=== PATIENT | female | born 1975 | race Caucasian/White ===

== ENCOUNTER → 2023-08-22 | Outpatient (CLI) | payer BC, SELFPAY ==
--- OUTSIDE RECORDS SUMMARY | 2023-08-22 16:01 | XMS RPT_ITS | CCD ---
Author Name Unknown Address [address] [place] [address] Organization [facility] Care Team Providers Care Parachute Taper Name Role Phone MigdaliazacharyEne clarknghia Unavailable Unavailable Gardilcic, Stjepan Unavailable Unavailable Jose Alfredo Dueñas Unavailable Unavailable Jose Alfredo Dueñas Unavailable Unavailable Angel, [place] Marni Unavailable Unavailable Angel, [place] Marni Unavailable Unavailable Gardilcic, Stjepan Unavailable Unavailable Gardilcic, Stjepan Unavailable Unavailable Angel, [place] Marni Unavailable Unavailable Angel, [place] Marni Unavailable Unavailable Cassandra Huerta Unavailable Unavailabl e aCssandra Huerta Unavailable Unavailabl e Margaret Hernandez Unavailable Margaret Hernandez Primary Care Provider No, Physician Primary Care Provider Unavailabl e Margaret Hernandez Primary Care Provider [phone] Margaret Hernandez Primary Care Provider David [employer]-Margaret MARTÍNEZ Primary Care Provider Margaret Hernandez CNP Primary Care Provider David [employer]-Margaret MARTÍNEZ Primary Care Provider Margaret Hernandez CNP Primary Care Provider MARGARET HERNANDEZ Primary Care Unavailable LAWSON VÁZQUEZ JR. Admitting Unavailable LAWSON VÁZQUEZ JR. Attending Unavailable Margaret Tobias Primary Care Provider TERE BELTRE Attending Unavailable TERE BELTRE Admitting Unavailable MARGARET HERNANDEZ Primary Care Unavailable TERE BELTRE Referring Unavailable MARGARET HERNANDEZ Primary Care Unavailable ZAGHLOOL, TERE S Referring Unavailable ZAGHLOOL, TERE S Attending Unavailable Hernandez Margaret MARTÍNEZ Primary Care Provider ATTILA BAILEY Attending Unavailable HERNANDEZ, MARGARET RUSSEL Primary Care Unavailable JANTE GALLAGHER Attending Unavailable KATHIE JR., LAWSON Admitting Unavailable HERNANDEZ, MARGARET RUSSEL Primary Care Unavailable HERNANDEZ, MARGARET RUSSEL Primary Care Unavailable JERI ONTIVEROS Attending Unavailable HERNANDEZ, MARGARET RUSSEL Primary Care Unavailable KATHIE JR., LAWSON Attending Unavailable KATHIE JR., LAWSON Referring Unavailable HERNANDEZ, MARGARET RUSSEL Primary Care Unavailable KATHIE JR., LAWSON Admitting Unavailable HERNANDEZ, MARGARET RUSSEL Primary Care Unavailable KATHIE JR., LAWSON Attending Unavailable HERNANDEZ, MARGARET RUSSEL Primary Care Unavailable KATHIE JR., LAWSON Attending Unavailable HERNANDEZ, MARGARET RUSSEL Primary Care Unavailable KATHIE JR., LAWSON Attending Unavailable HERNANDEZ, MARGARET RUSSEL Primary Care Unavailable DAMIEN ARMENTA Attending Unavailable HERNANDEZ, MARGARET RUSSEL Primary Care Unavailable KATHIE JR., LAWSON Attending Unavailable KATHIE JR., LAWSON Referring Unavailable KATHIE JR., LAWSON Admitting Unavailable HERNANDEZ, MARGARET RUSSEL Primary Care Unavailable HERNANDEZ, MARGARET RUSSEL Primary Care Unavailable KATHIE JR., LAWSON Attending Unavailable HERNANDEZ, MARGARET RUSSEL Primary Care Unavailable KATHIE JR., LAWSON Attending Unavailable KATHIE JR., LAWSON Referring Unavailable KATHIE JR., LAWSON Admitting Unavailable HERNANDEZ, MARGARET RUSSEL Primary Care Unavailable HERNANDEZ, MARGARET Primary Care Unavailable HERNANDEZ, MARGARET Primary Care Unavailable SELF, SELF Referring Unavailable HERNANDEZ, MARGARET Primary Care Unavailable HERNANDEZ, MARGARET Attending Unavailable HERNANDEZ, MARGARET Referring Unavailable HERNANDEZ, MARGARET Primary Care Unavailable HERNANDEZ, MARGARET Attending Unavailable SELF, SELF Referring Unavailable HERNANDEZ, MARGARET Primary Care Unavailable HERNANDEZ, MARGARET Attending Unavailable HERNANDEZ, MARGARET Attending Unavailable SELF, SELF Referring Unavailable HERNANDEZ, MARGARET Primary Care Unavailable HERNANDEZ, MARGARET Attending Unavailable SELF, SELF Referring Unavailable HERNANDEZ, MARGARET Primary Care Unavailable ZAGHLOOL, TERE S Referring Unavailable ZAGHLOOL, TERE S Attending Unavailable ZAGHLOOL, TERE S Referring Unavailable ZAGHLOOL, TERE S Attending Unavailable HERNANDEZ, MARGARET Primary Care Unavailable HERNANDEZ, MARGARET Primary Care Unavailable SELF, SELF Referring Unavailable HERNANDEZ, MARGARET Attending Unavailable HERNANDEZ, MARGARET Primary Care Unavailable HERNANDEZ, MARGARET Attending Unavailable SELF, SELF Referring Unavailable HERNANDEZ, MARGARET Primary Care Unavailable HERNANDEZ, MARGARET Referring Unavailable HERNANDEZ, MARGARET Attending Unavailable HERNANDEZ, MARGARET Primary Care Unavailable SELF, SELF Referring Unavailable HERNANDEZ, MARGARET Attending Unavailable HERNANDEZ, MARGARET Primary Care Unavailable HERNANDEZ, MARGARET Referring Unavailable TERE BELTRE Attending Unavailable HERNANDEZ, MARGARET Referring Unavailable TERE BELTRE Attending Unavailable HERNANDEZ, MARGARET Primary Care Unavailable SELF, SELF Referring Unavailable HERNANDEZ, MARGARET Primary Care Unavailable HERNANDEZ, MARGARET Attending Unavailable HERNANDEZ, MARGARET Primary Care Unavailable DAMIEN WANG Attending Unavailable Medications Current Medications Medication Drug Class(es) Dates Sig (Normalized) Sig (Original) acetaminophen 325 mg / oxyCODONE hydrochloride 5 mg oral tablet (5 sources) [employer]ioid [employer]onist Start: 11-14-2022 End: 11-21-2022 oxyCODONE-acetamin ophen (PERCOCET) 5-325 mg per tablet Indications: Hammer toe of left foot , Foot pain, left Take 1 (one) tablet by mouth every 6 (six) hours as needed for pain (Days supply per fill: 7) . 28 tablet 0 11/14/2022 11/21/2022 Active Completed/Discontinued Medications Medication Drug Class(es) Dates Sig (Normalized) Sig (Original) acetaminophen 325 mg oral tablet (1 source) Start: 06-08-2020 End: 06-08-2020 acetaminophen (TYLENOL) tablet 975 mg acetaminophen 325 mg / HYDROcodone bitartrate 5 mg oral tablet (8 sources) Opioid Agonist Start: 03-01-2023 End: 04-17-2023 take 1 tablet by mouth every four hours as needed hydroCODone-acetami nophen 5-325 MG tablet Indications: Breast pain Take 1 tablet by mouth every 4 hours as needed for up to 4 days. 12 tablet 0 03/01/2023 04/17/2023 Discontinued (Therapy completed) Problems Active Problems Problem Classification Problem Date Documented Da te Episodic/Chronic Abdominal pain (5 sources) Right lower quadrant pain; Translations: [Right lower quadrant pain] Episodic Acquired foot deformities (18 sources) Hammer toe; Translations: [Other hammer toe(s) (acquired), left foot] Onset: 3 Chronic Adjustment disorders (1 source) Brief depressive adjustment reaction; Translations: [Adjustment Reaction with Brief Depressive Reaction] Chronic Administrative/social admission (1 source) Patient encounter status; Translations: [Persons encountering health services in other specified circumstances] 12-19-2023 Episodic Anxiety disorders (20 sources) Anxiety; Translations: [Generalized anxiety disorder] Onset: 1 05-03-2021 Chronic Asthma (8 sources) Asthma; Translations: [Unspecified asthma, uncomplicated] Onset: 3 11-06-2022 Chronic Chronic obstructive pulmonary disease and bronchiectasis (5 sources) Chronic obstructive lung disease; Translations: [Chronic obstructive pulmonary disease, unspecified] Onset: 3 Chronic Diabetes mellitus without complication (1 source) Hyperglycemia; Translations: [Impaired fasting glucose] 07-17-2023 Episodic Disorders of lipid metabolism (20 sources) Mixed hyperlipidemia; Translations: [Mixed hyperlipidemia] Onset: 1 06-01-2021 Chronic Disorders of teeth and jaw (1 source) Tenderness of left temporomandibular joint; Translations: [Arthralgia of left temporomandibular joint] Episodic Disorders of teeth and jaw (1 source) Pain of right temporomandibular joint; Translations: [Arthralgia of right temporomandibular joint] E Codes: Fall (2 sources) Unspecified fall, initial encounter; Translations: [Unspecified fall, initial encounter] Onset: 3 Episodic Esophageal disorders (1 source) Disorder of esophagus; Translations: [Abnormality of esophagus] Episodic Fever of unknown origin (2 sources) Fever; Translations: [Febrile illness, acute] Episodic Headache; including migraine (1 source) Tension-type headache Episodic Hemorrhoids (1 source) External hemorrhoids without complication; Translations: [Residual hemorrhoidal skin tags] 06-15-2023 Episodic Immunizations and screening for infectious disease (1 source) Contact with and (suspected) exposure to other viral communicable diseases; Translations: [Suspected COVID-19 virus infection] Episodic Malaise and fatigue (1 source) Fatigue; Translations: [Other fatigue] 07-31-2023 Episodic Miscellaneous mental health disorders (20 sources) Primary insomnia; Translations: [Primary insomnia] Onset: 1 05-03-2021 Chronic Mood disorders (20 sources) Severe recurrent major depression without psychotic features; Translations: [Recurrent major depressive episodes, moderate ] Onset: 1 05-03-2021 Chronic Other aftercare (2 sources) Follow-up status; Translations: [Encounter for follow-up examination after completed treatment for conditions other than malignant neoplasm] Episodic Other aftercare (2 sources) Surgical follow-up; Translations: [Encounter for follow-up examination after completed treatment for conditions other than malignant neoplasm] 12-07-2022 Episodic Other aftercare (1 source) Postoperative visit; Translations: [Encounter for other specified surgical aftercare] 03-19-2023 Episodic Other gastrointestinal disorders (3 sources) Irritable bowel syndrome with diarrhea; Translations: [Irritable bowel syndrome with diarrhea] Chronic Other gastrointestinal disorders (1 source) Chronic constipation; Translations: [Other constipation] Episodic Other gastrointestinal disorders (1 source) Constipation; Translations: [Constipation, unspecified] Episodic Other gastrointestinal disorders (2 sources) Abdominal bloating; Translations: [Abdominal distension (gaseous)] Episodic Other gastrointestinal disorders (1 source) Diarrhea; Translations: [Diarrhea, unspecified] Episodic Other gastrointestinal disorders (1 source) Functional diarrhea; Translations: [Functional diarrhea] Episodic Other lower respiratory disease (1 source) Lower respiratory tract infection; Translations: [Lower respiratory tract infection] Episodic Other lower respiratory disease (1 source) Dyspnea; Translations: [Dyspnea, unspecified type] Episodic Other lower respiratory disease (1 source) Cough; Translations: [Cough, unspecified type] Episodic Other lower respiratory disease (1 source) Snoring; Translations: [Snoring] 07-17-2023 Episodic Other non-traumatic joint disorders (3 sources) Pain in right knee; Translations: [Pain in joint, lower leg] Onset: 3 07-03-2023 Episodic Other nutritional; endocrine; and metabolic disorders (2 sources) Body mass index 30+ - obesity; Translations: [Obesity (BMI 30-39.9)] Chronic Other nutritional; endocrine; and metabolic disorders (1 source) Hypocalcemia; Translations: [Hypocalcemia] Chronic Other nutritional; endocrine; and metabolic disorders (20 sources) Obese class I; Translations: [Obesity, unspecified] Onset: 1 05-03-2021 Chronic Other nutritional; endocrine; and metabolic disorders (20 sources) Obesity; Translations: [Other obesity due to excess calories] Onset: 1 05-03-2021 Chronic Other nutritional; endocrine; and metabolic disorders (4 sources) Obesity caused by energy imbalance; Translations: [Other obesity due to excess calories] Onset: 1 05-03-2021 Chronic Other nutritional; endocrine; and metabolic disorders (1 source) Overweight in adulthood with body mass index of 25 or more but less than 30; Translations: [Body mass index (BMI) 28.0-28.9, adult] Episodic Other nutritional; endocrine; and metabolic disorders (1 source) Polyphagia; Translations: [Polyphagia] 07-31-2023 Episodic Other screening for suspected conditions (not mental disorders or infectious disease) (2 sources) Mammography abnormal; Translations: [Other abnormal and inconclusive findings on diagnostic imaging of breast] Episodic Other upper respiratory infections (1 source) Viral upper respiratory tract infection; Translations: [Viral URI] Episodic Sprains and strains (1 source) Sprain of unspecified ligament of right ankle, initial encounter; Translations: [Sprain of right ankle, unspecified ligament, initial encounter] Episodic Substance-related disorders (8 sources) Nicotine dependence; Translations: [Nicotine dependence, unspecified, uncomplicated] Onset: 3 11-06-2022 Chronic Unclassified (1 source) Sprain of left ankle; Translations: [Sprain of left ankle, unspecified ligament, initial encounter] Viral infection (2 sources) Disease caused by 2019-nCoV; Translations: [COVID-19] Episodic Past or Other Problems Problem Classification Problem Date Documented Da te Episodic/Chronic Calculus of urinary tract (20 sources) Ureteric stone; Translations: [Calculus of ureter] Onset: 06-28-2021 Episodic Mood disorders (20 sources) Mood disorders; Translations: [Depression, unspecified] Onset: 08-23-2021 Resolved: 04-17-2023 08-23-2021 Nonmalignant breast conditions (20 sources) Lump in lower outer quadrant of left breast; Translations: [Unspecified lump in the left breast, lower outer quadrant] Onset: 01-29-2023 Episodic Other aftercare (4 sources) Encounter for follow-up examination after completed treatment for conditions other than malignant neoplasm; Translations: [Encounter for follow-up examination after completed treatment for conditions other than malignant neoplasm] Onset: 09-19-2022 Episodic Other connective tissue disease (16 sources) Pain in left foot; Translations: [Pain in left foot] Onset: 10-03-2022 Episodic Other nutritional; endocrine; and metabolic disorders (2 sources) Body mass index (BMI) 28.0-28.9, adult; Translations: [Body mass index (BMI) 28.0-28.9, adult] Onset: 11-01-2022 Episodic Skin and subcutaneous tissue infections (2 sources) Local infection of the skin and subcutaneous tissue, unspecified; Translations: [Local infection of the skin and subcutaneous tissue, unspecified] Onset: 01-23-2023 Episodic Unclassified (1 source) Onset: 07-31-2023 07-31-2023 Results Test Name Value Interpretation Reference Range Facil ity Vital Signs Date Time Vital Sign Value Performing Clinician Faci lity 07-31-2023 14:00-0500 Body height 157.5 cm Sheryl Hebert [employer] Work Phone: [facility] 07-31-2023 14:00-0500 Body mass index (BMI) [Ratio] 35.96 kg/m2 Sheryl Anup [facility] Work Phone: [facility] 07-31-2023 14:00-0500 Body temperature 97.7 [degF] Sheryl Hebert [facility] Work Phone: [facility] 07-31-2023 14:00-0500 Body weight 89.18 kg Sheryl Hebert [facility] Work Phone: [facility] 07-31-2023 14:00-0500 Diastolic blood pressure 102 mm[Hg] Sheryl Hebert [employer] Work Phone: [facility] 07-31-2023 14:00-0500 Heart rate 107 /min Sheryl Hebert [facility] Work Phone: [facility] 07-31-2023 14:00-0500 Respiratory rate 20 /min Sherylkayy Hebert [facility] Work Phone: [facility] 07-31-2023 14:00-0500 SaO2% (BldA) [Mass fraction] 98 % Sherylkayy Hebert [facility] Work Phone: [facility] 07-31-2023 14:00-0500 Systolic blood pressure 149 mm[Hg] Sheryl Hebert [employer] Work Phone: [facility] 07-17-2023 07:58-0500 Body height 157.5 cm Margaret Hernandez [employer] Work Phone: [facility] Encounters Encounter Date Encounter Type Care Provider Facility Start: 07-31-2023 End: 07-31-2023 Office outpatient new 45 minutes Sheryl Hebert [employer] Work Phone: [facility] Procedures Date Procedure Procedure Detail Performing Clinician Start: 07-16-2023 Lipid 1996 panel - Serum or Plasma Margaret Hernandez [employer] Work Phone: Start: 07-03-2023 Arthrocentesis aspir&/inj major jt/bursa w/o Damien Armenta MD Work Phone: Start: 03-01-2023 Assay of magnesium Tere Blackmonol DO Work Phone: Start: 03-01-2023 Complete blood count with white cell differential, automated Tere Blackmonol DO Work Phone: Start: 02-28-2023 Electrolyte panel Tere Blackmonol DO Work Phone: Start: 02-28-2023 Cultyp nuc acid amp prb cult/isolate ea orgnism Tere Zaratelool DO Work Phone: Start: 02-28-2023 End: 02-28-2023 Mastectomy simple complete Tere Zaratel ool DO Work Phone: Start: 01-04-2023 Follow-up visit Follow-up LAWSON VÁZQUEZ JR. Start: 12-21-2022 Radex foot complete minimum 3 views Lawson Vázquez DPM Work Phone: Start: 10-31-2022 Lipid 1996 panel - Serum or Plasma Margaret Hernandez [employer] Work Phone: Start: 09-19-2022 End: 09-19-2022 Diagnostic mammography computer-aided detcj bi Tere Blackmonol DO Work Phone: Start: 06-22-2022 Iaadiadoo influenza Fátima Bradley [employer] Work Phone: Start: 06-22-2022 SARS-COV-2 RAPID Fátima Bradley [employer] Work Phone: Start: 03-16-2022 Bx breast w/device 1st lesion ultrasound guid Tere Beltre DO Work Phone: Start: 03-08-2022 Diagnostic mammography computer-aided detcj uni Margaret Hernandez [employer] Work Phone: Start: 02-20-2022 Lipid 1996 panel - Serum or Plasma Margaret Hernandez [employer] Work Phone: Start: 01-02-2022 End: 01-02-2022 Colonoscopy Margaret Hernandez [employer] Work Phone: Start: 11-21-2021 AIRWAY ETT Abelardo SPEARS Work Phone: Start: 06-30-2021 Basic metabolic panel calcium total Gladis Palmer MD Work Phone: Start: 06-30-2021 C-reactive protein Tammie Hastings [facility] Work Phone: Start: 06-29-2021 XR OR FLUOROSCOPY TIME Gladis Palmer MD Work Phone: Start: 06-29-2021 End: 06-29-2021 CYSTOSCOPY WITH RETROGRADE STONE MANIPULATION STENT INSERTION Gladis Palmer MD Work Phone: Start: 06-29-2021 End: 06-29-2021 CYSTOSCOPY WITH URETERAL STENT REMOVAL Gladis Palmer MD Work Phone: Start: 06-29-2021 End: 06-29-2021 CYSTOSCOPY WITH URETEROSCOPY Gladis car MD Work Phone: Start: 06-29-2021 SARS-CoV-2 (COVID-19) RNA [Presence] in Respiratory specimen by DEMOND with probe detection Tere Chavez MD Work Phone: Start: 06-29-2021 Basic metabolic panel calcium total Gladis Palmer MD Work Phone: Start: 06-28-2021 SARS-CoV-2 (COVID-19) RNA [Presence] in Respiratory specimen by DEMOND with probe detection Gladis Palmer MD Work Phone: Start: 05-23-2021 Lipid 1996 panel - Serum or Plasma Margaret Hernandez [employer] Work Phone: Start: 05-23-2021 Mammography Gladis Palmer MD Work Phone: Start: 06-17-2020 Diagnostic radiography of chest, combined PA and lateral Chelle Bridges Work Phone: Start: 06-10-2020 CT angiography of pulmonary artery Amalia Ling Work Phone: Start: 06-10-2020 Complete blood count with white cell differential, automated Amalia Guevara Anuradha Work Phone: Start: 06-10-2020 Complete blood count with white cell differential, manual Amalia Nealmegan Ling Work Phone: Start: 06-10-2020 Comprehensive metabolic 2000 panel - Serum or Plasma Amalia Nealmegan Ling Work Phone: Start: 06-10-2020 INR in Platelet poor plasma by Coagulation assay Amalia Ling Work Phone: Start: 06-10-2020 Magnesium [Mass/volume] in Serum or Plasma Amalia Ling Work Phone: Start: 06-10-2020 Red blood cell morphology Amalia Russel Ling Work Phone: Start: 06-10-2020 COVID-19, MOLECULAR Amalia Nealmegan Ling Work Phone: Start: 06-08-2020 CT angiography of pulmonary artery Amalia Ling Work Phone: Start: 06-08-2020 Basic metabolic 2000 panel - Serum or Plasma Annalisa Ortiz Work Phone: Start: 06-08-2020 Comprehensive metabolic 2000 panel - Serum or Plasma Annalisa Ortiz Work Phone: Start: 06-08-2020 D-dimer assay, quantitative Amalia Ly nn Anuradha Work Phone: Start: 06-08-2020 INR in Platelet poor plasma by Coagulation assay Annalisa Ortiz Work Phone: Start: 06-08-2020 Magnesium [Mass/volume] in Serum or Plasma Annalisa Ortiz Work Phone: Start: 06-08-2020 Troponin measurement Annalisa Ortiz Work Phone: Start: 06-08-2020 Complete blood count with white cell differential, automated Annalisa Ortiz Work Phone: Start: 06-08-2020 Complete blood count with white cell differential, manual Annalisa Ortiz Work Phone: Start: 06-08-2020 Radiologic exam chest single view Annalisa Ortiz Work Phone: Start: 06-08-2020 12 lead ECG Annalisa Ortiz Work Phone: Start: 06-08-2020 COVID-19, MOLECULAR Annalisa Ortiz Work Phone: Start: 07-05-2019 Ethanol [Mass/volume] in Serum or Plasma Polly Funez Work Phone: Start: 07-05-2019 Choriogonadotropin ( test) [Presence] in Urine Polly Funez Work Phone: Start: 07-05-2019 Drugs of abuse urine screening test Polly Funez Work Phone: Start: 02-09-2019 X-ray of left ankle Mirta Reyes Work Phone: Start: 02-09-2019 X-ray of left foot Mirta Reyes Work Phone: Start: 12-19-2018 X-ray of right foot Shan Crowe Work Phone: Start: 12-19-2018 X-ray of right ankle Shan Crowe Work Phone: Start: 12-12-2018 X-ray of left foot Mirta Reyes Work Phone: Start: 12-12-2018 Basic metabolic 1998 panel - Serum or Plasma Mirta Reyes Work Phone: Start: 12-12-2018 Complete blood count with white cell differential, automated Mirta Reyes Work Phone: Start: 12-12-2018 Complete blood count with white cell differential, manual Mirta Reyes Work Phone: Start: 12-12-2018 Manual Differential panel - Blood Mirta Reyes Work Phone: Start: 12-12-2018 Red blood cell morphology Mirta Villagran Work Phone: Start: 02-18-2018 Lipid 1996 panel - Serum or Plasma Margaret Hernandez Plan of Treatment Date Care Activity Detail Author Start: 12-17-2039 PNEUMOCOCCAL VACCINE SERIES (2 of 2 - PPSV23) PNEUMOCOCCAL VACCINE SERIES (2 of 2 - PPSV23) [facility] Start: 12-17-2039 Pneumococcal Vaccine: Ped or At-Risk (2 of 2 - PPSV23) Pneumococcal Vaccine: Ped or At-Risk (2 of 2 - PPSV23) [facility] Start: 01-03-2032 Screening for malignant neoplasm of colon [facility] Start: 07-16-2028 Lipid panel LIPID SCREENING [facility] Start: 11-01-2027 Lipid panel LIPID SCREENING [facility] Start: 02-20-2027 Fasting lipid profile LIPID SCREENING [facility] Start: 02-20-2027 Lipid panel LIPID SCREENING [facility] Start: 05-23-2026 Fasting lipid profile LIPID SCREENING [facility] Start: 10-17-2023 End: 10-17-2023 Patient encounter procedure 10/17/2023 8:15 AM EST Office Visit [facility] [address] [facility] [place] [address] Margaret Hernandez [employer] [address] [place] [phone] [facility] Start: 09-20-2023 End: 09-20-2023 Patient encounter procedure 09/20/2023 1:30 PM EST Office Visit [facility] [address] [place] [address] Lupe Hernandez, [employer] [address] [place] [address] [facility] Start: 09-19-2023 Screening for malignant neoplasm of breast [facility] Start: 09-12-2023 End: 09-12-2023 Patient encounter procedure 09/12/2023 2:30 PM EST Office Visit [address] [phone] Sheryl Hebert, [employer] [address] [place] [id number] [facility] Start: 07-31-2023 End: 07-31-2023 Patient encounter procedure 07/31/2023 2:00 PM EST Office Visit [address] [phone] Sheryl Hebert, [employer] [address] [place] [id number] [facility] Start: 07-17-2023 End: 07-17-2023 Patient encounter procedure [facility] Start: 04-17-2023 End: 04-16-2024 Complete blood count with white cell differential, automated CBC, EDIF, PLATELET Lab Routine Mixed hyperlipidemia Expected: 04/17/2023 (Approximate), Expires: 04/16/2024 [facility] Immunizations Immunization Date Immunization Notes Care Provider Inez funk 03-17-2011 pneumococcal polysaccharide vaccine, 23 valent [facility] Work Phone: Payers Date Payer Category Payer Unknown [id number] 2021 Unknown ANTHEM ANTHEM HM O PPO POS [id number] 2021-Present [address] [place] [address] [id number] [id number]. [id number] 2021 Unknown [id number] 2016 Unknown xxxxxxxxxxxxxxx [id number]. [id number] 2016 Unknown ANTHEM ANTHEM HM O PPO POS [id number] 2016-Present [id number] 1.2.840.645995.1.13.172.2.7.3. [id number] 1974 Unknown [id number] 2.16.840.1.057645.3.579.2.903 1974 Unknown [id number] 2.16.840.1.441372.3.579.2. 1974 Unknown [id number] 2.16.840.1.040590.3.579.2.98 1974 Unknown [id number] 2.16.840.1.511016.3.579.2.90 1974 Unknown [id number] 2.16.840.1.167232.3.579.2. 1974 Unknown [id number] 2.16.840.1.184072.3.579.2.903 1974 Unknown [id number] 2.16.840.1.190767.3.579.2.3 1974 Unknown [id number] 2.16.840.1.186820.3.579.2. 1974 Unknown [id number] 2.16.840.1.886704.3.579.2. 1974 Unknown [id number] 2.16840.1.360050.3.579.2 1974 Unknown [id number] 2.16.840.1.724592.3.579.2. 1974 Unknown [id number] 2.16840.1.450771.3.579.2 1974 Unknown [id number] 2.16840.1.268629.3.579.2 1974 Unknown [id number] 2.840.1.946617.3.579.2. 1974 Unknown [id number] 2.840.1.932982.3.579.2 1974 Unknown [id number] 2.840.1.523915.3.579.2. 1974 Unknown [id number] 2.840.1.601420.3.579.2. 1974 Unknown [id number] 2.840.1.765590.3.579.2. 1974 Unknown [id number] 2.16840.1.356711.3.579.2 1974 Unknown [id number] 2.16840.1.490390.3.579.2. 1974 Unknown [id number] 2.16840.1.086496.3.579.2. 1974 Unknown [id number] 2.16840.1.542875.3.579.2. 1974 Unknown [id number] 2.16.840.1.278410.3.579.2.983 1974 Unknown [id number] 2.16.840.1.106199.3.579.2.983 1974 Unknown [id number] 2.16.840.1.689204.3.579.2.983 1974 Unknown [id number] 2.16.840.1.810446.3.579.2.98 1974 Unknown [id number] 2.16.840.1.368488.3.579.2.983 1974 Unknown [id number] 2.16.840.1.684860.3.579.2.983 1974 Unknown [id number] 2.16.840.1.882570.3.579.2.983 1974 Unknown [id number] 2.16.840.1.211587.3.579.2.983 1974 Unknown [id number] 2.16.840.1.801197.3.579.2.983 1974 Unknown [id number] 2.16.840.1.511669.3.579.2.983 1974 Unknown [id number] 2.16.840.1.235581.3.579.2.983 1974 Unknown [id number] 2.16.840.1.972194.3.579.2.983 [facility] [id number] Social History Date Type Detail Facility Start: 07-23-2018 End: 11-06-2022 Tobacco smoking status NHIS Current every day smoker [facility] End: 04-07-2023 History of tobacco use Cigarette Smoker [facility] Work Phone: Start: 07-23-2018 End: 04-17-2023 Cigarettes smoked current (pack per day) - Reported [facility] Start: 1975 Sex Assigned At Not on file [facility] Work Phone: Start: 08-26-2018 End: 06-22-2022 Tobacco Comment [facility] Start: 12-11-2018 End: 06-10-2020 History SDOH Alcohol Frequency 1 [facility] Start: 07-05-2019 End: 01-16-2023 Alcohol intake Lifetime non-drinker (finding) [facility] Start: 06-08-2020 End: 07-17-2023 Tobacco use and exposure Never used [facility] Exposure to SARS-CoV -2 (event) Yes [facility] Start: 11-11-2021 End: 02-28-2023 Exposure to SARS-CoV-2 (event) Not sure [facility] Start: 06-17-2020 End: 07-31-2023 Alcohol intake Current non-drinker of alcohol (finding) [facility] Start: 09-04-2022 Tobacco Comment Tried to stop no success [facility] Start: 06-10-2020 End: 04-17-2023 Alcohol Use Disorder Identification Test - Consumption [AUDIT-C] [facility] How often to you hav e a drink containing alcohol? Never [facility] Average Number of Drinks [facility] Start: 12-11-2018 Gender identity Identifies as female gender (finding) [facility] Start: 12-11-2018 Sexual orientation Heterosexual (finding) [facility] Start: 02-20-2023 End: 07-03-2023 Alcohol intake Ex-drinker (finding) [facility] Start: 07-17-2023 Tobacco smoking status NHIS Ex-smoker [facility] End: 04-07-2023 History of tobacco use Current smoker [facility] em Medical Equipment Procedure Code Equipment Code Equipment Origin al Text Equipment Identifier Dates Stent 4.6fr X 24 cm Ureteral With Monofilament Tether - Sna [id number]( [id number], [id number] FDA Start: 06-29-2021 Stent 6fr 24cm Ureteral Blue Diamond - Sna [id number]( [id number], [id number], [id number] FDA Start: 06-25-2021 Stent 6fr X 24cm Ureter W/O Wire - [id number] [facility] Start: 07-29-2021 Hattie [id number] X 9i n Smooth Dbl Dmd Pt - Sna [id number] Start: 11-20-2022 Clinical Notes 12-24-2020 to 07-31-2023 Le William - 07/31/2023 2:00 PM Phani Parekh LPN - 07/31/2023 2:00 PM Troy Hebert CNP - 07/31/2023 2:00 PM Juan C López MA - 07/17/2023 8:00 AM ESTDischarge Instructions Note Date & Type Note Facility 07-31-2023 History of Presen t illness Narrative Office Visit Clinical Staff Note: Brief Weight History - Medical Weight Loss Program Starting Weight: Office Visit Clinical Staff Note: Brief Weight History - Always has been heavier patient stated. Family history of obesity Medical Weight Loss Program Starting Weight: 196.6 Patient here for Medical Weight Loss [place]: Heydi Dill is a 47 y.o. y.o. female who presents today with the complaint of obesity. She states that she has had gradual weight gain and would like to have assistance with weight loss. Goal of Medical Weight Loss: She wants to feel healthy Do you ever eat excessive amounts of food in a short period of time?: Yes On average, how often do you do this?: once or twice a day Do you feel remorse or distressed over this eating pattern?: Yes Behavior change/strategies to overcome barriers: Use to smoke and when she would smoke that would help her fight her cravings to eat. Now that she has stopped smoking she doesn't try any Behavior modifications to help with cravings. Lifetime weight/dieting history: Cabbage soup diet and not eating after 6 pm. Current eating pattern: Eats 2 times a day . For breakfast she usually drinks a can of Dr Wright. She will drink 3 cans a day and water in between meals. Lunch is typically sandwich( deli sandwich) and chips small bag of chips. Snacking in between breakfast and lunch and lunch and dinner on chips cookies candy . She is waking up in middle of the night and eating. Dinner is a typically meat 2 starchy veggies and a dessert. Peanut butter pie. Types of overeating (snacking, eating at night, large meals): snacking Exercise habits: walking daily at work. During summer hours she walks to work and back. She has used prescription medication for weight loss in the past. Including: phentermine and Wegovy. On phentermine she had results. She lost 16 pounds and on the last month while on medication she gained 12 pounds. She feels that her last month on medication depression played a role in her eating habits. She was doing a lot of emotional eating. Wegovy - Didn't lose anything. PMH: Denies heart disease, seizure disorder, Has history of hyperlipidemia, BECKY, Depression, COPD. She does have: Patient Active Problem List Diagnosis Date Noted Mass of left breast 02/05/2023 Kidney stones 07/28/2021 Right ureteral stone 06/28/2021 Mixed hyperlipidemia 06/01/2021 Obesity (BMI 30.0-34.9) 05/03/2021 Generalized anxiety disorder 05/03/2021 Moderate episode of recurrent major depressive disorder 05/03/2021 Class 1 obesity due to excess calories with serious comorbidity and body mass index (BMI) of 32.0 to 32.9 in adult 05/03/2021 Primary insomnia 05/03/2021 REVIEW OF SYSTEMS: GENERAL: Negative for malaise, significant weight loss and fever HEAD: Negative for headache, swelling. NECK: Negative for lumps, goiter, pain and significant neck swelling RESPIRATORY: Negative for cough, wheezing or shortness of breath. CARDIOVASCULAR: Negative for chest pain, leg swelling or palpitations. GI: Negative for abdominal discomfort, blood in stools or black stools or change in bowel habits : No history of dysuria, frequency or incontinence MUSCULOSKELETAL: Negative for joint pain or swelling, back pain or muscle pain. SKIN: Negative for lesions, rash, and itching. PSYCH: Negative for sleep disturbance, mood disorder and recent psychosocial stressors. ENDOCRINE: Negative for cold or heat intolerance, polyuria, polydipsia and goiter. PHYSICAL EXAM: Visit Vitals BP (!) 149/102 (BP Location: Right arm, BP Position: Sitting) Pulse 107 Temp 97.7 F (36.5 C) Resp 20 Ht 1.575 m (5' 2 ) Wt 89.2 kg (196 lb 9.6 oz) SpO2 98% BMI 35.96 kg/m General appearance: obese, NAD Neuro: AOx3 Lungs: clear to percussion and auscultation Heart: regular rhythm and S1, S2 normal Abdomen: soft, non-tender, no masses, no organomegaly Extremities: Normal exam of the extremities. No swelling or pain. Psych: no hurried speech, no flight of ideas, normal affect Past Medical History Includes Her Wt Readings from Last 3 Encounters: 07/31/23 89.2 kg (196 lb 9.6 oz) 07/17/23 86.1 kg (189 lb 14.4 oz) 06/15/23 80.6 kg (177 lb 9.6 oz) and current Body mass index is 35.96 kg/m . Waist circumference:> 35 inches BMR= 1900 Assessment/Plan Here today for medically managed weight loss therapy. 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 We have discussed with patient that all health optimization treatment is voluntary. Risks and benefits have been discussed of medically managed weight loss treatments. Patient elects to start managed weight loss therapy and topiramate 25 mg daily. Patient has been on phentermine previously, worked until the last month on it she noticed a gain of 12 pounds. We have discussed dietary changes such as decreasing high sugar calorie drinks. - Referral to nutrition for medical weight loss. Patient should journal foods including calories consumed in liquids. - 0900-3248 calories a day - Protein for each meal - Decrease or eliminate Dr Pepper and other high calorie high sugar drinks - Increase exercise - Increase water intake - topiramate 25 mg sent to pharmacy - Reference sheets provided on AVS - DISPOSITION follow up in 6 weeks At least 40 minutes was spent with patient face to face performing exam, discussing progress, diet, exercise, education and plan of care for the following month. Additional time was spent review of chart and documentation of today's visit. documented in this encounter [facility] 07-17-2023 History of Presen t illness Narrative Obesity: She has not lost weight in the past 3 month(s) . Patient's initial weight upon starting medication was 187lb on 04/17/2023. A 5% loss (9.35lb) of their starting weight is 177.67 lb. Today, patient weighs 189.9 lbs. She is following a recommended dietary plan of better choices and is exercising regularly. She is taking medication to help with weight loss ( Adipex ). She denies having medication side effects. Wt Readings from Last 3 Encounters: 07/17/23 86.1 kg (189 lb 14.4 oz) 06/15/23 80.6 kg (177 lb 9.6 oz) 04/17/23 85.1 kg (187 lb 9.6 oz) Heydi states that she feels as if the adipex was not effective this time. Subjective History of Present Illness Heydi Dill is a 47 y.o. female who comes in for evaluation of the following complaints: had concerns including Weight Loss, Lab Review, and Sleep Problem. Obesity: She has not lost weight in the past 3 month(s) . Patient's initial weight upon starting medication was 187lb on 04/17/2023. A 5% loss (9.35lb) of their starting weight is 177.67 lb. Today, patient weighs 189.9 lbs. She is following a recommended dietary plan of better choices but still struggles with her appetite and is exercising regularly. She is taking medication to help with weight loss ( Adipex ). She denies having medication side effects. Wt Readings from Last 3 Encounters: 07/17/23 86.1 kg (189 lb 14.4 oz) 06/15/23 80.6 kg (177 lb 9.6 oz) 04/17/23 85.1 kg (187 lb 9.6 oz) Heydi states that she feels as if the adipex was not effective this time. She had tried Wegovy in the past which was also not effective. Requesting referral to bariatric clinic. She has always snored at night but her snoring has worsened with the weight gain and she notes more fatigue. 07/16/2023 labs: Fasting glucose 114, TSH 0.398/FT4 1.20, CBC WNL, Chol/HDL ratio 4.20. has a past medical history of Asthma, Bipolar disorder, Depression, Endometriosis, Exposure to hepatitis B, Generalized anxiety disorder, Hearing loss, History of kidney stones, Migraine, and Rheumatic fever. She has no past medical history of Difficult intubation. Outpatient Medications Prior to Visit: Albuterol 108 (90 Base) MCG/ACT Aero Soln inhaler, Inhale 2 puffs every 4 hours as needed for Shortness of Breath or Wheezing. Atorvastatin 20 MG tablet, Take 1 tablet by mouth daily. FLUoxetine 40 MG capsule, Take 1 capsule by mouth daily. hydrOXYzine HCl 25 MG tablet, Take 1 tablet by mouth 3 times daily as needed for Anxiety or Insomnia. phentermine 37.5 MG tablet, Take 1 tablet by mouth every morning before breakfast. Lidocaine 5 % Cream, Apply 1 Application topically 3 times daily as needed (rectal pain). has No Known Allergies. Objective Review of Systems Constitutional: Positive for fatigue. Negative for appetite change, chills, diaphoresis, fever and unexpected weight change. HENT: Negative for congestion, ear pain, hearing loss, rhinorrhea, sore throat and trouble swallowing. Eyes: Negative for pain, discharge, redness and visual disturbance. Respiratory: Negative for apnea, cough, choking, chest tightness, shortness of breath and wheezing. Cardiovascular: Negative for chest pain, palpitations and leg swelling. Gastrointestinal: Negative for abdominal distention, abdominal pain, anal bleeding, blood in stool, constipation, diarrhea and nausea. Endocrine: Negative. Genitourinary: Negative for decreased urine volume, difficulty urinating, dysuria, flank pain, frequency, hematuria and urgency. Musculoskeletal: Negative for arthralgias, back pain, gait problem, joint swelling, myalgias and neck pain. Skin: Negative. Allergic/Immunologic: Negative. Neurological: Negative for dizziness, tremors, syncope, weakness, light-headedness, numbness and headaches. Hematological: Negative. Psychiatric/Behavioral: Negative. Vitals: Blood pressure 132/70, pulse 93, temperature 96.1 F (35.6 C), resp. rate 18, height 1.575 m (5' 2 ), weight 86.1 kg (189 lb 14.4 oz), SpO2 97 %. Physical Exam Vitals and nursing note reviewed. Constitutional: Appearance: Normal appearance. She is obese. Cardiovascular: Rate and Rhythm: Normal rate and regular rhythm. Heart sounds: Normal heart sounds. Pulmonary: Effort: Pulmonary effort is normal. Breath sounds: Normal breath sounds. Skin: General: Skin is warm and dry. Neurological: Mental Status: She is alert and oriented to person, place, and time. Psychiatric: Mood and Affect: Mood normal. Behavior: Behavior normal. Thought Content: Thought content normal. Judgment: Judgment normal. Neurological Exam Mental Status Alert. Oriented to person, place, and time. Assessment and Plan 1. Elevated fasting glucose Will get A1c and follow up on results. - HEMOGLOBIN A1C; Future 2. Class 1 obesity due to excess calories with serious comorbidity and body mass index (BMI) of 34.0 to 34.9 in adult She did not lose at least 5% of her starting weight. I reminded her of the State's rules regarding weight loss. I will not refill the Rx today. Weight loss has been encouraged by following dietary restrictions (a balanced diet of mainly whole food plant-based diet with less animal protein, no refined CHO's (including wheat products), and fat), and aerobic exercise. - AMB REFERRAL TO WEIGHT MANAGEMENT 3. Snores Referral to sleep clinic. - AMB REFERRAL TO SLEEP MEDICINE Return to clinic in 3 months or sooner prn. documented in this encounter [facility] 07-03-2023 History of Presen t illness Narrative Associated Order(s): LG Jt Injection/Arthrocentesis: R knee Post-Procedure Diagnose(s): Acute pain of right knee LG Jt Injection/Arthrocentesis: R knee Performed by: Damien Armenta MD Authorized by: Damien Armenta MD [facility] [id number] - Large Joint Arthrocentesis: Consent given by: Patient Timeout performed at: 07/03/2023 10:00 AM Physician or proceduralist has discussed critical or nonroutine steps, procedure duration and anticipated blood loss: Yes Supporting Documentation: Indications: Pain Procedure Details: Location: Knee Site: R knee Needle size: 22 G Medications: 40 mg methylPREDNISolone acetate 40 mg/mL Anesthetic used: Lidocaine 1% OPG [address] (11) [facility] [address] [facility] [id number] Heydi Dill is a 47 y.o. female being seen today, 07/03/23, Chief Complaint Patient presents with Right Knee - Pain [chief complaint] right knee pain HPI Dictation: This lady fell directly on the anterior aspect of her right knee 2 weeks ago with persistent anterior knee pain with x-rays show no acute findings [hpi] Physical Exam Dictation: [PE] on exam there is no patellofemoral crepitance there is a healing abrasion over the anterior aspect of her knee there is no effusion crepitance she has full range of motion Assessment and Plan Dictation: [AP] fusion possibly some mild DJD on plain film plan intra-articular injection performed we will see her back in 2 weeks if not improved I have reviewed all relevant histories, medications, allergies, and problem list items with Heydi Dill during this visit. Review of Systems Constitutional: Negative for chills and fever. HENT: Negative for congestion. Respiratory: Negative for shortness of breath. Cardiovascular: Negative for chest pain. Gastrointestinal: Negative for diarrhea, nausea and vomiting. Neurological: Negative for headaches. Psychiatric/Behavioral: Negative for behavioral problems. There were no vitals taken for this visit. Imaging: No results found. 1. Acute pain of right knee Return in about 2 weeks (around 07/17/2023), or if symptoms worsen or fail to improve. Damien Armenta MD documented in this encounter [facility] 06-15-2023 History of Presen t illness Narrative Hemorrhoids: Heydi is here to be examined due to painful hemorrhoids. He states this has been going for about 2 weeks. She has used hemorrhoid creams, wipes, suppositories,and tried sids bath. She states they have all been ineffective. She advised that the last time she had a hemorrhoid that she had to have surgery on it. She verified that it has been greater than ten years ago. She has problems with stting, laying and standing. She rates her pain 7/10. Subjective History of Present Illness Heydi Dill is a 47 y.o. female who comes in for evaluation of the following complaints: had concerns including Hemorrhoids. Hemorrhoids: Heydi is here to be examined due to painful hemorrhoids. She states this has been going for about 2 weeks. She has used OTC hemorrhoid creams, wipes, suppositories,and tried sitz bath. She states they have all been ineffective. She advised that the last time she had a hemorrhoid that she had to have surgery on it. She verified that it has been greater than ten years ago. She has problems with stting, laying and standing. She rates her pain 7/10 to the rectal area. She denies abdominal pain. Her BM's have been daily and soft. Denies to blood in the stool. has a past medical history of Asthma, Bipolar disorder, Depression, Endometriosis, Exposure to hepatitis B, Generalized anxiety disorder, Hearing loss, History of kidney stones, Migraine, and Rheumatic fever. She has no past medical history of Difficult intubation. Outpatient Medications Prior to Visit: Albuterol 108 (90 Base) MCG/ACT Aero Soln inhaler, Inhale 2 puffs every 4 hours as needed for Shortness of Breath or Wheezing. Atorvastatin 20 MG tablet, Take 1 tablet by mouth daily. FLUoxetine 40 MG capsule, Take 1 capsule by mouth daily. hydrOXYzine HCl 25 MG tablet, Take 1 tablet by mouth 3 times daily as needed for Anxiety or Insomnia. phentermine 37.5 MG tablet, Take 1 tablet by mouth every morning before breakfast. has No Known Allergies. Objective Review of Systems Constitutional: Negative for appetite change, chills, diaphoresis, fatigue, fever and unexpected weight change. HENT: Negative for congestion, ear pain, hearing loss, rhinorrhea, sore throat and trouble swallowing. Eyes: Negative for pain, discharge, redness and visual disturbance. Respiratory: Negative for apnea, cough, choking, chest tightness, shortness of breath and wheezing. Cardiovascular: Negative for chest pain, palpitations and leg swelling. Gastrointestinal: Positive for rectal pain. Negative for abdominal distention, abdominal pain, anal bleeding, blood in stool, constipation, diarrhea and nausea. Endocrine: Negative. Genitourinary: Negative for decreased urine volume, difficulty urinating, dysuria, flank pain, frequency, hematuria and urgency. Musculoskeletal: Negative for arthralgias, back pain, gait problem, joint swelling, myalgias and neck pain. Skin: Negative. Allergic/Immunologic: Negative. Neurological: Negative for dizziness, tremors, syncope, weakness, light-headedness, numbness and headaches. Hematological: Negative. Psychiatric/Behavioral: Negative. Vitals: Blood pressure (!) 162/92, pulse 113, temperature 96.5 F (35.8 C), resp. rate 18, height 1.6 m (5' 3 ), weight 80.6 kg (177 lb 9.6 oz), SpO2 97 %. Physical Exam Vitals and nursing note reviewed. Exam conducted with a minister of religion present (Julita López MA). Constitutional: Appearance: Normal appearance. She is obese. Genitourinary: Exam position: Knee-chest position. Rectum: Tenderness and external hemorrhoid (1 large non-thrombosed and 1 moderate size non-thrombosed hemorrhoids) present. No anal fissure. Neurological: Mental Status: She is alert and oriented to person, place, and time. Psychiatric: Mood and Affect: Mood normal. Behavior: Behavior normal. Thought Content: Thought content normal. Judgment: Judgment normal. Neurological Exam Mental Status Alert. Oriented to person, place, and time. Assessment and Plan 1. Hemorrhoids, external without complications Discussed conservative treatment measures-continue with sitz baths and use of Tuck's pads. Advised to continue to maintain soft BM's. Advised on s/sx of thrombosed hemorrhoid which would require evaluation. Rx for ProctoCare cream. Discussed risks (side effects) and benefits of medication & encouraged to read about medication and take meds as directed. - hydrocortisone (ProctoCare-HC) 2.5 % Cream; Apply 1 Application topically 2 times daily for 14 days. To the rectal area Dispense: 28 g; Refill: 0 - Lidocaine 0.5 % Gel; Apply 1 Application topically 3 times daily as needed (rectal pain). Dispense: 45 g; Refill: 0 - AMB REFERRAL TO GENERAL SURGERY Call or return to clinic if symptoms worsen or fail to improve. documented in this encounter [facility] 04-17-2023 History of Presen t illness Narrative COPD: She Is taking her maintenance inhaler as ordered. She is needing her rescue inhaler 2 times weekly, She Is exercising regularly. Her last flu shot was does not take. She has dyspnea with none. She denies a change in sputum color, denies chest congestion, denies an increase in dyspnea. Hyperlipidemia: She is taking medications as directed. Lab Results Component Value Date CHOLESTEROL 155 10/31/2022 TRIG 36 10/31/2022 HDL 46 10/31/2022 LDLCALC 102 (H) 10/31/2022 Her last lipid panel was done on 10/31/22, and her ratio of Total Cholesterol/HDL was 3.37. She is not having medication side effects. There is not a FH of IHD or stroke. Anxiety: She Is taking her medication as ordered. She has noticed a decrease in symptoms. Her symptoms include racing thoughts. She is taking Fluoxetine for her anxiety and she denies side effects from medication. BECKY-7 score today is 7. Depression: Her depression is stable. She views the depression as moderate. She is taking her medications as ordered. Symptoms present now include depressed mood. PHQ-9 score today is 10. Insomnia: Her insomnia has gotten worse since mastectomy was completed in February. She is currently taking Hydroxyzine sometimes. She admits to initial insomnia, admits to broken sleep. History of Present Illness Heydi Dill is a 47 y.o. female who comes in for evaluation of the following complaints: had concerns including Chronic Obstructive Pulmonary Disease, Hyperlipidemia, Anxiety, Depression, Insomnia, and Obesity. COPD: She Is taking her maintenance inhaler as ordered. She is needing her rescue inhaler 2 times weekly, She Is exercising regularly. Her last flu shot was does not take. She has dyspnea with none. She denies a change in sputum color, denies chest congestion, denies an increase in dyspnea. Hyperlipidemia: She is taking medications as directed. Lab Results Component Value Date CHOLESTEROL 155 10/31/2022 TRIG 36 10/31/2022 HDL 46 10/31/2022 LDLCALC 102 (H) 10/31/2022 Her last lipid panel was done on 10/31/22, and her ratio of Total Cholesterol/HDL was 3.37. She is not having medication side effects. There is not a FH of IHD or stroke. Anxiety: She Is taking her medication as ordered. She has noticed a decrease in symptoms. Her symptoms include racing thoughts. She is taking Fluoxetine for her anxiety and she denies side effects from medication. BECKY-7 score today is 7. Depression: Her depression is stable. She views the depression as moderate. She is taking her medications as ordered. Symptoms present now include depressed mood. PHQ-9 score today is 10. Insomnia: Her insomnia has gotten worse since mastectomy was completed in February. She is currently taking Hydroxyzine sometimes. She admits to initial insomnia, admits to broken sleep. The hydroxyzine will help her to fall asleep but not stay asleep. Obesity: She is interested in getting help to lose weight. She has not lost weight in past month. She is not following a reduced caloric diet due to her uncontrolled appetite and is not exercising regularly but is getting back into since her mastectomy. She had started Wegovy in December which she did not feel was effective and was not able to increase her dose due to the shortage. has a past medical history of Asthma, Bipolar disorder, Depression, Endometriosis, Exposure to hepatitis B, Generalized anxiety disorder, Hearing loss, History of kidney stones, Migraine, and Rheumatic fever. She has no past medical history of Difficult intubation. Outpatient Medications Prior to Visit: Albuterol 108 (90 Base) MCG/ACT Aero Soln inhaler, Inhale 2 puffs every 4 hours as needed for Shortness of Breath or Wheezing. Atorvastatin 20 MG tablet, Take 1 tablet by mouth daily. (Patient taking differently: Take 1 tablet by mouth daily. PM) FLUoxetine 40 MG capsule, Take 1 capsule by mouth daily. (Patient taking differently: Take 1 capsule by mouth daily. AM) hydrOXYzine HCl 25 MG tablet, Take 1 tablet by mouth 3 times daily as needed for Anxiety or Insomnia. naproxen 500 MG tablet, Take 1 tablet by mouth 2 times daily with meals. Hold meloxicam while taking (Patient not taking: Reported on 02/06/2023) phentermine 37.5 MG tablet, Take 1 tablet by mouth every morning before breakfast. (Patient not taking: Reported on 11/01/2022) hydroCODone-acetaminophen 5-325 MG tablet, Take 1 tablet by mouth every 4 hours as needed for up to 4 days. Semaglutide-Weight Management 1 MG/0.5ML Solution Auto-injector, Inject 1 mg under the skin once a week. has No Known Allergies. Review of Systems Constitutional: Negative for appetite change, chills, diaphoresis, fatigue, fever and unexpected weight change. HENT: Negative for congestion, ear pain, hearing loss, rhinorrhea, sore throat and trouble swallowing. Eyes: Negative for pain, discharge, redness and visual disturbance. Respiratory: Negative for apnea, cough, choking, chest tightness, shortness of breath and wheezing. Cardiovascular: Negative for chest pain, palpitations and leg swelling. Gastrointestinal: Negative for abdominal distention, abdominal pain, anal bleeding, blood in stool, constipation, diarrhea and nausea. Endocrine: Negative. Genitourinary: Negative for decreased urine volume, difficulty urinating, dysuria, flank pain, frequency, hematuria and urgency. Musculoskeletal: Negative for arthralgias, back pain, gait problem, joint swelling, myalgias and neck pain. Skin: Negative. Allergic/Immunologic: Negative. Neurological: Negative for dizziness, tremors, syncope, weakness, light-headedness, numbness and headaches. Hematological: Negative. Psychiatric/Behavioral: Positive for dysphoric mood and sleep disturbance. Negative for agitation, behavioral problems, confusion, decreased concentration, hallucinations, self-injury and suicidal ideas. The patient is nervous/anxious. The patient is not hyperactive. Vitals: Blood pressure 126/88, pulse 95, temperature 97.2 F (36.2 C), temperature source Temporal, resp. rate 18, height 1.6 m (5' 3 ), weight 85.1 kg (187 lb 9.6 oz), SpO2 97 %. Physical Exam Vitals and nursing note reviewed. Constitutional: Appearance: Normal appearance. She is obese. Cardiovascular: Rate and Rhythm: Normal rate and regular rhythm. Heart sounds: Normal heart sounds. Pulmonary: Effort: Pulmonary effort is normal. Breath sounds: Normal breath sounds. Skin: General: Skin is warm and dry. Neurological: Mental Status: She is alert and oriented to person, place, and time. Psychiatric: Mood and Affect: Mood normal. Behavior: Behavior normal. Thought Content: Thought content normal. Judgment: Judgment normal. Neurological Exam Mental Status Alert. Oriented to person, place, and time. Assessment and Plan 1. Chronic obstructive pulmonary disease, unspecified COPD type Stable, will continue current med prn. - Albuterol 108 (90 Base) MCG/ACT Aero Soln inhaler; Inhale 2 puffs every 4 hours as needed for Shortness of Breath or Wheezing. Dispense: 18 g; Refill: 5 2. Mixed hyperlipidemia Stable, will continue current med. - Atorvastatin 20 MG tablet; Take 1 tablet by mouth daily. Dispense: 90 tablet; Refill: 1 - CBC, EDIF, PLATELET; Future - COMPREHENSIVE METABOLIC PANEL; Future - LIPID PANEL W CALCULATED LDL; Future 3. Generalized anxiety disorder Stable, will continue current med. - FLUoxetine 40 MG capsule; Take 1 capsule by mouth daily. Dispense: 90 capsule; Refill: 1 - hydrOXYzine HCl 25 MG tablet; Take 1 tablet by mouth 3 times daily as needed for Anxiety or Insomnia. Dispense: 90 tablet; Refill: 5 4. Recurrent major depressive disorder, in full remission Stable, will continue current med. - FLUoxetine 40 MG capsule; Take 1 capsule by mouth daily. Dispense: 90 capsule; Refill: 1 5. Primary insomnia Not to goal. Will try hydroxyzine 2 tablets at bedtime. If ineffective, will call for rx for trazodone. - hydrOXYzine HCl 25 MG tablet; Take 1 tablet by mouth 3 times daily as needed for Anxiety or Insomnia. Dispense: 90 tablet; Refill: 5 6. Class 1 obesity due to excess calories with serious comorbidity and body mass index (BMI) of 33.0 to 33.9 in adult Weight loss has been encouraged by following dietary restrictions (a balanced diet of mainly whole food plant-based diet with minimal animal protein, refined CHO's, and fat), and aerobic exercise. Discussed low calorie diet around [id number] calories a day making sure to eat 3 meals a day with protein. I will start her on ADIPEX-P. I advised her of the State's rules requiring at least a four pound loss in the next four weeks. We discussed the new state rules regarding continuing the Rx as long as there is a continuing 5% weight loss. I further advised her that she will need to come in for the follow-up visits to get the refills. Discussed risks (side effects) and benefits of medication & encouraged to read about medication and take meds as directed. I have checked an [place] report on this patient today and there is no/low risk with the prescribing of a controlled medication based on my review of the report. She has tolerated Adipex in the past. No hx of HTN. BP and HR are WNL today. She will monitor at home. - TSH W/FT4 REFLEX; Future - phentermine 37.5 MG tablet; Take 1 tablet by mouth every morning before breakfast. Dispense: 30 tablet; Refill: 2 Return to clinic in 3 months or sooner prn. documented in this encounter [facility] 03-19-2023 History of Presen t illness Narrative Subjective @Heydi aMyo Fuentes presents to the clinic post op Eating a regular diet without difficulty. Bowel movements are Normal. The patient is not having any pain.. Objective General: alert, cooperative, no distress, appears stated age Abdomen: soft, bowel sounds active, non-tender Incision: healing well, no drainage, no dehiscence, noerythema, incision well approximated, noswelling Assessment Doing well postoperatively. Drain removed Refer to plastics for breast reconstruction documented in this encounter [facility] 03-01-2023 Nurse Note IV removed, discharge instructions provided to patient. Instructed on drain maintenance, patient taught back and verbalized understanding. Supplies provided to care for drain at home. Patient being taken to personal vehicle via wheelchair at this time. [facility] 03-01-2023 Miscellaneous Notes Formattin g of this note might be different from the original. IV removed, discharge instructions provided to patient. Instructed on drain maintenance, patient taught back and verbalized understanding. Supplies provided to care for drain at home. Patient being taken to personal vehicle via wheelchair at this time. Assessment unchanged On admission to [facility] MED SURG, from [facility] PACU a dual RN initial assessment of skin condition was performed by Meaghan Logan and Karel Friedman RN Skin Assessment: Skin intact, no issues noted. Maxi Score: 20 LDA Added: No Meaghan Logan Heydi Dill ([id number]) PRE OPERATIVE DIAGNOSIS Mass of left breast, unspecified quadrant [N63.20] Breast pain [N64.4] POST OPERATIVE DIAGNOSIS Mass of left breast, unspecified quadrant [N63.20] Breast pain [N64.4] PROCEDURE PERFORMED Procedure(s) (LRB): MASTECTOMY COMPLETE-PATHOLOGY NOT NEEDED. SURGEON Surgeon(s) and Role: * Tere Beltre DO - Primary ANESTHESIOLOGIST MANAGER ENGLISH: Helio Springer APRN-MANAGER ENGLISH Student Nurse Shake Splitter: Jeannette Anna SURGICAL STAFF Micromatic Hone Operator: Helena Shafer RN; Mary Jo Guajardo RN; Padmini Clement RN Scrub Person: Jacquie Black Cup Setter Lockstitch Extension Associate: Ezekiel Lemus DETAILS OF THE PROCEDURE: After informed consent was obtained, procedure and site confirmed and the patient was properly identified, in preoperative holding, She was taken to the Operating Room, placed on the table in supine position, and induced under general anesthesia. The surgical field was prepped and draped in the usual sterile fashion. An elliptical incision was made through skin of the left breast to include the nipple-areolar complex using a sharp blade and dissection was carried down using electrocautery. Dissection continued to create mastectomy flaps superiorly to the clavicle, medially to the sternum, and inferiorly to the inframammary fold and laterally to the latissumus. Dissection continued towards the chest wall and the breast was removed i The breast was marked for orientation (short stitch superior). This was sent to pathology for permanent processing and final pathology is pending. The wound was thoroughly irrigated with warm saline and suctioned dry. Hemostasis was achieved using electrocautery. one #15 F drain were placed in the wound and secured to skin. The wound was closed in 2 layers. The patient tolerated the procedure well without complications, was extubated and transferred to the PACU in stable condition. Sponge, needle and instrument counts were reported as correct at the end of procedure. I was present for the entire procedure. INTRAOPERATIVE FLUIDS: Per Anesthesia record. COMPLICATIONS None ESTIMATED BLOOD LOSS Minimal SPECIMENS ID Type Source Tests Collected by Time Destination 1 : Left breast stitch bloom superior Permanent TISSUE SURGICAL PATHOLOGY REQUEST Tere Beltre DO 02/28/2023 [id number] Tere Beltre DO February 28, 2023 3:10 PM documented in this encounter [facility] 03-01-2023 History of Presen t illness Narrative Chart review. Conference with RN, Meaghan, to identify social worker assistant needs. No needs identified. CM available to assist with post-discharge needs as medically indicated. JEFF Sanchez 03/01/2023 10:04 AM 03/01/23 0955 Time In/Out Time In 0955 Time Out 1009 Total Visit Time 14 minutes Total Treatment Time (skilled, billable minutes) 14 minutes Initial Evaluation/Screen Completed? yes OT Evaluation and Treatment Time OT Evaluation (Low) Time Entry 14 General Information OT Existing Precautions/Restrictions other (see comment) (recent L mastectomy with Dr. Fisher) Home Setting Residence House Lives With spouse Previous Level of Function Prior level ADL Overview Independent with all ADLs IADL History IADLs independent PRIOR LEVEL AM-PAC Activity Inpatient Short Form Putting on/Taking Off Lower Body Clothing 4 - No Assistance Bathing 4 - No Assistance Toileting 4 - No Assistance Putting on/Taking Off Upper Body Clothing 4 - No Assistance Grooming 4 - No Assistance Eating 4 - No Assistance PRIOR LEVEL AM-PAC Activity Raw Score 24 PRIOR LEVEL AM-PAC Activity Functional Limitation/Modifier 0.00% Prior Functional Impairment in Daily Activity General Pain Documentation (Adult, OB, Peds) Presence of Pain non-verbal indicator of pain/discomfort not present Cognition Overall Cognitive Status WFL Vision Screen Visual Impairments Observed? No Speech Speech no gross deficits noted Hearing Hearing no gross deficits noted Sensation Overall Sensation Intact Proprioception Proprioception intact RUE Assessment RUE Assessment WFL LUE Assessment LUE Assessment (grossly WFL - NT due to recent mastectomy, elbow/hand/wrist WNL) Gross Coordination Gross Coordination bilat UE intact Fine Motor Coordination Additional Documentation No ADL Overview ADL Assessment Unable to assess ADLs ADL Comments Pt declined ADL due to pt just came back from the bathroom - pt reports completing toileting including hygiene with no asist, assume some difficulty with some ADLs due to L UE restrictions/limitations Clinical Impression Continue care plan no Co-evaluation/co-treatment performed? No simultaneous skilled care performed Patient Instruction education on OT, lymphedems including sign to watch for, post recovery exercises Therapy Frequency no therapy warranted Evaluation Complexity Occupational Profile and Client History Low - brief history Assessment of Occupational Performance Low (1-3 performance deficits) Clinical Decision/Performance Deficits Low (problem-focused assessments w/limited treatment options) Plan Plan for next session Pt ws seen for OT eval/education only .. Past Medical History: Diagnosis Date Asthma Bipolar disorder Depression Endometriosis Exposure to hepatitis B Generalized anxiety disorder Hearing loss History of kidney stones Migraine Rheumatic fever .. ICD-10-CM 1. Breast pain, left N64.4 2. Mass of left breast, unspecified quadrant N63.20 3. Breast pain N64.4 NARRATIVE: Pt admitted to [facility] status post L mastectomy with Dr. Fisher. Pt reports being I prior. Pt educated on post mastectomy recovery including monitoring for lymphedema, post recovery exercises (handout provided with instruction to get clearance from Dr. Fisher prior to initiating). Pt and daughter demons good understanding and appreciative of education. No further OT indicated at this time in this setting. documented in this encounter [facility] 03-01-2023 Nurse Note Assessment unchanged [facility] 02-28-2023 Nurse Note On admission to [facility] MED SURG, from [facility] PACU a dual RN initial assessment of skin condition was performed by Meaghan Logan and Karel Friedman RN Skin Assessment: Skin intact, no issues noted. Maxi Score: 20 LDA Added: No Meaghan Logan [facility] 02-28-2023 Nurse Note Discharged from PACU in stable condition. Transported via bed to room 208. Bed placed in lowest position. Call light within reach. Report given to Meaghan ALVARENGA. Denies nausea. States is warm enough. Demonstrates ability to deep breathe/cough effectively. OR 2 temp 62.5F, humidity 55%. documented in this encounter [facility] 02-28-2023 Nurse Surgical operation note Discharged from PACU in stable condition. Transported via bed to room 208. Bed placed in lowest position. Call light within reach. Report given to Meaghan ALVARENGA. [facility] 02-28-2023 Hospital Discharg e lexie Beltre DO - 02/28/2023 3:21 PM EDT Home Care After Breast Surgery The following instructions will help you care for yourself, or be cared for upon your return home today. These are guidelines for your care right after surgery only. Diet: Start your regular diet today Activity: No vigorous activity or lifting more than 5 pounds for 2 weeks. No arm swing sports for 6 weeks. Wound Care and Hygiene: Remove dressing/may shower in 2days. If you have steri-strips leave them in place. Replace gauze as needed. Anesthesia Precautions & Expectations: After anesthesia, rest for [address], drink alcoholic beverages or make any important decisions during this time. General anesthesia may cause a sore throat, jaw discomfort or muscle aches. These symptoms can last for one or two days. What to Expect after Surgery: Some drainage, bruising and swelling from the incision. Mild to moderate discomfort and tenderness. Call your Doctor for: Pain not relieved with medicines. Increased amounts of redness, swelling, bleeding or any drainage (pus) from the incision. Temperature above 101 degrees. The following attachments cannot be sent through Care Everywhere.[facility] Control ([facility]) ([place])Breast Reconstruction Drain Care ([facility]) ([place])documented in this encounter [facility] 02-28-2023 Surgery Postoperative evaluation and management note Heydi Dill ([id number]) PRE OPERATIVE DIAGNOSIS Mass of left breast, unspecified quadrant [N63.20] Breast pain [N64.4] POST OPERATIVE DIAGNOSIS Mass of left breast, unspecified quadrant [N63.20] Breast pain [N64.4] PROCEDURE PERFORMED Procedure(s) (LRB): MASTECTOMY COMPLETE-PATHOLOGY NOT NEEDED. SURGEON Surgeon(s) and Role: * Tere Beltre DO - Primary ANESTHESIOLOGIST MANAGER ENGLISH: Helio Springer APRN-MANAGER ENGLISH Student Nurse Shake Splitter: Jeannette Anna SURGICAL STAFF Micromatic Hone Operator: Helena Shafer RN; Mary Jo Guajardo RN; Padmini Clement RN Scrub Person: Jacquie Black Cup Setter Lockstitch Extension Associate: Ezekiel Lemus DETAILS OF THE PROCEDURE: After informed consent was obtained, procedure and site confirmed and the patient was properly identified, in preoperative holding, She was taken to the Operating Room, placed on the table in supine position, and induced under general anesthesia. The surgical field was prepped and draped in the usual sterile fashion. An elliptical incision was made through skin of the left breast to include the nipple-areolar complex using a sharp blade and dissection was carried down using electrocautery. Dissection continued to create mastectomy flaps superiorly to the clavicle, medially to the sternum, and inferiorly to the inframammary fold and laterally to the latissumus. Dissection continued towards the chest wall and the breast was removed i The breast was marked for orientation (short stitch superior). This was sent to pathology for permanent processing and final pathology is pending. The wound was thoroughly irrigated with warm saline and suctioned dry. Hemostasis was achieved using electrocautery. one #15 F drain were placed in the wound and secured to skin. The wound was closed in 2 layers. The patient tolerated the procedure well without complications, was extubated and transferred to the PACU in stable condition. Sponge, needle and instrument counts were reported as correct at the end of procedure. I was present for the entire procedure. INTRAOPERATIVE FLUIDS: Per Anesthesia record. COMPLICATIONS None ESTIMATED BLOOD LOSS Minimal SPECIMENS ID Type Source Tests Collected by Time Destination 1 : Left breast stitch bloom superior Permanent TISSUE SURGICAL PATHOLOGY REQUEST Tere Beltre DO 02/28/2023 [id number] Tere Beltre DO February 28, 2023 3:10 PM [facility] 02-28-2023 Nurse Surgical operation note Denies nausea. States is warm enough. Demonstrates ability to deep breathe/cough effectively. [facility] 02-28-2023 Attending History and physical note I have examined the patient and reviewed the previous H&P completed on date 01/29 and there are no changes. No changes Benign disease Chronic pain and she has discussed performing a mastectomy with me. The alernative would be NSAIDS or even a lumpectomy but she wishes to have the whole breast removed as this has been ongoing and does not wish to repeat any imaging Long disucssion had about risks and benefits Plan for L mastectomy - NO SLNB Tere Beltre DO, 02/28/2023, 1:02 PM. Source Note - Tere Beltre DO - 01/29/2023 9:45 AM EDT Breast Mass Consultation Heydi Dill is a 47 y.o. female who presents to the clinic today for consultation regarding L breast mass. Clinical Care Team: -Referring Provider for today's consult: Margaret Hernandez APRN-C* -Primary Care Provider: Margaret Hernandez History of Present Illness: Chief Complaint Patient presents with Consult Seen me prior for the same mass noted on us. Measured less than a cm. Biopsy came back inflammatory tissue with giant cells. Admits to persistenet pain and blood discharge. On abx She has no weight loss No fevers No bone or chest pain + tobacco use Implementation Services Analyst/Breast History: Breast cancer risk factors include gendfer and age. Patient has to previous breast biopsy(s). Patient denies a personal history of breast cancer. Social History Social History Narrative Not on file I have reviewed Heydi Dill medical, surgical and other pertinent history in detail, and have updated where appropriate in the computerized patient record. Medical/Surgical History: She has a past medical history of Asthma, Bipolar disorder, Depression, Endometriosis, Exposure to hepatitis B, Generalized anxiety disorder, Hearing loss, History of kidney stones, Migraine, and Rheumatic fever. Her has a past surgical history that includes tonsillectomy adenoidectomy (2001); appendectomy (2010); hysterectomy (2004); lithotripsy; colonoscopy diagnostic (N/A, 01/02/2022); and core biopsy of the breast (Left, 03/16/2022). Family/Social History: Her Family History Problem Relation Age of Onset Cancer Mother pancreas Dementia Mother Depression Mother Diabetes Mother Heart Disease - Other Mother Lipid Disorder Mother Hypertension Mother Parkinson Mother Asthma Father Skin Cancer Father Depression Father Diabetes Father Heart Disease - Other Father Lipid Disorder Father Hypertension Father Kidney Disease Father Asthma Sister Ovarian Cancer Sister Depression Sister Diabetes Sister Hypertension Sister Kidney Disease Sister Migraines Sister Liver Disease Sister Diabetes Brother Kidney Disease Brother Breast Cancer Maternal Aunt Breast Cancer Paternal Grandmother She reports that she has been smoking cigarettes. She has a 17.50 pack-year smoking history. She has never used smokeless tobacco. She reports that she does not drink alcohol and does not use drugs. Medications/Allergies/Immunizations : Her current medication(s) include has a current medication list which includes the following prescription(s): Albuterol 108 (90 Base) MCG/ACT Aero Soln inhaler, Atorvastatin 20 MG tablet, FLUoxetine 40 MG capsule, hydrOXYzine HCl 25 MG tablet, Meloxicam 7.5 MG tablet, naproxen 500 MG tablet, hydroCODone-acetaminophen 5-325 MG tablet, phentermine 37.5 MG tablet, and Semaglutide-Weight Management 1 MG/0.5ML Solution Auto-injector. Allergies: Patient has no known allergies., Immunizations: Immunization History Administered Date(s) Administered Pneumococcal Polysac 23-Valent Vaccine 03/17/2011 Review of Systems: A twelve point review of systems was negative. Physical Exam: General/Constitutional: Well developed, well nourished female who looks their stated age of 47 y.o.. No acute distress. Ht 1.6 m (5' 3 ) Wt 77.4 kg (170 lb 9.6 oz) BMI 30.22 kg/m Smoking Status Every Day HEENT: Head: Normocephalic and atraumatic. Eyes: Pupils are equal, round, and reactive to light and accomodation. Extraocular movements are intact. Sclerae are anicteric. Neck: Supple, non-tender. Thyroid normal. Oral opening normal and gag reflex present. Cardiac: Regular rate and rhythm. Normal S1, S2. No murmurs, rubs or gallops. Pulmonary/Chest: Lungs are clear to ascultation bilaterally. No wheezes, rhonchi or rales noted. No kyphosis or scoliosis. No axillary adenopathy. Skin: Skin is warm and dry. Flush, pallor and rash absent. Breast: Breasts appear symmetric. 1 cm nodule right a 9:00 of the nipple There are no other dominant masses present. Lymphatics: There is no cervical, supraclavicular or axillary adenopathy present. Abdominal: Soft, non-tender, non-distended. No organomegaly. Extremities: Normal range of motion in all four extremities, with normal strength equally and symmetrically. No cyanosis or clubbing or peripheral edema. Neurological: Conscious, alert and oriented. No focal neurologic deficit. Psychiatric: Appropriate mood and affect for her clinical situation. Assessment & Plan: Impression: L breast lesion Plan/Recommendations: persistent pain and drainage. Previous biopsyt came back benign Given her current symptoms we agreed on surgical excision Will see if we can coordinate a needle localized lumpectomy. No SLNB will be needed for now. Heydi was seen today for consult. Diagnoses and all orders for this visit: Mass of left breast, unspecified quadrant This patient presented with a condition that required my immediate and ongoing attention. My presence and the care I provided were necessary to optimize the patients care in a situation that required a higher level of complexity. Significant time was spent prior to the consultation reviewing all available pertinent imaging and labs followed by time spent during the patient encounter to come to a complete assessment and plan. This included time at the bedside with the patient, time reviewing the medical record to understand the patients underlying medical history, time ordering tests, reviewing and interpreting test results, and time spent in discussion with the patient, family, nursing, and consultants. The time included here does not include time spent with procedures [facility] 02-28-2023 History and physical note I have examined the patient and reviewed the previous H&P completed on date 01/29 and there are no changes. No changes Benign disease Chronic pain and she has discussed performing a mastectomy with me. The alernative would be NSAIDS or even a lumpectomy but she wishes to have the whole breast removed as this has been ongoing and does not wish to repeat any imaging Long disucssion had about risks and benefits Plan for L mastectomy - NO SLNB Tere Beltre DO, 02/28/2023, 1:02 PM. Source Note - Tere Beltre DO - 01/29/2023 9:45 AM EDT Breast Mass Consultation Heydi Dill is a 47 y.o. female who presents to the clinic today for consultation regarding L breast mass. Clinical Care Team: -Referring Provider for today's consult: Margaret Hernandez, JOSELUIS* -Primary Care Provider: Margaret Hernandez History of Present Illness: Chief Complaint Patient presents with Consult Seen me prior for the same mass noted on us. Measured less than a cm. Biopsy came back inflammatory tissue with giant cells. Admits to persistenet pain and blood discharge. On abx She has no weight loss No fevers No bone or chest pain + tobacco use Implementation Services Analyst/Breast History: Breast cancer risk factors include gendfer and age. Patient has to previous breast biopsy(s). Patient denies a personal history of breast cancer. Social History Social History Narrative Not on file I have reviewed Heydi Huber [place] medical, surgical and other pertinent history in detail, and have updated where appropriate in the computerized patient record. Medical/Surgical History: She has a past medical history of Asthma, Bipolar disorder, Depression, Endometriosis, Exposure to hepatitis B, Generalized anxiety disorder, Hearing loss, History of kidney stones, Migraine, and Rheumatic fever. Her has a past surgical history that includes tonsillectomy adenoidectomy (2001); appendectomy (2010); hysterectomy (2004); lithotripsy; colonoscopy diagnostic (N/A, 01/02/2022); and core biopsy of the breast (Left, 03/16/2022). Family/Social History: Her Family History Problem Relation Age of Onset Cancer Mother pancreas Dementia Mother Depression Mother Diabetes Mother Heart Disease - Other Mother Lipid Disorder Mother Hypertension Mother Parkinson Mother Asthma Father Skin Cancer Father Depression Father Diabetes Father Heart Disease - Other Father Lipid Disorder Father Hypertension Father Kidney Disease Father Asthma Sister Ovarian Cancer Sister Depression Sister Diabetes Sister Hypertension Sister Kidney Disease Sister Migraines Sister Liver Disease Sister Diabetes Brother Kidney Disease Brother Breast Cancer Maternal Aunt Breast Cancer Paternal Grandmother She reports that she has been smoking cigarettes. She has a 17.50 pack-year smoking history. She has never used smokeless tobacco. She reports that she does not drink alcohol and does not use drugs. Medications/Allergies/Immunizations : Her current medication(s) include has a current medication list which includes the following prescription(s): Albuterol 108 (90 Base) MCG/ACT Aero Soln inhaler, Atorvastatin 20 MG tablet, FLUoxetine 40 MG capsule, hydrOXYzine HCl 25 MG tablet, Meloxicam 7.5 MG tablet, naproxen 500 MG tablet, hydroCODone-acetaminophen 5-325 MG tablet, phentermine 37.5 MG tablet, and Semaglutide-Weight Management 1 MG/0.5ML Solution Auto-injector. Allergies: Patient has no known allergies., Immunizations: Immunization History Administered Date(s) Administered Pneumococcal Polysac 23-Valent Vaccine 03/17/2011 Review of Systems: A twelve point review of systems was negative. Physical Exam: General/Constitutional: Well developed, well nourished female who looks their stated age of 47 y.o.. No acute distress. Ht 1.6 m (5' 3 ) Wt 77.4 kg (170 lb 9.6 oz) BMI 30.22 kg/m Smoking Status Every Day HEENT: Head: Normocephalic and atraumatic. Eyes: Pupils are equal, round, and reactive to light and accomodation. Extraocular movements are intact. Sclerae are anicteric. Neck: Supple, non-tender. Thyroid normal. Oral opening normal and gag reflex present. Cardiac: Regular rate and rhythm. Normal S1, S2. No murmurs, rubs or gallops. Pulmonary/Chest: Lungs are clear to ascultation bilaterally. No wheezes, rhonchi or rales noted. No kyphosis or scoliosis. No axillary adenopathy. Skin: Skin is warm and dry. Flush, pallor and rash absent. Breast: Breasts appear symmetric. 1 cm nodule right a 9:00 of the nipple There are no other dominant masses present. Lymphatics: There is no cervical, supraclavicular or axillary adenopathy present. Abdominal: Soft, non-tender, non-distended. No organomegaly. Extremities: Normal range of motion in all four extremities, with normal strength equally and symmetrically. No cyanosis or clubbing or peripheral edema. Neurological: Conscious, alert and oriented. No focal neurologic deficit. Psychiatric: Appropriate mood and affect for her clinical situation. Assessment & Plan: Impression: L breast lesion Plan/Recommendations: persistent pain and drainage. Previous biopsyt came back benign Given her current symptoms we agreed on surgical excision Will see if we can coordinate a needle localized lumpectomy. No SLNB will be needed for now. Heydi was seen today for consult. Diagnoses and all orders for this visit: Mass of left breast, unspecified quadrant This patient presented with a condition that required my immediate and ongoing attention. My presence and the care I provided were necessary to optimize the patients care in a situation that required a higher level of complexity. Significant time was spent prior to the consultation reviewing all available pertinent imaging and labs followed by time spent during the patient encounter to come to a complete assessment and plan. This included time at the bedside with the patient, time reviewing the medical record to understand the patients underlying medical history, time ordering tests, reviewing and interpreting test results, and time spent in discussion with the patient, family, nursing, and consultants. The time included here does not include time spent with procedures documented in this encounter [facility] 02-28-2023 Nurse Surgical operation note OR 2 temp 62.5F, humidity 55%. [facility] 02-20-2023 History of Presen t illness Narrative Status post, left second digit PIPJ fusion Patient is a pleasant 46-year-old female status post left second digit fusion after hammertoe surgery. overall she states that she is doing very well . At this point has approximately 0 pain states that her swelling is better she is back to normal life and doing the things that she wants. Physical Vascular: DP PT pulses are easily palpable 2-4. CFT is normal. Derm: Incisions well coapted without any gapping draining erythema. No trauma to the pin site. Erythema has fully resolved Neuro: Intact. Musculoskeletal: Toe is rectus MPJ is full and pain-free. Assessment and plan: Patient is a pleasant 46-year-old female status post left second digit DIPJ arthrodesis for distal hammertoe. At this point this is fully resolved. Can discontinue the meloxicam no refills required. Okay to proceed with athletics exercise and activities of normal daily living. Follow-up as needed for this or any new issues. documented in this encounter [facility] 01-29-2023 History and physical note Breast Mass Consultation Heydi Dill is a 47 y.o. female who presents to the clinic today for consultation regarding L breast mass. Clinical Care Team: -Referring Provider for today's consult: Margaret Hernandez APRN-C* -Primary Care Provider: Margaret Hernandez History of Present Illness: Chief Complaint Patient presents with Consult Seen me prior for the same mass noted on us. Measured less than a cm. Biopsy came back inflammatory tissue with giant cells. Admits to persistenet pain and blood discharge. On abx She has no weight loss No fevers No bone or chest pain + tobacco use Implementation Services Analyst/Breast History: Breast cancer risk factors include gendfer and age. Patient has to previous breast biopsy(s). Patient denies a personal history of breast cancer. Social History Social History Narrative Not on file I have reviewed Heydi Pedersoney medical, surgical and other pertinent history in detail, and have updated where appropriate in the computerized patient record. Medical/Surgical History: She has a past medical history of Asthma, Bipolar disorder, Depression, Endometriosis, Exposure to hepatitis B, Generalized anxiety disorder, Hearing loss, History of kidney stones, Migraine, and Rheumatic fever. Her has a past surgical history that includes tonsillectomy adenoidectomy (2001); appendectomy (2010); hysterectomy (2004); lithotripsy; colonoscopy diagnostic (N/A, 01/02/2022); and core biopsy of the breast (Left, 03/16/2022). Family/Social History: Her Family History Problem Relation Age of Onset Cancer Mother pancreas Dementia Mother Depression Mother Diabetes Mother Heart Disease - Other Mother Lipid Disorder Mother Hypertension Mother Parkinson Mother Asthma Father Skin Cancer Father Depression Father Diabetes Father Heart Disease - Other Father Lipid Disorder Father Hypertension Father Kidney Disease Father Asthma Sister Ovarian Cancer Sister Depression Sister Diabetes Sister Hypertension Sister Kidney Disease Sister Migraines Sister Liver Disease Sister Diabetes Brother Kidney Disease Brother Breast Cancer Maternal Aunt Breast Cancer Paternal Grandmother She reports that she has been smoking cigarettes. She has a 17.50 pack-year smoking history. She has never used smokeless tobacco. She reports that she does not drink alcohol and does not use drugs. Medications/Allergies/Immunizations : Her current medication(s) include has a current medication list which includes the following prescription(s): Albuterol 108 (90 Base) MCG/ACT Aero Soln inhaler, Atorvastatin 20 MG tablet, FLUoxetine 40 MG capsule, hydrOXYzine HCl 25 MG tablet, Meloxicam 7.5 MG tablet, naproxen 500 MG tablet, hydroCODone-acetaminophen 5-325 MG tablet, phentermine 37.5 MG tablet, and Semaglutide-Weight Management 1 MG/0.5ML Solution Auto-injector. Allergies: Patient has no known allergies., Immunizations: Immunization History Administered Date(s) Administered Pneumococcal Polysac 23-Valent Vaccine 03/17/2011 Review of Systems: A twelve point review of systems was negative. Physical Exam: General/Constitutional: Well developed, well nourished female who looks their stated age of 47 y.o.. No acute distress. Ht 1.6 m (5' 3 ) Wt 77.4 kg (170 lb 9.6 oz) BMI 30.22 kg/m Smoking Status Every Day HEENT: Head: Normocephalic and atraumatic. Eyes: Pupils are equal, round, and reactive to light and accomodation. Extraocular movements are intact. Sclerae are anicteric. Neck: Supple, non-tender. Thyroid normal. Oral opening normal and gag reflex present. Cardiac: Regular rate and rhythm. Normal S1, S2. No murmurs, rubs or gallops. Pulmonary/Chest: Lungs are clear to ascultation bilaterally. No wheezes, rhonchi or rales noted. No kyphosis or scoliosis. No axillary adenopathy. Skin: Skin is warm and dry. Flush, pallor and rash absent. Breast: Breasts appear symmetric. 1 cm nodule right a 9:00 of the nipple There are no other dominant masses present. Lymphatics: There is no cervical, supraclavicular or axillary adenopathy present. Abdominal: Soft, non-tender, non-distended. No organomegaly. Extremities: Normal range of motion in all four extremities, with normal strength equally and symmetrically. No cyanosis or clubbing or peripheral edema. Neurological: Conscious, alert and oriented. No focal neurologic deficit. Psychiatric: Appropriate mood and affect for her clinical situation. Assessment & Plan: Impression: L breast lesion Plan/Recommendations: persistent pain and drainage. Previous biopsyt came back benign Given her current symptoms we agreed on surgical excision Will see if we can coordinate a needle localized lumpectomy. No SLNB will be needed for now. Heydi was seen today for consult. Diagnoses and all orders for this visit: Mass of left breast, unspecified quadrant This patient presented with a condition that required my immediate and ongoing attention. My presence and the care I provided were necessary to optimize the patients care in a situation that required a higher level of complexity. Significant time was spent prior to the consultation reviewing all available pertinent imaging and labs followed by time spent during the patient encounter to come to a complete assessment and plan. This included time at the bedside with the patient, time reviewing the medical record to understand the patients underlying medical history, time ordering tests, reviewing and interpreting test results, and time spent in discussion with the patient, family, nursing, and consultants. The time included here does not include time spent with procedures [facility] 01-29-2023 History and physical note Breast Mass Consultation Heydi Dill is a 47 y.o. female who presents to the clinic today for consultation regarding L breast mass. Clinical Care Team: -Referring Provider for today's consult: Margaret Hernandez APRN-C* -Primary Care Provider: Margaret Hernandez History of Present Illness: Chief Complaint Patient presents with Consult Seen me prior for the same mass noted on us. Measured less than a cm. Biopsy came back inflammatory tissue with giant cells. Admits to persistenet pain and blood discharge. On abx She has no weight loss No fevers No bone or chest pain + tobacco use Implementation Services Analyst/Breast History: Breast cancer risk factors include gendfer and age. Patient has to previous breast biopsy(s). Patient denies a personal history of breast cancer. Social History Social History Narrative Not on file I have reviewed Heydi Dill medical, surgical and other pertinent history in detail, and have updated where appropriate in the computerized patient record. Medical/Surgical History: She has a past medical history of Asthma, Bipolar disorder, Depression, Endometriosis, Exposure to hepatitis B, Generalized anxiety disorder, Hearing loss, History of kidney stones, Migraine, and Rheumatic fever. Her has a past surgical history that includes tonsillectomy adenoidectomy (2001); appendectomy (2010); hysterectomy (2004); lithotripsy; colonoscopy diagnostic (N/A, 01/02/2022); and core biopsy of the breast (Left, 03/16/2022). Family/Social History: Her Family History Problem Relation Age of Onset Cancer Mother pancreas Dementia Mother Depression Mother Diabetes Mother Heart Disease - Other Mother Lipid Disorder Mother Hypertension Mother Parkinson Mother Asthma Father Skin Cancer Father Depression Father Diabetes Father Heart Disease - Other Father Lipid Disorder Father Hypertension Father Kidney Disease Father Asthma Sister Ovarian Cancer Sister Depression Sister Diabetes Sister Hypertension Sister Kidney Disease Sister Migraines Sister Liver Disease Sister Diabetes Brother Kidney Disease Brother Breast Cancer Maternal Aunt Breast Cancer Paternal Grandmother She reports that she has been smoking cigarettes. She has a 17.50 pack-year smoking history. She has never used smokeless tobacco. She reports that she does not drink alcohol and does not use drugs. Medications/Allergies/Immunizations : Her current medication(s) include has a current medication list which includes the following prescription(s): Albuterol 108 (90 Base) MCG/ACT Aero Soln inhaler, Atorvastatin 20 MG tablet, FLUoxetine 40 MG capsule, hydrOXYzine HCl 25 MG tablet, Meloxicam 7.5 MG tablet, naproxen 500 MG tablet, hydroCODone-acetaminophen 5-325 MG tablet, phentermine 37.5 MG tablet, and Semaglutide-Weight Management 1 MG/0.5ML Solution Auto-injector. Allergies: Patient has no known allergies., Immunizations: Immunization History Administered Date(s) Administered Pneumococcal Polysac 23-Valent Vaccine 03/17/2011 Review of Systems: A twelve point review of systems was negative. Physical Exam: General/Constitutional: Well developed, well nourished female who looks their stated age of 47 y.o.. No acute distress. Ht 1.6 m (5' 3 ) Wt 77.4 kg (170 lb 9.6 oz) BMI 30.22 kg/m Smoking Status Every Day HEENT: Head: Normocephalic and atraumatic. Eyes: Pupils are equal, round, and reactive to light and accomodation. Extraocular movements are intact. Sclerae are anicteric. Neck: Supple, non-tender. Thyroid normal. Oral opening normal and gag reflex present. Cardiac: Regular rate and rhythm. Normal S1, S2. No murmurs, rubs or gallops. Pulmonary/Chest: Lungs are clear to ascultation bilaterally. No wheezes, rhonchi or rales noted. No kyphosis or scoliosis. No axillary adenopathy. Skin: Skin is warm and dry. Flush, pallor and rash absent. Breast: Breasts appear symmetric. 1 cm nodule right a 9:00 of the nipple There are no other dominant masses present. Lymphatics: There is no cervical, supraclavicular or axillary adenopathy present. Abdominal: Soft, non-tender, non-distended. No organomegaly. Extremities: Normal range of motion in all four extremities, with normal strength equally and symmetrically. No cyanosis or clubbing or peripheral edema. Neurological: Conscious, alert and oriented. No focal neurologic deficit. Psychiatric: Appropriate mood and affect for her clinical situation. Assessment & Plan: Impression: L breast lesion Plan/Recommendations: persistent pain and drainage. Previous biopsyt came back benign Given her current symptoms we agreed on surgical excision Will see if we can coordinate a needle localized lumpectomy. No SLNB will be needed for now. Heydi was seen today for consult. Diagnoses and all orders for this visit: Mass of left breast, unspecified quadrant This patient presented with a condition that required my immediate and ongoing attention. My presence and the care I provided were necessary to optimize the patients care in a situation that required a higher level of complexity. Significant time was spent prior to the consultation reviewing all available pertinent imaging and labs followed by time spent during the patient encounter to come to a complete assessment and plan. This included time at the bedside with the patient, time reviewing the medical record to understand the patients underlying medical history, time ordering tests, reviewing and interpreting test results, and time spent in discussion with the patient, family, nursing, and consultants. The time included here does not include time spent with procedures documented in this encounter [facility] 01-29-2023 History of Presen t illness Narrative Nurse Note: Review of Systems Nursing Assessment: Physical Exam Pt is here for Left Breast pain x 3 weeks now. Pt went to ED on 01/23 and was diagnosed with mastitis. CT Chest with contrast was performed for review. documented in this encounter [facility] 01-29-2023 Instructions Harriet Cardona LPN - 01/29/2023 9:45 AM EDT PLEASE NOTE: SURGERY WILL BE CANCELLED NO TOBACCO (CIGARETTES, VAPES, CHEWING TOBACCO) PRODUCT AFTER MIDNIGHT. NO DRUGS OF ANY SORT AT ANY TIME PRIOR TO SURGERY. SURGERY INSTRUCTIONS Your surgery is scheduled at [facility] on February 28. Pre-admission testing (PAT) is scheduled on February 06 @ 10:00a. If this does not work, please call Fernanda at [phone] to reschedule. Registration will call the day prior to pre-admission testing to get you pre-registered. Pre-admission testing may include blood work, x-rays, EKG, or other tests. Please call [phone] for your arrival time. For your convenience, please call between 9AM and 2PM. One business day (Sunday through Sunday, excluding holidays) before your surgery to verify your arrival time. BLOOD THINNERS & SUPPLEMENTS: STOP DATE: 02/21/2023 Avoid taking NSAID's (Ibuprofen, Advil, Motrin, Aleve, Naproxen, Celebrex) 7 days prior to procedure. Tylenol and other brands that contain Acetaminophen are safe to use. Stop taking Phentermine (Adipex) and any OTC weight loss supplements 14 days prior to procedure. ON THE DAY PRIOR TO THE PROCEDURE NOTHING TO EAT OR DRINK AFTER MIDNIGHT DO NOT DRINK ALCOHOL THE MORNING OF PROCEDURE DO NOT EAT OR DRINK ANYTHING. Do not wear jewelry, earrings, watches, etc. Wear comfortable clothing and shoes. (No heels) P.A.T will give you instructions regarding your medications other than your blood thinners. Note: YOU MUST HAVE A RESPONSIBLE ADULT DRIVE YOU HOME. IF YOU DO NOT HAVE SOMEONE TO DRIVE YOU, YOUR PROCEDURE WILL BE CANCELLED. PUBLIC TRANSPORT IS NOT PERMITTED, UNLESS YOU HAVE A FAMILY MEMBER OR FRIEND WITH YOU. FAILURE TO APPEAR FOR P.A.T WILL RESULT IN YOUR SURGERY BEING CANCELED If you have any questions, you become ill or have to cancel your surgery, please call the office at [phone] option #3. PLEASE BE SURE TO CHECK WITH YOUR INSURANCE ABOUT BENEFITS AND COVERAGE FOR YOUR SURGERY/PROCEDURE. OUR PRIOR AUTHORIZATION TEAM WILL CHECK WITH YOUR INSURANCE TO BE SURE IT IS AN AUTHORIZED SURGERY/PROCEDURE THANK YOU. The following attachments cannot be sent through Care Everywhere.Mastitis ([place])documented in this encounter [facility] 01-16-2023 History of Presen t illness Narrative Status post, left second digit PIPJ fusion Patient is a pleasant 46-year-old female status post left second digit fusion after hammertoe surgery. overall she states that she is doing very well . States that she did well with both the meloxicam and antibiotics finished them well she states that she feels sore tremendously better she is shocked how much better she feels. 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 Physical Vascular: DP PT pulses are easily palpable 2-4. CFT is normal. Derm: Incisions well coapted without any gapping draining erythema. No trauma to the pin site. Erythema has fully resolved Neuro: Intact. Musculoskeletal: Toe is rectus MPJ is full and pain-free. Pin is intact. Assessment and plan: Patient is a pleasant 46-year-old female status post left second digit DIPJ arthrodesis for distal hammertoe. No antibiotic refilled today required. Instead we will use 30 days of oral meloxicam 7.5 mg daily as needed for pain for the next 30 days to continue healing. Is okay to return to activities of normal daily living with no restrictions. Follow-up in 1 month for long-term check. documented in this encounter [facility] 12-21-2022 History of Presen t illness Narrative Status post, left second digit PIPJ fusion Patient is a pleasant 46-year-old female status post left second digit fusion after hammertoe surgery. States her first month went, no pain. States that she has done well with her CAM boot. Physical Vascular: DP PT pulses are easily palpable 2-4. CFT is normal. Derm: Incisions well coapted without any gapping draining erythema. No trauma to the pin site. Neuro: Intact. Musculoskeletal: Toe is rectus MPJ is full and pain-free. Pin is intact. Assessment and plan: Patient is a pleasant 46-year-old female status post left second digit DIPJ arthrodesis for distal hammertoe. -reviewed xrays. -Fusion site appears well, after an alcohol prep did remove her K wire. Betadine to the distal toe with bandage. Keep this clean dry intact for 1 week. Today can discontinue her cam boot and return to tennis shoes. Follow-up in 1 month for long-term follow-up. documented in this encounter [facility] 12-07-2022 History of Presen t illness Narrative Images from the original note were not included. POST-OP Patient Visit Jeri Ontiveros DPM Patient Name: Heydi Dill. . Date of : 1975, 46 y.o.. Gender: female. Subjective: Patient is a pleasant 46-year-old female who presents to clinic 2.5 weeks status post left second hammertoe repair by my partner Dr. Vázquez (DOS: 11/20/2022).I am seeing Dr. Vázquez's patient on his behalf as he is currently out of town. Patient has been ambulating using the cam boot and denies any pain or discomfort. States that she has kept her dressing clean and dry as instructed. No new pedal complaints. Denies fevers, chills, nausea, vomiting, chest pain, shortness of breath, or any other constitutional symptoms. Physical Examination: BP 112/76 (BP Location: Right arm, Patient Position: Sitting, BP Cuff Size: Adult) Pulse 94 Temp 98.6 F (37 C) (Infrared) General Appearance: Alert, cooperative, no distress, appears stated age. Podiatric Exam Vascular: DP and PT pulses are palpable. Capillary refill time is brisk to distal digits. Skin temperature is warm to warm from proximal tibial tuberosity to distal digit. Neurological: Gross sensation is intact. Protective sensation is intact. Dermatologic: Surgical incision site is well coapted with sutures intact. No cade-incisional erythema, edema, drainage or any acute signs of infection. Interdigital spaces are clean dry and intact. Musculoskeletal: No pain on palpation to the left second toe. Patient is able to wiggle digit compartments soft and compressible. No calf pain Assessment: 1. Hammer toe of left foot 2. Postop check Plan: Patient was seen and evaluated. Discussed all clinical findings Patient is doing well postoperatively. No acute signs of infection. All sutures were removed today without incident. New dressing was applied today to the left foot consisting of Betadine to the incision site, Xeroform strip, 4 x 4, Kerlix and Navin bandage. Patient is to remain in her tall cam boot Patient is to follow-up in [address] Vázquez for pin removal and new x-rays All questions were answered to patient satisfaction. Patient understands to call with any questions or concerns. Jeri Otniveros DPM, MS Podiatric Physician & Surgeon documented in this encounter [facility] 11-14-2022 History and physical note HPI Chief Complaint Patient presents with Pre-op Exam H&p L 2nd hammertoe repair Patient is a pleasant 46-year-old female who comes in today with continued left second digit pain with substantial lateralization. States it still very sore painful and uncomfortable and at this time she is electing undergo surgical intervention despite its substantial and obvious risks. Past Medical History: Diagnosis Date Anxiety Asthma Depression Hyperlipidemia Kidney stones Past Surgical History: Procedure Laterality Date ADENOIDECTOMY APPENDECTOMY BREAST SURGERY Left lump removed - 2021 CYSTO Bilateral 11/21/2021 Procedure: DIAGNOSTIC BILATERAL; Surgeon: Gladis Palmer MD; Location: [facility]; Service: Urology CYSTO RETRO STONE MANIPULATION STENT INSERTION Left 06/29/2021 Procedure: CYSTOSCOPY WITH RETROGRADE STONE MANIPULATION STENT INSERTION; Surgeon: Gladis Palmer MD; Location: [facility]; Service: Urology CYSTO RETROGRADE PYELOGRAM Left 06/25/2021 Procedure: CYSTOSCOPY WITH RETROGRADE PYELOGRAM; Surgeon: Gladis Palmer MD; Location: [facility]; Service: Urology CYSTO RETROGRADE PYELOGRAM Bilateral 07/29/2021 Procedure: CYSTOSCOPY WITH RETROGRADE PYELOGRAM; Surgeon: Gladis Palmer MD; Location: [facility]; Service: Urology CYSTO RETROGRADE PYELOGRAM Bilateral 11/21/2021 Procedure: CYSTOSCOPY WITH RETROGRADE PYELOGRAM; Surgeon: Gladis Palmer MD; Location: [facility]; Service: Urology CYSTO URETERAL STENT PLACEMENT Right 07/29/2021 Procedure: CYSTOSCOPY WITH URETERAL STENT PLACEMENT; Surgeon: Gladis Palmer MD; Location: [facility]; Service: Urology CYSTO URETERAL STENT REMOVAL Left 06/29/2021 Procedure: CYSTOSCOPY WITH URETERAL STENT REMOVAL; Surgeon: Gladis Palmer MD; Location: [facility]; Service: Urology CYSTO URETEROSCOPY Left 06/29/2021 Procedure: CYSTOSCOPY WITH URETEROSCOPY; Surgeon: Gladis Palmer MD; Location: [facility]; Service: Urology HYSTERECTOMY TONSILLECTOMY WISDOM TOOTH EXTRACTION Social History Socioeconomic History Marital status: Tobacco Use Smoking status: Every Day Packs/day: 0.50 Years: 30.00 Pack years: 15.00 Types: Cigarettes Smokeless tobacco: Never Vaping Use Vaping status: Never Used Substance and Sexual Activity Alcohol use: Never Drug use: Never Review of Systems Physical Exam Patient is AOx3. Linear and appropriate humor and thought process. Vascular: DP PT pulses are easily palpable 2 out of 4. CFT is fair minimal edema. Derm: Some hyperkeratosis to the DIPJ medially. No open wounds no ulcers no rashes. Neuro: Intact. Musculoskeletal: Muscle strength is 5 out of 5 with fair tone, can easily wiggle toes Clicking or catching. Ankle subtalar is full and pain-free. Substantial lateralization of the left second digit. MPJ is technically full without any obvious contractures of some mild present which is reducible. The DIPJ and PIPJ are poorly reducible. Labs reviewed, clearance reviewed both acceptable. Impression/Plan Problem List Items Addressed This Visit Musculoskeletal and Integument Hammer toe of left foot - Primary Relevant Medications oxyCODONE-acetaminophen (PERCOCET) 5-325 mg per tablet Other Foot pain, left Relevant Medications oxyCODONE-acetaminophen (PERCOCET) 5-325 mg per tablet Patient is a pleasant 46-year-old female with chronic left foot secondary to hammertoe with pain. -At this time she is failed substantial conservative therapy and elected to undergo surgical intervention. Surgical plan is left second toe hematoma repair. -This to be done at [facility] on Sunday under general anesthesia with likely on a. K wire fixation. Primary risks include DVT gangrene amputation overcorrection under correction malunion nonunion hardware failure pain tingling burning scarring infection. Despite this risk, she does wish to proceed. No guarantees are implied or made. Consent was signed document the EMR. N.p.o. Sunday at midnight. Follow-up postop week 1 with Cam boot fixation. Did let her know that her current tobacco half pack a day does elevate her risk profile especially for gangrenous changes and amputation. She states that she is okay taking this risk and as a compromise follow-up decrease her tobacco to 5 cigarettes daily from 10. This ultimately will be beneficial but 0 is better. Moderate medical complexity decision making. [facility] 11-14-2022 History and physical note HPI Chief Complaint Patient presents with Pre-op Exam H&p L 2nd hammertoe repair Patient is a pleasant 46-year-old female who comes in today with continued left second digit pain with substantial lateralization. States it still very sore painful and uncomfortable and at this time she is electing undergo surgical intervention despite its substantial and obvious risks. Past Medical History: Diagnosis Date Anxiety Asthma Depression Hyperlipidemia Kidney stones Past Surgical History: Procedure Laterality Date ADENOIDECTOMY APPENDECTOMY BREAST SURGERY Left lump removed - 2021 CYSTO Bilateral 11/21/2021 Procedure: DIAGNOSTIC BILATERAL; Surgeon: Gladis Palmer MD; Location: [facility]; Service: Urology CYSTO RETRO STONE MANIPULATION STENT INSERTION Left 06/29/2021 Procedure: CYSTOSCOPY WITH RETROGRADE STONE MANIPULATION STENT INSERTION; Surgeon: Gladis Palmer MD; Location: [facility]; Service: Urology CYSTO RETROGRADE PYELOGRAM Left 06/25/2021 Procedure: CYSTOSCOPY WITH RETROGRADE PYELOGRAM; Surgeon: lGadis Palmer MD; Location: [facility]; Service: Urology CYSTO RETROGRADE PYELOGRAM Bilateral 07/29/2021 Procedure: CYSTOSCOPY WITH RETROGRADE PYELOGRAM; Surgeon: Gladis Palmer MD; Location: [facility]; Service: Urology CYSTO RETROGRADE PYELOGRAM Bilateral 11/21/2021 Procedure: CYSTOSCOPY WITH RETROGRADE PYELOGRAM; Surgeon: Gladis Palmer MD; Location: [facility]; Service: Urology CYSTO URETERAL STENT PLACEMENT Right 07/29/2021 Procedure: CYSTOSCOPY WITH URETERAL STENT PLACEMENT; Surgeon: Gladis Palmer MD; Location: [facility]; Service: Urology CYSTO URETERAL STENT REMOVAL Left 06/29/2021 Procedure: CYSTOSCOPY WITH URETERAL STENT REMOVAL; Surgeon: Gladis Palmer MD; Location: [facility]; Service: Urology CYSTO URETEROSCOPY Left 06/29/2021 Procedure: CYSTOSCOPY WITH URETEROSCOPY; Surgeon: Gladis Palmer MD; Location: [facility]; Service: Urology HYSTERECTOMY TONSILLECTOMY WISDOM TOOTH EXTRACTION Social History Socioeconomic History Marital status: Tobacco Use Smoking status: Every Day Packs/day: 0.50 Years: 30.00 Pack years: 15.00 Types: Cigarettes Smokeless tobacco: Never Vaping Use Vaping status: Never Used Substance and Sexual Activity Alcohol use: Never Drug use: Never Review of Systems Physical Exam Patient is AOx3. Linear and appropriate humor and thought process. Vascular: DP PT pulses are easily palpable 2 out of 4. CFT is fair minimal edema. Derm: Some hyperkeratosis to the DIPJ medially. No open wounds no ulcers no rashes. Neuro: Intact. Musculoskeletal: Muscle strength is 5 out of 5 with fair tone, can easily wiggle toes Clicking or catching. Ankle subtalar is full and pain-free. Substantial lateralization of the left second digit. MPJ is technically full without any obvious contractures of some mild present which is reducible. The DIPJ and PIPJ are poorly reducible. Labs reviewed, clearance reviewed both acceptable. Impression/Plan Problem List Items Addressed This Visit Musculoskeletal and Integument Hammer toe of left foot - Primary Relevant Medications oxyCODONE-acetaminophen (PERCOCET) 5-325 mg per tablet Other Foot pain, left Relevant Medications oxyCODONE-acetaminophen (PERCOCET) 5-325 mg per tablet Patient is a pleasant 46-year-old female with chronic left foot secondary to hammertoe with pain. -At this time she is failed substantial conservative therapy and elected to undergo surgical intervention. Surgical plan is left second toe hematoma repair. -This to be done at [facility] on Sunday under general anesthesia with likely on a. K wire fixation. Primary risks include DVT gangrene amputation overcorrection under correction malunion nonunion hardware failure pain tingling burning scarring infection. Despite this risk, she does wish to proceed. No guarantees are implied or made. Consent was signed document the EMR. N.p.o. Sunday at midnight. Follow-up postop week 1 with Cam boot fixation. Did let her know that her current tobacco half pack a day does elevate her risk profile especially for gangrenous changes and amputation. She states that she is okay taking this risk and as a compromise follow-up decrease her tobacco to 5 cigarettes daily from 10. This ultimately will be beneficial but 0 is better. Moderate medical complexity decision making. documented in this encounter [facility] 11-01-2022 History of Presen t illness Narrative Pt presents for a 1 month follow up re: Obesity: She has lost weight in past month 3 . She is following the recommended dietary plan, and is exercising regularly. Sheis finishing up her last month's supply of Adipex currently.. She denies having medication side effects. She would like to discuss being rx'd Wegovy. History of Present Illness Heydi Dill is a 46 y.o. female who comes in for evaluation of the following complaints: had concerns including Obesity (Adipex 10/13) and Lab Review. Pt presents for a 1 month follow up re: Obesity: She has lost weight in past month 3 lbs. She is following the recommended dietary plan, and is exercising regularly. Sheis finishing up her last month's supply of Adipex currently.. She denies having medication side effects. She would like to discuss being rx'd Wegovy. Hyperlipidemia: She is taking medications as directed. Lab Results Component Value Date CHOLESTEROL 155 10/31/2022 TRIG 36 10/31/2022 HDL 46 10/31/2022 LDLCALC 102 (H) 10/31/2022 Her last lipid panel was done on 10/31/22, and her ratio of Total Cholesterol/HDL was 3.37. She is not having medication side effects. There is not a FH of IHD or stroke. has a past medical history of Asthma, Bipolar disorder, Depression, Endometriosis, Exposure to hepatitis B, Generalized anxiety disorder, Hearing loss, History of kidney stones, Migraine, and Rheumatic fever. Outpatient Medications Prior to Visit: Albuterol 108 (90 Base) MCG/ACT Aero Soln inhaler, Inhale 2 puffs every 4 hours as needed for Shortness of Breath or Wheezing. Atorvastatin 20 MG tablet, Take 1 tablet by mouth daily. FLUoxetine 40 MG capsule, Take 1 capsule by mouth daily. hydrOXYzine HCl 25 MG tablet, Take 1 tablet by mouth 3 times daily as needed for Anxiety or Insomnia. phentermine 37.5 MG tablet, Take 1 tablet by mouth every morning before breakfast. (Patient not taking: Reported on 11/01/2022) has No Known Allergies. Review of Systems Constitutional: Negative for appetite change, chills, diaphoresis, fatigue, fever and unexpected weight change. HENT: Negative for congestion, ear pain, hearing loss, rhinorrhea, sore throat and trouble swallowing. Eyes: Negative for pain, discharge, redness and visual disturbance. Respiratory: Negative for apnea, cough, choking, chest tightness, shortness of breath and wheezing. Cardiovascular: Negative for chest pain, palpitations and leg swelling. Gastrointestinal: Negative for abdominal distention, abdominal pain, anal bleeding, blood in stool, constipation, diarrhea and nausea. Endocrine: Negative. Genitourinary: Negative for decreased urine volume, difficulty urinating, dysuria, flank pain, frequency, hematuria and urgency. Musculoskeletal: Negative for arthralgias, back pain, gait problem, joint swelling, myalgias and neck pain. Skin: Negative. Allergic/Immunologic: Negative. Neurological: Negative for dizziness, tremors, syncope, weakness, light-headedness, numbness and headaches. Hematological: Negative. Psychiatric/Behavioral: Negative. Vitals: Blood pressure 108/68, pulse 90, temperature 96.5 F (35.8 C), temperature source Temporal, resp. rate 18, height 1.6 m (5' 3 ), weight 73.5 kg (162 lb), SpO2 96 %. Physical Exam Vitals and nursing note reviewed. Constitutional: Appearance: Normal appearance. She is overweight. Cardiovascular: Rate and Rhythm: Normal rate and regular rhythm. Heart sounds: Normal heart sounds. Pulmonary: Effort: Pulmonary effort is normal. Breath sounds: Normal breath sounds. Abdominal: General: Bowel sounds are normal. Palpations: Abdomen is soft. Skin: General: Skin is warm and dry. Neurological: Mental Status: She is alert and oriented to person, place, and time. Psychiatric: Mood and Affect: Mood normal. Behavior: Behavior normal. Thought Content: Thought content normal. Judgment: Judgment normal. Neurological Exam Mental Status Alert. Oriented to person, place, and time. Assessment and Plan 1. Mixed hyperlipidemia Improved, will continue current med. - Semaglutide-Weight Management (Wegovy) 0.25 MG/0.5ML Solution Auto-injector; Inject 0.25 mg under the skin once a week. Dispense: 2 mL; Refill: 0 2. BMI 28.0-28.9,adult She has completed 3 months of adipex. Advised to continue with current diet and exercise regimen. I will start her on Wegovy to help with appetite control. Demonstrated pen use. Advised to call each month for increased dose if tolerating. Discussed risks (side effects) and benefits of medication & encouraged to read about medication and take meds as directed. - Semaglutide-Weight Management (Wegovy) 0.25 MG/0.5ML Solution Auto-injector; Inject 0.25 mg under the skin once a week. Dispense: 2 mL; Refill: 0 Return to clinic in 3 months or sooner prn. documented in this encounter [facility] 10-04-2022 History of Presen t illness Narrative Pt presents today for 1 month follow up re: Obesity: She has lost weight in past month -6lbs . She is following the recommended dietary plan, and is exercising regularly. She is taking medication to help with weight loss ( Adipex ). She admits to having medication side effects, dry mouth. History of Present Illness Heydi Dill is a 46 y.o. female who comes in for evaluation of the following complaints: had concerns including Obesity (Adipex 2/3). Pt presents today for 1 month follow up re: Obesity: She has lost weight in past month -6lbs . She is following the recommended dietary plan, and is exercising regularly. She is taking medication to help with weight loss ( Adipex ). She admits to having medication side effects, dry mouth. has a past medical history of Asthma, Bipolar disorder, Depression, Endometriosis, Exposure to hepatitis B, Generalized anxiety disorder, Hearing loss, History of kidney stones, Migraine, and Rheumatic fever. Outpatient Medications Prior to Visit: Albuterol 108 (90 Base) MCG/ACT Aero Soln inhaler, Inhale 2 puffs every 4 hours as needed for Shortness of Breath or Wheezing. Atorvastatin 20 MG tablet, Take 1 tablet by mouth daily. FLUoxetine 40 MG capsule, Take 1 capsule by mouth daily. hydrOXYzine HCl 25 MG tablet, Take 1 tablet by mouth 3 times daily as needed for Anxiety or Insomnia. phentermine 37.5 MG tablet, Take 1 tablet by mouth every morning before breakfast. has No Known Allergies. Review of Systems Constitutional: Negative for appetite change, chills, diaphoresis, fatigue, fever and unexpected weight change. HENT: Negative for congestion, ear pain, hearing loss, rhinorrhea, sore throat and trouble swallowing. Eyes: Negative for pain, discharge, redness and visual disturbance. Respiratory: Negative for apnea, cough, choking, chest tightness, shortness of breath and wheezing. Cardiovascular: Negative for chest pain, palpitations and leg swelling. Gastrointestinal: Negative for abdominal distention, abdominal pain, anal bleeding, blood in stool, constipation, diarrhea and nausea. Endocrine: Negative. Genitourinary: Negative for decreased urine volume, difficulty urinating, dysuria, flank pain, frequency, hematuria and urgency. Musculoskeletal: Negative for arthralgias, back pain, gait problem, joint swelling, myalgias and neck pain. Skin: Negative. Allergic/Immunologic: Negative. Neurological: Negative for dizziness, tremors, syncope, weakness, light-headedness, numbness and headaches. Hematological: Negative. Psychiatric/Behavioral: Negative. Vitals: Blood pressure 120/78, pulse 73, temperature 97.1 F (36.2 C), temperature source Temporal, resp. rate 18, height 1.6 m (5' 3 ), weight 74.8 kg (165 lb), SpO2 98 %. Physical Exam Vitals and nursing note reviewed. Constitutional: Appearance: Normal appearance. She is obese. Cardiovascular: Rate and Rhythm: Normal rate and regular rhythm. Heart sounds: Normal heart sounds. Pulmonary: Effort: Pulmonary effort is normal. Breath sounds: Normal breath sounds. Skin: General: Skin is warm and dry. Neurological: Mental Status: She is alert and oriented to person, place, and time. Psychiatric: Mood and Affect: Mood normal. Behavior: Behavior normal. Thought Content: Thought content normal. Judgment: Judgment normal. Neurological Exam Mental Status Alert. Oriented to person, place, and time. Assessment and Plan 1. Mixed hyperlipidemia She is still taking her atorvastatin. Will get labs prior to next months appt. 2. Class 1 obesity due to excess calories with serious comorbidity and body mass index (BMI) of 32.0 to 32.9 in adult She did lose at least four (4) lbs of weight. I reminded her of the State's rules regarding at least a four pound loss in a month. I will refill the Rx today. Weight loss has been encouraged by following dietary restrictions (a balanced diet of mainly whole food plant-based diet with less animal protein, no refined CHO's (including wheat products), and fat), and aerobic exercise. I have checked an [place] report on this patient today and there is no/low risk with the prescribing of a controlled medication based on my review of the report. - phentermine 37.5 MG tablet; Take 1 tablet by mouth every morning before breakfast. Dispense: 30 tablet; Refill: 0 Return to clinic in 1 month or sooner prn. documented in this encounter [facility] 10-03-2022 History of Presen t illness Narrative HPI Chief Complaint Patient presents with Foot Problem Painful bump left foot Patient is a pleasant 46-year-old female who comes in today for chronic second left toe pain. She states that she is got a weird bump on her toe and her toes been crooked only worsening with time now for more than a few years. She states that she is done everything. Tried padding splinting massaging lotion all to no avail with daily pain. 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 States that all the constant walking [id number] kills her second very painful. She is hoping to undergo surgery if this is an option. Past Medical History: Diagnosis Date Asthma Kidney stones Kidney stones Past Surgical History: Procedure Laterality Date ADENOIDECTOMY APPENDECTOMY CYSTO Bilateral 11/21/2021 Procedure: DIAGNOSTIC BILATERAL; Surgeon: Gladis Palmer MD; Location: [facility]; Service: Urology CYSTO RETRO STONE MANIPULATION STENT INSERTION Left 06/29/2021 Procedure: CYSTOSCOPY WITH RETROGRADE STONE MANIPULATION STENT INSERTION; Surgeon: Gladis Palmer MD; Location: [facility]; Service: Urology CYSTO RETROGRADE PYELOGRAM Left 06/25/2021 Procedure: CYSTOSCOPY WITH RETROGRADE PYELOGRAM; Surgeon: Gladis Palmer MD; Location: [facility]; Service: Urology CYSTO RETROGRADE PYELOGRAM Bilateral 07/29/2021 Procedure: CYSTOSCOPY WITH RETROGRADE PYELOGRAM; Surgeon: Gladis Palmer MD; Location: [facility]; Service: Urology CYSTO RETROGRADE PYELOGRAM Bilateral 11/21/2021 Procedure: CYSTOSCOPY WITH RETROGRADE PYELOGRAM; Surgeon: Gladis Palmer MD; Location: [facility]; Service: Urology CYSTO URETERAL STENT PLACEMENT Right 07/29/2021 Procedure: CYSTOSCOPY WITH URETERAL STENT PLACEMENT; Surgeon: Gladis Palmer MD; Location: Main OR; Service: Urology CYSTO URETERAL STENT REMOVAL Left 06/29/2021 Procedure: CYSTOSCOPY WITH URETERAL STENT REMOVAL; Surgeon: Gladis Palmer MD; Location: Main OR; Service: Urology CYSTO URETEROSCOPY Left 06/29/2021 Procedure: CYSTOSCOPY WITH URETEROSCOPY; Surgeon: Gladis Palmer MD; Location: Main OR; Service: Urology HYSTERECTOMY TONSILLECTOMY Social History Socioeconomic History Marital status: Tobacco Use Smoking status: Every Day Packs/day: 0.50 Years: 30.00 Pack years: 15.00 Types: Cigarettes Smokeless tobacco: Never Vaping Use Vaping Use: Never used Substance and Sexual Activity Alcohol use: Never Drug use: Never Review of Systems Constitutional: Negative for fever. Respiratory: Negative for shortness of breath. Gastrointestinal: Negative for vomiting. Musculoskeletal: Positive for gait problem. Physical Exam Patient is AOx3. Linear and appropriate thought process and humor. Vascular: DP PT pulses are easily palpable CFT is normal no edema. Derm: Skin is without any erythema no open wounds no ulcers. Mild hyperkeratosis to the DIPJ of her medial second toe no undermining no fluctuance or crepitation no signs of infection. Neuro: Intact Babinski's is intact. Musculoskeletal: Substantial DIPJ less so MPJ lateralization of the second digit which is partially reducible. No real metatarsophalangeal joint pain. Otherwise first third fourth and fifth MPJ are full and pain-free, can easily wiggle toes. X-rays reviewed. Impression/Plan Problem List Items Addressed This Visit None Visit Diagnoses Foot pain, left - Primary Relevant Orders XR Foot Left 3+ Views (Standard) CBC and Differential Case Request Operating Room: REPAIR HAMMERTOE Hammer toe of left foot Relevant Orders CBC and Differential Case Request Operating Room: REPAIR HAMMERTOE Patient is a pleasant 46-year-old female with chronic left lateral deformity and hammertoe of her second toe. -At this time, she is tried and failed conservative therapy for years. Did go over options including continuing conservative therapy versus proceeding with surgical intervention. She is desiring to proceed with surgical invention. Surgical plan is a hammertoe repair left second toe at [facility] in the next 1 to 2 months. General anesthesia. Does need preoperatively PAT clearance and a CBC with differential. Primary risks include amputation gangrene pin tract infection continued lateralization pain tingling burning scarring and infection. Follow-up in 1 to 2 months to sign consent and review labs. Low medical complexity decision making based on need for OR. documented in this encounter [facility] documented in this encounter [facility]02-08-2023 Evaluation note* Diagnosis Follow-up exam, 3-6 months since previous exam Unspecified follow-up examination documented in this encounter [facility]01-23-2023 History of Present illness Narrative* Julita López MA - 09/04/2022 8:45 AM EST Adipex: She is completing her 1St month of Adipex. She has lost 11 lbs in the past month and her current There is no height or weight on file to calculate BMI.. She states: yes to exercising regularly, and yes to having any medication side effects, dry mouth. She states it is not bothersome. She started this on 08/02/2023. Wt Readings from Last 3 Encounters: 08/02/22 83 kg (183 lb) 06/22/22 83.1 kg (183 lb 3.2 oz) 05/08/22 80.3 kg (177 lb 0.5 oz) * Margaret Hernandez APRN-MAURICIO - 09/04/2022 8:45 AM EST History of Present Illness Heydi Dill is a 46 y.o. female who comes in for evaluation of the following complaints: had concerns including Weight Loss. Adipex: She is completing her 1St month of Adipex. She has lost 11 lbs in the past month and her current Body mass index is 30.29 kg/m .. She states: yes to exercising regularly, and yes to having any medication side effects, dry mouth. She states it is not bothersome. She started this on 08/02/2023. Wt Readings from Last 3 Encounters: 09/04/22 77.6 kg (171 lb) 08/02/22 83 kg (183 lb) 06/22/22 83.1 kg (183 lb 3.2 oz) has a past medical history of Asthma, Bipolar disorder, Depression, Endometriosis, Exposure to hepatitis B, Generalized anxiety disorder, Hearing loss, History of kidney stones, Migraine, and Rheumatic fever. Outpatient Medications Prior to Visit: Albuterol 108 (90 Base) MCG/ACT Aero Soln inhaler, Inhale 2 puffs every 4 hours as needed for Shortness of Breath or Wheezing. Atorvastatin 20 MG tablet, Take 1 tablet by mouth daily. FLUoxetine 40 MG capsule, Take 1 capsule by mouth daily. hydrOXYzine HCl 25 MG tablet, Take 1 tablet by mouth 3 times daily as needed for Anxiety or Insomnia. phentermine 37.5 MG tablet, Take 1 tablet by mouth every morning before breakfast. chlordiazepoxide-clidinium 5-2.5 MG capsule, Take 1 capsule by mouth 3 times daily for 10 days. dicyclomine 20 MG tablet, Take 1 tablet by mouth every 6 hours. polyethylene glycol 17 GM/SCOOP Powder powder, Take 34 g by mouth 2 times daily. dzldcewygjlhezy-gvpfntarzuxzfcig-iqvnQJHtzcf (Capmist DM) 60-15-400 MG tablet, Take 1 tablet by mouth every 6 hours as needed for Cold Symptoms. (Patient not taking: Reported on 08/02/2022) has No Known Allergies. Review of Systems Constitutional: Negative for appetite change, chills, diaphoresis, fatigue, fever and unexpected weight change. HENT: Negative for congestion, ear pain, hearing loss, rhinorrhea, sore throat and trouble swallowing. Eyes: Negative for pain, discharge, redness and visual disturbance. Respiratory: Negative for apnea, cough, choking, chest tightness, shortness of breath and wheezing. Cardiovascular: Negative for chest pain, palpitations and leg swelling. Gastrointestinal: Negative for abdominal distention, abdominal pain, anal bleeding, blood in stool,constipation, diarrhea and nausea. Endocrine: Negative. Genitourinary: Negative for decreased urine volume, difficulty urinating, dysuria, flank pain, frequency, hematuria and urgency. Musculoskeletal: Negative for arthralgias, back pain, gait problem, joint swelling, myalgias and neck pain. Skin: Negative. Allergic/Immunologic: Negative. Neurological: Negative for dizziness, tremors, syncope, weakness, light- headedness, numbness and headaches. Hematological: Negative. Psychiatric/Behavioral: Negative. Vitals: Blood pressure 122/64, pulse 74, temperature 96.6 F (35.9 C), resp. rate 18, height 1.6 m (5' 3 ), weight 77.6 kg (171 lb), SpO2 99 %. Physical Exam Vitals and nursing note reviewed. Constitutional: Appearance: Normal appearance. She is obese. Cardiovascular: Rate and Rhythm: Normal rate and regular rhythm. Heart sounds: Normal heart sounds. Pulmonary: Effort: Pulmonary effort is normal. Breath sounds: Normal breath sounds. Skin: General: Skin is warm and dry. Neurological: Mental Status: She is alert and oriented to person, place, and time. Psychiatric: Mood and Affect: Mood normal. Behavior: Behavior normal. Thought Content: Thought content normal. Judgment: Judgment normal. Neurological Exam Mental Status Alert. Oriented to person, place, and time. Assessment and Plan ICD-10-CM 1. Mixed hyperlipidemia E78.2 2. Class 1 obesity due to excess calories with serious comorbidity and body mass index (BMI) of 32.0 to 32.9 in adult E66.09 phentermine 37.5 MG tablet Z68.32 Will recheck her cholesterol at completion of tx. She did lose at least four (4) lbs of weight. I reminded her of the State's rules regarding at least a four pound loss in a month. I will refill the Rx today. Weight loss has been encouraged by following dietary restrictions (a balanced diet of mainly whole food plant-based diet with less animal protein, no refined CHO's (including wheat products), and fat), and aerobic exercise. I have checked an [place] report on this patient today and there is no/low risk with the prescribing of a controlled medication based on my review of the report. Return to clinic in 1 month or sooner prn. documented in this [facility]12-21-2022 History of Present illness Narrative* Julita López MA - 08/02/2022 8:30 AM EST COPD: She Is taking her maintenance inhaler as ordered. She is needing her rescue inhaler 2 times daily, She Is exercising regularly. Her last flu shot was does not take. She has dyspnea with none. She denies a change in sputum color, denies chest congestion, denies an increase in dyspnea. Hyperlipidemia: She is taking medications as directed. Lab Results Component Value Date CHOLESTEROL 195 02/20/2022 TRIG 413 (H) 02/20/2022 HDL 34 (L) 02/20/2022 LDLCALC 78 02/20/2022 Her last lipid panel was done on 02/20/2022, and her ratio of Total Cholesterol/HDL was 5.74. She isnot having medication side effects. There is not a FH of IHD or stroke. Anxiety: She Is taking her medication as ordered. She has noticed a decrease in symptoms. Her symptoms include racing thoughts. She is taking Fluoxetine for her anxiety and she denies side effects from medication. BECKY-7 score today is 13. Depression: Her depression is stable. She views the depression as moderate. She is taking her medications as ordered. Symptoms present now include depressed mood. PHQ-9 score today is 14. Insomnia: Her insomnia is improved. She is currently taking Hydroxyzine sometimes. She admits to initial insomnia, admits to broken sleep. * Margaret Hernandez APRN-[employer] - 08/02/2022 8:30 AM EST History of Present Illness Heydi Dill is a 46 y.o. female who comes in for evaluation of the following complaints: had concerns including Chronic Obstructive Pulmonary Disease, Hyperlipidemia, Depression, Insomnia, and Anxiety. COPD: She Is taking her maintenance inhaler as ordered. She is needing her rescue inhaler 2 times daily, She Is exercising regularly. Her last flu shot was does not take. She has dyspnea with none. She denies a change in sputum color, denies chest congestion, denies an increase in dyspnea. Hyperlipidemia: She is taking medications as directed. Lab Results Component Value Date CHOLESTEROL 195 02/20/2022 TRIG 413 (H) 02/20/2022 HDL 34 (L) 02/20/2022 LDLCALC 78 02/20/2022 Her last lipid panel was done on 02/20/2022, and her ratio of Total Cholesterol/HDL was 5.74. She isnot having medication side effects. There is not a FH of IHD or stroke. Anxiety: She Is taking her medication as ordered. She has noticed a decrease in symptoms. Her symptoms include racing thoughts. She is taking Fluoxetine for her anxiety and she denies side effects from medication. BECKY-7 score today is 13. Depression: Her depression is stable. She views the depression as moderate. She is taking her medications as ordered. Symptoms present now include depressed mood. PHQ-9 score today is 14. Insomnia: Her insomnia is improved. She is currently taking Hydroxyzine sometimes. She admits to initial insomnia, admits to broken sleep. Obesity: She is interested in getting help to lose weight. She has not lost weight in past month. She is not following a reduced caloric diet due to an uncontrolled appetite and is exercising regularly. has a past medical history of Bipolar disorder, Depression, Endometriosis, Exposure to hepatitis B,Generalized anxiety disorder, Hearing loss, History of kidney stones, Migraine, and Rheumatic fever. Outpatient Medications Prior to Visit: dicyclomine 20 MG tablet, Take 1 tablet by mouth every 6 hours. albuterol 108 (90 Base) MCG/ACT Aero Soln inhaler, Inhale 2 puffs every 4 hours as needed for Shortness of Breath or Wheezing. atorvastatin 20 MG tablet, Take 1 tablet by mouth daily. FLUoxetine 40 MG capsule, Take 1 capsule by mouth daily. hydrOXYzine HCl 25 MG tablet, Take 1 tablet by mouth 3 times daily as needed for Anxiety or Insomnia. chlordiazepoxide-clidinium 5-2.5 MG capsule, Take 1 capsule by mouth 3 times daily for 10 days. polyethylene glycol 17 GM/SCOOP Powder powder, Take 34 g by mouth 2 times daily. ndfeypxfizfmtsw-pkqohhqsxuxbrflw-kbykLQIlnzn (Capmist DM) 60-15-400 MG tablet, Take 1 tablet by mouth every 6 hours as needed for Cold Symptoms. (Patient not taking: Reported on 08/02/2022) has No Known Allergies. Review of Systems Constitutional: Negative for appetite change, chills, diaphoresis, fatigue, fever and unexpected weight change. HENT: Negative for congestion, ear pain, hearing loss, rhinorrhea, sore throat and trouble swallowing. Eyes: Negative for pain, discharge, redness and visual disturbance. Respiratory: Negative for apnea, cough, choking, chest tightness, shortness of breath and wheezing. Cardiovascular: Negative for chest pain, palpitations and leg swelling. Gastrointestinal: Negative for abdominal distention, abdominal pain, anal bleeding, blood in stool,constipation, diarrhea and nausea. Endocrine: Negative. Genitourinary: Negative for decreased urine volume, difficulty urinating, dysuria, flank pain, frequency, hematuria and urgency. Musculoskeletal: Negative for arthralgias, back pain, gait problem, joint swelling, myalgias and neck pain. Skin: Negative. Allergic/Immunologic: Negative. Neurological: Negative for dizziness, tremors, syncope, weakness, light- headedness, numbness and headaches. Hematological: Negative. Psychiatric/Behavioral: Positive for dysphoric mood. Negative for agitation, behavioral problems, confusion, decreased concentration, hallucinations, self- injury, sleep disturbance and suicidal ideas. The patient is nervous/anxious. The patient is not hyperactive. Vitals: Blood pressure 124/68, pulse 70, temperature 96.7 F (35.9 C), resp. rate 18, height 1.6 m (5' 3 ), weight 83 kg (183 lb), SpO2 98 %. Physical Exam Vitals and nursing note reviewed. Constitutional: Appearance: Normal appearance. She is obese. Cardiovascular: Rate and Rhythm: Normal rate and regular rhythm. Heart sounds: Normal heart sounds. Pulmonary: Effort: Pulmonary effort is normal. Breath sounds: Normal breath sounds. Abdominal: General: Bowel sounds are normal. Palpations: Abdomen is soft. Skin: General: Skin is warm and dry. Neurological: Mental Status: She is alert and oriented to person, place, and time. Psychiatric: Mood and Affect: Mood normal. Behavior: Behavior normal. Thought Content: Thought content normal. Judgment: Judgment normal. Neurological Exam Mental Status Alert. Oriented to person, place, and time. Assessment and Plan 1. Chronic obstructive pulmonary disease, unspecified COPD type Stable, will continue current med prn. - Albuterol 108 (90 Base) MCG/ACT Aero Soln inhaler; Inhale 2 puffs every 4 hours as needed for Shortness of Breath or Wheezing. Dispense: 18 g; Refill: 5 2. Mixed hyperlipidemia Stable, will continue current med. - Atorvastatin 20 MG tablet; Take 1 tablet by mouth daily. Dispense: 90 tablet; Refill: 1 - CBC, EDIF, PLATELET; Future - COMPREHENSIVE METABOLIC PANEL; Future - LIPID PANEL W CALCULATED LDL; Future 3. Generalized anxiety disorder Stable, will continue current med. - FLUoxetine 40 MG capsule; Take 1 capsule by mouth daily. Dispense: 90 capsule; Refill: 1 - hydrOXYzine HCl 25 MG tablet; Take 1 tablet by mouth 3 times daily as needed for Anxiety or Insomnia. Dispense: 60 tablet; Refill: 5 4. Recurrent major depressive disorder, in full remission Stable, will continue current med. - FLUoxetine 40 MG capsule; Take 1 capsule by mouth daily. Dispense: 90 capsule; Refill: 1 5. Primary insomnia Stable, will continue current med. - hydrOXYzine HCl 25 MG tablet; Take 1 tablet by mouth 3 times daily as needed for Anxiety or Insomnia. Dispense: 60 tablet; Refill: 5 6. Class 1 obesity due to excess calories with serious comorbidity and body mass index (BMI) of 32.0 to 32.9 in adult Weight loss has been encouraged by following dietary restrictions (a balanced diet of mainly whole food plant-based diet with minimal animal protein, refined CHO's, and fat), and aerobic exercise. Discussed low calorie diet around 1200- 1400 calories a day making sure to eat 3 meals a day with protein. I will start her on ADIPEX-P. I advised her of the State's rules requiring at least a four pound loss in the next four weeks and that I can only refill the Rx a total of three times in the next nine months. I further advised her that she will need to come in for the two monthly follow-up visits to get the refills. Discussed risks (side effects) and benefits of medication & encouraged to read about medicationand take meds as directed. I have checked an [place]AR[place] report on this patient today and there is no/low risk with the prescribing of a controlled medication based on my review of the report. - phentermine 37.5 MG tablet; Take 1 tablet by mouth every morning before breakfast. Dispense: 30 tablet; Refill: 0 Return to clinic in 1 month or sooner prn. documented in this [facility]11-10-2022 History of Present illness Narrative* LUZ MARIA Gonzales - 06/22/2022 3:45 PM EST HPI Heydi Dill female 1975 presents to the [facility] with Chief Complaint Patient presents with Sore Throat Cough Headache, body hurts, back and neck pain. Patient presents with sinus congestion, dry cough, Sore throat, headache, body aches That started 3-4 days ago. She has taken iutt-pee-zvdulgu medications without improvement. Initially had a fever has now resolved. Unknown exposures. History No Known Allergies Current Outpatient Medications Medication Sig albuterol 108 (90 Base) MCG/ACT Aero Soln inhaler Inhale 2 puffs every 4 hours as needed for Shortness of Breath or Wheezing. atorvastatin 20 MG tablet Take 1 tablet by mouth daily. dicyclomine 20 MG tablet Take 1 tablet by mouth every 6 hours. FLUoxetine 40 MG capsule Take 1 capsule by mouth daily. hydrOXYzine HCl 25 MG tablet Take 1 tablet by mouth 3 times daily as needed for Anxiety or Insomnia. chlordiazepoxide-clidinium 5-2.5 MG capsule Take 1 capsule by mouth 3 times daily for 10 days. polyethylene glycol 17 GM/SCOOP Powder powder Take 34 g by mouth 2 times daily. rulbvihmdmnrbzy-vatgwtepdgnolzac-xjalSCLtgzp (Capmist DM) 60-15-400 MG tablet Take 1 tablet by mouth every 6 hours as needed for Cold Symptoms. Family History Problem Relation Age of Onset Cancer Mother pancreas Dementia Mother Depression Mother Diabetes Mother Heart Disease - Other Mother Lipid Disorder Mother Hypertension Mother Parkinson Mother Asthma Father Skin Cancer Father Depression Father Diabetes Father Heart Disease - Other Father Lipid Disorder Father Hypertension Father Kidney Disease Father Asthma Sister Ovarian Cancer Sister Depression Sister Diabetes Sister Hypertension Sister Kidney Disease Sister Migraines Sister Liver Disease Sister Diabetes Brother Kidney Disease Brother Breast Cancer Maternal Aunt Breast Cancer Paternal Grandmother Past Medical History: Diagnosis Date Bipolar disorder Depression Endometriosis Exposure to hepatitis B Generalized anxiety disorder Hearing loss History of kidney stones Migraine Rheumatic fever Past Surgical History: Procedure Laterality Date CORE BIOPSY OF THE BREAST Left 03/16/2022 COLONOSCOPY DIAGNOSTIC N/A 01/02/2022 Laterality: N/A; Surgeon: Roge Espana Jr., DO; Location: [facility] ENDOSCOPY APPENDECTOMY 2011 HYSTERECTOMY 2005 TONSILLECTOMY ADENOIDECTOMY 2001 LITHOTRIPSY Several kidney stones - chronic kidney stones Social History Socioeconomic History Marital status: Spouse name: Not on file Number of children: Not on file Years of education: Not on file Highest education level: Not on file Occupational History Not on file Tobacco Use Smoking status: Every Day Packs/day: 0.50 Types: Cigarettes Smokeless tobacco: Never Tobacco comments: Vaping Use Vaping Use: Never used Substance and Sexual Activity Alcohol use: No Drug use: No Sexual activity: Yes Partners: Male Other Topics Concern Service Not Asked Blood Transfusions Not Asked Caffeine Concern Not Asked Occupational Exposure Not Asked Hobby Hazards Not Asked Sleep Concern Not Asked Stress Concern Not Asked Weight Concern Not Asked Special Diet Not Asked Back Care Not Asked Exercise Not Asked Bike Helmet Not Asked Seat Belt Not Asked Domestic Violence No Social History Narrative Not on file Social Determinants of Health Financial Resource Strain: Not on file Food Insecurity: Not on file Transportation Needs: Not on file Physical Activity: Not on file Stress: Not on file Social Connections: Not on file Intimate Partner Violence: Not on file Housing Stability: Not on file ROS Review of Systems 8 systems reviewed with patient, negative unless specifically mentioned in history of present illness PHYSICAL EXAM Visit Vitals BP 129/79 (BP Location: Right arm, BP Position: Sitting) Pulse 97 Temp 98.8 F (37.1 C) (Temporal) Resp 16 Ht 1.6 m (5' 3 ) Wt 83.1 kg (183 lb 3.2 oz) SpO2 98% BMI 32.45 kg/m Physical Exam Vitals and nursing note reviewed. Constitutional: General: She is not in acute distress. Appearance: Normal appearance. She is well-developed. She is not diaphoretic. HENT: Head: Normocephalic. Right Ear: Tympanic membrane normal. Left Ear: Tympanic membrane normal. Nose: Congestion present. Mouth/Throat: Mouth: Mucous membranes are moist. Pharynx: Oropharynx is clear. Eyes: Pupils: Pupils are equal, round, and reactive to light. Cardiovascular: Rate and Rhythm: Normal rate and regular rhythm. Heart sounds: Normal heart sounds. Pulmonary: Effort: Pulmonary effort is normal. No respiratory distress. Breath sounds: Normal breath sounds. Musculoskeletal: Cervical back: Neck supple. Lymphadenopathy: Cervical: No cervical adenopathy. Skin: General: Skin is warm and dry. Capillary Refill: Capillary refill takes less than 2 seconds. Neurological: General: No focal deficit present. Mental Status: She is alert and oriented to person, place, and time. Psychiatric: Mood and Affect: Mood normal. Behavior: Behavior normal. RESULTS Recent Results (from the past 1 hour(s)) SARS-COV-2 RAPID Collection Time: 06/22/22 3:57 PM Specimen: Fluid/Swab Result Value Ref Range SARS COV 2 RNA, QL REAL TIME RT PCR NOT DETECTED NOT DETECTED NARRATIVE -1 This test was performed using isothermal DEMOND and has been approved as Emergency Use Authorization (EUA) for the qualitative detection lnAORO-KtH-[id number] nucleic acid. Performed by: [facility] POCT INFLUENZA, A B Collection Time: 06/22/22 4:14 PM Result Value Ref Range POCT Influenza A Negative Negative, Not Tested, Invalid POCT Influenza B Negative Negative, Not Tested, Invalid ASSESSMENT/PLAN 1. Viral illness 2. Cough, unspecified type Orders Placed This Encounter SARS-COV-2 RAPID POCT INFLUENZA, A B yujdoculbvsuavr-zvuehnytamdgwccl-ubthJEIkdup (Capmist DM) 60-15-400 MG tablet Rapid COVID19 test in influenza test negative. Symptoms appear viral. Discussed supportive home care. Prescribed Capmist DM. Work note provided. If symptoms worsen patient was advised to follow up in our office, primary care provider or the Emergency Dept. Benefits, Risks, Contraindications, and Complications of recommended treatments were explained. The patient understands and agrees to proceed with plan. LUZ MARIA Gonzales 06/22/2022 [facility] History of Present illness Narrative* Aspen Rios - 04/25/2022 11:00 AM EDT Patient is here today for there follow up on her scope an to talk about a hida scan to be done. Patient has had pain, vomiting, an diarrhea since the scope was done in December 2021 * Roge Espana Jr., DO - 04/25/2022 11:00 AM EDT Office follow-up Date and Time: May 03, 2022 12:47 PM Patient Demographics: Heydi Dill female 1975 Wt Readings from Last 1 Encounters: 04/25/22 80.3 kg (177 lb) Chief Complaint: 46-year-old lady here regarding previous abdominal distress recent ultrasound the abdomen was unremarkable Patient did have a trial of anti-IBS medications with dicyclomine Most recent colonoscopic evaluation January 01 with polyps found [address] scan of the unrevealing questionable hydroureter on the right Patient continues to complain of intermittent diarrhea with urgency bloating and borborygmi Patient denies fevers chills or night sweats no melena and/or hematochezia We discussed Bhavesh criteria and medications we discussed diagnostic and therapeutic intervention Discussed evaluation of the bile biliary tree to rule out functional bowel disorders and gallbladder HIDA scan with ejection fraction Ht 1.6 m (5' 3 ) Wt 80.3 kg (177 lb) BMI 31.35 kg/m Smoking Status Current Every Day Smoker Past Medical History: Diagnosis Date Bipolar disorder Depression Endometriosis Exposure to hepatitis B Generalized anxiety disorder Hearing loss History of kidney stones Migraine Rheumatic fever Past Surgical History: Procedure Laterality Date CORE BIOPSY OF THE BREAST Left 03/16/2022 COLONOSCOPY DIAGNOSTIC N/A 01/02/2022 Laterality: N/A; Surgeon: Roge Espana Jr., DO; Location: [facility] APPENDECTOMY 2011 HYSTERECTOMY 2005 TONSILLECTOMY ADENOIDECTOMY 2002 LITHOTRIPSY Several kidney stones - chronic kidney stones Social History Socioeconomic History Marital status: Tobacco Use Smoking status: Current Every Day Smoker Packs/day: 0.50 Types: Cigarettes Smokeless tobacco: Never Used Tobacco comment: Vaping Use Vaping Use: Never used Substance and Sexual Activity Alcohol use: No Drug use: No Sexual activity: Yes Partners: Male Other Topics Concern Domestic Violence No Current Outpatient Medications: albuterol 108 (90 Base) MCG/ACT Aero Soln inhaler, Inhale 2 puffs every 4 hours as needed for Shortness of Breath or Wheezing., Disp: 18 g, Rfl: 5 atorvastatin 20 MG tablet, Take 1 tablet by mouth daily., Disp: 90 tablet, Rfl: 1 dicyclomine 20 MG tablet, Take 1 tablet by mouth every 6 hours., Disp: 120 tablet, Rfl: 1 FLUoxetine 40 MG capsule, Take 1 capsule by mouth daily., Disp: 90 capsule, Rfl: 1 hydrOXYzine HCl 25 MG tablet, Take 1 tablet by mouth 3 times daily as needed for Anxiety or Insomnia., Disp: 60 tablet, Rfl: 5 chlordiazepoxide-clidinium 5-2.5 MG capsule, Take 1 capsule by mouth 3 times daily for 10 days., Disp: 30 capsule, Rfl: 1 polyethylene glycol 17 GM/SCOOP Powder powder, Take 34 g by mouth 2 times daily., Disp: 850 g, Rfl:1 Patient has no known allergies. ROS: No new findings and review of general medical status cardiovascular respiratory extremities bowel function and neurologic changes Physical Exam: Alert lady no distress examination no obvious deformities Cardiovascular-no new findings no JVD Respiratory-no coughing or wheezing Abdomen-mildly obese nondistended Extremities-no edema noted no deformities Neurologic-no focal deficits Assessment: Persistent abdominal pain etiology unknown Likely Keystone criteria positive IBS On CT, hydroureter possible obstructive urologic issue Rule out biliary tract spasm Plan: Continue current medications adjust as needed Consider decreasing dicyclomine and adding clindiminium HIDA scan with ejection fraction Further recommendations pending [facility] Miscellaneous Notes* Nursing Notes - Mallory Blanco RN - 03/16/2022 10:30 AM EDT Pt to [facility] interventional radiology for ultrasound guided left breast lesion biopsy by Dr Richards with local anesthetic. Tolerated procedure well. Elastic bandage applied to left breast lateralto nipple. Ice pack provided for comfort. Dr Richards cancelled post procedure mammogram. Discharge instructions reviewed with patient. Questions answered. Expresses understanding. Discharged home. Ambulatory. Stable IMPLANT NOTE HYDROMARK BREAST BIOPSY SITE MARKER T-1 LOT# [id number] EXPIRATION 07/14/2024 [facility] Note* Nursing Notes - Mallory Blanco RN - 03/16/2022 10:30 AM EDT Pt to [facility] interventional radiology for ultrasound guided left breast lesion biopsy by Dr Richards with local anesthetic. Tolerated procedure well. Elastic bandage applied to left breast lateralto nipple. Ice pack provided for comfort. Dr Richards cancelled post procedure mammogram. Discharge instructions reviewed with patient. Questions answered. Expresses understanding. Discharged home. Ambulatory. Stable IMPLANT NOTE HYDROMARK BREAST BIOPSY SITE MARKER T-1 LOT# [id number] EXPIRATION 07/14/2024 [facility] History and physical note* Tere Beltre DO - 03/13/2022 2:15 PM EDT Breast Mass Consultation Heydi Dill is a 46 y.o. female who presents to the clinic today for consultation regarding a L breast lesion. Clinical Care Team: -Referring Provider for today's consult: Self, Self -Primary Care Provider: Margaret Hernandez History of Present Illness: Chief Complaint Patient presents with New Patient Denies any pain No nipple discharge No weight loss chest pain bone pain or abd pain At the 8 o'clock retroareolar region corresponding to the mammographic mass, there is a 0.9 x 0.6 x 0.7 cm hypoechoic mass with angular margins just beneath the skin surface demonstrating no significant posterior acoustic features. No discrete tract to the skin surface. Finding is considered to be indeterminate for malignancy. Implementation Services Analyst/Breast History: Breast cancer risk factors include gender / age . aunt with breast cancer . Patient denies to previous breast biopsy(s). Patient denies a personal history of breast cancer. Social History Social History Narrative Not on file I have reviewed Heydi Huber [place] medical, surgical and other pertinent history in detail, and have updated where appropriate in the computerized patient record. Medical/Surgical History: She has a past medical history of Bipolar disorder, Depression, Endometriosis, Exposure to hepatitis B, Generalized anxiety disorder, Hearing loss, History of kidney stones, Migraine, and Rheumatic fever. Her has a past surgical history that includes tonsillectomy adenoidectomy (2001); appendectomy (2010); hysterectomy (2004); lithotripsy; and colonoscopy diagnostic (N/A, 01/02/2022). Family/Social History: Her Family History Problem Relation Age of Onset Cancer Mother pancreas Dementia Mother Depression Mother Diabetes Mother Heart Disease - Other Mother Lipid Disorder Mother Hypertension Mother Parkinson Mother Asthma Father Skin Cancer Father Depression Father Diabetes Father Heart Disease - Other Father Lipid Disorder Father Hypertension Father Kidney Disease Father Asthma Sister Ovarian Cancer Sister Depression Sister Diabetes Sister Hypertension Sister Kidney Disease Sister Migraines Sister Liver Disease Sister Diabetes Brother Kidney Disease Brother Breast Cancer Maternal Aunt Breast Cancer Paternal Grandmother She reports that she has been smoking cigarettes. She has been smoking about 0.50 packs per day. She has never used smokeless tobacco. She reports that she does not drink alcohol and does not use drugs. Medications/Allergies/Immunizations: Her current medication(s) include has a current medication list which includes the following prescription(s): albuterol 108 (90 Base) MCG/ACT Aero Soln inhaler, atorvastatin 20 MG tablet, [id number] MG tablet, FLUoxetine 40 MG capsule, hydrOXYzine HCl 25 MG tablet, and polyethylene glycol 17 GM/SCOOP Powder powder. Allergies: Patient has no known allergies., Immunizations: Immunization History Administered Date(s) Administered Pneumococcal Polysac 23-Valent Vaccine 03/17/2011 Review of Systems: A twelve point review of systems was negative . Physical Exam: General/Constitutional: Well developed, well nourished female who looks their stated age of 46 y.o.. No acute distress. BP 110/80 Ht 1.575 m (5' 2 ) Wt 78.9 kg (174 lb) BMI 31.83 kg/m SmokingStatus Current Every Day Smoker HEENT: Head: Normocephalic and atraumatic. Eyes: Pupils are equal, round, and reactive to light andaccomodation. Extraocular movements are intact. Sclerae are anicteric. Neck: Supple, non-tender. Thyroid normal. Oral opening normal and gag reflex present. Cardiac: Regular rate and rhythm. Normal S1, S2. No murmurs, rubs or gallops. Pulmonary/Chest: Lungs are clear to ascultation bilaterally. No wheezes, rhonchi or rales noted. Nokyphosis or scoliosis. No axillary adenopathy. Skin: Skin is warm and dry. Flush, pallor and rash absent. Breast: Breasts appear symmetric. There are no other dominant masses present. Lymphatics: There is no cervical, supraclavicular or axillary adenopathy present. Abdominal: Soft, non-tender, non-distended. No organomegaly. Extremities: Normal range of motion in all four extremities, with normal strength equally and symmetrically. No cyanosis or clubbing or peripheral edema. Neurological: Conscious, alert and oriented. No focal neurologic deficit. Psychiatric: Appropriate mood and affect for her clinical situation. Assessment & Plan: Impression: L breast lesion Plan/Recommendations: plan for core needle biopsy to obtain a diagnosis Further recs pending. Heydi was seen today for new patient. Diagnoses and all orders for this visit: Mass of left breast, unspecified quadrant [facility] Work Phone: [phone]) 985-283008-01-2022 History and physical note* Tere Beltre DO - 03/13/2022 2:15 PM EDT Breast Mass Consultation Heydi Dill is a 46 y.o. female who presents to the clinic today for consultation regarding a L breast lesion. Clinical Care Team: -Referring Provider for today's consult: Self, Self -Primary Care Provider: Margaret Hernandez History of Present Illness: Chief Complaint Patient presents with New Patient Denies any pain No nipple discharge No weight loss chest pain bone pain or abd pain At the 8 o'clock retroareolar region corresponding to the mammographic mass, there is a 0.9 x 0.6 x 0.7 cm hypoechoic mass with angular margins just beneath the skin surface demonstrating no significant posterior acoustic features. No discrete tract to the skin surface. Finding is considered to be indeterminate for malignancy. Implementation Services Analyst/Breast History: Breast cancer risk factors include gender / age . aunt with breast cancer . Patient denies to previous breast biopsy(s). Patient denies a personal history of breast cancer. Social History Social History Narrative Not on file I have reviewed Heydi Dill medical, surgical and other pertinent history in detail, and have updated where appropriate in the computerized patient record. Medical/Surgical History: She has a past medical history of Bipolar disorder, Depression, Endometriosis, Exposure to hepatitis B, Generalized anxiety disorder, Hearing loss, History of kidney stones, Migraine, and Rheumatic fever. Her has a past surgical history that includes tonsillectomy adenoidectomy (2001); appendectomy (2010); hysterectomy (2004); lithotripsy; and colonoscopy diagnostic (N/A, 01/02/2022). Family/Social History: Her Family History Problem Relation Age of Onset Cancer Mother pancreas Dementia Mother Depression Mother Diabetes Mother Heart Disease - Other Mother Lipid Disorder Mother Hypertension Mother Parkinson Mother Asthma Father Skin Cancer Father Depression Father Diabetes Father Heart Disease - Other Father Lipid Disorder Father Hypertension Father Kidney Disease Father Asthma Sister Ovarian Cancer Sister Depression Sister Diabetes Sister Hypertension Sister Kidney Disease Sister Migraines Sister Liver Disease Sister Diabetes Brother Kidney Disease Brother Breast Cancer Maternal Aunt Breast Cancer Paternal Grandmother She reports that she has been smoking cigarettes. She has been smoking about 0.50 packs per day. She has never used smokeless tobacco. She reports that she does not drink alcohol and does not use drugs. Medications/Allergies/Immunizations: Her current medication(s) include has a current medication list which includes the following prescription(s): albuterol 108 (90 Base) MCG/ACT Aero Soln inhaler, atorvastatin 20 MG tablet, [id number] MG tablet, FLUoxetine 40 MG capsule, hydrOXYzine HCl 25 MG tablet, and polyethylene glycol 17 GM/SCOOP Powder powder. Allergies: Patient has no known allergies., Immunizations: Immunization History Administered Date(s) Administered Pneumococcal Polysac 23-Valent Vaccine 03/17/2011 Review of Systems: A twelve point review of systems was negative . Physical Exam: General/Constitutional: Well developed, well nourished female who looks their stated age of 46 y.o.. No acute distress. BP 110/80 Ht 1.575 m (5' 2 ) Wt 78.9 kg (174 lb) BMI 31.83 kg/m SmokingStatus Current Every Day Smoker HEENT: Head: Normocephalic and atraumatic. Eyes: Pupils are equal, round, and reactive to light andaccomodation. Extraocular movements are intact. Sclerae are anicteric. Neck: Supple, non-tender. Thyroid normal. Oral opening normal and gag reflex present. Cardiac: Regular rate and rhythm. Normal S1, S2. No murmurs, rubs or gallops. Pulmonary/Chest: Lungs are clear to ascultation bilaterally. No wheezes, rhonchi or rales noted. Nokyphosis or scoliosis. No axillary adenopathy. Skin: Skin is warm and dry. Flush, pallor and rash absent. Breast: Breasts appear symmetric. There are no other dominant masses present. Lymphatics: There is no cervical, supraclavicular or axillary adenopathy present. Abdominal: Soft, non-tender, non-distended. No organomegaly. Extremities: Normal range of motion in all four extremities, with normal strength equally and symmetrically. No cyanosis or clubbing or peripheral edema. Neurological: Conscious, alert and oriented. No focal neurologic deficit. Psychiatric: Appropriate mood and affect for her clinical situation. Assessment & Plan: Impression: L breast lesion Plan/Recommendations: plan for core needle biopsy to obtain a diagnosis Further recs pending. Heydi was seen today for new patient. Diagnoses and all orders for this visit: Mass of left breast, unspecified quadrant [facility] History of Present illness Narrative* Mariela Yanez - 03/13/2022 2:15 PM EDT Nurse Note: Review of Systems Nursing Assessment: Physical Exam Heydi Dill is a 46 y.o. female Pt is here for an US guided bx on left breast mammo and US done on 03/08 Denies pain. Noticeable lump. No drainage. Maternal aunt had breast cancer [facility] History of Present illness Narrative* Yue Ryan LPN - 03/02/2022 11:45 AM EDT Pt presents today with c/o lump in left breast. She noticed it first a couple weeks ago. She does not perform self breast exams. States she notes discomfort when touched. She denies drainage. States the area is warm and red. She has been afebrile. Her last mammogram was done 05/2021. She states she does have a family hx of breast cancer, but no hx of lumps herself. * LUZ MARIA Dugan - 03/02/2022 11:45 AM EDT Images from the original note were not included. History of Present Illness Heydi Dill is a 46 y.o. female who comes in for evaluation of the following complaints: had concerns including Breast Mass. Lump in left breast: She noticed it first a couple weeks ago. She does not perform self breast exams. States she notes discomfort when touched. She denies drainage. States the area is warm and red. She has been afebrile. Her last mammogram was done 05/2021. She states she does have a family hxof breast cancer, but no hx of lumps herself. has a past medical history of Bipolar disorder, Depression, Endometriosis, Exposure to hepatitis B,Generalized anxiety disorder, Hearing loss, History of kidney stones, Migraine, and Rheumatic fever. Outpatient Medications Prior to Visit: albuterol 108 (90 Base) MCG/ACT Aero Soln inhaler, Inhale 2 puffs every 4 hours as needed for Shortness of Breath or Wheezing. atorvastatin 20 MG tablet, Take 1 tablet by mouth daily. dicyclomine 20 MG tablet, Take 1 tablet by mouth every 6 hours. diphenoxylate-atropine 2.5-0.025 MG tablet EC/DR, Take 1 tablet by mouth 4 times daily as needed for Diarrhea. FLUoxetine 40 MG capsule, Take 1 capsule by mouth daily. hydrOXYzine HCl 25 MG tablet, Take 1 tablet by mouth 3 times daily as needed for Anxiety or Insomnia. polyethylene glycol 17 GM/SCOOP Powder powder, Take 34 g by mouth 2 times daily. has No Known Allergies. Review of Systems Constitutional: Negative for appetite change, chills, diaphoresis, fatigue, fever and unexpected weight change. HENT: Negative for congestion, ear pain, hearing loss, rhinorrhea, sore throat and trouble swallowing. Eyes: Negative for pain, discharge, redness and visual disturbance. Respiratory: Negative for apnea, cough, choking, chest tightness, shortness of breath and wheezing. Cardiovascular: Negative for chest pain, palpitations and leg swelling. Gastrointestinal: Negative for abdominal distention, abdominal pain, anal bleeding, blood in stool,constipation, diarrhea and nausea. Endocrine: Negative. Genitourinary: Negative for decreased urine volume, difficulty urinating, dysuria, flank pain, frequency, hematuria and urgency. Positive for left breast lump Musculoskeletal: Negative for arthralgias, back pain, gait problem, joint swelling, myalgias and neck pain. Skin: Negative. Allergic/Immunologic: Negative. Neurological: Negative for dizziness, tremors, syncope, weakness, light- headedness, numbness and headaches. Hematological: Negative. Psychiatric/Behavioral: Negative. Vitals: Blood pressure 128/72, pulse 91, temperature 97.3 F (36.3 C), temperature source Temporal, resp. rate 18, height 1.575 m (5' 2 ), weight 78.8 kg (173 lb 12.8 oz), SpO2 97 %. Physical Exam Vitals and nursing note reviewed. Constitutional: Appearance: Normal appearance. She is obese. Chest: Breasts: Right: No swelling, nipple discharge, skin change, tenderness, axillary adenopathy or supraclavicular adenopathy. Left: No swelling, nipple discharge, skin change, tenderness, axillary adenopathy or supraclavicular adenopathy. Lymphadenopathy: Upper Body: Right upper body: No supraclavicular, axillary or pectoral adenopathy. Left upper body: No supraclavicular, axillary or pectoral adenopathy. Skin: General: Skin is warm and dry. Findings: No erythema. Neurological: Mental Status: She is alert and oriented to person, place, and time. Psychiatric: Mood and Affect: Mood is anxious. Mood is not depressed. Affect is not tearful. Behavior: Behavior normal. Thought Content: Thought content normal. Judgment: Judgment normal. Neurological Exam Mental Status Alert. Oriented to person, place, and time. Assessment and Plan 1. Mass of lower outer quadrant of left breast Differential diagnoses discussed. The area of concern may be normal breast tissue, vs possible cyst, or mass. Will get imaging for further evaluation and follow up on results. - US BREAST COMPLETE UNILATERAL LEFT; Future - MAMMO DIAGNOSTIC LEFT; Future Return to clinic as needed. documented in this [facility]06-28-2022 History of Present illness Narrative* Evette Leavitt LPN - 02/07/2022 8:15 AM EDT Hyperlipidemia: She is taking medications as directed. Lab Results Component Value Date CHOLESTEROL 318 (H) 05/23/2021 TRIG 182 (H) 05/23/2021 HDL 43 05/23/2021 LDLCALC 239 (H) 05/23/2021 Her last lipid panel was done on 05/2021, and her ratio of Total Cholesterol/HDL was 7.40. She is not having medication side effects. There is not a FH of IHD or stroke. Depression: Her depression is stable. She is taking her medications as ordered. Symptoms present now : sadness no, tiredness no, trouble focusing or concentrating no, unhappiness no, anger no, irritability no, frustration no, loss of interests in pleasurable or fun activities no, sleep problems (too little or too much) no, fatigue no, anxiety yes, suicidal ideation no. PHQ-9 score is 0. Anxiety: She Is taking her medication as ordered. She has noticed a decrease in symptoms. she denies insomnia, admits to anxiousness (contributes to abdominal pain flare up) denies mood swings, denies palpitations, denies irritability. She denies side effects from medication. BECKY 7 Heydi Dill is a 46 y.o. female who comes in for follow-up of moderate to severe RLQ abdominal pain. Dr. Espana evaluated and did colonoscopy with no acute concerns - removed 1 polyp. Rx Bentyl, Miralax. Additionally Rx Neomycin for 7 days. Onset of symptoms was several months ago, clinical course waxing and waning, but worse overall since that time. She describes the pain as cramping, pressure-like and sharp and rates it at 5/10 but can increase overall due to certain foods (spicy), immobility. The pain is associated with diet changes, eating, fatty foods and bowel movements. The pain is worsened by: certain positions and eating. It is relieved by: certain positions, movement, antacids a nd water intake - 6 bottles of water per day. Additional associated symptoms include: headaches, belching, flatus, nausea and constipation. She is taking dicyclomine. Evaluation to date: colonoscopy and CT scan. Past medical history is significant for: irritable bowel syndrome and constipation/diarrhea, bloating, kidney stones. HIGH RISK QUESTIONS: Has there been similar problems in the past - Yes: Fever - No Severe belly pain - Yes: Stool black or bloody - No Vomiting blood or coffee grounds - No Persistent nausea, vomiting, or diarrhea - Yes: Nausea Mental status changes - No * Margaret Hernandez APRN-AIRCRAFT STRUCTURAL FITTER - 02/07/2022 8:15 AM EDT History of Present Illness Heydi Dill is a 46 y.o. female who comes in for evaluation of the following complaints: had concerns including Hyperlipidemia, Depression, Anxiety, and Abdominal Pain. Hyperlipidemia: She is taking medications as directed. Lab Results Component Value Date CHOLESTEROL 318 (H) 05/23/2021 TRIG 182 (H) 05/23/2021 HDL 43 05/23/2021 LDLCALC 239 (H) 05/23/2021 Her last lipid panel was done on 05/2021, and her ratio of Total Cholesterol/HDL was 7.40. She is not having medication side effects. There is not a FH of IHD or stroke. Depression: Her depression is stable. She is taking her medications as ordered. Symptoms present now : sadness no, tiredness no, trouble focusing or concentrating no, unhappiness no, anger no, irritability no, frustration no, loss of interests in pleasurable or fun activities no, sleep problems (too little or too much) no, fatigue no, anxiety yes, suicidal ideation no. PHQ-9 score is 0. Anxiety: She Is taking her medication as ordered. She has noticed a decrease in symptoms. she denies insomnia, admits to anxiousness (contributes to abdominal pain flare up) denies mood swings, denies palpitations, denies irritability. She denies side effects from medication. BEKCY 7 Ongoing RLQ/RUQ pain: Dr. Espana evaluated and did colonoscopy with no acute concerns - removed 1 polyp. Rx Bentyl, Miralax. Additionally Rx Neomycin for 7 days. Onset of symptoms was several months ago, clinical course waxing and waning, but worse overall since that time. She describes the pain ascramping, pressure-like and sharp and rates it at 5/10 but can increase overall due to certain foods (spicy), immobility. The pain is associated with diet changes, eating, fatty foods and bowel movements. The pain is worsened by: certain positions and eating. It is relieved by: certain positions, movement, antacids and water intake - 6 bottles of water per day. Additional associated symptoms include: headaches, belching, flatus, nausea and constipation. She is taking dicyclomine. Evaluation to date: colonoscopy and CT scan. Past medical history is significant for: irritable bowel syndrome andconstipation/diarrhea, bloating, kidney stones. HIGH RISK QUESTIONS: Has there been similar problems in the past - Yes: Fever - No Severe belly pain - Yes: Stool black or bloody - No Vomiting blood or coffee grounds - No Persistent nausea, vomiting, or diarrhea - Yes: Nausea Mental status changes - No has a past medical history of Bipolar disorder, Depression, Endometriosis, Exposure to hepatitis B,Generalized anxiety disorder, Hearing loss, History of kidney stones, Migraine, and Rheumatic fever. Outpatient Medications Prior to Visit: dicyclomine 20 MG tablet, Take 1 tablet by mouth every 6 hours. polyethylene glycol 17 GM/SCOOP Powder powder, Take 34 g by mouth 2 times daily. albuterol 108 (90 Base) MCG/ACT Aero Soln inhaler, Inhale 2 puffs every 4 hours as needed for Shortness of Breath or Wheezing. atorvastatin 20 MG tablet, Take 1 tablet by mouth daily. FLUoxetine 40 MG capsule, Take 1 capsule by mouth daily. hydrOXYzine HCl 25 MG tablet, Take 1 tablet by mouth 3 times daily as needed for Anxiety or Insomnia. nicotine 14 MG/24HR Patch 24 HR patch, Place 1 patch on skin every 24 hours. (Patient not taking: No sig reported) has No Known Allergies. Review of Systems Constitutional: Negative for appetite change, chills, diaphoresis, fatigue, fever and unexpected weight change. HENT: Negative for congestion, ear pain, hearing loss, rhinorrhea, sore throat and trouble swallowing. Eyes: Negative for pain, discharge, redness and visual disturbance. Respiratory: Negative for apnea, cough, choking, chest tightness, shortness of breath and wheezing. Cardiovascular: Negative for chest pain, palpitations and leg swelling. Gastrointestinal: Positive for abdominal pain and diarrhea. Negative for abdominal distention, analbleeding, blood in stool, constipation and nausea. Endocrine: Negative. Genitourinary: Negative for decreased urine volume, difficulty urinating, dysuria, flank pain, frequency, hematuria and urgency. Musculoskeletal: Negative for arthralgias, back pain, gait problem, joint swelling, myalgias and neck pain. Skin: Negative. Allergic/Immunologic: Negative. Neurological: Negative for dizziness, tremors, syncope, weakness, light- headedness, numbness and headaches. Hematological: Negative. Psychiatric/Behavioral: Negative. Vitals: Blood pressure 132/72, pulse 85, temperature 97.9 F (36.6 C), temperature source Temporal, resp. rate 16, height 1.575 m (5' 2 ), weight 80.1 kg (176 lb 9.6 oz), SpO2 98 %. Physical Exam Vitals and nursing note reviewed. Constitutional: Appearance: Normal appearance. She is obese. Cardiovascular: Rate and Rhythm: Normal rate and regular rhythm. Heart sounds: Normal heart sounds. Pulmonary: Effort: Pulmonary effort is normal. Breath sounds: Normal breath sounds. Abdominal: General: Bowel sounds are normal. There is no distension. Palpations: Abdomen is soft. There is no mass. Tenderness: There is abdominal tenderness in the right upper quadrant and right lower quadrant. Skin: General: Skin is warm and dry. Neurological: Mental Status: She is alert and oriented to person, place, and time. Psychiatric: Mood and Affect: Mood normal. Behavior: Behavior normal. Thought Content: Thought content normal. Judgment: Judgment normal. Neurological Exam Mental Status Alert. Oriented to person, place, and time. Assessment and Plan 1. Mixed hyperlipidemia Stable, will continue current med. - atorvastatin 20 MG tablet; Take 1 tablet by mouth daily. Dispense: 90 tablet; Refill: 1 - CBC, EDIF, PLATELET; Future - COMPREHENSIVE METABOLIC PANEL; Future - LIPID PANEL W CALCULATED LDL; Future 2. Chronic obstructive pulmonary disease, unspecified COPD type Stable, will continue current med prn. - albuterol 108 (90 Base) MCG/ACT Aero Soln inhaler; Inhale 2 puffs every 4 hours as needed for Shortness of Breath or Wheezing. Dispense: 18 g; Refill: 5 3. Generalized anxiety disorder Stable, will continue current med. - FLUoxetine 40 MG capsule; Take 1 capsule by mouth daily. Dispense: 90 capsule; Refill: 1 - hydrOXYzine HCl 25 MG tablet; Take 1 tablet by mouth 3 times daily as needed for Anxiety or Insomnia. Dispense: 60 tablet; Refill: 5 4. Recurrent major depressive disorder, in full remission Stable, will continue current med. - FLUoxetine 40 MG capsule; Take 1 capsule by mouth daily. Dispense: 90 capsule; Refill: 1 5. Primary insomnia Stable, will continue current med. - hydrOXYzine HCl 25 MG tablet; Take 1 tablet by mouth 3 times daily as needed for Anxiety or Insomnia. Dispense: 60 tablet; Refill: 5 6. Routine lab draw Will check results. - TSH W/FT4 REFLEX; Future 7. Irritable bowel syndrome with diarrhea Continue current measures as advised by gastro. No benefit from dicyclomine. Rx for Lomotil for severe abdominal cramping. - diphenoxylate-atropine 2.5-0.025 MG tablet EC/DR; Take 1 tablet by mouth 4 times daily as needed for Diarrhea. Dispense: 30 tablet; Refill: 0 8. RUQ pain & 9. Continuous RLQ abdominal pain Evaluation to date: colonoscopy and CT scan which did not reveal cause for the pain. Differential diagnoses discussed to include possible adhesions from previous abdominal surgeries or gallbladder issue. Will get US. If normal, will refer to Dr Espana for HIDA scan. - US ABDOMEN RUQ/LIVER/GB; Future Return to clinic in 6 months or sooner prn. documented in this [facility]05-23-2022 Nurse Note* Mary Jo Altamirano RN - 01/02/2022 12:01 PM EDT Pt discharged with all belongings and paperwork * Mary Jo Altamirano RN - 01/02/2022 11:59 AM EDT Pt up to dress, denies dizziness * Mary Jo Altamirano RN - 01/02/2022 11:48 AM EDT Pt has glasses on, pt states that she has passed some gas which relieved her abd cramping, denies needs, Discharge instructions reviewed with pt and family, pt verbalizes understanding, copies of AVSand instructions given to pt to take home * Mary Jo Altamirano RN - 01/02/2022 11:44 AM EDT Pt to edge of cart to dangle legs over side of cart, warm blanket draped over pt shoulders * Mary Jo Altamirano RN - 01/02/2022 11:40 AM EDT Pt having pepsi and tolerating well, denies difficulty swallowing * Mary Jo Altamirano RN - 01/02/2022 11:37 AM EDT HOB 45 degrees, pt rolling side to side to try to pass gas * Mary Jo Altamirano RN - 01/02/2022 11:22 AM EDT Pt to recovery bay 3, pt lying on left side, HOB 30 degrees, pt drowsy, no family present with pt [facility]* Mary Jo Altamirano RN - 01/02/2022 12:01 PM EDT Pt discharged with all belongings and paperwork T [facility] operation note* Mary Jo Altamirano RN - 01/02/2022 11:59 AM EDT Pt up to dress, denies dizziness T [facility] Surgical operation note* Mary Jo Altamirano RN - 01/02/2022 11:48 AM EDT Pt has glasses on, pt states that she has passed some gas which relieved her abd cramping, denies needs, Discharge instructions reviewed with pt and family, pt verbalizes understanding, copies of AVSand instructions given to pt to take home [facility]05-[facility] Surgical operation note* Mary Jo Altamirano RN - 01/02/2022 11:44 AM EDT Pt to edge of cart to dangle legs over side of cart, warm blanket draped over pt shoulders [facility]05-23-[facility] Nurse Surgical operation note* Mary Jo Altamirano RN - 01/02/2022 11:40 AM EDT Pt having pepsi and tolerating well, denies difficulty swallowing [facility]05-23-20[facility] Nurse Surgical operation note* Mary Jo Altamirano RN - 01/02/2022 11:37 AM EDT HOB 45 degrees, pt rolling side to side to try to pass gas [facility]05-23-20[facility] Nurse Surgical operation note* Mary Jo Altamirano RN - 01/02/2022 11:22 AM EDT Pt to recovery bay 3, pt lying on left side, HOB 30 degrees, pt drowsy, no family present with pt [facility]05-23-[facility] History and physical note* Roge Espana Jr., - 01/02/2022 8:52 AM EDT Office consultation Date and Time: November 22, 2021 5:40 PM Patient Demographics: Heydi Dill female 1975 Wt Readings from Last 1 Encounters: 10/13/21 81.4 kg (179 lb 6.4 oz) Chief Complaint: 45-year-old history right lower quadrant abdominal pain chronic constipation, Patient had recent CT scan of the abdomen from August 2021 with no significant findings other thana question we abnormal ureter on the right side, Patient denies previous endoscopic evaluations, She is status post appendectomy and hysterectomy, Patient states she does have frequent nephrolithiasis the pain currently is dissimilar from that previously noted with this disease, She does describe constipation with skyballous stools incomplete evacuation bloating and borborygmi, Patient denies family history of significant GI disease, Patient denies fevers chills or night sweats no melena and/or hematochezia with the exception of when necessary toilet paper blood bright red in nature, Patient is had a 15 pound weight loss recently which she states is somewhat intentional, We discussed diagnostic criteria for IBS including Keystone criteria, We discussed diagnostic and therapeutic intervention with medications, We discussed structural versus functional bowel disorders, We discussed ASGE recommendations for colon cancer screening and surveillance based on age family history personal history and ethnicity, We discussed risk-benefit ratio of endoscopic procedures possible complications and expected outcomes Smoking Status Current Every Day Smoker Past Medical History: Diagnosis Date Bipolar disorder Depression Endometriosis Exposure to hepatitis B Generalized anxiety disorder Hearing loss History of kidney stones Migraine Rheumatic fever Past Surgical History: Procedure Laterality Date APPENDECTOMY 2011 HYSTERECTOMY 2005 TONSILLECTOMY ADENOIDECTOMY 2002 LITHOTRIPSY Several kidney stones - chronic kidney stones Social History Socioeconomic History Marital status: Tobacco Use Smoking status: Current Every Day Smoker Packs/day: 0.50 Types: Cigarettes Smokeless tobacco: Never Used Tobacco comment: Vaping Use Vaping Use: Never used Substance and Sexual Activity Alcohol use: No Drug use: No Sexual activity: Yes Partners: Male Other Topics Concern Domestic Violence No Current Outpatient Medications: albuterol 108 (90 Base) MCG/ACT Aero Soln inhaler, Inhale 2 puffs every 4 hours as needed for Shortness of Breath or Wheezing., Disp: 18 g, Rfl: 5 atorvastatin 20 MG tablet, Take 1 tablet by mouth daily., Disp: 90 tablet, Rfl: 1 FLUoxetine 40 MG capsule, Take 1 capsule by mouth daily., Disp: 90 capsule, Rfl: 1 hydrOXYzine HCl 25 MG tablet, Take 1 tablet by mouth 3 times daily as needed for Anxiety or Insomnia., Disp: 60 tablet, Rfl: 5 dicyclomine 20 MG tablet, Take 1 tablet by mouth every 6 hours., Disp: 120 tablet, Rfl: 1 neomycin 500 MG tablet, Take 1 tablet by mouth 2 times daily for 7 days., Disp: 14 tablet, Rfl: 0 nicotine 14 MG/24HR Patch 24 HR patch, Place 1 patch on skin every 24 hours. (Patient not taking: Reported on 10/13/2021), Disp: 28 patch, Rfl: 0 polyethylene glycol 17 GM/SCOOP Powder powder, Take 34 g by mouth 2 times daily., Disp: 850 g, Rfl:1 Patient has no known allergies. ROS: Cardiovascular-no reported chest discomfort or shortness of breath Respiratory-no coughing or wheezing Gastrointestinal-as per chief complaint Extremities-no gross edema deformity or dysfunction Neurologic-no gross focal deficits reported or seizures Physical Exam: Alert lady no gross apparent distress to evaluation no skin lesions no gross secondary characteristics of liver disease are noted Cardiovascular-no JVD Respiratory-no wheezing or coughing Abdomen-soft nondistended Extremities-no deformities Neurologic-no focal deficits Assessment: Bhavesh criteria positive IBS Intermittent hematochezia No current trial of anti-IBS medications No current GI alarm symptoms No significant family history of GI disease No previous endoscopic evaluation age greater than 45 years Plan: Empiric trial of anti-IBS medications with titration Patient call with resultant medication trial in 1-2 days Further recommendations pending patient's response to medications Empiric trial of anti-biotic nonabsorbable Probable colonoscopy based on ASGE recommendations [facility] and physical note* Roge Espana Jr., DO - 01/02/2022 8:52 AM EDT Office consultation Date and Time: November 22, 2021 5:40 PM Patient Demographics: Heydi Dill female 1975 W[employer] Readings from Last 1 Encounters: 10/13/21 81.4 kg (179 lb 6.4 oz) Chief Complaint: 45-year-old history right lower quadrant abdominal pain chronic constipation, Patient had recent CT scan of the abdomen from August 2021 with no significant findings other thana question we abnormal ureter on the right side, Patient denies previous endoscopic evaluations, She is status post appendectomy and hysterectomy, Patient states she does have frequent nephrolithiasis the pain currently is dissimilar from that previously noted with this disease, She does describe constipation with skyballous stools incomplete evacuation bloating and borborygmi, Patient denies family history of significant GI disease, Patient denies fevers chills or night sweats no melena and/or hematochezia with the exception of when necessary toilet paper blood bright red in nature, Patient is had a 15 pound weight loss recently which she states is somewhat intentional, We discussed diagnostic criteria for IBS including Keystone criteria, We discussed diagnostic and therapeutic intervention with medications, We discussed structural versus functional bowel disorders, We discussed ASGE recommendations for colon cancer screening and surveillance based on age family history personal history and ethnicity, We discussed risk-benefit ratio of endoscopic procedures possible complications and expected outcomes Smoking Status Current Every Day Smoker Past Medical History: Diagnosis Date Bipolar disorder Depression Endometriosis Exposure to hepatitis B Generalized anxiety disorder Hearing loss History of kidney stones Migraine Rheumatic fever Past Surgical History: Procedure Laterality Date APPENDECTOMY 2011 HYSTERECTOMY 2005 TONSILLECTOMY ADENOIDECTOMY 2002 LITHOTRIPSY Several kidney stones - chronic kidney stones Social History Socioeconomic History Marital status: Tobacco Use Smoking status: Current Every Day Smoker Packs/day: 0.50 Types: Cigarettes Smokeless tobacco: Never Used Tobacco comment: Vaping Use Vaping Use: Never used Substance and Sexual Activity Alcohol use: No Drug use: No Sexual activity: Yes Partners: Male Other Topics Concern Domestic Violence No Current Outpatient Medications: albuterol 108 (90 Base) MCG/ACT Aero Soln inhaler, Inhale 2 puffs every 4 hours as needed for Shortness of Breath or Wheezing., Disp: 18 g, Rfl: 5 atorvastatin 20 MG tablet, Take 1 tablet by mouth daily., Disp: 90 tablet, Rfl: 1 FLUoxetine 40 MG capsule, Take 1 capsule by mouth daily., Disp: 90 capsule, Rfl: 1 hydrOXYzine HCl 25 MG tablet, Take 1 tablet by mouth 3 times daily as needed for Anxiety or Insomnia., Disp: 60 tablet, Rfl: 5 dicyclomine 20 MG tablet, Take 1 tablet by mouth every 6 hours., Disp: 120 tablet, Rfl: 1 neomycin 500 MG tablet, Take 1 tablet by mouth 2 times daily for 7 days., Disp: 14 tablet, Rfl: 0 nicotine 14 MG/24HR Patch 24 HR patch, Place 1 patch on skin every 24 hours. (Patient not taking: Reported on 10/13/2021), Disp: 28 patch, Rfl: 0 polyethylene glycol 17 GM/SCOOP Powder powder, Take 34 g by mouth 2 times daily., Disp: 850 g, Rfl:1 Patient has no known allergies. ROS: Cardiovascular-no reported chest discomfort or shortness of breath Respiratory-no coughing or wheezing Gastrointestinal-as per chief complaint Extremities-no gross edema deformity or dysfunction Neurologic-no gross focal deficits reported or seizures Physical Exam: Alert lady no gross apparent distress to evaluation no skin lesions no gross secondary characteristics of liver disease are noted Cardiovascular-no JVD Respiratory-no wheezing or coughing Abdomen-soft nondistended Extremities-no deformities Neurologic-no focal deficits Assessment: Keystone criteria positive IBS Intermittent hematochezia No current trial of anti-IBS medications No current GI alarm symptoms No significant family history of GI disease No previous endoscopic evaluation age greater than 45 years Plan: Empiric trial of anti-IBS medications with titration Patient call with resultant medication trial in 1-2 days Further recommendations pending patient's response to medications Empiric trial of anti-biotic nonabsorbable Probable colonoscopy based on ASGE recommendations [facility]* Nursing Notes - Fernanda Parker RN - 12/30/2021 10:45 AM EDT Reviewed medication list with patient, asked and added any additional medicines, vitamins, supplements and diet supplements or appetite suppressants to the patient Med Review. Also Reconciled Medications from outside sources to Med Review. Patient verified Med Review is accurate. [facility] Miscellaneous Notes* Nursing Notes - Fernanda Parker RN - 12/30/2021 10:45 AM EDT Reviewed medication list with patient, asked and added any additional medicines, vitamins, supplements and diet supplements or appetite suppressants to the patient Med Review. Also Reconciled Medications from outside sources to Med Review. Patient verified Med Review is accurate. [facility] History of Present illness Narrative* Roge Espana Jr., DO - 11/22/2021 10:00 AM EDT Office consultation Date and Time: November 22, 2021 5:40 PM Patient Demographics: Heydi Dill female 1975 W[employer] Readings from Last 1 Encounters: 10/13/21 81.4 kg (179 lb 6.4 oz) Chief Complaint: 45-year-old history right lower quadrant abdominal pain chronic constipation, Patient had recent CT scan of the abdomen from August 2021 with no significant findings other thana question we abnormal ureter on the right side, Patient denies previous endoscopic evaluations, She is status post appendectomy and hysterectomy, Patient states she does have frequent nephrolithiasis the pain currently is dissimilar from that previously noted with this disease, She does describe constipation with skyballous stools incomplete evacuation bloating and borborygmi, Patient denies family history of significant GI disease, Patient denies fevers chills or night sweats no melena and/or hematochezia with the exception of when necessary toilet paper blood bright red in nature, Patient is had a 15 pound weight loss recently which she states is somewhat intentional, We discussed diagnostic criteria for IBS including Bhavesh criteria, We discussed diagnostic and therapeutic intervention with medications, We discussed structural versus functional bowel disorders, We discussed ASGE recommendations for colon cancer screening and surveillance based on age family history personal history and ethnicity, We discussed risk-benefit ratio of endoscopic procedures possible complications and expected outcomes Smoking Status Current Every Day Smoker Past Medical History: Diagnosis Date Bipolar disorder Depression Endometriosis Exposure to hepatitis B Generalized anxiety disorder Hearing loss History of kidney stones Migraine Rheumatic fever Past Surgical History: Procedure Laterality Date APPENDECTOMY 2011 HYSTERECTOMY 2005 TONSILLECTOMY ADENOIDECTOMY 2002 LITHOTRIPSY Several kidney stones - chronic kidney stones Social History Socioeconomic History Marital status: Tobacco Use Smoking status: Current Every Day Smoker Packs/day: 0.50 Types: Cigarettes Smokeless tobacco: Never Used Tobacco comment: Vaping Use Vaping Use: Never used Substance and Sexual Activity Alcohol use: No Drug use: No Sexual activity: Yes Partners: Male Other Topics Concern Domestic Violence No Current Outpatient Medications: albuterol 108 (90 Base) MCG/ACT Aero Soln inhaler, Inhale 2 puffs every 4 hours as needed for Shortness of Breath or Wheezing., Disp: 18 g, Rfl: 5 atorvastatin 20 MG tablet, Take 1 tablet by mouth daily., Disp: 90 tablet, Rfl: 1 FLUoxetine 40 MG capsule, Take 1 capsule by mouth daily., Disp: 90 capsule, Rfl: 1 hydrOXYzine HCl 25 MG tablet, Take 1 tablet by mouth 3 times daily as needed for Anxiety or Insomnia., Disp: 60 tablet, Rfl: 5 dicyclomine 20 MG tablet, Take 1 tablet by mouth every 6 hours., Disp: 120 tablet, Rfl: 1 neomycin 500 MG tablet, Take 1 tablet by mouth 2 times daily for 7 days., Disp: 14 tablet, Rfl: 0 nicotine 14 MG/24HR Patch 24 HR patch, Place 1 patch on skin every 24 hours. (Patient not taking: Reported on 10/13/2021), Disp: 28 patch, Rfl: 0 polyethylene glycol 17 GM/SCOOP Powder powder, Take 34 g by mouth 2 times daily., Disp: 850 g, Rfl:1 Patient has no known allergies. ROS: Cardiovascular-no reported chest discomfort or shortness of breath Respiratory-no coughing or wheezing Gastrointestinal-as per chief complaint Extremities-no gross edema deformity or dysfunction Neurologic-no gross focal deficits reported or seizures Physical Exam: Alert lady no gross apparent distress to evaluation no skin lesions no gross secondary characteristics of liver disease are noted Cardiovascular-no JVD Respiratory-no wheezing or coughing Abdomen-soft nondistended Extremities-no deformities Neurologic-no focal deficits Assessment: Bhavesh criteria positive IBS Intermittent hematochezia No current trial of anti-IBS medications No current GI alarm symptoms No significant family history of GI disease No previous endoscopic evaluation age greater than 45 years Plan: Empiric trial of anti-IBS medications with titration Patient call with resultant medication trial in 1-2 days Further recommendations pending patient's response to medications Empiric trial of anti-biotic nonabsorbable Probable colonoscopy based on ASGE recommendations [facility]* Addendum Note - Reza Wilson MD - 11/21/2021 1:00 PM EDT Addendum created 11/21/21 1300 by Reza Wilson MD Cosign clinical note with attestation [id number] Miscellaneous Notes* Addendum Note - Reza Wilson MD - 11/21/2021 1:00 PM EDT Addendum created 11/21/21 1300 by Reza Wilson MD Cosign clinical note with attestation documented in this [id number] Anesthesiology Postoperative evaluation and management note* Anesthesia Postprocedure Evaluation - Reza Wilson MD - 11/21/2021 12:58 PM EDT Anesthesia Post Evaluation PACU Vitals 11/21/2021 0812 - 11/21/2021 0818 11/21/2021 0815 BP: 120/74 Temp: 36.6 C Pulse: 79 Resp: 16 SpO2: 100 % MAP (mmHg): 92 * * Refer to nursing documentation for PACU vitals * * Patient participation: patient participated Mental status: sleepy but conscious Pain management: adequate Anesthetic complications: no Nausea / vomiting: no Respiratory / airway status: airway patent and nasal cannula Postoperative hydration: acceptable Comment: Patient has satisfactorily recovered from her anesthetic. [facility] Work Phone: [phone]) 639-245304-11-2022 Surgical operation note* Anesthesia Postprocedure Evaluation - Reza Wilson MD - 11/21/2021 12:58 PM EDT Anesthesia Post Evaluation PACU Vitals 11/21/2021 0812 - 11/21/2021 0818 11/21/2021 0815 BP: 120/74 Temp: 36.6 C Pulse: 79 Resp: 16 SpO2: 100 % MAP (mmHg): 92 * * Refer to nursing documentation for PACU vitals * * Patient participation: patient participated Mental status: sleepy but conscious Pain management: adequate Anesthetic complications: no Nausea / vomiting: no Respiratory / airway status: airway patent and nasal cannula Postoperative hydration: acceptable Comment: Patient has satisfactorily recovered from her anesthetic. * Anesthesia Preprocedure Evaluation - Reza Wilson MD - 11/21/2021 8:01 AM EDT ANESTHESIA PREPROCEDURE EVALUATION Anesthesia Plan ASA: 2 Type: general Airway: endotracheal tube Induction: intravenous Anesthetic plan and risks as outlined in the consent discussed with: patient Plan discussed with: CAA Physical Exam Airway Mallampati: II TM Distance: >3 FB Neck ROM: full Mouth opening: >3 FB Cardiovascular - normal Rhythm: regular Pulmonary - normal Breath sounds are clear to auscultation Neurological Mental Status: alert Upper extremities strength is normal and sensation is normal Lower extremities: strength is normal and sensation is normal Dental Dental exam is normal and age appropriate Review of Systems / Medical History - Reviewed: ECG, patient summary, anesthesia history, nursing notes, medical history, H&P and labs / results - No history of anesthetic complications Pulmonary Positive: asthma Gastrointestinal / Hepatic / Renal NPO Status > 8 hours Positive: renal disease and kidney stone Other Positive: a smoker * Anesthesia Procedure Notes - REGAN Draper - 11/21/2021 7:46 AM EDT Associated Order(s): ETT Airway ETT Airway Mask ventilation: ventilated by mask Technique: video laryngoscopy Type: cuffed oral Tube size: 7 mm Final laryngoscope: Mac 3 Salazar Location: oral Final grade: 1 Insertion attempts: 1 Placement verification: auscultation, symmetrical chest wall movement and end tidal CO2 Secured at: 22 cm (measured from the lips) Secured by: tape Bite block: soft Lip/tooth/tongue trauma: no *See MAR for medication administration Associated attestation - Reza Wilson MD - 11/21/2021 1:00 PM EDT I have personally seen and examined the patient. I have reviewed the note and concur with the documentation of Heydi Dill. documented in this [id number] Procedure anesthesia Narrative * Procedure Summary Procedure Name Responsible Anesthesiologist Anesthesia Start Time Anesthesia Stop Time DIAGNOSTIC BILATERAL (Bilateral ) Reza Wilson MD 11/21/21 0731 11/21/21 0818 Events Date Time Event Comment 11/21/2021 0714 AN Equip Check 0731 An Start 0731 Patient Verification 0733 An Start Data 0738 An Induction 0741 An Intubation 0744 Anesthesia Ready 0802 0802 [facility] OR 08 0809 An Extubation 0812 an stop data 0817 Handoff I completed my SBAR handoff to the receiving nurse in the PACU/unit. 0818 An Stop Meds * Agents No agents on file. * Blood No blood administrations on file. Lines, Drains, and Airways Type Details Placement Removal Wound 06/29/21; 1446; Inci turner (no incision made) 06/29/21 1446 by Paula Dickey RN Wound 11/21/21; 0808; 1; Perineum; none 11/21/21 0808 by Gabriela Kohli RN Wound 07/29/21; 1329; 1; V agina; 11/21/21; 0807; none 07/29/21 1329 by Gabriela Kohli RN 11/21/21 0807 by Gabriela Kohli RN Peripheral IV Placement Date: 11/11 09/03; Placement Time: 0652; Orientation: Left, Posterior; Location: Forearm; Site Prep: Chlorhexidine ; Inserted by: Dedra alvarenga; Patient Tolerance: Tolerated well; Removal Date: 11/21/21; Removal Time: 0931; Removal Reason: Per order 11/21/21 0652 by Josseline Colmenares RN 11/21/21 0931 by Jade Rao RN ETT Placement Date: 11/11 09/03; Placement Time: 0746 (created via procedure documentation); Mask Ventilation: Ventilated by mask; Type: Cuffed, Oral; Tube Size: 7 mm; Grade View: 1; Insertion Attempts: 1; Removal Date: 11/21/21; Removal Time: 0809 11/21/21 0746 by REGAN Draper 11/21/21 0809 by REGAN Draper documented in this encounter [id number] Anesthesiology Preoperative evaluation and management note * Anesthesia Preprocedure Evaluation - Reza Wilson MD - 11/21/2021 8:01 AM EDT ANESTHESIA PREPROCEDURE EVALUATION Anesthesia Plan ASA: 2 Type: general Airway: endotracheal tube Induction: intravenous Anesthetic plan and risks as outlined in the consent discussed with: patient Plan discussed with: CAA Physical Exam Airway Mallampati: II TM Distance: >3 FB Neck ROM: full Mouth opening: >3 FB Cardiovascular - normal Rhythm: regular Pulmonary - normal Breath sounds are clear to auscultation Neurological Mental Status: alert Upper extremities strength is normal and sensation is normal Lower extremities: strength is normal and sensation is normal Dental Dental exam is normal and age appropriate Review of Systems / Medical History - Reviewed: ECG, patient summary, anesthesia history, nursing notes, medical history, H&P and labs / results - No history of anesthetic complications Pulmonary Positive: asthma Gastrointestinal / Hepatic / Renal NPO Status > 8 hours Positive: renal disease and kidney stone Other Positive: a smoker [id number] Anesthesiology procedure note* Anesthesia Procedure Notes - REGAN Draper - 11/21/2021 7:46 AM EDTAssociated Order(s): ETT Airway ETT Airway Mask ventilation: ventilated by mask Technique: video laryngoscopy Type: cuffed oral Tube size: 7 mm Final laryngoscope: Mac 3 Salazar Location: oral Final grade: 1 Insertion attempts: 1 Placement verification: auscultation, symmetrical chest wall movement and end tidal CO2 Secured at: 22 cm (measured from the lips) Secured by: tape Bite block: soft Lip/tooth/tongue trauma: no *See MAR for medication administration Associated attestation - Reza Wilson MD - 11/21/2021 1:00 PM EDT I have personally seen and examined the patient. I have reviewed the note and concur with the documentation of Heydi Dill. [facility] Work Phone: [phone]) 960-212503-03-2022 History of Present illness Narrative* Margaret Hernandez APRN-MAURICIO - 10/13/2021 8:45 AM EST History of Present Illness Heydi Dill is a 45 y.o. female who comes in for evaluation of the following complaints: had concerns including Abdominal Pain (RLQ pain). Abdominal Pain: Pain started 2 months ago after she was treated for Kidney stones. Pain is located to RLQ area and pain increases every time she eats. She does have constipation and will have N and Vwhen this gets bad. Pain is at a 4 out of 10 today. Last bowel movement was 2 days ago. She has hadHysterectomy with removal of ovaries 15 years ago. Hx of appendectomy in 2010. CT of Pelvis done inJanuary which shoed right side ureter inflammation but Dr Palmer advised that would not be the cause for her abdominal pain. Hx of chronic constipation. She is doing fleets enemas for her constipation problem when needed. In the past she has increased her fiber, taking daily stool softener, and used laxative without success. has a past medical history of Bipolar disorder, Depression, Endometriosis, Exposure to hepatitis B,Generalized anxiety disorder, Hearing loss, History of kidney stones, Migraine, and Rheumatic fever. Outpatient Medications Prior to Visit: albuterol 108 (90 Base) MCG/ACT Aero Soln inhaler, Inhale 2 puffs every 4 hours as needed for Shortness of Breath or Wheezing. atorvastatin 20 MG tablet, Take 1 tablet by mouth daily. FLUoxetine 40 MG capsule, Take 1 capsule by mouth daily. hydrOXYzine HCl 25 MG tablet, Take 1 tablet by mouth 3 times daily as needed for Anxiety or Insomnia. nicotine 14 MG/24HR Patch 24 HR patch, Place 1 patch on skin every 24 hours. (Patient not taking: Reported on 10/13/2021) has No Known Allergies. Review of Systems Constitutional: Negative for appetite change, chills, diaphoresis, fatigue, fever and unexpected weight change. HENT: Negative for congestion, ear pain, hearing loss, rhinorrhea, sore throat and trouble swallowing. Eyes: Negative for pain, discharge, redness and visual disturbance. Respiratory: Negative for apnea, cough, choking, chest tightness, shortness of breath and wheezing. Cardiovascular: Negative for chest pain, palpitations and leg swelling. Gastrointestinal: Positive for abdominal pain and constipation. Negative for abdominal distention, anal bleeding, blood in stool, diarrhea and nausea. Endocrine: Negative. Genitourinary: Negative for decreased urine volume, difficulty urinating, dysuria, flank pain, frequency, hematuria and urgency. Musculoskeletal: Negative for arthralgias, back pain, gait problem, joint swelling, myalgias and neck pain. Skin: Negative. Allergic/Immunologic: Negative. Neurological: Negative for dizziness, tremors, syncope, weakness, light- headedness, numbness and headaches. Hematological: Negative. Psychiatric/Behavioral: Negative. Vitals: Blood pressure 126/80, pulse 80, temperature 96.3 F (35.7 C), temperature source Temporal, resp. rate 16, height 1.6 m (5' 2.99 ), weight 81.4 kg (179 lb 6.4 oz), SpO2 96 %. Physical Exam Vitals and nursing note reviewed. Constitutional: Appearance: Normal appearance. She is obese. Cardiovascular: Rate and Rhythm: Normal rate and regular rhythm. Heart sounds: Normal heart sounds. Pulmonary: Effort: Pulmonary effort is normal. Breath sounds: Normal breath sounds. Abdominal: General: Bowel sounds are normal. Palpations: Abdomen is soft. Tenderness: There is abdominal tenderness in the right lower quadrant. Skin: General: Skin is warm and dry. Neurological: Mental Status: She is alert and oriented to person, place, and time. Psychiatric: Mood and Affect: Mood normal. Behavior: Behavior normal. Thought Content: Thought content normal. Judgment: Judgment normal. Neurological Exam Mental Status Alert. Assessment and Plan 1. Continuous RLQ abdominal pain & 2. Chronic constipation For the constipation, push fluids, Metamucil every morning, use Miralax until bowel movement occurs, then Colace bid to maintain soft bowel movement until normal pattern ensues. Maintain a high fiberdiet with plenty of roughage, and 6- 8 large glasses of water daily to avoid constipation in the future. Timing elimination to occur after meals, or after a hot drink, can also improve the situation watcher automat long goods. Referral to gastro for further evaluation and tx. - AMB REFERRAL TO GASTROENTEROLOGY Call or return to clinic if symptoms worsen or fail to improve. * Katerine Chiang LPN - 10/13/2021 8:45 AM EST Abdominal Pain: Pain started 2 months ago after she was treated for Kidney stones. Pain is located to RLQ area and pain increases every time she eats. She does have constipation and will have N and Vwhen this gets bad. Pain is at a 4 out of 10 today. Last bowel movement was 2 days ago. She has hadHysterectomy with removal of ovaries [address] of Pelvis done in August. She is doing fleets enemas for her constipation problem. [facility] History of Present illness Narrative* Gladis Palmer MD - 07/08/2021 8:40 AM EST I called the patient regarding her visit to the emergency room yesterday. CT scan shows a tiny stone fragments in the distal right ureter next of the. Patient is scheduled for removal of the double-Jstent on Sunday. I told her to take pain medication given to her from the emergency room yesterday. If she would run out of pain medication before Sunday she can give me a call on my cell phone Roque can send prescription to her pharmacy for additional pain pills if needed. documented in this [id number] Hospital Discharge instructions * Discharge Instr - Other Orders* Pricila Ferreira RN - 06/30/2021 6:35 PM EST Please isolate/quarantine for 10 days from positive covid19 result date. * Additional Instructions* Pricila Ferreira RN - 06/30/2021 Images from the original note were not included. COVID-19: 7 Things You Can Do to Keep Your Distance (02:57) Your health professional recommends that you watch this short online health video. Discover things you can do to while keeping a social distance. Purpose: Teaches things people can do while keeping a social distance. Goal: Viewers will learn things they can do while keeping a social distance. How to watch the video Scan the QR code OR Visit the website [email or web address] Current as of: February 10, 2021 Content Version: 13.0 [employer]. Care instructions adapted under license by your healthcare professional. If you have questions about a medical condition or this instruction, always ask your healthcare professional. [employer] disclaims any warranty or liability for your use of this information. Learning About COVID-19 and Flu Symptoms How can you tell COVID-19 from the flu? COVID-19 and the flu have similar symptoms. The two can be hard to tell apart. The only way to knowfor sure which illness you have is to be tested. Since the symptoms are so alike, it makes sense to act as if you have COVID-19 until your test results come back. This means staying home and limiting contact with people in your home. You'll need towash your hands often and disinfect surfaces that you touch. And be sure to wear a mask when you'rearound other people. This is also good advice if you think you have the flu. COVID-19 and the flu have these symptoms in common: Fever or chills Cough Shortness of breath Fatigue (tiredness) Sore throat Runny or stuffy nose Muscle and body aches Headache Vomiting and diarrhea (more common in children than adults) COVID-19 has another symptom that also may occur: New loss of taste or smell COVID-19 symptoms may appear from 2 to 14 days after infection. Flu symptoms usually appear 1 to 4 days after infection. Why should you get a flu shot during the COVID-19 pandemic? It's important to get your yearly flu vaccine. Both the flu and COVID-19 can be active at the same time. You can get sick with both infections at once. And having both may make you more sick than getting just one. The flu vaccine won't protect you from COVID-19. But it can help prevent the flu or reduce its symptoms. If fewer people get very ill with the flu, this will help free up medical resources that are needed for COVID-19 patients. Where can you learn more? Log into your personal health record on https://invinot.Physiq and enter C123 in the Education box to learn more about Learning About COVID-19 and Flu Symptoms. Current as of: November 05, 2020 Content Version: 13.0 [employer]. Care instructions adapted under license by your healthcare professional. If you have questions about a medical condition or this instruction, always ask your healthcare professional. [employer] disclaims any warranty or liability for your use of this information. 8 Common Questions About the COVID-19 Vaccine Here are the answers to some questions and concerns that many people ask. Why should I get a COVID-19 vaccine? It will help protect you, protect others, and end the pandemic. Getting a vaccine will help you avoid catching COVID-19. (If you do catch it, your symptoms will most likely be less severe than if you hadn't gotten the vaccine.) Getting a vaccine also helps you protect the people around you people who could have serious problems if they catch the virus. Are COVID-19 vaccines safe? COVID-19 vaccines are safe and effective. They have been given to millions of people. The risk of serious problems is very low. Could I get COVID-19 from a vaccine? No, you can't get COVID-19 from a vaccine. The vaccines don't contain the COVID-19 virus, so they can't cause the disease. What are the side effects of COVID-19 vaccines? You might not have any side effects. If you do, they'll probably be a lot like the common side effects of other vaccines a fever, fatigue, and soreness. (These are signs that your immune system is learning how to fight the virus.) The side effects don't last long, and they can be treated if they bother you. How many doses of a vaccine will I need? You may need 1 or 2 doses of a vaccine. And you might need booster doses later to help you stay protected. Do I need a vaccine if I've already had COVID-19? Yes. If you've had COVID-19, you may still be able to catch it again. Getting a vaccine will give you extra protection. Will I still need to wear a mask after I get a vaccine? Maybe. Even if you're fully vaccinated, youmay need to wear a mask in indoor public spaces. Be sure to follow all instructions from your localhealth authorities and the CDC. Why not just get COVID-19 and skip a vaccine? The risk of serious problems from the virus is much higher than the risk of serious problems from a vaccine. COVID-19 is unpredictable. Even if you're young and healthy, you could get very sick, have long-term health problems, or . So it's much saferto get a vaccine than it is to catch COVID-19. The COVID-19 vaccines are one of the best to help stop the pandemic. So get vaccinated. Current as of: November 05, 2020 Content Version: 13.0 [employer]. Care instructions adapted under license by your healthcare professional. If you have questions about a medical condition or this instruction, always ask your healthcare professional. [employer] disclaims any warranty or liability for your use of this information. documented in this [id number] Miscellaneous Notes* Plan of Care - Pricila Ferreira RN - 06/30/2021 6:33 PM EST Problem: Actual or potential alteration in health Goal: Absence of healthcare acquired conditions Outcome: Completed Goal: Knowledge of Interdisciplinary Plan of Care Outcome: Completed Goal: Knowledge of Enviroment Outcome: Completed Problem: Pain Goal: Manage acute pain Outcome: Completed Goal: Manage chronic pain Outcome: Completed Goal: Reduced pain sensation Outcome: Completed Goal: Achievement of comfort function goal Outcome: Completed * Plan of Care - Jenni Thomas RN - 06/30/2021 4:24 AM EST Problem: Actual or potential alteration in health Goal: Absence of healthcare acquired conditions Outcome: Partially Met Goal: Knowledge of Interdisciplinary Plan of Care Outcome: Partially Met Goal: Knowledge of Enviroment Outcome: Partially Met Problem: Pain Goal: Manage acute pain Outcome: Partially Met Goal: Manage chronic pain Outcome: Partially Met Goal: Reduced pain sensation Outcome: Partially Met Goal: Achievement of comfort function goal Outcome: Partially Met * Plan of Care - Sarahi Ferraro RN - 06/29/2021 6:49 PM EST Problem: Actual or potential alteration in health Goal: Absence of healthcare acquired conditions Outcome: Partially Met Goal: Knowledge of Interdisciplinary Plan of Care Outcome: Partially Met Goal: Knowledge of Enviroment Outcome: Partially Met Problem: Pain Goal: Manage acute pain Outcome: Partially Met Goal: Manage chronic pain Outcome: Partially Met Goal: Reduced pain sensation Outcome: Partially Met Goal: Achievement of comfort function goal Outcome: Partially Met * Brief Op Note - Gladis Palmer MD - 06/29/2021 3:04 PM EST PATIENT NAME: Heydi Dill : 1975 ADMITTED: [id number] [facility]: [id number] DATE. June 29, 2021 PRE-OPERATIVE DIAGNOSIS. Ureteral stone left POST-OPERATIVE DIAGNOSIS. Same SURGERY cystoscopy removal of the double-J stent ureteroscopy holmium laser lithotripsy of the stone removal of the fragments placement of double-J stent 26 cm 4.6 [employer] left side COMPLICATIONS None, patient tolerated the procedure well BLOOD LOSS 0 DISPOSITION return to the floor. CONDITION Stable GLADIS PALMER MD documented in this [id number] History of Present illness Narrative* Pricila Ferreira RN - 06/30/2021 5:46 PM EST Pt has been seen by ID and urology * Gladis Palmer MD - 06/30/2021 5:10 PM EST Patient is doing fine. Talk to Dr. Dillard and patient is receiving monoclonal infusion and if she does not have any side effects and she can be discharged. Patient is not complaining about any pain related to procedure yesterday. I explained to her that the stone was completely removed she has a very thin double-J stent in place to prevent any issues with swelling and obstruction for next coupleof days. Double-J stent can be removed in about a week to 10 days from now. Once when her issues with COVID-19 have been resolved she should call the office and get appointment for removal of the double-J stent. documented in this [id number] Hospital course Narrative* Jessa Potter MD - 06/30/2021 2:24 PM EST [facility] [place] Heydi Dill Admitted: 06/28/2021 Discharge Date: 06/30/21 PCP Handoff Recommended Outpatient Testing None Results Pending At Discharge None Clinical Summary Heydi Dill is a 45 y.o. female with left ureteral stone now status post cystoscopy, removal of double-J stent, Ureteroscopy+laser lithotripsy. Urology requested evaluation due to conflicting Covid test. Left ureteral stone Urology consulted Status post cystoscopy, lithotripsy, double-J stent removal 06/29/2021 Pain control with Percocet sliding scale and IV Dilaudid COVID-19 viral infection Upper respiratory tract infection secondary to ID consulted recommended monoclonal antibody We discharge patient home after improvement of her general condition. Patient to follow-up with PCPin 1 week. Follow-up with ID and urology as noted. Discharge Medications Discharge Medications Medications To Continue Details albuterol 90 mcg/actuation inhaler Inhale 2 (two) puffs every 6 (six) hours as needed for wheezing or shortness of breath . Quantity: 1 Inhaler atorvastatin 20 MG tablet Commonly known as: LIPITOR Take 20 mg by mouth daily . FLUoxetine 20 MG tablet Commonly known as: PROZAC Take 40 mg by mouth daily . HYDROcodone-acetaminophen 5-325 mg per tablet Commonly known as: NORCO Take 1 (one) tablet by mouth every 4 (four) hours as needed for pain (Days supply per fill: 7) . Quantity: 18 tablet hydrOXYzine 25 MG tablet Commonly known as: ATARAX Take 25 mg by mouth 3 (three) times a day as needed for itching . ibuprofen 600 MG tablet Commonly known as: ADVIL,MOTRIN Take 1 (one) tablet (600 mg total) by mouth every 6 (six) hours as needed for pain . Quantity: 30 tablet nicotine 14 mg/24 hr Commonly known as: NICODERM CQ Place 1 patch on the skin daily . ondansetron 4 MG tablet Commonly known as: ZOFRAN Take 1 (one) tablet (4 mg total) by mouth every 8 (eight) hours as needed for nausea . Quantity: 20 tablet Physician(s) Follow Up: Margaret Hernandez CNP [address] [facility] [place] [address] Follow up in 1 week(s) Gladis Palmer MD [address] [facility] [address] Follow up in 1 week(s) Abram Moreno MD [address] [facility] [id number] Follow up in 2 week(s) Condition at Discharge: Stable Disposition: Home On day of discharge, I performed a final bedside evaluation including a physical exam. I reviewed discharge recommendations with the patient in person. Patient instructions, including activity, were given to the patient/family at discharge. Time spent on discharge: > 30 minutes Completed by: Jessa Potter on 06/30/21, 2:28 PM documented in this [id number] Consult note* Abram Moreno MD - 06/30/2021 1:23 PM EST Patient Name: Heydi Dill MR #: [id number] : 1975 Physicians: Margaret Hernandez CNP (Family); No ref. provider found (Referring) Chief complaint: Heydi Dill is a 45 y.o. female presented with worsening history of flank pain History: I have reviewed the patient's past medical history, past surgical history, family history, social history. Patient is seen today, known with history of kidney stones, status post cystoscopy ureteral stent and removal in the past, had also hysterectomy and appendectomy. She was admitted on June 24, 2021 with worsening history of left flank pain, and was found with kidney stones. She was then evaluated by the Urologist who had done cystoscopy with retrograde pyelogram 9 June 25, 2021, andabout 1 day ago patient had cystoscopy with retrograde stone manipulation and stent insertion.Patient routinely was screened for COVID-19 on admission, and was detected with SARS-CoV-2. Although a repeat one was negative. Patient however states that she has been having nasal drainage, and also someloss of sense of taste, and had some diarrhea. She however had not received COVID-19 immunization. 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 She denied any fever or chills at this time,Her T-max since on admission had been 98.2. She is been evaluated currently for COVID-19, with mild symptoms, and also for antibiotics management. Past Medical History: Diagnosis Date Asthma Kidney stones Past Surgical History: Procedure Laterality Date ADENOIDECTOMY APPENDECTOMY CYSTO RETRO STONE MANIPULATION STENT INSERTION Left 06/29/2021 Procedure: CYSTOSCOPY WITH RETROGRADE STONE MANIPULATION STENT INSERTION; Surgeon: Gladis Palmer MD; Location: Main OR; Service: Urology CYSTO RETROGRADE PYELOGRAM Left 06/25/2021 Procedure: CYSTOSCOPY WITH RETROGRADE PYELOGRAM; Surgeon: Gladis Palmer MD; Location: Main OR; Service: Urology CYSTO URETERAL STENT REMOVAL Left 06/29/2021 Procedure: CYSTOSCOPY WITH URETERAL STENT REMOVAL; Surgeon: Gladis Palmer MD; Location: Main OR; Service: Urology CYSTO URETEROSCOPY Left 06/29/2021 Procedure: CYSTOSCOPY WITH URETEROSCOPY; Surgeon: Gladis Palmer MD; Location: Main OR; Service: Urology HYSTERECTOMY TONSILLECTOMY No family history on file. Social History Socioeconomic History Marital status: Tobacco Use Smoking status: Current Every Day Smoker Packs/day: 0.50 Types: Cigarettes Smokeless tobacco: Never Used Vaping Use Vaping Use: Never used Substance and Sexual Activity Alcohol use: Never Drug use: Never Travel History: None Animal Contact: None Medications: I have reviewed the patient's medications. Scheduled Meds: atorvastatin 20 mg Oral Daily bisacodyL 10 mg Rectal Daily FLUoxetine 20 mg Oral Daily nicotine 1 patch Transdermal Q24H Allergy Information: I have reviewed the patient's allergies. Patient has no known allergies. Review of Systems: Review of Systems Constitutional: Negative for chills, fatigue and fever. HENT: Positive for rhinorrhea. Respiratory: Negative for cough, shortness of breath and wheezing. Cardiovascular: Negative for chest pain, palpitations and leg swelling. Gastrointestinal: Negative for abdominal distention, abdominal pain, constipation, diarrhea, nauseaand vomiting. Endocrine: Negative for polydipsia, polyphagia and polyuria. Genitourinary: Positive for flank pain. Negative for dysuria, frequency and hematuria. Musculoskeletal: Negative for joint swelling, neck pain and neck stiffness. Skin: Negative for color change, pallor and rash. Neurological: Negative for dizziness, weakness, numbness and headaches. Psychiatric/Behavioral: Negative for confusion. Labs: Lab Results Component Value Date WBC 9.07 06/30/2021 HGB 13.5 06/30/2021 HCT 39.8 06/30/2021 MCV 87.5 06/30/2021 PLT 251 06/30/2021 No results found for: HGBA1C No results found for: SEDRATE No results found for: CRP Radiology: XR OR Fluoroscopy Time Final Result Physical Examination: Vital Signs: BP 116/75 Pulse 78 Temp 98.2 F (36.8 C) (Oral) Resp 16 Ht 5' 3 Wt 81.8 kg (180 lb 5.4 oz) SpO2 95% BMI 31.95 kg/m Physical Exam Constitutional: Appearance: She is well-developed and well-nourished. HENT: Head: Normocephalic. Eyes: General: Right eye: No discharge. Left eye: No discharge. Cardiovascular: Rate and Rhythm: Normal rate and regular rhythm. Heart sounds: Normal heart sounds. Pulmonary: Effort: No respiratory distress. Breath sounds: No wheezing or rales. Chest: Chest wall: No tenderness. Abdominal: General: There is no distension. Tenderness: There is no abdominal tenderness. There is no rebound. Musculoskeletal: General: No tenderness or edema. Cervical back: Normal range of motion and neck supple. Skin: General: Skin is warm. Coloration: Skin is not pale. Findings: No rash. Neurological: Mental Status: She is alert and oriented to person, place, and time. Psychiatric: Mood and Affect: Mood and affect normal. Behavior: Behavior normal. Thought Content: Thought content normal. Assessment and Plan: Patient with 1. Left kidney stone, status post cystoscopy and retrograde stone manipulation and stent insertion. 2. COVID-19, with mild symptom Plan. Continue patient on current therapy Get chest x-ray Start patient on monoclonal antibody Follow-up labs Follow-up LDH, ESR, C-reactive protein, D-dimer level, ferritin level, I have discussed with patient to get COVID-19 immunization, 90 days after monoclonal antibody. We will continue to follow with you. Problem List Items Addressed This Visit None I have taken time to review patient's information and having discussions, I appreciate seeing your patient, will continue to follow with you, and adjust with more information. Medical decision making. Moderate This note is created with the assistance of a speech-recognition program. While intending to generate a document that actually reflects the content of the visit, the document can still have some errors including those of syntax and sound a- like substitutions which may escape proofreading. In such instances, actual meaning can be extrapolated by contextual derivation. * Ravinder Patterson MD - 06/29/2021 6:06 PM EST [facility] [place] Patient Name: Heydi Dill : 1975 MR #: [id number] Admit Date: 06/28/2021 Physicians: Margaret Hernandez CNP (Family); No ref. provider found (Referring) Heydi Dill is a 45 y.o. female with left ureteral stone now status post cystoscopy, removal of double-J stent, Ureteroscopy+laser lithotripsy. Urology requested evaluation due to conflicting Covid test. Left ureteral stone status post cystoscopy, lithotripsy, double-J stent removal POD 0 Followed by urology COVID-19 positive 3x test ( 2 -ve , 1 +ve) Patient with sensation of distorted taste and smell Standard precautions to be in place Patient on room air, hemodynamically stable. Request placed to ID for assistance with disposition given inconsistent Covid results. Code Status: Full Code Chief Complaint Urology requested patient's evaluation for inconsistent Covid results. History of Present Illness 45-year-old female with left ureteral stone now status post cystoscopy with removal of double-J stent ureteroscopy/laser lithotripsy. Urology consulted hospital medicine service due to inconsistent Covid results. Patient has had 3 tests per Urology ( 2 in our system) positive on June 28, negative on June 29. Patient having problem with taste and smell today, otherwise she is on room air and in no obvious distress. Past Medical History Past Medical History: Diagnosis Date Asthma Kidney stones Past Surgical History Past Surgical History: Procedure Laterality Date ADENOIDECTOMY APPENDECTOMY CYSTO RETROGRADE PYELOGRAM Left 06/25/2021 Procedure: CYSTOSCOPY WITH RETROGRADE PYELOGRAM; Surgeon: Gladis Palmer MD; Location: Main OR; Service: Urology HYSTERECTOMY TONSILLECTOMY Family History No family history on file. Social History Social History Tobacco Use Smoking Status Current Every Day Smoker Packs/day: 0.50 Types: Cigarettes Smokeless Tobacco Never Used Social History Substance and Sexual Activity Alcohol Use Never Social History Substance and Sexual Activity Drug Use Never Allergy Information I have reviewed the patient's allergies. Patient has no known allergies. Home Medications Home medications were reviewed. Review Of Systems All systems have been reviewed and are negative except as noted in HPI or below Physical Examination BP 122/79 Pulse 83 Temp 98 F (36.7 C) (Oral) Resp 14 Ht 5' 3 Wt 81.8 kg (180 lb 5.4 oz) SpO2 95% BMI 31.95 kg/m General Appearance: alert; well appearing; in no acute distress HEENT: Head- normocephalic; Eyes- EOMI, sclera anicteric; Ears- hearing intact; Nose- no nasal discharge; Throat- mucous membranes moist Cardiovascular: regular rate and rhythm; normal S1, S2; no murmurs, rubs, clicks or gallops; no peripheral edema Respiratory: lungs clear to auscultation; without wheezes, rales or rhonchi; on room air Abdomen: soft, non-tender, non-distended; positive bowel sounds Neurological: oriented x 3; normal speech; no focal findings or movement disorder noted Musculoskeletal: no significant deformity or tenderness to palpation Skin: normal coloration; no obvious rashes, lesions or skin breakdown Psych: normal mood and affect Laboratory and Additional Data Reviewed Laboratory 06/29/21 6:06 PM documented in this [id number] History and physical note* Gladis Palmer MD - 06/28/2021 5:40 PM EST PATIENT NAME: Heydi Dill : 1975 ADMITTED: [id number] CSN: [id number] REASON FOR ADMISSION : Left flank pain secondary to ureteral stone status post placement of a double-J stent this weekend CURENT UROLOGIC HISTORY: Left ureteral stone PAST UROLOGIC HISTORY: History of urinary calculi in the past. Past Medical History: Diagnosis Date Asthma Kidney stones Past Surgical History: Procedure Laterality Date ADENOIDECTOMY APPENDECTOMY CYSTO RETROGRADE PYELOGRAM Left 06/25/2021 Procedure: CYSTOSCOPY WITH RETROGRADE PYELOGRAM; Surgeon: Gladis Palmer MD; Location: Main OR; Service: Urology HYSTERECTOMY TONSILLECTOMY No family history on file. Social History Socioeconomic History Marital status: Tobacco Use Smoking status: Current Every Day Smoker Packs/day: 0.50 Types: Cigarettes Smokeless tobacco: Never Used Vaping Use Vaping Use: Never used Substance and Sexual Activity Alcohol use: Never Drug use: Never SOCIAL HISTORY: Reviewed. Nothing relevant to the current urologic problem ALLERGIES: Allergies reviewed Patient has no known allergies. HOME MEDICATIONS: Outpatient Medications as of 06/28/2021 Medication Sig albuterol 90 mcg/actuation inhaler Inhale 2 (two) puffs every 6 (six) hours as needed for wheezing or shortness of breath . FLUoxetine (PROZAC) 20 MG tablet Take 40 mg by mouth daily . HYDROcodone-acetaminophen (NORCO) 5-325 mg per tablet Take 1 (one) tablet by mouth every 4 (four) hours as needed for pain (Days supply per fill: 7) . hydrOXYzine (ATARAX) 25 MG tablet Take 25 mg by mouth 3 (three) times a day as needed for itching . ibuprofen (ADVIL,MOTRIN) 600 MG tablet Take 1 (one) tablet (600 mg total) by mouth every 6 (six) hours as needed for pain . nicotine (NICODERM CQ) 14 mg/[address] 1 patch on the skin daily . ondansetron (ZOFRAN) 4 MG tablet Take 1 (one) tablet (4 mg total) by mouth every 8 (eight) hours asneeded for nausea . atorvastatin (LIPITOR) 20 MG tablet Take 20 mg by mouth daily . azithromycin (Z-RYLEE) 5 day dose pack Take per package instructions . REVIEW OF SYSTEMS: Reviewed. Nothing relevant to the current urologic problem All other systems reviewed and negative other than noted above. VITAL SIGNS: BP 107/74 (BP Location: Left arm, Patient Position: Sitting) Pulse 95 Temp 98.3 F (36.8 C) (Oral) Resp 16 Ht 5' 3 Wt 81.8 kg (180 lb 5.4 oz) SpO2 97% BMI 31.95 kg/m PHYSICAL EXAMINATION: No interval change in comparison with the exam 3 days ago Gu: Urologic exam is within normal limits, right flank is tender. REVIEW OF IMAGING STUDIES / LABORATORY DATA: No additional imaging studies since her discharge from the hospital. ASSESSMENT Heydi Dill is a 45 y.o. y/o female presenting with left flank pain. Patient was seen this week and was admitted to the hospital and double-J stent have been placed on the left side because of smallstone in the ureter. This gave her complete relief the patient was discharged home to follow-up in our office. Today she called us and told us that she is developing excruciating pain corresponding to the left flank. The patient was admitted to the hospital for pain control. We will add her for tomorrow to the operative room schedule for removal of the double-J stent ureteroscopy holmium laser lithotripsy. Procedure associated risks and complications have been explained to the patient. Consent t o be signed prior to the surgery. I was informed that the patient is positive for COVID-19. On Sunday prior to the previous admission she was COVID-19 negative. Anesthesia is have ordered repeat test to verify that the first test was accurate. GLADIS PALMER MD PCP Margaret Hernandez, MAURICIO documented in this [id number] Emergency department Note* Alona Bond RN - 12/24/2020 7:10 PM EDT Discharge instructions reviewed with patient. No questions or concerns voiced at this time. [facility] Diagnosis TMJ tenderness, left- Primary [facility] Diagnosis Right ureteral stone- Primary COVID-19 [facility] Diagnosis Continuous RLQ abdominal pain- Primary Abdominal pain, right lower quadrant Chronic constipation Unspecified constipation [facility]* Diagnosis Irritable bowel syndrome with diarrhea- Primary Irritable bowel syndrome Constipation, unspecified constipation type Bloating Flatulence, eructation, and gas pain [facility]* Diagnosis Diarrhea, unspecified type [facility]* Diagnosis Mixed hyperlipidemia- Primary Chronic obstructive pulmonary disease, unspecified COPD type Generalized anxiety disorder Recurrent major depressive disorder, in full remission Primary insomnia Persistent disorder of initiating or maintaining sleep Routine lab draw Laboratory examination ordered as part of a routine general medical examination Irritable bowel syndrome with diarrhea Irritable bowel syndrome RUQ pain Abdominal pain, right upper quadrant Continuous RLQ abdominal pain Abdominal pain, right lower quadrant [facility]* Diagnosis RUQ pain Abdominal pain, right upper quadrant [facility]* Diagnosis Mass of lower outer quadrant of left breast- Primary [facility]* Diagnosis Mass of lower outer quadrant of left breast [facility]* Diagnosis Mass of left breast, unspecified quadrant- Primary [facility]* Diagnosis Abnormal mammogram Abnormal mammogram, unspecified [facility]* Diagnosis Abnormal mammogram Abnormal mammogram, unspecified [facility]* Diagnosis Irritable bowel syndrome with diarrhea- Primary Irritable bowel syndrome Bloating Flatulence, eructation, and gas pain Functional diarrhea Abdominal pain, epigastric [facility]* Diagnosis Viral illness- Primary Unspecified viral infection, in conditions classified elsewhere and of unspecified site Cough, unspecified type [facility]* Diagnosis Chronic obstructive pulmonary disease, unspecified COPD type- Primary Mixed hyperlipidemia Generalized anxiety disorder Recurrent major depressive disorder, in full remission Primary insomnia Persistent disorder of initiating or maintaining sleep Class 1 obesity due to excess calories with serious comorbidity and body mass index (BMI) of 32.0 to 32.9 in adult [facility]* Diagnosis Mixed hyperlipidemia- Primary Class 1 obesity due to excess calories with serious comorbidity and body mass index (BMI) of 32.0 to 32.9 in adult [facility] Diagnosis Foot pain, left- Primary Pain in soft tissues of limb Hammer toe of left foot Foot pain, left Pain in soft tissues of limb Foot pain, left Pain in soft tissues of limb Hammer toe of left foot [facility]* Diagnosis Mixed hyperlipidemia- Primary Class 1 obesity due to excess calories with serious comorbidity and body mass index (BMI) of 32.0 to 32.9 in adult [facility]* Diagnosis Mixed hyperlipidemia- Primary BMI 28.0-28.9,adult Body Mass Index 28.0-28.9, adult documented [facility]* Diagnosis Foot pain, left Pain in soft tissues of limb Hammer toe of left foot Hammer toe of left foot- Primary Foot pain, left Pain in soft tissues of limb Foot pain, left Pain in soft tissues of limb Hammer toe of left foot [facility]* Diagnosis Hammer toe of left foot- Primary Postop check Follow-up examination, following unspecified surgery [facility]* Diagnosis Postop check- Primary Follow-up examination, following unspecified surgery [facility]* Diagnosis Hammer toe of left foot- Primary [facility]* Diagnosis Mass of left breast, unspecified quadrant- Primary [facility]* Diagnosis Hammer toe of left foot- Primary [facility]* Diagnosis Breast pain, left Mastodynia Mass of left breast, unspecified quadrant Breast pain Mastodynia Mass of left breast Lump or mass in breast documented [facility]* Diagnosis Encounter for postoperative care- Primary documented in this encounter [facility]* Diagnosis Chronic obstructive pulmonary disease, unspecified COPD type- Primary Mixed hyperlipidemia Generalized anxiety disorder Recurrent major depressive disorder, in full remission Primary insomnia Persistent disorder of initiating or maintaining sleep Class 1 obesity due to excess calories with serious comorbidity and body mass index (BMI) of 33.0 to 33.9 in adult documented [facility]* Diagnosis Hemorrhoids, external without complications- Primary External hemorrhoids without mention of complication [facility]* Diagnosis Acute pain of right [facility]- [facility] Diagnosis Elevated fasting glucose- Primary Impaired fasting glucose Class 1 obesity due to excess calories with serious comorbidity and body mass index (BMI) of 34.0 to 34.9 in adult Snores Other dyspnea and respiratory abnormality [facility]* Diagnosis Binge eating- Primary Anorexia nervosa Encounter for weight management Obesity (BMI 30.0-34.9) Obesity, unspecified Fatigue, unspecified type [facility]* Attachments The following attachments cannot be sent through Care Everywhere. * TMD (Temporomandibular Disorder) ([place]) [facility]* Attachments The following attachments cannot be sent through Care Everywhere. * Breast Biopsy: Core Needle ([place]) * Breast Marker Clips (Yanni Falcon) ([place]) [facility] Attachments The following attachments cannot be sent through Care Everywhere. * Fine Needle Biopsy - Breast ([place]) [facility]* Attachments The following attachments cannot be sent through Care Everywhere. * Viral Infections ([place]) [facility]* Attachments The following attachments cannot be sent through Care Everywhere. * Hemorrhoids ([place]) [facility]* Attachments The following attachments cannot be sent through Care Everywhere. * 100 Snacks with 100 Calories or Less ([facility]) ([place]) * Eat Right - Your Way - Every Day ([facility]) ([place]) * Fiber Foods: General Info ([place]) * Glycemic Index: General Info ([place]) * Healthy Diet ([place]) * Healthy Weight - Healthy Living ([facility]) ([place]) * High Fiber Diet ([facility]) ([place]) * High Protein Foods: General Info ([place]) * Ketogenic Diet ([facility]) ([place]) * Mediterranean Diet: General Info ([place]) * Mediterranean Diet ([facility]) ([place]) * Protein Increase: General Info ([place]) documented [facility])* Consultation (Routine) - New Request Specialty Diagnoses / Procedures Referred By Sherlyn silverio Referred To Contact Gastroenterology Diagnoses Continuous RLQ abdominal pain Chronic constipation Margaret Hernandez, [employer] [address] [place] [address] Roge Espana Jr., DO [address] [place] [address] Referral ID Status Reason Start Date Expiration Date V isits Requested Visits Authorized [id number] New Request 10/13/2021 11/07/2022 1 1 [facility] for referral (narrative)* Consultation (Routine) - New Request Specialty Diagnoses / Procedures Referred By Contac t Referred To Contact General Surgery Diagnoses Hemorrhoids, external without complications Margaret Hernandez, [employer] [address] [place] [address] Delroy Almaraz MD [address] [place] [address] Referral ID Status Reason Start Date Expiration Date V isits Requested Visits Authorized [id number] New Request 06/15/2023 07/09/2024 1 1 [facility] for referral (narrative)* Consultation (Routine) - New Request Specialty Diagnoses / Procedures Referred By Contac t Referred To Contact Sleep Medicine Diagnoses Opal Margaret Hernandez [employer] [address] [place] [address] Lupe Hernandez, [employer] [address] [place] [address] Referral ID Status Reason Start Date Expiration Date V isits Requested Visits Authorized [id number] New Request 07/17/2023 08/10/2024 1 1 * Adjunctive Therapy (Routine) - New Request Specialty Diagnoses / Procedures Referred By Contac t Referred To Contact Diagnoses Class 1 obesity due to excess calories with serious comorbidity and body mass index (BMI) of 34.0 to 34.9 in adult Margaret Hernandez APRN-CNP [address] [place] [address] Sheryl Hebert CNP [address] [place] [address] Referral ID Status Reason Start Date Expiration Date V isits Requested Visits Authorized [id number] New Request 07/17/2023 08/10/2024 1 1 [facility] for visit Narrative* Auth/Cert Specialty Diagnoses / Procedures Referred By Contac t Referred To Contact Diagnoses Right ureteral stone Kidney Stone Referral ID Status Reason Start Date Expiration Date Visits Re quested Visits Authorized [id number] [facility] N[facility]* Auth/Cert Specialty Diagnoses / Procedures Referred By Contac t Referred To Contact Diagnoses FLANK PAIN, RIGHT URINARY TRACT INFECTION CALCULUS OF URETER Procedures DIGITAL DIAGNOSTIC URETEROSCOPY BILATERAL Referral ID Status Reason Start Date Expiration Date Visits Re quested Visits Authorized [id number] 1 1 [facility] for visit Narrative* Auth/Cert Specialty Diagnoses / Procedures Referred By Contac t Referred To Contact Diagnoses Diarrhea, unspecified type Diarrhea, unspecified type [R19.7] Procedures PA COLONOSCOPY FLX DX W/COLLJ SPEC WHEN PFRMD COLONOSCOPY DIAGNOSTIC Referral ID Status Reason Start Date Expiration Date Visits Re quested Visits Authorized [id number] 1 1 [facility] Summary Purpose Family History No Family History Records FoundNo Family History Records FoundNo Family History Records FoundNo Family History Records FoundNo Family History Records FoundNo Family History Records FoundNo Family History Records Found Advance Directives Documents on File Type Date Recorded Patient Pulper Tender Expl anation Advance Directives and Livin g Will 07/05/2019 10:13 AM Documents on File Type Date Recorded Patient Pulper Tender Expl anation Advance Directives and Livin g Will 06/08/2020 3:05 PM Documents on File Type Date Recorded Patient Pulper Tender Expl anation Advance Directives and Livin g Will 06/10/2020 11:59 AM Documents on File Type Date Recorded Patient Pulper Tender Expl anation Advance Directives and Livin g Will 02/08/2019 7:43 PM Documents on File Type Date Recorded Patient Pulper Tender Expl anation Advance Directives and Livin g Will 06/28/2021 7:32 PM Latest Code Status on File Code Status Date Activated Date Inactivated Comments Full Code 06/29/2021 3:09 PM 06/30/2021 9:48 PM Full Code 06/28/2021 5:37 PM 06/29/2021 3:09 PM Full Code 06/25/2021 2:02 PM 06/26/2021 12:33 PM Documents on File Type Date Recorded Patient Pulper Tender Expl anation Advance Directives and Livin g Will 07/07/2021 8:11 PM Latest Code Status on File Code Status Date Activated Date Inactivated Comments Full Code 06/29/2021 3:09 PM 06/30/2021 9:48 PM Full Code 06/28/2021 5:37 PM 06/29/2021 3:09 PM Full Code 06/25/2021 2:02 PM 06/26/2021 12:33 PM Documents on File Type Date Recorded Patient Pulper Tender Expl anation Advance Directives and Livin g Will 11/21/2021 5:47 AM Latest Code Status on File Code Status Date Activated Date Inactivated Comments Full Code 07/29/2021 1:32 PM 07/30/2021 11:37 PM Full Code 06/29/2021 3:09 PM 06/30/2021 9:48 PM Latest Code Status on File Code Status Date Activated Date Inactivated Comments Full Code 07/29/2021 1:32 PM 07/30/2021 11:37 PM Code Status History Code Status Date Activated Date Inactivated Comments Full Code 06/29/2021 3:09 PM 06/30/2021 9:48 PM Full Code 06/28/2021 5:37 PM 06/29/2021 3:09 PM Full Code 06/25/2021 2:02 PM 06/26/2021 12:33 PM Latest Code Status on File Code Status Date Activated Date Inactivated Comments Full Code 02/28/2023 4:01 PM Latest Code Status on File Code Status Date Activated Date Inactivated Comments Full Code 02/28/2023 4:01 PM History of Present Illness * Margaret Hernandez, [employer] - 07/23/2018 2:10 PM EST Formatting of this note may be different from the original. History of Present Illness Heydi Dill is a 42 y.o. female who comes in for follow-up for generalized depression disorder. Heydi was previously on bupropion 300 mg, fluoxetine 40 mg and trazodone 50 mg. March timeframe - increased bupropion 150 mg to 300 mg and fluoxetine 20 mg to 40 mg - on 04-08-18 episode as follows: Heydi became symptomatic 04-08-18 at work ([employer]) with slurred speech, nausea, cold/clammy, lightheadedness, unsteady, seeing double, shakiness. Squad was called - she refused treatment due to cost - no IV at squad - BP check. - ongoing symptoms worsening Heydi states we bumped down the fluoxetine 40 mg to 20 mg - shortly after, she discontinued all medications due to fear side effects would occur. Heydi states her depression has increased and became uncontrolled at this time, as well having some anxiety. She denies any issues/concerns with insomnia at this time. Heydi states her normal sleeping pattern is 4 hours - she has to force herself to get up out of bed - lack of energy- very fatigued. Heydi Dill 's depression screening is 22. She Is not taking her medications as ordered. She Is not having insomnia. She admits to having changes in interest, Is having depressed mood, admits to crying spells, Is having fatigue, Is having problems concentrating, admits to changes in appetite - can not eat throughout the day and binge eat consistently,admits to a visible slowing of physical and emotional reactions, admits to emotional distress and restlessness, denies suicidal ideation. Heydi Dill is a 42 y.o. year-old female is following up on generalized anxiety disorder. Serafin Dill 's anxiety screening is 21. She Is not taking her medication as ordered. She has not noticed a decrease in symptoms. She denies insomnia, admits to anxiety/anxious, admits to SOB/chest tightness, denies to palpitations, admits to to mood swings,admits to irritability. She denies side effects from medication if warranted. Requesting to discuss appetite suppressants for weight loss. Body mass index is 31.42 kg/m . She has previously taken phentermine 37.5 mg and feels the medication provided weight loss. She lost approx 30 pounds previously on medication. She has been following a low carb diet - decreased starches/pop intake. Heydi Dill reports insomnia, tachycardia, irritability or significant emotional lability. Heydi Dill is a 42 y.o. female who is present today for evaluation of headaches for 2-3 week(s). She states: no to any warning signs prior to her headache/migraine coming on. Headaches are described as a bilateral in the occipital area, pressure sensation. Duration of individual headaches: daily-persistent for hours, Associated symptoms: stiff neck. Painrelief: ibuprofen - several ibuprofen for relief. Precipitating factors: stress. She denies a history of recent head injury. Prior neurological history: negative for brain neoplasms, seizure disorders, multiple sclerosis, meningitis, major head injuries. Neurologic Review of Systems - no TIA or stroke-like symptoms. Past Medical History: Diagnosis Date Bipolar disorder Depression Endometriosis Exposure to hepatitis B Generalized anxiety disorder Hearing loss History of kidney stones Migraine Rheumatic fever Outpatient Medications Prior to Visit Medication Sig Dispense Refill buPROPion 300 MG tablet XL Take 1 tablet by mouth daily every morning. (Patient not taking: Reported on 07/23/2018 ) 30 tablet 5 fluoxetine 40 MG Cap Take 1 capsule by mouth daily. (Patient not taking: Reported on 07/23/2018 ) 30 capsule 6 traZODone 50 MG Tab Take 1 tablet by mouth at bedtime. (Patient not taking: Reported on 04/12/2018 )30 tablet 5 No facility-administered medications prior to visit. No Known Allergies Social History Social History Marital status: Spouse name: N/A Number of children: N/A Years of education: N/A Occupational History Not on file. Social History Main Topics Smoking status: Current Every Day Smoker Packs/day: 1.00 Types: Cigarettes Smokeless tobacco: Never Used Comment: 10 cigs/ day Alcohol use No Drug use: No Sexual activity: Yes Partners: Male Other Topics Concern Not on file Social History Narrative No narrative on file Review of Systems Constitutional: Negative for appetite change, chills, diaphoresis, fatigue, fever and unexpected weight change. HENT: Negative for congestion, ear pain, hearing loss, rhinorrhea, sore throat and trouble swallowing. Eyes: Negative for pain, discharge, redness and visual disturbance. Respiratory: Negative for apnea, cough, choking, chest tightness, shortness of breath and wheezing. Cardiovascular: Negative for chest pain, palpitations and leg swelling. Gastrointestinal: Negative for abdominal distention, abdominal pain, anal bleeding, blood in stool,constipation, diarrhea and nausea. Endocrine: Negative. Genitourinary: Negative for decreased urine volume, difficulty urinating, dysuria, flank pain, frequency, hematuria and urgency. Musculoskeletal: Negative for arthralgias, back pain, gait problem, joint swelling, myalgias and neck pain. Skin: Negative. Allergic/Immunologic: Negative. Neurological: Negative for dizziness, tremors, syncope, weakness, light- headedness, numbness and headaches. Hematological: Negative. Psychiatric/Behavioral: Positive for dysphoric mood and sleep disturbance. Negative for agitation, behavioral problems, confusion, decreased concentration, hallucinations, self-injury and suicidal ideas. The patient is nervous/anxious. The patient is not hyperactive. Vitals: Blood pressure 124/86, pulse 86, temperature 98 F (36.7 C), temperature source Temporal, resp. rate 16, height 1.6 m (5' 3 ), weight 80.5 kg (177 lb 6.4 oz), SpO2 98 %. Physical Exam Constitutional: She is oriented to person, place, and time. She appears well- developed and well-nourished. Cardiovascular: Normal rate, regular rhythm and normal heart sounds. Pulmonary/Chest: Effort normal and breath sounds normal. Neurological: She is alert and oriented to person, place, and time. Skin: Skin is warm and dry. Psychiatric: Her speech is normal and behavior is normal. Judgment and thought content normal. Her mood appears anxious. Her affect is not angry. Cognition and memory are normal. She exhibits a depressed mood. She is attentive. Nursing note and vitals reviewed. Neurologic Exam Mental Status Oriented to person, place, and time. Speech: speech is normal Assessment and Plan 1. Anxiety & 2. Severe episode of recurrent major depressive disorder, without psychotic features I discussed the pathophysiology of anxiety and depression including the neurotransmitters how the different medications work on different synapses. Possible side effects of the medications were also discussed. - fluoxetine 20 MG Cap capsule; Take 1 capsule by mouth daily. Dispense: 30 capsule; Refill: 1 3. Tension headache Advised on use of nsaid and muscle relaxant at onset of headache. Discussed risks (side effects) and benefits of medication & encouraged to read about medication and take meds as directed. - naproxen 500 MG Tab tablet; Take 1 tablet by mouth every 12 hours as needed for Severe Pain. Dispense: 60 tablet; Refill: 2 - tiZANidine 4 MG Tab tablet; Take 1 tablet by mouth 3 times daily as needed for Headaches. Dispense: 60 tablet; Refill: 2 4. Obesity (BMI 30-39.9) Weight loss has been encouraged by following dietary restrictions (a balanced diet of mainly whole food plant-based diet with minimal animal protein, refined CHO's, and fat), and aerobic exercise. Wediscussed glycemic index of foods and I printed off list of low and high GI foods. I explained how foods with high GI cause a raise in insulin which promotes abdominal fat. By eating a diet with onlylow GI foods, weight loss will occur. I will start her on ADIPEX-P. I advised her of the State's rules requiring at least a four pound loss in the next four weeks and that I can only refill the Rx a total of three times in the next nine months. I further advised her that she will need to come in for the two monthly follow-up visits to get the refills. Discussed risks (side effects) and benefits of medication & encouraged to read about medicationand take meds as directed. - phentermine 37.5 MG Tab; Take 1 tablet by mouth every morning before breakfast. Dispense: 30 tablet; Refill: 0 Return to clinic in 1 month or sooner prn. * Evette Leavitt, DANIELLE - 07/23/2018 2:10 PM EST Formatting of this note may be different from the original. Heydi Dill is a 42 y.o. female who comes in for follow-up for generalized depression disorder. Heydi was previously on bupropion 300 mg, fluoxetine 40 mg and trazodone 50 mg. March timeframe - increased bupropion 150 mg to 300 mg and fluoxetine 20 mg to 40 mg - on 04-08-18 episode as follows: Heydi became symptomatic 04-08-18 at work ([employer]) with slurred speech, nausea, cold/clammy, lightheadedness, unsteady, seeing double, shakiness. Squad was called - she refused treatment due to cost - no IV at squad - BP check. - ongoing symptoms worsening Heydi states we bumped down the fluoxetine 40 mg to 20 mg - shortly after, she discontinued all medications due to fear side effects would occur. Heydi states her depression has increased and became uncontrolled at this time, as well having some anxiety. She denies any issues/concerns with insomnia at this time. Heydi states her normal sleeping pattern is 4 hours - she has to force herself to get up out of bed - lack of energy- very fatigued. Heydi Dill 's depression screening is 22. She Is not taking her medications as ordered. She Is not having insomnia. She admits to having changes in interest, Is having depressed mood, admits to crying spells, Is having fatigue, Is having problems concentrating, admits to changes in appetite - can not eat throughout the day and binge eat consistently,admits to a visible slowing of physical and emotional reactions, admits to emotional distress and restlessness, denies suicidal ideation. Heydi Dill is a 42 y.o. year-old female is following up on generalized anxiety disorder. Serafin Dill 's anxiety screening is 21. She Is not taking her medication as ordered. She has not noticed a decrease in symptoms. She denies insomnia, admits to anxiety/anxious, admits to SOB/chest tightness, denies to palpitations, admits to to mood swings,admits to irritability. She denies side effects from medication if warranted. Heydi Dill is a 42 y.o. y.o. female who presents today for evaluation for weight loss. Wt Readings from Last 3 Encounters: 07/23/18 80.5 kg (177 lb 6.4 oz) 04/12/18 74.8 kg (165 lb) 03/26/18 75 kg (165 lb 6.4 oz) Body mass index is 31.42 kg/m . She has previously taken phentermine 37.5 mg and feels the medication provided weight loss. She lost approx 30 pounds previously on medication. She has been following a low carb diet - decreased starches/pop intake. Heydi Dill reports insomnia, tachycardia, irritability or significant emotional lability. Heydi Dill is a 42 y.o. female who is present today for evaluation of headaches for 2-3 week(s). She states: no to any warning signs prior to her headache/migraine coming on. Headaches are described as a bilateral in the occipital area, pressure sensation. Duration of individual headaches: daily-persistent for hours, Associated symptoms: stiff neck. Painrelief: ibuprofen - several ibuprofen for relief. Precipitating factors: stress. She denies a history of recent head injury. Prior neurological history: negative for brain neoplasms, seizure disorders, multiple sclerosis, meningitis, major head injuries. Neurologic Review of Systems - no TIA or stroke-like symptoms. in this encounter* Margaret HernandezDONTAE-MAURICIO - 08/19/2018 11:10 AM EST Formatting of this note may be different from the original. History of Present Illness Chief Complaint Patient presents with Anxiety Follow up on starting back on Prozac 20 mg 1 month ago. Feels med has helped but anxiety has been uncontrolled for past week after losing her father. Obesity Completed 1 month on adipex, denies any side effects. History of Present Illness Heydi Dill is a 42 y.o. y.o. female who presents today for follow up for obesity. Lost 8 pounds in 1 month. She has been compliant with his medications. She reports perceived efficacy of treatment as good She would like to continue current dose of medications. She denies any significant side effects such as abdominal pain, nausea, insomnia, tachycardia, irritability, or significant emotional lability, unusual movements/tics. Anxiety Has Currently increased anxiety and tearful with todays visit. States father New Years Day. Aggravating factors: being around people and has noticed her isolating herself from others. Continues Prozac as prescribed. Past Medical History: Diagnosis Date Bipolar disorder Depression Endometriosis Exposure to hepatitis B Generalized anxiety disorder Hearing loss History of kidney stones Migraine Rheumatic fever Outpatient Medications Prior to Visit Medication Sig Dispense Refill naproxen 500 MG Tab tablet Take 1 tablet by mouth every 12 hours as needed for Severe Pain. 60 tablet 2 tiZANidine 4 MG Tab tablet Take 1 tablet by mouth 3 times daily as needed for Headaches. 60 tablet 2 fluoxetine 20 MG Cap capsule Take 1 capsule by mouth daily. 30 capsule 1 phentermine 37.5 MG Tab Take 1 tablet by mouth every morning before breakfast. 30 tablet 0 No facility-administered medications prior to visit. No Known Allergies Social History Social History Marital status: Spouse name: N/A Number of children: N/A Years of education: N/A Occupational History Not on file. Social History Main Topics Smoking status: Current Every Day Smoker Packs/day: 1.00 Types: Cigarettes Smokeless tobacco: Never Used Comment: 10 cigs/ day Alcohol use No Drug use: No Sexual activity: Yes Partners: Male Other Topics Concern Not on file Social History Narrative No narrative on file Review of Systems Constitutional: Negative for appetite change, chills, diaphoresis, fatigue, fever and unexpected weight change. HENT: Negative for congestion, ear pain, hearing loss, rhinorrhea, sore throat and trouble swallowing. Eyes: Negative for pain, discharge, redness and visual disturbance. Respiratory: Negative for apnea, cough, choking, chest tightness, shortness of breath and wheezing. Cardiovascular: Negative for chest pain, palpitations and leg swelling. Gastrointestinal: Negative for abdominal distention, abdominal pain, anal bleeding, blood in stool,constipation, diarrhea and nausea. Endocrine: Negative. Genitourinary: Negative for decreased urine volume, difficulty urinating, dysuria, flank pain, frequency, hematuria and urgency. Musculoskeletal: Negative for arthralgias, back pain, gait problem, joint swelling, myalgias and neck pain. Skin: Negative. Allergic/Immunologic: Negative. Neurological: Negative for dizziness, tremors, syncope, weakness, light- headedness, numbness and headaches. Hematological: Negative. Psychiatric/Behavioral: Positive for dysphoric mood. Negative for agitation, behavioral problems, confusion, decreased concentration, hallucinations, self- injury, sleep disturbance and suicidal ideas. The patient is nervous/anxious. The patient is not hyperactive. Vitals: Blood pressure (!) 122/92, pulse 98, temperature 98.5 F (36.9 C), temperature source Temporal, resp. rate 16, height 1.6 m (5' 3 ), weight 76.9 kg (169 lb 9.6 oz), SpO2 98 %. Physical Exam Constitutional: She is oriented to person, place, and time. She appears well- developed and well-nourished. Cardiovascular: Normal rate, regular rhythm and normal heart sounds. Pulmonary/Chest: Effort normal and breath sounds normal. Neurological: She is alert and oriented to person, place, and time. Skin: Skin is dry. Psychiatric: Her speech is normal and behavior is normal. Judgment and thought content normal. Her mood appears anxious. Cognition and memory are normal. She exhibits a depressed mood (tearful when talking about her father). Nursing note and vitals reviewed. Neurologic Exam Mental Status Oriented to person, place, and time. Speech: speech is normal Assessment and Plan 1. Obesity (BMI 30-39.9) She did lose at least four (4) lbs of weight. I reminded her of the State's rules regarding at least a four pound loss in a month. I will refill the Rx today. Weight loss has been encouraged by following dietary restrictions (a balanced diet of mainly whole food plant-based diet with less animal protein, no refined CHO's (including wheat products), and fat), and aerobic exercise. - phentermine 37.5 MG Tab; Take 1 tablet by mouth every morning before breakfast. Dispense: 30 tablet; Refill: 0 2. Severe episode of recurrent major depressive disorder, without psychotic features & 3. Anxiety Improved but still not controlled, will increase dose to 40 mg daily. - fluoxetine 40 MG Cap; Take 1 capsule by mouth daily. Dispense: 30 capsule; Refill: 5 Return to clinic in 1 month or sooner prn. * Jayna Oakley LPN - 08/19/2018 11:10 AM EST Formatting of this note may be different from the original. Chief Complaint Patient presents with Anxiety Obesity History of Present Illness Heydi Dill is a 42 y.o. y.o. female who presents today for follow up for obesity. Lost 8 pounds in 1 month. She has been compliant with his medications. She reports perceived efficacy of treatment as good She would like to continue current dose of medications. She denies any significant side effects such as abdominal pain, nausea, insomnia, tachycardia, irritability, or significant emotional lability, unusual movements/tics. Anxiety Has Currently increased anxiety and tearful with todays visit. States father New Years Day. Aggravating factors: being around people and has noticed her isolating herself from others. Continues Prozac as prescribed. in this encounter* Margaret Hernandez APRN-MAURICIO - 08/26/2018 1:30 PM EST Formatting of this note may be different from the original. SUBJECTIVE: Heydi Dill is a 42 y.o. year old female who is present today for a possible upper respiratory infection/bronchitis. She states she feels body shutting down. When asked to elaborate- I just feelran down and throat hurts, and my head is pounding. Onset of symptoms was 5 days ago. Clinical course - worsening since that time. Current symptoms include chest pain, chills, congestion, fever to 100.6 degrees, headache, myalgias, nausea, neck pain, plugged ear sensation, rhinorrhea, rigors, sinus pain and sore throat , which are of severe severity. She has tried the following treatments: Fluids(6 bottles of water daily) Tylenol prn, rest and sleep. They have been ineffective in relieving symptoms. PAST MEDICAL HISTORY, SURGICAL HISTORY, FAMILY HISTORY, SOCIAL HISTORY, MEDICATIONS, AND ALLERGIES WERE REVIEWED: yes No Known Allergies Tobacco use or second hand smoke exposure - Yes: 0.50 pack a day. minimal smoking since onset of symptoms Sputum production - No Heydi states non productive coughing - wet harsh coughing - no sputum present to expectorate Fevers over 100.5 Yes: 100.6 currently Shortness of breath Yes: Chest pain Yes: Immune problems Yes: History of Exposure to Hep B (ex. - Cancer, HIV, medications that suppress immune system, lung disease) Blood pressure 118/70, pulse 113, temperature 100.6 F (38.1 C), temperature source Temporal, resp. rate 18, height 1.6 m (5' 3 ), weight 77.4 kg (170 lb 9.6 oz), SpO2 98 %. Outpatient Encounter Prescriptions as of 08/26/2018 Medication Sig Dispense Refill fluoxetine 40 MG Cap Take 1 capsule by mouth daily. 30 capsule 5 naproxen 500 MG Tab tablet Take 1 tablet by mouth every 12 hours as needed for Severe Pain. 60 tablet 2 phentermine 37.5 MG Tab Take 1 tablet by mouth every morning before breakfast. 30 tablet 0 tiZANidine 4 MG Tab tablet Take 1 tablet by mouth 3 times daily as needed for Headaches. 60 tablet 2 Pseudoephedrine-Guaifenesin (MUCINEX D MAX STRENGTH) 120-1200 MG Tab SR 12 HR Take 1 tablet by mouth 2 times daily as needed. 30 tablet 0 No facility-administered encounter medications on file as of 08/26/2018. OBJECTIVE: She appears well, vital signs are as noted. Ears normal. Throat and pharynx normal. Neck supple. Noadenopathy in the neck. Nose is congested. Sinuses non tender. The chest is clear, without wheezes or rales. ASSESSMENT: ICD-10-CM 1. Viral URI J06.9 Pseudoephedrine-Guaifenesin (MUCINEX D MAX STRENGTH) 120-1200 MG Tab SR 12 HR PLAN: Symptomatic therapy suggested: push fluids, rest and return office visit prn if symptoms persist orworsen.Discussed risks (side effects) and benefits of medication & encouraged to read about medication and take meds as directed. Lack of antibiotic effectiveness discussed with her. Call or return to clinic prn if these symptomsworsen or fail to improve as anticipated. * Leaivtt, Evette, SERVER MANAGER - 08/26/2018 1:30 PM EST Formatting of this note may be different from the original. Heydi Dill is a 42 y.o. year old female who is present today for a possible upper respiratory infection/bronchitis. She states she feels body shutting down. She drove herself to appt - she states no one else was available to drive her - she states it took her almost an hour to drive to office- unstable when walking from waiting room to triage area - hand on wall to guide her - lethargic inroom- eyes closed. Denies any falls. Onset of symptoms was 5 days ago. Clinical course - worsening since that time. Current symptoms include chest pain, chills, congestion, fever to 100.6 degrees, headache, myalgias, nausea, neck pain, plugged ear sensation, rhinorrhea, rigors, sinus pain and sore throat , which are of severe severity. She has tried the following treatments: fluids, rest and sleep. They have been ineffective in relieving symptoms. PAST MEDICAL HISTORY, SURGICAL HISTORY, FAMILY HISTORY, SOCIAL HISTORY, MEDICATIONS, AND ALLERGIES WERE REVIEWED: yes No Known Allergies Tobacco use or second hand smoke exposure - Yes: 0.50 pack a day. minimal smoking since onset of symptoms Sputum production - No Heydi states non productive coughing - wet harsh coughing - no sputum present to expectorate Fevers over 100.5 Yes: 100.6 currently Shortness of breath Yes: Chest pain Yes: Immune problems Yes: History of Exposure to Hep B (ex. - Cancer, HIV, medications that suppress immune system, lung disease) Blood pressure 118/70, pulse 113, temperature 100.6 F (38.1 C), temperature source Temporal, resp. rate 18, height 1.6 m (5' 3 ), weight 77.4 kg (170 lb 9.6 oz), SpO2 98 %. Outpatient Encounter Prescriptions as of 08/26/2018 Medication Sig Dispense Refill fluoxetine 40 MG Cap Take 1 capsule by mouth daily. 30 capsule 5 naproxen 500 MG Tab tablet Take 1 tablet by mouth every 12 hours as needed for Severe Pain. 60 tablet 2 phentermine 37.5 MG Tab Take 1 tablet by mouth every morning before breakfast. 30 tablet 0 tiZANidine 4 MG Tab tablet Take 1 tablet by mouth 3 times daily as needed for Headaches. 60 tablet 2 No facility-administered encounter medications on file as of 08/26/2018. in this encounter* Chelle Bridges PA-C - 06/17/2020 3:30 PM EST HPI Heydi Dill is a 44 y.o. female who presents today for complaint of shortness of breath since 06/05/2020. Associated symptoms include cough, fatigue, body aches, headache. Denies nasal congestion,runny nose, sore throat, ear pain, nausea/vomiting. Patient was seen twice last week at [facility] emergency department. Patient reports that she was told there that she had a false positive Covid test. During her second visit she was placed on Zithromax, amoxicillin prednisone and albuterol inhaler. She has seen no improvement in symptoms. A review of records shows 2 emergency department visits on June 08 and June 10. Workup shows a negative Covid test, negative CT scan for pulmonary embolism, negative chest x-ray. The ED provider did recommend patient quarantine for 14 days despite the negative Covid test due to the patient's symptoms. ROS Constitutional: Denies Fever, chills Eyes: Denies visual change or eye discharge Head/Ear/Nose/Throat: Denies earache,sinus congestion, runny nose or sore throat Respiratory: Denies wheezing Cardiovascular: Denies chest pain Gastrointestinal: Denies abdominal pain, Denies nausea, Denies vomiting, Denies diarrhea Musculoskeletal: Denies Joint pain Lymphatic: Denies enlarged lymph nodes Skin: Denies Rash Neurological: Denies focal neuro symptoms Social History Tobacco Use Smoking status: Current Every Day Smoker Packs/day: 0.50 Types: Cigarettes Smokeless tobacco: Never Used Tobacco comment: Substance Use Topics Alcohol use: No Drug use: No Family History Problem Relation Age of Onset Cancer Mother pancreas Dementia Mother Depression Mother Diabetes Mother Heart Disease - Other Mother Lipid Disorder Mother Hypertension Mother Parkinson Mother Asthma Father Skin Cancer Father Depression Father Diabetes Father Heart Disease - Other Father Lipid Disorder Father Hypertension Father Kidney Disease Father Asthma Sister Ovarian Cancer Sister Depression Sister Diabetes Sister Hypertension Sister Kidney Disease Sister Migraines Sister Liver Disease Sister Diabetes Brother Kidney Disease Brother Breast Cancer Paternal Grandmother Past Medical History: Diagnosis Date Bipolar disorder Depression Endometriosis Exposure to hepatitis B Generalized anxiety disorder Hearing loss History of kidney stones Migraine Rheumatic fever Past Surgical History: Procedure Laterality Date APPENDECTOMY 2011 HYSTERECTOMY 2005 TONSILLECTOMY ADENOIDECTOMY 2002 LITHOTRIPSY Several kidney stones - chronic kidney stones EXAM BP 136/89 (BP Location: Right arm, BP Position: Sitting) Pulse 130 Temp 98.6 F (37 C) (Temporal) Resp 16 Ht 1.6 m (5' 3 ) Wt 87.6 kg (193 lb 3.2 oz) BMI 34.22 kg/m Smoking Status Current Every Day Smoker Primary Assessment: Airway patent. Respirations unlabored, Normal respiratory effort Constitutional: Vital signs reviewed. Well appearing. No distress Psychiatric: Mental status appropriate. Normal affect Skin: Warm and dry. No rashes noted Eyes: Conjunctiva clear. No photophobia HENT: Normocephalic. Ears - Left tympanic membrane and canal clear, Right tympanic membrane and canal clear. Posterior pharynx clear. Lymphatics: no anterior cervical lymphadenopathy, no posterior cervical lymphadenopathy Cardio: regular rate and rhythm. No murmurs, rubs, or gallop Thorax/ Respiratory: Respiratory effort non-labored, lungs clear to ascultation Musculoskeletal: Neck supple Neurologic: Alert and Oriented Xray and radiologist's report reviewed. No acute abnormalities. Patient informed of results. Diagnosis/ Plan: Heydi was seen today for other. Diagnoses and all orders for this visit: Dyspnea, unspecified type - XR CHEST PA AND LATERAL Suspected COVID-19 virus infection - NOVEL CORONAVIRUS- NASOPHARYNGEAL; Future Patient to self isolate at home until results of testing return negative. If positive he/she will receive further instructions from the health department. Patient provided handout on home care while awaiting test results. If symptoms worsen patient was advised to follow up in the nearest ED, call first. Benefits, Risks, Contraindications, and Complications of recommended treatments were explained. Thepatient understands and agrees to proceed with plan. Chelle Bridges PA-C 06/17/2020 documented in this encounter* Margaret Hernandez, [employer] - 10/22/2018 2:30 PM EDT History of Present Illness Heydi Dill is a 42 y.o. year old female who is present today for a possible upper respiratory symptoms. Onset of symptoms was 13 days ago. Clinical course - augmentin and predisone since that time. Current symptoms include chills, congestion, ear pain, headache, nausea, plugged ear sensation, sinus pain and jaw and facial pain with swelling , which are of severe severity. She has tried the following t reatments: other meds: augmentin and predisone. They have been ineffective in relieving his symptoms. PAST MEDICAL HISTORY, SURGICAL HISTORY, FAMILY HISTORY, SOCIAL HISTORY, MEDICATIONS, AND ALLERGIES WERE REVIEWED: yes No Known Allergies Tobacco use or second hand smoke exposure - Yes: current smoker Sputum production (ex: brown or bloody) - No Fevers over 100.5 Yes: slight Shortness of breath No Chest pain No Immune problems No (ex. - Cancer, HIV, medications that suppress immune system, lung disease) Blood pressure 142/88, pulse 89, temperature 97.7 F (36.5 C), temperature source Temporal, resp. rate 18, height 1.6 m (5' 3 ), weight 79.2 kg (174 lb 9.6 oz), SpO2 99 %. Condition better, worsening, or stable - worsening Hx of recurrent viral uri or allergic rhinitis symptoms preceding 2 months - Yes: she was sick in August 2018 Hx of viral uri symptoms worsening after 5 days - Yes: with additional symtoms Outpatient Encounter Medications as of 10/22/2018 Medication Sig Dispense Refill fluoxetine 40 MG Cap Take 1 capsule by mouth daily. 30 capsule 5 tiZANidine 4 MG Tab tablet Take 1 tablet by mouth 3 times daily as needed for Headaches. 60 tablet 2 diclofenac EC [address] tablet Take 1 tablet by mouth 2 times daily. With food 60 tablet 0 naproxen 500 MG Tab tablet Take 1 tablet by mouth every 12 hours as needed for Severe Pain. 60 tablet 2 phentermine 37.5 MG Tab Take 1 tablet by mouth every morning before breakfast. 30 tablet 0 Pseudoephedrine-Guaifenesin (MUCINEX D MAX STRENGTH) 120-1200 MG Tab SR 12 HR Take 1 tablet by mouth 2 times daily as needed. (Patient not taking: Reported on 10/22/2018) 30 tablet 0 No facility-administered encounter medications on file as of 10/22/2018. She was seen at the Urgent Care on 10/13/18 for a sinus infection and was prescribed prednisone and Augmentin and she states she did finish the current treatment given to her. She said yesterday the jaw pain and facial swelling started and is not improving. She is taking ibuprofen for the pain. Past Medical History: Diagnosis Date Bipolar disorder Depression Endometriosis Exposure to hepatitis B Generalized anxiety disorder Hearing loss History of kidney stones Migraine Rheumatic fever Outpatient Medications Prior to Visit Medication Sig Dispense Refill fluoxetine 40 MG Cap Take 1 capsule by mouth daily. 30 capsule 5 tiZANidine 4 MG Tab tablet Take 1 tablet by mouth 3 times daily as needed for Headaches. 60 tablet 2 naproxen 500 MG Tab tablet Take 1 tablet by mouth every 12 hours as needed for Severe Pain. 60 tablet 2 phentermine 37.5 MG Tab Take 1 tablet by mouth every morning before breakfast. 30 tablet 0 Pseudoephedrine-Guaifenesin (MUCINEX D MAX STRENGTH) 120-1200 MG Tab SR 12 HR Take 1 tablet by mouth 2 times daily as needed. (Patient not taking: Reported on 10/22/2018) 30 tablet 0 No facility-administered medications prior to visit. No Known Allergies Social History Socioeconomic History Marital status: Spouse name: Not on file Number of children: Not on file Years of education: Not on file Highest education level: Not on file Occupational History Not on file Social Needs Financial resource strain: Not on file Food insecurity: Worry: Not on file Inability: Not on file Transportation needs: Medical: Not on file Non-medical: Not on file Tobacco Use Smoking status: Current Every Day Smoker Packs/day: 0.50 Types: Cigarettes Smokeless tobacco: Never Used Tobacco comment: Substance and Sexual Activity Alcohol use: No Drug use: No Sexual activity: Yes Partners: Male Lifestyle Physical activity: Days per week: Not on file Minutes per session: Not on file Stress: Not on file Relationships Social connections: Talks on phone: Not on file Gets together: Not on file Attends taoist service: Not on file Active member of club or organization: Not on file Attends meetings of clubs or organizations: Not on file Relationship status: Not on file Intimate partner violence: Fear of current or ex partner: Not on file Emotionally abused: Not on file Physically abused: Not on file Forced sexual activity: Not on file Other Topics Concern Not on file Social History Narrative Not on file Review of Systems See above HPI Vitals: Blood pressure 142/88, pulse 89, temperature 97.7 F (36.5 C), temperature source Temporal, resp. rate 18, height 1.6 m (5' 3 ), weight 79.2 kg (174 lb 9.6 oz), SpO2 99 %. Physical Exam Constitutional: She is oriented to person, place, and time. She appears well- developed and well-nourished. HENT: Head: Normocephalic. Right Ear: External ear normal. Left Ear: External ear normal. Nose: Nose normal. Mouth/Throat: Oropharynx is clear and moist. Tenderness palpated over right side temporal mandibular joint. Cardiovascular: Normal rate, regular rhythm and normal heart sounds. Pulmonary/Chest: Effort normal and breath sounds normal. Neurological: She is alert and oriented to person, place, and time. Skin: Skin is warm and dry. Nursing note and vitals reviewed. Neurologic Exam Mental Status Oriented to person, place, and time. Assessment and Plan 1. Arthralgia of right temporomandibular joint Will tx with Nsaid. Discussed conservative tx measures as well. Discussed risks (side effects) and benefits of medication & encouraged to read about medication and take meds as directed. - diclofenac EC [address] tablet; Take 1 tablet by mouth 2 times daily. With food Dispense: 60 tablet; Refill: 0 2. Anxiety 3. Severe episode of recurrent major depressive disorder, without psychotic features Stress has been higher d/t working longer hours at work. Will continue on current dose of medication and not add at this time d/t reactions to medication in the past. Return to clinic if symptoms worsen or fail to improve. * Alona Maza MA - 10/22/2018 2:30 PM EDT Heydi Dill is a 42 y.o. year old female who is present today for a possible upper respiratory symptoms. Onset of symptoms was 13 days ago. Clinical course - augmentin and predisone since that time. Current symptoms include chills, congestion, ear pain, headache, nausea, plugged ear sensation, sinus pain and jaw and facial pain with swelling , which are of severe severity. She has tried the following t reatments: other meds: augmentin and predisone. They have been ineffective in relieving his symptoms. PAST MEDICAL HISTORY, SURGICAL HISTORY, FAMILY HISTORY, SOCIAL HISTORY, MEDICATIONS, AND ALLERGIES WERE REVIEWED: yes No Known Allergies Tobacco use or second hand smoke exposure - Yes: current smoker Sputum production (ex: brown or bloody) - No Fevers over 100.5 Yes: slight Shortness of breath No Chest pain No Immune problems No (ex. - Cancer, HIV, medications that suppress immune system, lung disease) Blood pressure 142/88, pulse 89, temperature 97.7 F (36.5 C), temperature source Temporal, resp. rate 18, height 1.6 m (5' 3 ), weight 79.2 kg (174 lb 9.6 oz), SpO2 99 %. Condition better, worsening, or stable - worsening Hx of recurrent viral uri or allergic rhinitis symptoms preceding 2 months - Yes: she was sick in August 2018 Hx of viral uri symptoms worsening after 5 days - Yes: with additional symtoms Outpatient Encounter Medications as of 10/22/2018 Medication Sig Dispense Refill fluoxetine 40 MG Cap Take 1 capsule by mouth daily. 30 capsule 5 tiZANidine 4 MG Tab tablet Take 1 tablet by mouth 3 times daily as needed for Headaches. 60 tablet 2 naproxen 500 MG Tab tablet Take 1 tablet by mouth every 12 hours as needed for Severe Pain. 60 tablet 2 phentermine 37.5 MG Tab Take 1 tablet by mouth every morning before breakfast. 30 tablet 0 Pseudoephedrine-Guaifenesin (MUCINEX D MAX STRENGTH) 120-1200 MG Tab SR 12 HR Take 1 tablet by mouth 2 times daily as needed. (Patient not taking: Reported on 10/22/2018) 30 tablet 0 No facility-administered encounter medications on file as of 10/22/2018. She was seen at the Urgent Care on 10/13/18 for a sinus infection and was prescribed prednisone and Augmentin and she states she did finish the current treatment given to her. She said yesterday the jaw pain and facial swelling started and is not improving. She is taking ibuprofen for the pain. documented in this encounter Assessments Diagnosis Anxiety - Primary Anxiety state, unspecified Severe episode of recurrent major depressive disorder, without psychotic features Tension headache Obesity (BMI 30-39.9) Obesity, unspecified Diagnosis Obesity (BMI 30-39.9)- Primary Obesity, unspecified Severe episode of recurrent major depressive disorder, without psychotic features Anxiety Anxiety state, unspecified Diagnosis Viral URI- Primary Acute upper respiratory infections of unspecified site Diagnosis Left foot pain- Primary Pain in soft tissues of limb Diagnosis Sprain of right ankle, unspecified ligament, initial encounter- Primary Diagnosis Adjustment Reaction with Brief Depressive Reaction Adjustment disorder with depressed mood Diagnosis Febrile illness, acute- Primary Abnormality of esophagus Diagnosis Febrile illness, acute- Primary Lower respiratory tract infection Other diseases of respiratory system, not elsewhere classified Hypocalcemia Diagnosis Dyspnea, unspecified type- Primary Suspected COVID-19 virus infection Diagnosis Sprain of left ankle, unspecified ligament, initial encounter- Primary Diagnosis Severe episode of recurrent major depressive disorder, without psychotic features Anxiety Anxiety state, unspecified Diagnosis Arthralgia of right temporomandibular joint- Primary Arthralgia of temporomandibular joint Anxiety Anxiety state, unspecified Severe episode of recurrent major depressive disorder, without psychotic features Discharge Instructions * Attachments The following attachments cannot be sent through Care Everywhere. * Foot Pain ([place]) documented in this encounter* Attachments The following attachments cannot be sent through Care Everywhere. * Ankle Sprains, Treating ([place]) documented in this encounter* Attachments The following attachments cannot be sent through Care Everywhere. * Depression: Balancing Brain Chemicals: Video ([place]) documented in this encounter* Instructions* Amalia Ling CNP - 06/08/2020 If any new or worsening symptoms contact your PCP or return to the emergency department. As discussed self-isolation for 14 days from the start of your symptoms is recommended. Contact your PCP for any further guidance. Distal esophagus is somewhat thickened which may be due to gastritis however when she was feeling well this should be reevaluated as recommended by your PCP. * Attachments The following attachments cannot be sent through Care Everywhere. * Fever: General Info ([place]) * COVID-19 SELF ISOLATION DISCHARGE INSTRUCTIONS * Coronavirus Disease (COVID-19): General Info ([place]) * Coronavirus Disease (COVID-19): Social Distancing: General Info ([place]) documented in this encounter* Discharge Instr - Care Coordination* Catina Fall RN - 06/10/2020 11:39 AM EDT Where do I go for Care? When you need medical attention, knowing where to go can be confusing. Follow these tips to help you understand the differences between these three care options. When do I go to primary care? Preventive, wellness and illness care Management of chronic diseases and conditions Annual health screening examinations Care for newborns, infants and adolescents Male and Female exams Anxiety, depression and mood disorders Sick visits and immunizations When do I go to urgent care? Urgent care focuses on diagnosing and treating conditions that are not life-threatening, Yet need to be addressed promptly. These can include: Cold or Flu-like symptoms Rash Minor Breaks, Sprains and Strains Animal or Insect Bites Minor [place]arton Allergic Reactions [facility] 7 days a week 9a.m.-7p.m. [address], [place] [address] When do I go to the Emergency Department? The emergency department treats severe and life-threatening conditions. These can include: Severe Head Injury Stroke Shortness of Breath or Wheezing Chest Pain Severe Bleeding Major Wharton Major Breaks, Sprains and Strains Emergency Care offered in three locations: [place]: [address] [facility]: [address] [facility]: [address] [facility] * Additional Instructions* Amalia Ling CNP - 06/10/2020 Continue to self isolate. Your physical exam revealed rhonchi over the lower lobes of your lungs and you have a mildly elevated white count today. There is concern for developing pneumonia. Take medications as directed. Follow-up with your PCP as directed. If any new or worsening symptomsyou may return to the emergency department anytime. Your calcium was mildly low today and it was replaced in the emergency department. * Attachments The following attachments cannot be sent through Care Everywhere. * Coronavirus Disease (COVID-19): Isolation ([place]) * Fever: General Info ([place]) * Hypocalcemia ([place]) documented in this encounter* Attachments The following attachments cannot be sent through Care Everywhere. * Ankle Sprain ([place]) documented in this encounter Instructions * Patient Instructions* Chelle Bridges PA-C - 06/17/2020 3:30 PM EST Coronavirus (COVID-19) Care Instructions After Testing You were tested for COVID-19 today. The results will take 1 to 2 days to come back. The fastest wayto get your test results is to have a [employer] Account. Sign up at [email or web address] or download the [facility] Always Prepped germania. Negative test results will be released into [employer]. If you do test positive for COVID-19, you will be contacted with your results and given more direction at that time. Most people have mild illness are able to recover at home. Follow these instructions to know how to keep yourself and others safe as you recover. Your care at home Stay home except to get medical care. Get plenty of rest and sleep. Drink plenty of fluids. Choose water and other caffeine-free clear liquids until you feel better. If you have kidney, heart or liver disease and have to limit fluids, talk with your doctor before youincrease the amount of fluids you drink. Do not smoke, vape or allow others to smoke or vape around you. If you need help quitting, talk to your doctor about programs and medicines to help you quit. These can increase your chances of quitting for good. Have a 2 week supply of prescription and over the counter medicines, food and other essentials. Reach out to family, friends and neighbors to stay in touch and to get any help you may need. Watch your signs and contact your provider if you have problems or questions. Protect your loved ones Stay away from others in your home as much as possible. Limit visitors. Wash your hands often with soap and water for at least 20 seconds, or use an alcohol-based hand manager oracle that contains at least 60% alcohol. Be sure to wash your hands : ? After blowing your nose, sneezing or coughing. ? After using the bathroom. ? Before eating or preparing food. ? Before touching anyone else in the house. Anyone helping with your care should also be washing their hands well. Be sure to wash before and after providing any care or having any contact with trash, laundry or utensils used by the ill person. Cover your mouth and nose with a tissue or the inside of your elbow when you cough or sneeze. Clean and disinfect high touch surfaces in your household every day if possible. These may include door knobs, tables, countertops, light switches, handles, keyboards, phones, remotes, touch screens,toilets, faucets and sinks. ? Most household disinfectants should be effective, such as Lysol, Clorox or similar store brand products. Follow the instructions on the container. ? You can also use a diluted bleach solution to disinfect surfaces. Be sure to leave it on for at least 1 minute and allow for good ventilation in the area during and after use. Check that the bleachis not . Mix 5 tablespoons or 1/3 cup of bleach in a gallon of water, or 4 teaspoons of bleach in 1 quart of water. Wash laundry with the warmest temperatures recommended on the label. Use gloves if handling laundryfor an ill person if available. It is okay to wash laundry from the ill person with other laundry. If gloves are not available, be sure to wash hands well after handling laundry. Keep at least 6 to 10 feet away from others in your home. Do not sleep or spend time in the same room with others. Use a different bathroom, if possible. Do not share bedding, towels, dishes, utensils, or drinking containers. Wash dishes in hot water oruse a watchstander. Use a separate, trash bag lined trash can for any tissues, gloves, and masks that have been used bythe ill person or items used to care for them. Tie the trash bag shut, remove it from the trash canand thrown it away with other household trash. Wear a face mask when others are around, if available. If that is not possible and the person requires close contact for help, the caregiver should wear a face mask and gloves whenever handling any bodily fluids. Avoid reusing gloves and masks. If masks are not available, use a homemade face mask, scarf or bandana to cover your nose and mouth. For more information on disinfecting your home, visit https://www.cdc.gov/coronavirus/2019-ncov/prepare/okyaooiatkws-lwlc-gvyc.html. Keep your community safe Stay home. Do not leave, except to get medical care and needed items. Stay in touch with your doctor. Be sure to get care if you feel worse or you think it is an emergency. Avoid public transportation: Avoid using public transportation, ride-sharing or taxis. Keep a safe 6 to 10 foot distance from others to prevent disease spread. Limit contact with pets and other animals Limit contact with pets and animals, just like you would around people. There have been some reports of pets becoming sick COVID-19. It is recommended that people with thevirus limit contact with animals until more information is known. When possible, have another member of your household care for your animals while you are sick. If you must care for your pet or be around animals while you are sick, wash your hands before and after you touch the animal or any of the animal s items. These may include feeding bowls, bedding, crates, leashes or toys. When should I call for help? Call 911 if you have any emergency warning signs for COVID-19 and get medical attention right away.Emergency warning signs include: Severe problems breathing or shortness of breath Persistent pain or pressure in the chest New confusion or unable to wake up Bluish lips or face Facial drooping, weakness of one arm or leg, or difficulty speaking Call your doctor now or seek medical care if: You have new or worse trouble breathing. You develop new swelling, tenderness, pain or discoloration in your leg(s), arm(s). Your coughing gets worse. You have a new or higher fever. You are dizzy, lightheaded, or feel like you may faint. Watch closely for any changes in your health, and be sure to contact your doctor if: You do not get better as expected. You have any problems with your medicine or other treatment. When you call 911 or your doctor, make sure you tell them that you may have COVID-19. To learn more For reliable and up to date information on COVID-19, try these sites: go.[employer].edu/coronavirus cdc.gov/coronavirus coronavirus.[place].gov You can also call the [facility] of [facility] Hotline with questions at 0-830-8-ASK-ODH ( ). 2019November 19, 2019. [facility]. This handout is for informational purposes only. Talk with your doctor or healthcare team if you have any questions about your care. For more health information call the Library for Health Information at 987-827-6671 or email: [email or web address] [place] documented in this encounter Reason for Referral Specialty Diagnoses / Procedures Referred By Contac t Referred To Contact Diagnoses RUQ pain Procedures US ABDOMEN RUQ/LIVER/GB Margaret Hernandez, [employer]IR[employer]FT STRUCTURAL FITTER [address] [place] [address] Referral ID Status Reason Start Date Expiration Date V isits Requested Visits Authorized [id number] Auth Not Needed 02/07/2022 03/04/2023 1 1 Referral ID Status Reason Start Date Expiration Date Visits Re quested Visits Authorized [id number] Closed 02/07/2022 03/04/2023 1 1 Specialty Diagnoses / Procedures Referred By Contac t Referred To Contact Diagnoses Mass of lower outer quadrant of left breast Procedures MAMMO DIAGNOSTIC LEFT Margaret Hernandez, [employer] STRUCTURAL FITTER [address] [place] [address] Referral ID Status Reason Start Date Expiration Date V isits Requested Visits Authorized [id number] Auth Not Needed 03/02/2022 03/27/2023 1 1 Specialty Diagnoses / Procedures Referred By Contac t Referred To Contact Diagnoses Mass of lower outer quadrant of left breast Procedures US BREAST COMPLETE UNILATERAL LEFT Margaret Hernandez, [employer]UCTURAL FITTER [address] [place] [address] Referral ID Status Reason Start Date Expiration Date V isits Requested Visits Authorized [id number] Auth Not Needed 03/02/2022 03/27/2023 1 1 Specialty Diagnoses / Procedures Referred By Contac t Referred To Contact Diagnoses Abnormal mammogram Procedures MAMMO DIAGNOSTIC WITH LUCIA LEFT Tere Beltre DO [address] [place] [address] Referral ID Status Reason Start Date Expiration Date V isits Requested Visits Authorized [id number] Auth Not Needed 03/08/2022 04/02/2023 1 1 Specialty Diagnoses / Procedures Referred By Contac t Referred To Contact Nuclear Medicine Diagnoses Irritable bowel syndrome with diarrhea Bloating Functional diarrhea Abdominal pain, epigastric Procedures NUC HEPATOBILIARY WITH EJECTION FRACTION PA HEPATOBIL SYST IMAG INC GB W/PHARMA INTERVLUIS ALBERTOJ Jovi Sepulveda, Roge Guerrero, DO [address] [place] [phone] [facility] Nuclear Medicine [address] [place] [phone] Referral ID Status Reason Start Date Expiration Date V isits Requested Visits Authorized [id number] Auth Not Needed 04/25/2022 05/20/2023 1 1 Specialty Diagnoses / Procedures Referred By Contac t Referred To Contact Diagnoses Class 1 obesity due to excess calories with serious comorbidity and body mass index (BMI) of 32.0 to 32.9 in adult Margaret Hernandez [employer]UCTURAL FITTER [address] [place], [place] [address] Referral ID Status Reason Start Date Expiration Date Visits Re quested Visits Authorized [id number] Closed 1 1 Referral ID Status Reason Start Date Expiration Date Visits Re quested Visits Authorized [id number] Closed 1 1 Specialty Diagnoses / Procedures Referred By Contac t Referred To Contact Ultrasound Diagnoses Follow-up exam, 3-6 months since previous exam Procedures US BREAST LIMITED UNILATERAL LEFT Tere Beltre, DO [address] [place] [id number] [facility] Ultrasound [address] [place] [phone] Referral ID Status Reason Start Date Expiration Date V isits Requested Visits Authorized [id number] Auth Not Needed 04/19/2022 05/14/2023 1 1 Referral ID Status Reason Start Date Expiration Date Visits Re quested Visits Authorized [id number] Closed 1 1 Specialty Diagnoses / Procedures Referred By Contac t Referred To Contact Diagnoses Mixed hyperlipidemia BMI 28.0-28.9,adult Margaret Hernandez [employer]UCTURAL FITTER [address] [place] [phone] Referral ID Status Reason Start Date Expiration Date Visits Re quested Visits Authorized [id number] Closed 1 1 Specialty Diagnoses / Procedures Referred By Contac t Referred To Contact Diagnoses Class 1 obesity due to excess calories with serious comorbidity and body mass index (BMI) of 33.0 to 33.9 in adult Margaret Hernandez, [employer]IR[employer] STRUCTURAL FITTER [address] [place] [address] Referral ID Status Reason Start Date Expiration Date Visits Re quested Visits Authorized [id number] Closed 1 1 Specialty Diagnoses / Procedures Referred By Contac t Referred To Contact Nutrition and Dietetics Diagnoses Encounter for weight management Obesity (BMI 30.0-34.9) Binge eating Sheryl Hebert, AIRCRAFT STRUCTURAL FITTER [address] [place] [address] Jarrett Campos, RD [address] [place] [address] Referral ID Status Reason Start Date Expiration Date V isits Requested Visits Authorized [id number] New Request 07/31/2023 08/24/2024 1 1 Additional Source Comments INFORMATION SOURCE (unrecogn ized section and content) DATE CREATED AUTHOR AUTHOR'S ORGANIZ ATION 06/19/[facility] DATE CREATED AUTHOR AUTHOR'S ORGANIZ ATION 11/23/2022 [facility] DATE CREATED AUTHOR AUTHOR'S ORGANIZ ATION 03/23/2023 [facility] DATE CREATED AUTHOR AUTHOR'S ORGANIZ ATION 07/05/2023 [facility] DATE CREATED AUTHOR AUTHOR'S ORGANIZ ATION 07/05/2023 [facility] DATE CREATED AUTHOR AUTHOR'S ORGANIZ ATION 07/31/2023 [facility] Reason for Visit (unrecogniz ed section and content) Reason Comments Anxiety Follow up on startin g back on Prozac 20 mg 1 month ago. Feels med has helped but anxiety has been uncontrolled for past week after losing her father. Obesity Completed 1 month on adipex, denies any side effects. Reason Comments Flu s/sx of flu like sym ptoms for approx 5 days - worsening progression Reason Comments Toe Pain L BIG TOE Reason Comments Ankle Pain stepped in a hole ar ound 9pm and rolled her ankle. Took ibuprophen and put ice on it. States it will not stop throbbing so she came to the ed Reason Comments Suicidal Reason Comments Chest Pain Fatigue Headache Shortness of Breath Reason Comments Shortness of Breath Reason Comments Other wants retested for c ovid, breathing issue Reason Comments Foot Injury Ankle Pain Reason Comments Medication Refill Reason Comments Sinus Infection Jaw Pain Ear Pain Reason Comments Mouth Pain Pt arrives with c/o mouth pain and swelling for past 3 days. Pt states she saw her dentist today who prescribed Augmentin Reason Comments Abdominal Pain RLQ pain Reason Comments Abdominal Pain Constipation Specialty Diagnoses / Procedures Referred By Contac t Referred To Contact Gastroenterology Diagnoses Continuous RLQ abdominal pain Chronic constipation Margaret Hernandez [employer]UCTURAL FITTER [address] [place] [address] Roge Espana Jr., DO [address] [place] [address] Referral ID Status Reason Start Date Expiration Date V isits Requested Visits Authorized [id number] New Request 10/13/2021 11/07/2022 1 1 Reason Comments Hyperlipidemia Depression Anxiety Abdominal Pain Specialty Diagnoses / Procedures Referred By Contac t Referred To Contact Diagnoses RUQ pain Procedures US ABDOMEN RUQ/LIVER/GB Margaret Hernandez [employer]UCTURAL FITTER [address] [place] [address] Referral ID Status Reason Start Date Expiration Date Visits Re quested Visits Authorized [id number] Closed 02/07/2022 03/04/2023 1 1 Reason Comments Breast Mass Specialty Diagnoses / Procedures Referred By Contac t Referred To Contact Diagnoses Mass of lower outer quadrant of left breast Procedures MAMMO DIAGNOSTIC WITH LUCIA LEFT MAMMO DIAGNOSTIC LEFT Margaret Hernandez [employer]UCTURAL FITTER [address] [place] [address] Referral ID Status Reason Start Date Expiration Date Visits Re quested Visits Authorized [id number] Closed 03/02/2022 03/27/2023 1 1 Reason Comments New Patient Specialty Diagnoses / Procedures Referred By Contac t Referred To Contact Diagnoses Abnormal mammogram Procedures US GUIDED BIOPSY BREAST LEFT Tere Beltre, DO [address] [place] [address] Referral ID Status Reason Start Date Expiration Date Visits Re quested Visits Authorized [id number] Closed 03/08/2022 04/02/2023 1 1 Specialty Diagnoses / Procedures Referred By Contac t Referred To Contact Diagnoses Abnormal mammogram Procedures MAMMO DIAGNOSTIC WITH LUCIA LEFT Elliotrk Tere Vraner, DO [address] [place] [address] Referral ID Status Reason Start Date Expiration Date V isits Requested Visits Authorized [id number] Auth Not Needed 03/08/2022 04/02/2023 1 1 Reason Comments Follow-up Reason Comments Sore Throat Cough Headache, body hurts , back and neck pain. Reason Comments Chronic Obstructive Pulmonary Disease Hyperlipidemia Depression Insomnia Anxiety Reason Comments Weight Loss Specialty Diagnoses / Procedures Referred By Contac t Referred To Contact Mammography Diagnoses Follow-up exam, 3-6 months since previous exam Procedures MAMMO DIAGNOSTIC WITH LUCIA BILATERAL MAMMO DIAGNOSTIC WITH LUCIA LEFT Tere Beltre, DO [address] [place] [address] [facility] [address] [place] [phone] Referral ID Status Reason Start Date Expiration Date Visits Re quested Visits Authorized [id number] Closed 04/19/2022 05/14/2023 1 1 Specialty Diagnoses / Procedures Referred By Contac t Referred To Contact Ultrasound Diagnoses Follow-up exam, 3-6 months since previous exam Procedures US BREAST LIMITED UNILATERAL LEFT Tere Beltre, DO [address] [place] [address] [facility] [address] [place] [phone] Referral ID Status Reason Start Date Expiration Date V isits Requested Visits Authorized [id number] Auth Not Needed 04/19/2022 05/14/2023 1 1 Reason Comments Foot Problem Painful bump left fo ot Reason Comments Obesity Adipex 2/3 Reason Comments Obesity Adipex 3/3 Lab Review Reason Comments Pre-op Exam H&p L 2nd hammertoe repair Reason Comments Follow-up Return in about 1 we ek pin removal Post-op S/p L hammertoe repa ir Reason Comments Follow-up 3 wk po left foot villagran mmertoe repair Reason Comments Post-op PO hammertoe repair left foot Reason Comments Consult Reason Comments Follow-up 1 month follow up Specialty Diagnoses / Procedures Referred By Contac t Referred To Contact Diagnoses Mass of left breast, unspecified quadrant Breast pain Mass of left breast, unspecified quadrant [N63.20] Breast pain [N64.4] Procedures PA MASTECTOMY, SIMPLE, COMPLETE MASTECTOMY COMPLETE Tere Beltre S, DO [address] [place] [address] [facility] Referral ID Status Reason Start Date Expiration Date Visits Re quested Visits Authorized [id number] 1 1 Reason Comments Post Op Visit Reason Comments Chronic Obstructive Pulmonary Disease Hyperlipidemia Anxiety Depression Insomnia Obesity Reason Comments Hemorrhoids Reason Comments Pain Reason Comments Weight Loss Lab Review Sleep Problem Reason Comments Obesity Specialty Diagnoses / Procedures Referred By Contac t Referred To Contact Diagnoses Class 1 obesity due to excess calories with serious comorbidity and body mass index (BMI) of 34.0 to 34.9 in adult Margaret Hernandez APRN-[address] [address] Sheryl Hebert S, [place] [phone] Referral ID Status Reason Start Date Expiration Date V isits Requested Visits Authorized [id number] New Request 07/17/2023 08/10/2024 1 1 Mary Jo Elizabeth RN - 12/12/2018 2:38 AM Mary Jo Jim RN - 12/12/2018 2:15 AM Mary Jo Jim RN - 12/12/2018 1:38 AM Mirta Salcido PA- C - 12/12/2018 1:16 AM EDT ED Notes (unrecognized secti on and content) Chelsea CANTRELL. GARRICK CANTRELL. ANSWERED CALL LIGHT. PT. C/O EXTREME PAIN TO BOTTOM OF L GREAT TOE WHERE LIDODERM PATCH IS PLACED. MOVED PATCH OFF OF THE BIG TOE AREA PER PT. REQUEST; PT. SCREAMED WHEN PATCH WAS LIFTED FROM BOTTOM OF L GREAT TOE AREA. PT. REQUESTING SOMETHING ELSE FOR PAIN. Chelsea MARR AND DR. RIVERA MADE AWARE. [facility] ED Provider Note: NAME: Heydi DILL 42 y.o. CSN: [id number] PCP: Physician No History: Chief Complaint: Toe Pain (L BIG TOE) HPI: The history was obtained from the patient. She is a 42 y.o. female who presents with a chief complaint of Toe Pain (L BIG TOE). Patient states she is having pain all over the sole of the left foot. She states that she had a podiatry procedure today where they scraped a corn on the medial aspect of the left great toe wound and applied some acid to it to try to relieve the corn. States she had the same thing done 2 weeks ago with no difficulties in the same thing done to the right foot today again with no difficulties except they did not use the acid on the right foot. She states that this happened about 7:00 this morning and then since then it has becoming increasingly red painful and swollen and now she is having a great deal of pain when she tries to walk. She has not had anything like this in the past. PMHx: Past Medical History: Diagnosis Date Asthma Kidney stones PMSx: Past Surgical History: Procedure Laterality Date ADENOIDECTOMY APPENDECTOMY HYSTERECTOMY TONSILLECTOMY FAM. Hx: No family history on file. SOC. Hx: Social History Socioeconomic History Marital status: Spouse name: Not on file Number of children: Not on file Years of education: Not on file Highest education level: Not on file Social Needs Financial resource strain: Not on file Food insecurity - worry: Not on file Food insecurity - inability: Not on file Transportation needs - medical: Not on file Transportation needs - non-medical: Not on file Occupational History Not on file Tobacco Use Smoking status: Current Every Day Smoker Packs/day: 0.50 Types: Cigarettes Smokeless tobacco: Never Used Substance and Sexual Activity Alcohol use: Never Frequency: Never Drug use: Never Sexual activity: Not on file Other Topics Concern Not on file Social History Narrative Not on file MEDs: Previous Medications Medication Sig FLUoxetine (PROZAC) 40 MG capsule Take 40 mg by mouth once daily . ALL: Allergies not on file ROS: Positives and pertinent negatives as per HPI. All other systems were reviewed and are negative. Physical Exam: Patient Vitals for the past 24 hrs: BP Temp Temp src SpO2 Height Weight 12/11/18 2354 5' 3 74.8 kg (165 lb) 12/11/18 2316 98.3 F (36.8 C) Oral 12/11/18 2315 138/86 98 % Physical Exam Constitutional: She is oriented to person, place, and time. She appears well-developed and well-nourished. No distress. HENT: Head: Normocephalic and atraumatic. Eyes: Conjunctivae and EOM are normal. Neck: Normal range of motion. Neck supple. Cardiovascular: Normal rate and regular rhythm. Pulmonary/Chest: Effort normal and breath sounds normal. No respiratory distress. Musculoskeletal: Normal range of motion. She exhibits no tenderness or deformity. Sole of the left foot does appear slightly erythematous and slightly swollen it is exquisitely tender to palpation even light touch. the corn on the medial aspect of the left great toe does not appear to be infected and has no particular swelling or drainage from it. There is no swelling or redness extending on the dorsal aspect of the foot nor into the ankle. She has good ankle motion Neurological: She is alert and oriented to person, place, and time. No cranial nerve deficit. She exhibits normal muscle tone. Coordination normal. Skin: Skin is warm. No rash noted. Psychiatric: She has a normal mood and affect. Her behavior is normal. Judgment and thought content normal. Nursing note and vitals reviewed. Laboratory & Radiological Imaging (if done): Labs Reviewed CHEM 7 - Abnormal; Notable for the following components: Result Value Potassium 3.4 (*) BUN/Creatinine Ratio 20.9 (*) All other components within normal limits Narrative: The eGFR should be used for monitoring renal function only and not for medication dosing. CBC AND DIFFERENTIAL Narrative: The following orders were created for panel order CBC w/ Diff. Procedure Abnormality Status --------- ------ CBC Auto Differential[[id number]] Final result Manual Differential[[id number]] Final result CBC and Diff Morphology[[id number]] Final result Please view results for these tests on the individual orders. CBC WITH AUTO DIFFERENTIAL MORPHOLOGY MANUAL DIFFERENTIAL XR Foot Left 3+ Views (Standard) Final Result No acute bony abnormality. Workstation ID: [id number] Procedures: Procedures ED Course / Medical Decision Making: Patient's pain was somewhat improved here in the emergency room she was instructed on following up with her electrical power engineer tomorrow for reevaluation and another evaluation. She was discharged in stable condition Clinical Impression: SNOMED CT(R) 1. Left foot pain PAIN IN LEFT FOOT Disposition: Patient is being discharged to home Mirta Reyes PA-C [employer] Inspector [facility] Emergency Department Mirta Reyes PA-C 12/12/18 0239 PT. HAD A CALLOUS REMOVED 2 WEEKS AGO. STATES, THE SCRAPED IT AND PUT ACID ON IT, AND I DID PERFECTLY FINE. I WENT IN TODAY AND HAD THE SAME THING DONE, AND HERE I AM NOW (IN LOTS OF PAIN). PT. IS RATING PAIN 8/10 ON PAIN SCALE. Chelsea MARR AND DR. MEG CANTRELL. documented in this encounter Report received from Navjot ALVARENGA at this time. Embroidery Designer Amber in to see pt. Pts in to see pt. PT IS TEARFUL BUT LAYING IN BED AND COMPLIANT. [facility] ED Attending Note: NAME: Heydi DILL 43 y.o. CSN: [id number] PCP: Margaret Hernandez CNP History: Chief Complaint: Suicidal HPI: The history was obtained from the patient. Heydi is a 43 y.o. female who presents with a chief complaint of Suicidal. Patient is a pleasant 43-year-old female with a history of depression who presents from home with complaints of worsening depression. She admits to suicidal thoughts with a plan to overdose on her pills at home. She denies any homicidal ideation. She has had increasing difficulty with eating and sleeping. She denies any specific triggers today, but states that the symptoms of been worsening for some time. She is very tearful with this examiner, with poor eye contact, and appears very depressed. PMHx: Past Medical History: Diagnosis Date Asthma Kidney stones PMSx: Past Surgical History: Procedure Laterality Date ADENOIDECTOMY APPENDECTOMY HYSTERECTOMY TONSILLECTOMY FAM. Hx: History reviewed. No pertinent family history. SOC. Hx: Social History Socioeconomic History Marital status: Spouse name: Not on file Number of children: Not on file Years of education: Not on file Highest education level: Not on file Occupational History Not on file Social Needs Financial resource strain: Not on file Food insecurity Worry: Not on file Inability: Not on file Transportation needs Medical: Not on file Non-medical: Not on file Tobacco Use Smoking status: Current Every Day Smoker Packs/day: 0.50 Types: Cigarettes Smokeless tobacco: Never Used Substance and Sexual Activity Alcohol use: Never Frequency: Never Drug use: Never Sexual activity: Not on file Lifestyle Physical activity Days per week: Not on file Minutes per session: Not on file Stress: Not on file Relationships Social connections Talks on phone: Not on file Gets together: Not on file Attends taoist service: Not on file Active member of club or organization: Not on file Attends meetings of clubs or organizations: Not on file Relationship status: Not on file Other Topics Concern Not on file Social History Narrative Not on file MEDs: Previous Medications Medication Sig [DISCONTINUED] FLUoxetine (PROZAC) 40 MG capsule Take 40 mg by mouth once daily . ALL: No Known Allergies ROS: Positives and pertinent negatives as per HPI. All other systems were reviewed and are negative. Physical Exam: Patient Vitals for the past 24 hrs: BP Temp Temp src Pulse Resp SpO2 Height Weight 07/05/19 0950 (!) 164/99 98.2 F (36.8 C) Oral (!) 111 18 96 % 5' 3 81.6 kg (180 lb) Physical Exam Constitutional: Appearance: Normal appearance. HENT: Head: Normocephalic and atraumatic. Nose: Nose normal. Mouth/Throat: Mouth: Mucous membranes are moist. Pharynx: Oropharynx is clear. Eyes: Extraocular Movements: Extraocular movements intact. Pupils: Pupils are equal, round, and reactive to light. Neck: Musculoskeletal: Normal range of motion and neck supple. Cardiovascular: Rate and Rhythm: Normal rate and regular rhythm. Heart sounds: Normal heart sounds. Pulmonary: Effort: Pulmonary effort is normal. Breath sounds: Normal breath sounds. Abdominal: General: Abdomen is flat. Bowel sounds are normal. Palpations: Abdomen is soft. Musculoskeletal: Normal range of motion. Skin: General: Skin is warm and dry. Neurological: General: No focal deficit present. Mental Status: She is alert and oriented to person, place, and time. Mental status is at baseline. Psychiatric: Behavior: Behavior normal. Thought Content: Thought content normal. Judgment: Judgment normal. Comments: Appears very sad, poor eye contact, withdrawn and tearful Laboratory & Radiological Imaging (if done): Labs Reviewed HCG URINE, QUALITATIVE - Normal DRUGS OF ABUSE SCREEN, URINE - Normal Narrative: Screen results should be used for treatment purposes only. ALCOHOL, MEDICAL - Normal No orders to display Procedures: Procedures ED Course / Medical Decision Making: She is medically cleared for further evaluation at 10:55 AM. The patient is feeling much better. She had an extensive interview with the production worker was able to vent her concerns, which relate to issues with her daughter who is recently had her on baby. Patient at this time denies any suicidal thoughts. 's sister present it also confirmed that they are not concerned about suicidal intent at the patient. She has never had a suicide attempt is never been hospitalized for depression. She admits not taking her bipolar medications, and agrees to see her provider this week to arrange for this medications. She will be discharged from home and agrees to return if she worsens. The patient has been informed that they may have pre-hypertension or hypertension based on a blood pressure reading in the Emergency Department. I recommend that the patient call the primary care provider listed on their discharge instructions or a physician of their choice as soon as possible to arrange follow-up in the next 4 weeks for further evaluation of possible pre-hypertension or hypertension. . Clinical Impression: 1. Adjustment Reaction with Brief Depressive Reaction Disposition: Patient is being discharged to home Discontinued Medications Disp Refills Start End FLUoxetine (PROZAC) 40 MG capsule 08/19/2018 07/05/2019 Class: Historical Med Reason for Discontinue: Error Polly Funez MD [facility] Emergency Department (Please note that portions of this note have been completed with a voice recognition software. Efforts were made to correct any errors, but occasionally words are mis-transcribed.) Polly Funez MD 07/05/19 1253 Pt waived down a [employer] Officer stating was suicidal. [facility] has plan of taking pills . [facility] has access to pills. Pt crying. When asked is there was a reason for suicidal thoughts pt states just life . documented in this encounter [facility] ED [place] Note: NAME: Heydi DILL 44 y.o. CSN: [id number] PCP: Margaret Hernandez CNP History: Chief Complaint: Chest Pain, Fatigue, Headache, and Shortness of Breath HPI: The history was obtained from the patient. Heydi is a 44 y.o. female who presents with a chief complaint of Chest Pain, Fatigue, Headache, and Shortness of Breath. Patient arrives to the emergency department with myalgias, chest heaviness, fatigue, shortness of breath, fever for 3 days. Patient reports fever was 100.2 at home. She took Tylenol at noon. Patient denies urinary or bowel symptoms, abdominal pain, nausea or vomiting, paresthesias, diaphoresis, congestion, loss of taste or smell, cough or any other complaints or concerns. 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 PMHx: Past Medical History: Diagnosis Date Asthma Kidney stones PMSx: Past Surgical History: Procedure Laterality Date ADENOIDECTOMY APPENDECTOMY HYSTERECTOMY TONSILLECTOMY FAM. Hx: History reviewed. No pertinent family history. SOC. Hx: Social History Socioeconomic History Marital status: Spouse name: Not on file Number of children: Not on file Years of education: Not on file Highest education level: Not on file Occupational History Not on file Social Needs Financial resource strain: Not on file Food insecurity Worry: Not on file Inability: Not on file Transportation needs Medical: Not on file Non-medical: Not on file Tobacco Use Smoking status: Current Every Day Smoker Packs/day: 0.50 Types: Cigarettes Smokeless tobacco: Never Used Substance and Sexual Activity Alcohol use: Never Frequency: Never Drug use: Never Sexual activity: Not on file Lifestyle Physical activity Days per week: Not on file Minutes per session: Not on file Stress: Not on file Relationships Social connections Talks on phone: Not on file Gets together: Not on file Attends taoist service: Not on file Active member of club or organization: Not on file Attends meetings of clubs or organizations: Not on file Relationship status: Not on file Other Topics Concern Not on file Social History Narrative Not on file MEDs: No current outpatient medications on file prior to encounter. ALL: No Known Allergies ROS: Review of Systems Positives and pertinent negatives as per HPI. All other systems were reviewed and are negative. Physical Exam: Patient Vitals for the past 24 hrs: BP Temp Temp src Pulse Resp SpO2 Height Weight 06/08/20 1600 135/89 82 98 % 06/08/20 1545 132/85 86 99 % 06/08/20 1432 (!) 155/82 98.3 F (36.8 C) Oral 89 18 98 % 5' 3 86.2 kg (190 lb) Physical Exam Vitals signs and nursing note reviewed. Constitutional: Appearance: She is well-developed. She is ill-appearing. She is not toxic- appearing. HENT: Head: Normocephalic and atraumatic. Nose: Nose normal. Eyes: General: No scleral icterus. Conjunctiva/sclera: Conjunctivae normal. Neck: Musculoskeletal: Normal range of motion and neck supple. Cardiovascular: Rate and Rhythm: Normal rate and regular rhythm. Heart sounds: Normal heart sounds. No murmur. Comments: Reproducible chest tenderness noted Pulmonary: Effort: Pulmonary effort is normal. No tachypnea or respiratory distress. Breath sounds: Normal breath sounds. No decreased breath sounds, wheezing, rhonchi or rales. Comments: No cough Abdominal: Palpations: Abdomen is soft. Tenderness: There is no abdominal tenderness. Musculoskeletal: Right lower leg: She exhibits no swelling. No edema. Left lower leg: She exhibits no swelling. No edema. Skin: General: Skin is warm and dry. Findings: No rash. Neurological: Mental Status: She is alert and oriented to person, place, and time. Psychiatric: Behavior: Behavior normal. Laboratory & Radiological Imaging (if done): Labs Reviewed BASIC METABOLIC PANEL - Abnormal; Notable for the following components: Result Value Chloride 109 (*) All other components within normal limits Narrative: The eGFR should be used for monitoring renal function only and not for medication dosing. COMPREHENSIVE METABOLIC PANEL - Abnormal; Notable for the following components: Chloride 109 (*) All other components within normal limits Narrative: The eGFR should be used for monitoring renal function only and not for medication dosing. D-DIMER, QUANTITATIVE - Abnormal; Notable for the following components: D-Dimer 0.60 (*) All other components within normal limits Narrative: A D-dimer concentration of <0.5 micrograms per milliliter FEU is considered a low probability for pulmonary embolus (PE) and deep venous thrombosis (DVT). Results of this test should always be interpreted in conjunction with the patient's medical history,clinical presentation, and other findings. Clinical diagnosis should not be based on the results of the D-dimer alone. COVID-19, MOLECULAR - Normal PT/INR - Normal Narrative: During the induction phase of oral anticoagulation, the INR may not reflect the anticoagulation status of the patient. Therapeutic ranges for INR's are: Most clinical situations: INR 2.0-3.0 Mechanical Prosthetic Valve: INR 2.5-3.5 Critical: INR >5.0 MAGNESIUM LEVEL - Normal URINE AEROBIC CULTURE CBC AND DIFFERENTIAL Narrative: The following orders were created for panel order CBC and Differential. Procedure Abnormality Status --------- ------ CBC Auto Differential[[id number]] Final result Please view results for these tests on the individual orders. TROPONIN TROPONIN URINALYSIS CBC WITH AUTO DIFFERENTIAL CT Pulmonary Arteries Non-public Result 1. No acute PE is identified. Main pulmonary artery and thoracic aorta normal caliber size. 2. Circumferential thickening of distal esophagus with largest transverse diameter approaching 7.5 mm. While this may correspond to some esophagitis, the possibility of a mass would be difficult to exclude and precautionary correlation with upper endoscopy recommended. Workstation ID: [id number] XR Chest 1 View Final Result 1. No acute abnormality. GJT/ads Workstation ID: [id number] MDM: Special isolation precautions are in place with signage outside this patient's room. This DELI WORKER performs hand hygiene and enters the patient room wearing: ? gloves ? an appropriately fitting (N-95, PAPR, Aura) mask ? face shield ? protective gown to obtain HPI and perform bedside physical exam and re- evaluation(s)/interventions as necessary. See provider documentation. ED Course as of Jun 08 1658 Tue Jun 08, 2020 1541 Troponin I: <15 [SS] 1541 Troponin I Interpretation: Normal [SS] 1541 MAGNESIUM: 1.9 [SS] 1541 SODIUM: 141 [SS] 1541 POTASSIUM: 3.7 [SS] 1541 CHLORIDE(!): 109 [SS] 1541 Bicarbonate: 24 [SS] 1541 Anion Gap: 12 [SS] 1541 GLUCOSE: 91 [SS] 1542 CREATININE: 0.74 [SS] 1542 eGFR: 98 [SS] 1542 CHLORIDE(!): 109 [SS] 1542 POTASSIUM: 3.7 [SS] 1542 SODIUM: 141 [SS] 1542 WBC: 10.08 [SS] 1542 SARS-CoV-2: Not Detected [SS] 1542 Injury/Trauma or Illness?:Illness/Other How long have you had these symptoms (acute/chronic)?:Acute CHEST PAIN FINDINGS: The lungs are clear, with no acute cardiopulmonary disease. No pulmonary edema, pneumothorax, or pleural effusion. The heart, mediastinal structures and visualized bony structures are unremarkable. IMPRESSION: 1. No acute abnormality. [SS] 1608 Discussed the findings with patient and plan to DC home pending results of CT PE for mildly elevated D-dimer. COVID-19 was not detected on today's test however patient presents with symptoms consistent with a virus. Recommend that she self quarantine for 14 days from the start of her symptoms. She is aware if any new or worsening symptoms she is to return to the emergency department. Patient verbalizes understanding and is in agreement with this plan. [SS] ED Course User Index [SS] Amalia Ling CNP Clinical Impression: 1. Febrile illness, acute 2. Abnormality of esophagus Disposition: Patient is being discharge home. RUTH Karimi ED Advanced Practice Provider [facility] (Please note that portions of this note have been completed with a voice recognition software. Efforts were made to correct any errors, but occasionally words are mis-transcribed.) Amalia Ling CNP 06/08/20 165 Amalia Ling CNP 06/08/20 1658 Special isolation precautions are in place with signage outside this patient's room. This career resource specialist performs hand hygiene and enters the patient room wearing: ? gloves ? an appropriately fitting (N-95, PAPR, Aura) mask ? face shield ? protective gown to provide care. See documentation for the care provided. documented in this encounter Discharge instructions provided to pt, pt verbalizes understanding and denies questions. Pt A&Ox3, resp =/unlabored, no s/s of distress noted. Pt ambulatory at discharge. Pt aware of electronic prescriptions Pt resting in bed, NAD noted, resp =/unlabored, SR on monitor. Medication explained to pt prior to administration, pt voices understanding and agrees to med. Pt aware awaiting breathing tx, pt updated on POC and voices understanding. Side rails up x2,call light within reach, pt denies further needs. [facility] ED [place] Note: NAME: Heydi DILL 44 y.o. CSN: [id number] PCP: Margaret Hernandez CNP History: Chief Complaint: Shortness of Breath HPI: The history was obtained from the patient. Heydi is a 44 y.o. female who presents with a chief complaint of Shortness of Breath. Patient was seen 2 days ago in this ED with complaints of fever, generalized myalgias, chills and shortness of breath. 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 receive from it, she declined stating that she would prefer to follow up with her PCP in regards to getting back on her medications. Heydi states she plans on doing me for a while, it is her intent to lean on the support of her and her sister, she plans on blocking her daughter for a while so that she can heal from the hurt she has experienced from her daughter over the last few days. Cory shares he will be with his , Laura is on vacation for the next week they plan on having a lot of sister time. Heydi states she and her may take the day and put the Jake tree up together today. Heydi plans on following up with her PCP in regards to her medications on Sunday, she is receptive to counseling and took the resources provided to her. Heydi denies suicidal homicidal plan or intent at this time and verbally contracted for safety. Risk factors include but are not limited to, had a plan to OD on pills today, stressful relationship with her daughter and her boyfriend, her job is stressful, she has not taken any MH medications in four months. Protective factors include but are not limited to, she contracted for safety verbally, she denies she will do anything to harm herself stating she has much to live for, she has strong spiritual beliefs, and sister are very supportive, she is future and goal oriented, feels hopeful about doing me for a while , Cory states she does not have access to weapons, he will be with her today and with her sister tomorrow, he will put up medications, mood is stable, she is receptive to treatment, no history of attempts Or self harm, she reports adequate housing and financially stability, adequate insurance, she knew she was struggling this morning and she reached out for help, she states she may start attending buddhism more regularly to put positives back into her life. SW informed Heydi and her sister to return to ER if symptoms changed both reported verbal understanding. documented in this encounter Scheduled Active and Recently Administ ered Medications (unrecognized section and content) Continuous Medication Order 06/28/2021 06/29/2021 06/30/2021 sodium chloride 0.45% (HALF SALINE) infusion (CANCELED) 100 mL/hr, Intravenous, Continuous, Starting on Sun06/28/21 at 1830 1750 (New Bag - Provider: Gilmer Khanna RN) 0330 (New Bag - Provider: Radha Alexander RN)1337 (OCT Hold - Provider: Transfer Provider, Automatic - Reason: Patient not available)1555 (OCT Unhold - Provider: Transfer Provider, Automatic)1850 (Stopped - Provider: Sarahi Ferraro RN) sodium chloride 0.9% (NS) 125 mL/hr, Intravenous, Continuous, Starting on Sun06/29/21 at 1645 1630 (New Bag - Provider: Sarahi Ferraro RN)1642 (Paused - Provider: Jenni Thomas RN)1642 (Restarted - Provider: Jenni Thomas RN)1701 (Paused - Provider: Jenni Thomas RN)1701 (Restarted - Provider: Jenni Thomas RN)1713 (Paused - Provider: Jenni Thomas RN)1713 (Restarted - Provider: Jenni Thomas RN)1731 (Paused - Provider: Jenni Thomas RN)1732 (Restarted - Provider: Jenni Thomas RN)1734 (Paused - Provider: Jenni Thomas RN)1734 (Restarted - Provider: Jenni Thomas RN)1758 (Paused - Provider: Jenni Thomas RN)1758 (Restarted - Provider: Jenni Thomas RN)1806 (Paused - Provider: Jenni Thomas RN)1806 (Restarted - Provider: Jenni Thomas RN)1835 (Paused - Provider: Jenni Thomas RN)1835 (Restarted - Provider: Jenni Thmoas RN)1850 (Associate Pump - Provider: Sarahi Ferraro RN)1853 (Paused - Provider: Jenni Thomas RN)1853 (Restarted - Provider: Jenni Thomas RN)1858 (Paused - Provider: Jenni Thomas RN)1858 (Restarted - Provider: Jenni Thomas RN)1903 (Paused - Provider: Jenni Thomas RN)190 (Restarted - Provider: Jenni Thomas RN)191 (Paused - Provider: Jenni Thomas RN)191 (Restarted - Provider: Jenni Thomas RN)1951 (Paused - Provider: Jenni Thomas RN)1951 (Restarted - Provider: Jenni Thomas RN)2024 (Paused - Provider: Jenni Thomas RN)2024 (Restarted - Provider: Jenni Thomas RN)2031 (Paused - Provider: Jenni Thomas RN)2031 (Restarted - Provider: Jenni Thomas RN)2133 (Stopped - Provider: Jenni Thomas RN)2139 (Restarted - Provider: Jenni Thomas RN) 0031 (Rate/Dose Verify - Provider: Jenni Thomas RN)0151 (New Bag - Provider: Jenni Thomas RN)1829 (Stopped - Provider: Pricila Ferreira RN) PRN Medication Order 06/28/2021 06/29/2021 06/30/2021 albuterol inhaler 2 puff 2 puff, Inhalation, Every 6 hours PRN (RT), wheezing, shortness of breath, Starting on Sun06/28/21 at 1742, SPACER REQUIRED FOR ADMINISTRATION 1337 (OCT Hold - Provider: Transfer Provider, Automatic - Reason: Patient not available)1555 (OCT Unhold - Provider: Transfer Provider, Automatic) EPINEPHrine (ADRENALIN) injection 0.3 mg 0.3 mg, Intramuscular, As needed, anaphylaxis, related to Casirivimab-Imdevimab monoclonal antibody infusion., Starting on Peg 06/30/21 at 1455, For 4 hours, May repeat every 3 minutes x 2 doses for a total of 1 mg, DO NOT EXCEED 3 doses. Administer in the anterolateral aspect of the middle third of the thigh (Avoid administration into the buttock) Notify attending or covering provider of anaphylaxis. HYDROcodone-acetaminophen (NORCO) 5-325 mg per tablet 1 tablet 1 tablet, Oral, Every 4 hours PRN, moderate to severe pain, Starting on Sun06/28/21 at 1734 1337 (OCT Hold - Provider: Transfer Provider, Automatic - Reason: Patient not available)1555 (OCT Unhold - Provider: Transfer Provider, Automatic) HYDROmorphone (DILAUDID) injection 2 mg (CANCELED) 2 mg, Intravenous, Every 3 hours PRN, moderate to severe pain, For pain if Dilaudid doesn't, Starting on Sun06/28/21 at 1734 1801 (Given - Provider: Gilmer Khanna RN)2314 (Given - Provider: Nathalie Ayala RN) 0324 (Given - Provider: Radha Alexander RN)0650 (Given - Provider: Nathalie Ayala, COLETTE)1136 (Given - Provider: Sarahi Ferraro RN)1337 (OCT Hold - Provider: Transfer Provider, Automatic - Reason: Patient not available)1555 ([facility] Unhold - Provider: Transfer Provider, Automatic)1613 (Given - Provider: Sarahi Ferraro, RN)1822 (Not Given - Provider: Jenni Thomas, COLETTE - Reason: Other - Comment: Medication discontinued.) HYDROmorphone (DILAUDID) injection 2 mg 2 mg, Intravenous, Every 2 hour PRN, moderate to severe pain, For pain if Dilaudid doesn't, Starting on Sun06/29/21 at 1830 1829 (Given - Provider: Sarahi Ferraro, COLETTE)2137 (Given - Provider: Jenni Thomas, COLETTE) 0038 (Given - Provider: Amalia Zavala, COLETTE)0916 (Not Given - Provider: Pricila Ferreira RN - Reason: Patient/family refused) hydrOXYzine (ATARAX) tablet 25 mg 25 mg, Oral, 3 times daily PRN, itching, Starting on Sun06/28/21 at 1729 1337 ([facility] Hold - Provider: Transfer Provider, Automatic - Reason: Patient not available)1555 ([facility] Unhold - Provider: Transfer Provider, Automatic) ibuprofen (ADVIL,MOTRIN) tablet 600 mg 600 mg, Oral, Every 6 hours PRN, fever 100.4 F or greater, Starting on Sun06/28/21 at 1731, Give with Food Do Not Crush or Chew if administering orally due to bitter taste. May be crushed if given via tube. 1337 ([facility] Hold - Provider: Transfer Provider, Automatic - Reason: Patient not available)1555 ([facility] Unhold - Provider: Transfer Provider, Automatic) metoclopramide (REGLAN) tablet 10 mg 10 mg, Oral, Before meals and at bedtime as needed, nausea, vomiting, Starting on Sun06/28/21 at 1734 1337 ([facility] Hold - Provider: Transfer Provider, Automatic - Reason: Patient not available)1555 ([facility] Unhold - Provider: Transfer Provider, Automatic) metoclopramide (REGLAN) tablet 10 mg 10 mg, Oral, Before meals and at bedtime as needed, nausea, vomiting, Starting on Sun06/29/21 at 1557 naloxone (NARCAN) injection 0.1 mg(Linked Group 1) 0.1 mg, Intravenous, As needed, opioid reversal, For respiratory rate less than or equal to 8 per minute., Starting on Sun06/28/21 at 1730, Mix nalOXone (NARCAN) 0.4 mg (1ml) with 9 mL of Normal Saline to total 10 mL. Administer 0.1 mg (2.5ml) IV Push every 2 minutes until respiratory rate is 10 or greater. 1337 ([facility] Hold - Provider: Transfer Provider, Automatic - Reason: Patient not available)1555 ([facility] Unhold - Provider: Transfer Provider, Automatic) naloxone (NARCAN) injection 0.1 mg(Linked Group 2) 0.1 mg, Intravenous, As needed, opioid reversal, For respiratory rate less than or equal to 8 per minute., Starting on Sun06/29/21 at 1557, Mix nalOXone (NARCAN) 0.4 mg (1ml) with 9 mL of Normal Saline to total 10 mL. Administer 0.1 mg (2.5ml) IV Push every 2 minutes until respiratory rate is 10 or greater. naloxone (NARCAN) injection 0.4 mg(Linked Group 1) 0.4 mg, Intravenous, As needed, opioid reversal, patient is pulseless, breathless, and unresponsive, Starting on Sun06/28/21 at 1730, Call a code first, then administer naloxone dose undiluted IV Push over 30 seconds. 1337 ([facility] Hold - Provider: Transfer Provider, Automatic - Reason: Patient not available)1555 ([facility] Unhold - Provider: Transfer Provider, Automatic) naloxone (NARCAN) injection 0.4 mg(Linked Group 2) 0.4 mg, Intravenous, As needed, opioid reversal, patient is pulseless, breathless, and unresponsive, Starting on Sun06/29/21 at 1557, Call a code first, then administer naloxone dose undiluted IV Push over 30 seconds. ondansetron (ZOFRAN) injection 4 mg 4 mg, Intravenous, Every 6 hours PRN, nausea, vomiting, Starting on Sun06/29/21 at 0902 0923 (Given - Provider: Sarahi Ferraro RN)1337 ([facility] Hold - Provider: Transfer Provider, Automatic - Reason: Patient not available)1555 ([facility] Unhold - Provider: Transfer Provider, Automatic) ondansetron (ZOFRAN-ODT) disintegrating tablet 4 mg 4 mg, Oral, Every 8 hours PRN, nausea, Starting on Sun06/28/21 at 1732, Formulation requires tablet remain in sealed package until immediately prior to dose being administered. 1337 (OCT Hold - Provider: Transfer Provider, Automatic - Reason: Patient not available)1555 ([facility] Unhold - Provider: Transfer Provider, Automatic) oxyCODONE-acetaminophen (PERCOCET) 5-325 mg per tablet 1 tablet 1 tablet, Oral, Every 4 hours PRN, Moderate Pain, Starting on Sun06/28/21 at 1731 2034 (Given - Provider: Nathalie Ayala RN) 0924 (Given - Provider: Sarahi Ferraro RN)1337 (OCT Hold - Provider: Transfer Provider, Automatic - Reason: Patient not available)1555 ([facility] Unhold - Provider: Transfer Provider, Automatic) phenazopyridine (PYRIDIUM) tablet 200 mg 200 mg, Oral, After meals as needed, bladder spasms, Starting on Sun06/29/21 at 1557, For 48 hours sodium chloride (NS) 0.9 % irrigation solution (CANCELED) As needed, Starting on Sun06/29/21 at 1457, Intra-Procedure 1457 (Given - Provider: Gladis Palmer MD) sodium chloride 0.9% (NS) bolus 20-30 mL 20-30 mL, Intravenous, at 120-180 mL/hr, As needed, Prior to and following Casirivimab-Imdevimab monoclonal antibody infusion., Starting on Sun06/30/21 at 1800, For 4 hours, Prime IV line with 20 mL 0.9% NaCl prior to initiation of Casirivimab-Imdevimab monoclonal antibody infusion. Flush IV line with 30 mL 0.9% NaCl following to Casirivimab-Imdevimab monoclonal antibody infusion. Compatibility with solutions other than 0.9% NaCl is unknown. Linked Groups Order Group 1: naloxone (NARCAN) injection 0.1 mgJump to med 0.1 mg, Intravenous, As needed, opioid reversal, For respiratory rate less than or equal to 8 per minute., Starting on Sun06/28/21 at 1730
Mix nalOXone (NARCAN) 0.4 mg (1ml) with 9 mL of Normal Saline to total 10 mL. Administer 0.1 mg (2.5ml) IV Push every 2 minutes until respiratory rate is 10 or greater.
And Notify physician (CANCELED) STAT, Until discontinued, Starting on Sun06/28/21 at 1731, Until Specified
Respiratory rate less than: 8
For respiratory rate less than or equal to 8, notify physician and/or appropriate staff for additional orders. And naloxone (NARCAN) injection 0.4 mgJump to med 0.4 mg, Intravenous, As needed, opioid reversal, patient is pulseless, breathless, and unresponsive, Starting on Sun06/28/21 at 1730
Call a code first, then administer naloxone dose undiluted IV Push over 30 seconds.
Group 2: naloxone (NARCAN) injection 0.1 mgJump to med 0.1 mg, Intravenous, As needed, opioid reversal, For respiratory rate less than or equal to 8 per minute., Starting on Sun06/29/21 at 1557
Mix nalOXone (NARCAN) 0.4 mg (1ml) with 9 mL of Normal Saline to total 10 mL. Administer 0.1 mg (2.5ml) IV Push every 2 minutes until respiratory rate is 10 or greater.
And Notify physician (CANCELED) STAT, Until discontinued, Starting on Sun06/29/21 at 1558, Until Specified
Respiratory rate less than: 8
For respiratory rate less than or equal to 8, notify physician and/or appropriate staff for additional orders. And naloxone (NARCAN) injection 0.4 mgJump to med 0.4 mg, Intravenous, As needed, opioid reversal, patient is pulseless, breathless, and unresponsive, Starting on Sun06/29/21 at 1557
Call a code first, then administer naloxone dose undiluted IV Push over 30 seconds.
Continuous Medication Order 12/31/2021 01/01/2022 01/02/2022 lactated ringers IV solution Intravenous, at 100 mL/hr, CONTINUOUS, Starting on Sun01/02/22 at 1030, Until Sun01/02/22 at 1411 1036 ($$New Bag$$ - Provider: Carlyn Bridges RN)1155 (Stopped - Provider: Mary Jo Altamirano RN) Scheduled Medication Order 02/27/2023 02/28/2023 03/01/2023 ceFAZolin (ANCEF) 2 g in dextrose 100 mL premix IVPB (COMPLETED) 2 g, Intravenous, Administer over 30 Minutes, ONCE, 1 dose, On Sun02/28/23 at 1200, Pharmacist may increase dose to 3g if patient weight greater than 120kg., Pre-op/Pre-Proc 1321 (Given - Provider: MAYRA Sabillon) Docusate (COLACE) capsule 100 mg 100 mg, Oral, 2 TIMES DAILY, First dose on Sun03/01/23 at 0900, Until Discontinued, Post-op/Post-Proc 09 (Given - Provid er: Meaghan Logan) Enoxaparin Sodium (LOVENOX) injection 40 mg 40 mg, Subcutaneous, DAILY AT BEDTIME, First dose on Sun02/28/23 at 2100, Until Discontinued, Indications: DVT/PE prophylaxis, Post-op/Post-Proc 2043 (Given - Provider: Jocelyn Ulrich, COLETTE) Continuous Medication Order 02/27/2023 02/28/2023 03/01/2023 Lactated ringers IV solution (CANCELED) Intravenous, at 100 mL/hr, CONTINUOUS, Starting on Sun02/28/23 at 1200, Until Sun02/28/23 at 1552, Pre-op/Pre-Proc 1200 ($$New Bag$$ - Provider: Carmen Sanches LPN)1314 (Rate/Dose Change - Provider: MAYRA Sabillon)1444 ($$New Bag$$ - Provider: MAYRA Sabillon) Lactated ringers IV solution Intravenous, at 125 mL/hr, CONTINUOUS, Starting on Sun02/28/23 at 1615, Until Peg 03/01/23 at 1438, Post-op/Post-Proc 1601 ($$New Bag$$ - Provider: Meaghan Logan) 0003 ($$New Bag$$ - Provider: Ana Syed, COLETTE) PRN Medication Order 02/27/2023 02/28/2023 03/01/2023 bisacodyl (DULCOLAX) suppository 10 mg 10 mg, Rectal, DAILY NEEDED, Starting on Sun02/28/23 at 1601, Until Peg 03/01/23 at 1438, Constipation 1st Line, Post-op/Post-Proc bupivacaine-epinephrine (MARCAINE;SENSORCAINE W/EPI) 0.25% -[id number] injection (CANCELED) NEEDED, Starting on Sun02/28/23 at 1438, Until Sun02/28/23 at 1447, Intra-op/Intra-Proc 1438 (Given - Provider: Tere Beltre DO) ceFAZolin (ANCEF) injection (CANCELED) Administer over 3 Minutes, NEEDED, Starting on Sun02/28/23 at 1409, Until Sun02/28/23 at 1447, Intra-op/Intra-Proc 1409 (Given - Provider: Tere Beltre DO - Comment: mixed with sterile water) diphenhydrAMINE (BENADRYL) injection 12.5 mg(Linked Group 1) 12.5 mg, Intravenous, EVERY 6 HOURS NEEDED, Starting on Sun02/28/23 at 1601, Until Peg 03/01/23 at 1438, Itching, If patient unable to tolerate PO., Post-op/Post-Proc 204 (See Alternative - Provider: Jocelyn Ulrich RN) diphenhydrAMINE (BENADRYL) tablet 12.5 mg(Linked Group 1) 12.5 mg, Oral, EVERY 6 HOURS NEEDED, Starting on Sun02/28/23 at 1601, Until Peg 03/01/23 at 1438, Itching, Post-op/Post-Proc 204 (Given - Provider: Jocelyn Ulrich RN) Ondansetron (ZOFRAN) tablet 4 mg(Linked Group 2) 4 mg, Oral, EVERY 4 HOURS NEEDED, Starting on Sun02/28/23 at 1601, Until Peg 03/01/23 at 1438, Nausea / Vomiting, Post-op/Post-Proc Ondansetron 4mg/2ml (ZOFRAN) injection 4 mg(Linked Group 2) 4 mg, Intravenous, EVERY 4 HOURS NEEDED, Starting on Sun02/28/23 at 1601, Until Peg 03/01/23 at 1438, Nausea / Vomiting, Post-op/Post-Proc oxyCODONE (ROXICODONE) tablet 10 mg(Linked Group 3) 10 mg, Oral, EVERY 4 HOURS NEEDED, Starting on Sun02/28/23 at 1601, Until Peg 03/01/23 at 1438, Moderate Pain, Higher dose may be administered if lower dose was previously documented as ineffective and did not result in adverse effects (RR<10, decrease in level of consciousness). Decrease back to lower dose if patient has adverse effects, or no PRN used in previous 12 hours., Post-op/Post-Proc 162 (Given - Provider: Meaghan Logan)2042 (Given - Provider: Jocelyn Ulrich RN) 003 (Given - Provider: Ana Syed RN)0500 (Given - Provider: Jocelyn Ulrich RN)0936 (Given - Provider: Meaghan Logan) oxyCODONE (ROXICODONE) tablet 10 mg(Linked Group 3) 10 mg, Per NG tube, EVERY 4 HOURS NEEDED, Starting on Sun02/28/23 at 1601, Until Peg 03/01/23 at 1438, Moderate Pain, Higher dose may be administered if lower dose was previously documented as ineffective and did not result in adverse effects (RR<10, decrease in level of consciousness). Decrease back to lower dose if patient has adverse effects, or no PRN used in previous 12 hours., Post-op/Post-Proc 1622 (See Alternative - Provider: Meaghan Logan)2042 (See Alternative - Provider: Jocelyn Ulrich RN) 003 (See Alternative - Provider: Ana Syed, COLETTE)0500 (See Alternative - Provider: Jocelyn Ulrich RN)0936 (See Alternative - Provider: Meaghan Logan) oxyCODONE (ROXICODONE) tablet 5 mg(Linked Group 3) 5 mg, Oral, EVERY 4 HOURS NEEDED, Starting on Sun02/28/23 at 1601, Until Peg 03/01/23 at 1438, Moderate Pain, Use as initial dose. Higher dose may be administered if lower dose was previously documented as ineffective and did not result in adverse effects (RR<10, decrease in level of consciousness)., Post-op/Post-Proc 162 (See Alternative - Provider: Meaghan Logan)2042 (See Alternative - Provider: Jocelyn Ulrich RN) 0033 (See Alternative - Provider: Ana Syed RN)0500 (See Alternative - Provider: Jocelyn Ulrich RN)0936 (See Alternative - Provider: Meaghan Logan) oxyCODONE (ROXICODONE) tablet 5 mg(Linked Group 3) 5 mg, Per NG tube, EVERY 4 HOURS NEEDED, Starting on Sun02/28/23 at 1601, Until Peg 03/01/23 at 1438, Moderate Pain, Use as initial dose. Higher dose may be administered if lower dose was previously documented as ineffective and did not result in adverse effects (RR<10, decrease in level of consciousness)., Post-op/Post-Proc 1623 (See Alternative - Provider: Meaghan Logan)2043 (See Alternative - Provider: Jocelyn Ulrich, RN) 0033 (See Alternative - Provider: Ana Syed, COLETTE)0500 (See Alternative - Provider: Jocelyn Ulrich, COLETTE)0936 (See Alternative - Provider: Meaghan Logan) Phenol (CHLORASEPTIC) 1.4 % oral spray 1 spray 1 spray, Mouth/Throat, NEEDED, Starting on Sun02/28/23 at 1601, Until Peg 03/01/23 at 1438, Sore Throat, Post-op/Post-Proc Promethazine (PHENERGAN) 12.5 mg in Sodium chloride 0.9%, with overfill 60.5 mL (total volume) IVPB(Linked Group 4) 12.5 mg, Intravenous, at 121-242 mL/hr, Administer over 15-30 Minutes, EVERY 6 HOURS NEEDED, Starting on Sun02/28/23 at 1601, Until Peg 03/01/23 at 1438, Other, Refractory Nausea / Vomiting, Extravasation Risk, Post-op/Post-Proc Promethazine (PHENERGAN) tablet 25 mg(Linked Group 4) 25 mg, Oral, EVERY 6 HOURS NEEDED, Starting on Sun02/28/23 at 1601, Until Peg 03/01/23 at 1438, Refractory Nausea Vomiting, Post-op/Post-Proc Sodium chloride (PF) 0.9 % injection 5 mL 5 mL, Intravenous, ADMINISTER DIRECTED, Starting on Sun02/28/23 at 1601, Until Peg 03/01/23 at 1438, Flush, Per IV Care Guidelines, Post-op/Post-Proc Linked Groups Order Group 1: diphenhydrAMINE (BENADRYL) tablet 12.5 mgJump to med 12.5 mg, Oral, EVERY 6 HOURS NEEDED, Starting on Sun02/28/23 at 1601, Until Peg 03/01/23 at 1438, Itching, Post-op/Post-Proc Or diphenhydrAMINE (BENADRYL) injection 12.5 mgJump to med 12.5 mg, Intravenous, EVERY 6 HOURS NEEDED, Starting on Sun02/28/23 at 1601, Until Peg 03/01/23 at 1438, Itching
If patient unable to tolerate PO.
Post-op/Post-Proc Group 2: Ondansetron (ZOFRAN) tablet 4 mgJump to med 4 mg, Oral, EVERY 4 HOURS NEEDED, Starting on Sun02/28/23 at 1601, Until Peg 03/01/23 at 1438, Nausea / Vomiting, Post-op/Post-Proc Or Ondansetron 4mg/2ml (ZOFRAN) injection 4 mgJump to med 4 mg, Intravenous, EVERY 4 HOURS NEEDED, Starting on Sun02/28/23 at 1601, Until Peg 03/01/23 at 1438, Nausea / Vomiting, Post-op/Post-Proc Group 3: oxyCODONE (ROXICODONE) tablet 5 mgJump to med 5 mg, Oral, EVERY 4 HOURS NEEDED, Starting on Sun02/28/23 at 1601, Until Peg 03/01/23 at 1438, Moderate Pain
Use as initial dose. Higher dose may be administered if lower dose was previously documented as ineffective and did not result in adverse effects (RR<10, decrease in level of consciousness).
Post-op/Post-Proc Or oxyCODONE (ROXICODONE) tablet 10 mgJump to med 10 mg, Oral, EVERY 4 HOURS NEEDED, Starting on Sun02/28/23 at 1601, Until Peg 03/01/23 at 1438, Moderate Pain
Higher dose may be administered if lower dose was previously documented as ineffective and did not result in adverse effects (RR<10, decrease in level of consciousness). Decrease back to lower dose if patient has adverse effects, or no PRN used in previous 12 hours.
Post-op/Post-Proc Or oxyCODONE (ROXICODONE) tablet 5 mgJump to med 5 mg, Per NG tube, EVERY 4 HOURS NEEDED, Starting on Sun02/28/23 at 1601, Until Peg 03/01/23 at 1438, Moderate Pain
Use as initial dose. Higher dose may be administered if lower dose was previously documented as ineffective and did not result in adverse effects (RR<10, decrease in level of consciousness).
Post-op/Post-Proc Or oxyCODONE (ROXICODONE) tablet 10 mgJump to med 10 mg, Per NG tube, EVERY 4 HOURS NEEDED, Starting on Sun02/28/23 at 1601, Until Peg 03/01/23 at 1438, Moderate Pain
Higher dose may be administered if lower dose was previously documented as ineffective and did not result in adverse effects (RR<10, decrease in level of consciousness). Decrease back to lower dose if patient has adverse effects, or no PRN used in previous 12 hours.
Post-op/Post-Proc Group 4: Promethazine (PHENERGAN) tablet 25 mgJump to med 25 mg, Oral, EVERY 6 HOURS NEEDED, Starting on Sun02/28/23 at 1601, Until Peg 03/01/23 at 1438, Refractory Nausea Vomiting, Post-op/Post-Proc Or Promethazine (PHENERGAN) 12.5 mg in Sodium chloride 0.9%, with overfill 60.5 mL (total volume) IVPBJump to med 12.5 mg, Intravenous, at 121-242 mL/hr, Administer over 15-30 Minutes, EVERY 6 HOURS NEEDED, Starting on Sun02/28/23 at 1601, Until Peg 03/01/23 at 1438, Other, Refractory Nausea / Vomiting
Extravasation Risk
Post-op/Post-Proc Care Teams (unrecognized sec tion and content) Parachute Taper Relationship Specialty Start Date End Date Margaret Hernandez CNP [address] [place] [address] PCP - General Nurse Practitioner 02/08/19 Parachute Taper Relationship Specialty Start Date End Date Margaret Hernandez APRN-CNP PCP - General Certified Nurse Practitioner 01/16/18 Parachute Taper Relationship Specialty Start Date End Date Margaret Hernandez CNP [address] [place] [address] PCP - General Nurse Practitioner 02/08/19 Parachute Taper Relationship Specialty Start Date End Date Margaret Hernandez APRN-CNP PCP - General Certified Nurse Practitioner 01/16/18 Parachute Taper Relationship Specialty Start Date End Date Margaret Hernandez APRN-CNP PCP - General Certified Nurse Practitioner 01/16/18 Parachute Taper Relationship Specialty Start Date End Date Margaret Hernandez APRN-CNP PCP - General Certified Nurse Practitioner 01/16/18 Parachute Taper Relationship Specialty Start Date End Date Margaret Hernandez APRN-CNP PCP - General Certified Nurse Practitioner 01/16/18 Parachute Taper Relationship Specialty Start Date End Date Margaret Hernandez APRN-AIRCRAFT STRUCTURAL FITTER PCP - General Certified Nurse Practitioner 01/16/18 Parachute Taper Relationship Specialty Start Date End Date Margaret Hernandez APRN-CNP PCP - General Certified Nurse Practitioner 01/16/18 Parachute Taper Relationship Specialty Start Date End Date Margaret Hernandez APRN-CNP PCP - General Certified Nurse Practitioner 01/16/18 Parachute Taper Relationship Specialty Start Date End Date Margaret Hernandez APRN-AIRCRAFT [employer]UCTURAL FITTER PCP - General Certified Nurse Practitioner 01/16/18 Parachute Taper Relationship Specialty Start Date End Date Margaret Hernandez APRN-AIRCRAFT [employer]UCTURAL FITTER PCP - General Certified Nurse Practitioner 01/16/18 Parachute Taper Relationship Specialty Start Date End Date Margaret Hernandez APRN-AIRCRAFT [employer]URAL FITTER PCP - General Certified Nurse Practitioner 01/16/18 Parachute Taper Relationship Specialty Start Date End Date Margaret Hernandez APRN-CNP PCP - General Certified Nurse Practitioner 01/16/18 Parachute Taper Relationship Specialty Start Date End Date Margaret Hernandez APRN-CNP PCP - General Certified Nurse Practitioner 01/16/18 Parachute Taper Relationship Specialty Start Date End Date Margaret Hernandez CNP [address] [facility] [place] [address] PCP - General Nurse Practitioner 02/08/19 Parachute Taper Relationship Specialty Start Date End Date Margaret Hernandez APRN-CNP PCP - General Certified Nurse Practitioner 01/16/18 Parachute Taper Relationship Specialty Start Date End Date Margaret Hernandez APRN-CNP PCP - General Certified Nurse Practitioner 01/16/18 Parachute Taper Relationship Specialty Start Date End Date Margaret Hernandez CNP [address] [place] [id number] PCP - General Nurse Practitioner 02/08/19 Parachute Taper Relationship Specialty Start Date End Date Margaret Hernandez CNP [address] [place] [address], [place] [address] PCP - General Nurse Practitioner 02/08/19 Parachute Taper Relationship Specialty Start Date End Date Margaret Hernandez CNP [address] [place] [address], [place] [address] PCP - General Nurse Practitioner 02/08/19 Parachute Taper Relationship Specialty Start Date End Date Margaret Hernandez APRN-CNP PCP - General Certified Nurse Practitioner 01/16/18 Parachute Taper Relationship Specialty Start Date End Date Margaret Hernandez CNP [address] [place] [address], [place] [address] PCP - General Nurse Practitioner 02/08/19 Parachute Taper Relationship Specialty Start Date End Date Margaret Hernandez APRN-MAURICIO PCP - General Certified Nurse Practitioner 01/16/18 Parachute Taper Relationship Specialty Start Date End Date Margaret Hernandez APRN-MAURICIO PCP - General Certified Nurse Practitioner 01/16/18 Parachute Taper Relationship Specialty Start Date End Date Margaret Hernandez APRN-MAURICIO PCP - General Certified Nurse Practitioner 01/16/18 Parachute Taper Relationship Specialty Start Date End Date Margaret Hernandez APRN-CNP PCP - General Certified Nurse Practitioner 01/16/18 Parachute Taper Relationship Specialty Start Date End Date Margaret Hernandez CNP [address] [place] [id number] PCP - General Nurse Practitioner 02/08/19 Parachute Taper Relationship Specialty Start Date End Date Margaret Hernandez APRN-MAURICIO PCP - General Certified Nurse Practitioner 01/16/18 FOR RECORDS PERTAINING TO PATIENTS WHO ARE OR HAVE BEEN ENROLLED IN A CHEMICAL DEPENDENCY/SUBSTANCEABUSE PROGRAM, SOME INFORMATION MAY BE OMITTED. This clinical summary was aggregated from multiple sources. Caution should be exercised in using it in the provision of clinical care. This summary normalizes information from multiple sources, and as a consequence, information in this document may materially change the coding, format and clinical context of patient data. In addition, data may be omitted in some cases. CLINICAL DECISIONS SHOULD BE BASED ON THE PRIMARY CLINICAL RECORDS. [facility] [employer] [facility]. provides no warranty or guarantee of the accuracy or completeness of information in this document.
[2023-08-22 16:32] LABS: Mean Corp Hgb Conc 33.3 g/dL (32-36); Mean Corpuscular Hgb 29.2 pg (27.0-32.0); Mean Corpuscular Volume 87.6 fL (81-99); Mean Platelet Vol. 8.9 fl (6.2-12.0); Platelet Count 295 K/mm3 (150-450); RBC Distribution Width CV 13.2 % (11.6-14.6); RBC Distribution Width SD 41.7 fl (35.1-43.9); Red Blood Count 4.45 M/mm3 (4.2-5.4); White Blood Count 10.2 K/mm3 (4.4-11.0)
[2023-08-22 16:53] LABS: Anion Gap 6 (5-15); BUN 14 mg/dL (7-18); BUN/Creat Ratio 21.7 RATIO (10-20); Calcium,Total 8.7 mg/dL (8.5-10.1); Chloride 110 mmol/L (98-107); Creatinine, Serum 0.64 mg/dL (0.55-1.02); EST Glomerular Filtration Rate 104 mL/min (>60); Est Glom Filt Rate - Afr Amer 126 mL/min (>60); Glucose 102 mg/dL (74-106); Sodium Level 140 mmol/L (136-145)
[2023-08-23 13:09] LABS: COTININE Drug Screen Negative (<200 ng/mL)
== END | disposition home or self-care (01) ==
PROVIDERS: PCP Nurse Practitioner Family; Referring Provider Plastic Surgery; Visit Provider Plastic Surgery
DX: N65.1 Disproportion of reconstructed breast (principal); Z90.12 Acquired absence of left breast and nipple
CPT/HCPCS: 36415; 80048; 80307; 85027

== ENCOUNTER 2023-09-14 05:42 | Day surgery (SDC) | payer BC, SELFPAY ==
[2023-09-14] VITALS (12 sets, daily range): BP systolic 125–148; BP diastolic 69–100; PULSE 82–108; RESP 16–20; TEMP 36.3–37.2; O2SAT 92–100; BMI 35.4
--- OUTSIDE RECORDS SUMMARY | 2023-09-14 05:50 | XMS RPT_ITS | CCD ---
Author Name Unknown Address [address] [place] [address] Organization [facility] Care Team Providers Care Fisher Dip Net Name Role Phone Jem Dickerson Unavailable Unavailable Gardilcic, Stjepan Unavailable Unavailable Jose Alfredo Dueñas Unavailable Unavailable Jose Alfredo Dueñas Unavailable Unavailable Angel, Poyen Marni Unavailable Unavailable Angel, Poyen Marni Unavailable Unavailable Gardilcic, Stjepan Unavailable Unavailable Gardilcic, Stjepan Unavailable Unavailable Angel, Poyen Marni Unavailable Unavailable Angel, Poyen Marni Unavailable Unavailable Cassandra Huerta Unavailable Unavailabl e Cassandra Huerta Unavailable Unavailabl e Margaret Hernandez Unavailable Margaret Hernandez Primary Care Provider No, Physician Primary Care Provider Unavailabl e Margaret Hernandez Primary Care Provider Margaret Hernandez Primary Care Provider [phone] David ADVERTISING SALES EXECUTIVE-Margaret MARTÍNEZ Primary Care Provider Margaret Hernandez CNP Primary Care Provider David DIGGS-Margaret MARTÍNEZ Primary Care Provider Margaret Hernandez CNP Primary Care Provider MARGARET HERNANDEZ Primary Care Unavailable LAWSON VÁZQUEZ JR. Admitting Unavailable LAWSON VÁZQUEZ JR. Attending Unavailable David DIGGS-Margaret MARTÍNEZ Primary Care Provider TERE BELTRE Attending Unavailable TERE BELTRE Admitting Unavailable MARGARET HERNANDEZ Primary Care Unavailable ZAGHLOOL, TERE S Referring Unavailable HERNANDEZ, MARGARET Primary Care Unavailable ZAGHLOOL, TERE S Referring Unavailable ZAGHLOOL, TERE S Attending Unavailable Margaret Hernandez CNP Primary Care Provider ATTILA BAILEY Attending Unavailable DAVID, MARGARET RUSSEL Primary Care Unavailable JANET GALLAGHER Attending Unavailable KATHIE JR., LAWSON Admitting [...] Care Unavailable KATHIE JR., LAWSON Attending Unavailable DAVID, MARGARET RUSSEL Primary Care Unavailable KATHIE JR., LAWSON Attending Unavailable DAVID, MARGARET RUSSEL Primary Care Unavailable DAMIEN ARMENTA Attending Unavailable HERNANDEZ, MARGARET RUSSEL Primary Care Unavailable KATHIE JR., LAWSON Attending Unavailable KATHIE JR., LAWSON Referring Unavailable KATHIE JR., LAWSON Admitting Unavailable DAVID, MARGARET RUSSEL Primary Care Unavailable DAVID, MARGARET RUSSEL Primary Care Unavailable KATHIE JR., LAWSON Attending Unavailable DAVID, MARGARET RUSSEL Primary Care Unavailable KATHIE JR., LAWSON Attending Unavailable KATHIE JR., LAWSON Referring Unavailable KATHIE JR., LAWSON Admitting Unavailable DAVID, MARGARET RUSSEL Primary Care Unavailable HERNANDEZ, MARGARET Primary Care Unavailable HERNANDEZ, MARGARET Primary Care Unavailable SELF, SELF Referring Unavailable HERNANDEZ, MARGARET Primary Care Unavailable HERNANDEZ, MARGARET Attending Unavailable HERNANDEZ, MARGARET Referring Unavailable HERNANDEZ, MARGARET Primary Care Unavailable PAYAM HEBERT Attending Unavailable SELF, SELF Referring Unavailable HERNANDEZ, MARGARET Primary Care Unavailable HERNANDEZ, MARGARET Attending Unavailable ZAGHLOOL, TERE S Referring Unavailable ZAGHLOOL, TERE S Attending Unavailable HERNANDEZ, MARGARET Primary Care Unavailable ZAGHLOOL, TERE S Attending Unavailable ZAGHLOOL, TERE S Referring Unavailable HERNANDEZ, MARGARET Primary Care Unavailable HERNANDEZ, MARGARET Attending Unavailable SELF, SELF Referring Unavailable HERNANDEZ, MARGARET Primary Care Unavailable HERNANDEZ, MARGARET Referring Unavailable HERNANDEZ, MARGARET Attending Unavailable HERNANDEZ, MARGARET Attending Unavailable HERNANDEZ, MARGARET Referring Unavailable HERNANDEZ, MARGARET Primary Care Unavailable HERNANDEZ, MARGARET Primary Care Unavailable SELF, SELF Referring Unavailable HERNANDEZ, MARGARET Attending Unavailable HERNANDEZ, MARGARET Primary Care Unavailable SELF, SELF Referring Unavailable HERNANDEZ, MARGARET Attending Unavailable HERNANDEZ, MARGARET Primary Care Unavailable HERNANDEZ, MARGARET Referring Unavailable TERE BELTRE Attending Unavailable HERNANDEZ, MARGARET Referring Unavailable LISTERE CARRILLO Attending Unavailable HERNANDEZ, MARGARET Primary Care Unavailable [...] with Brief Depressive Reaction] Chronic Administrative/social admission (3 sources) Patient encounter status; Translations: [Persons encountering health services in other specified circumstances] Onset: 3 07-31-2023 Episodic Anxiety disorders (20 sources) Anxiety; Translations: [...] COVID-19 virus infection] Episodic Malaise and fatigue (3 sources) Fatigue; Translations: [Other fatigue] Onset: 3 07-31-2023 Episodic Miscellaneous mental health disorders (20 [...] Chronic Other nutritional; endocrine; and metabolic disorders (5 sources) Obesity caused by energy imbalance; Translations: [Other obesity due to excess calories] Onset: 1 05-03-2021 Chronic Other nutritional; endocrine; and metabolic disorders (2 sources) Obesity, unspecified; Translations: [Obesity, unspecified] Onset: 1 Chronic Other nutritional; endocrine; and metabolic disorders (1 source) Overweight in adulthood with body mass index of 25 or more but less than 30; Translations: [Body mass index (BMI) 28.0-28.9, adult] Episodic Other nutritional; endocrine; and metabolic disorders (3 sources) Polyphagia; Translations: [Polyphagia] Onset: 3 07-31-2023 Episodic Other screening for suspected conditions (not mental disorders or infectious disease) (4 sources) Mammography abnormal; Translations: [Other abnormal and inconclusive findings on diagnostic imaging of breast] Onset: 4 Episodic Other upper respiratory infections (1 source) [...] Vital Sign Value Performing Clinician Faci lity 09-03-2023 15:00-0500 Diastolic blood pressure 88 mm[Hg] Margaret Hernandez APRN-MAURICIO Work Phone: [facility] 09-03-2023 15:00-0500 Systolic blood pressure 138 mm[Hg] Margaret LOERA Work Phone: [facility] 09-03-2023 14:30-0500 Body height 157.5 cm Margaret LOERA Work Phone: [facility] 09-03-2023 14:30-0500 Body mass index (BMI) [Ratio] 35.3 kg/m2 Margaret Hernadnez APRN-MAURICIO [facility] 09-03-2023 14:30-0500 Body temperature 96.3 [degF] Margaret LOERA [facility] 09-03-2023 14:30-0500 Body weight 87.54 kg Margaret LOERA Work Phone: [facility] 09-03-2023 14:30-0500 Heart rate 80 /min Margaret Hernandez ADVERTISING SALES EXECUTIVE-SENIOR ECOLOGIST Work Phone: [facility] 09-03-2023 14:30-0500 Respiratory rate 18 /min Margaret Hernandez ADVERTISING SALES EXECUTIVE-SENIOR ECOLOGIST Work Phone: [facility] 09-03-2023 14:30-0500 SaO2% (BldA) [Mass fraction] 99 % Margaret Hernandez ADVERTISING SALES EXECUTIVE-SENIOR ECOLOGIST Work Phone: [facility] 07-31-2023 14:00-0500 Body height 157.5 cm Payam Hebert SENIOR ECOLOGIST Work Phone: [facility] 07-31-2023 14:00-0500 Body mass index (BMI) [Ratio] 35.96 kg/m2 Payam Hebert SENIOR ECOLOGIST Work Phone: [facility] 07-31-2023 14:00-0500 Body temperature 97.7 [degF] Payam Hebert SENIOR ECOLOGIST Work Phone: [facility] 07-31-2023 14:00-0500 Body weight 89.18 kg Payam Hebert SENIOR ECOLOGIST Work Phone: [facility] 07-31-2023 14:00-0500 Diastolic blood pressure 102 mm[Hg] Payam Hebert SENIOR ECOLOGIST Work Phone: [facility] 07-31-2023 14:00-0500 Heart rate 107 /min Payam Hebert SENIOR ECOLOGIST Work Phone: [facility] 07-31-2023 14:00-0500 Respiratory rate 20 /min Payam Hebert SENIOR ECOLOGIST Work Phone: [facility] 07-31-2023 14:00-0500 SaO2% (BldA) [Mass fraction] 98 % Payam Hebert SENIOR ECOLOGIST Work Phone: [facility] 07-31-2023 14:00-0500 Systolic blood pressure 149 mm[Hg] Payam Hebert SENIOR ECOLOGIST Work Phone: [facility] 07-17-2023 07:58-0500 Body height 157.5 cm Margaret Hernandez ADVERTISING SALES EXECUTIVE-SENIOR ECOLOGIST Work Phone: [facility] Encounters Encounter Date Encounter Type Care Provider Facility Start: 09-03-2023 ambulatory MARGARET HERNANDEZ [facility] Start: 09-03-2023 End: 09-03-2023 Patient encounter status Margaret Hernandez ADVERTISING SALES EXECUTIVE-SENIOR ECOLOGIST Work Phone: [facility] Work Phone: Start: 09-03-2023 End: 09-03-2023 Periodic preventive med est patient 40-64yrs Margaret Hernandez ADVERTISING SALES EXECUTIVE-SENIOR ECOLOGIST Work Phone: [facility] Procedures Date Procedure Procedure Detail Performing Clinician Start: 07-16-2023 Lipid 1996 panel - Serum or Plasma Margaret Hernandez ADVERTISING SALES EXECUTIVE-SENIOR ECOLOGIST Work Phone: Start: 07-03-2023 Arthrocentesis aspir&/inj major jt/bursa w/o us Damien Armenta MD Work Phone: Start: 03-01-2023 Assay of magnesium Tere Varner Lisdewaynerk DO Work Phone: Start: 03-01-2023 Complete blood count with white cell differential, automated Tere Zaratecelinaol DO Work Phone: Start: 02-28-2023 Electrolyte panel Tere Varner Lisdewaynelool DO Work Phone: Start: 02-28-2023 Cultyp nuc acid amp prb cult/isolate ea orgnism Tere Varner Lisdewaynelool DO Work Phone: Start: 02-28-2023 End: 02-28-2023 Mastectomy simple complete Tere Mckeondewaynel ool DO Work Phone: Start: 01-04-2023 Follow-up visit Follow-up LAWSON VÁZQUEZ JR. Start: 12-21-2022 Radex foot complete minimum 3 views Lawson Vázquez DPM Work Phone: Start: 10-31-2022 Lipid 1996 panel - Serum or Plasma Margaret Hernandez ADVERTISING SALES EXECUTIVE-SENIOR ECOLOGIST Work Phone: Start: 09-19-2022 End: 09-19-2022 Diagnostic mammography computer-aided detcj bi Tere Beltre DO Work Phone: Start: 06-22-2022 Iaadiadoo influenza Fátima Bradley ADVERTISING SALES EXECUTIVE-SENIOR ECOLOGIST Work Phone: Start: 06-22-2022 SARS-COV-2 RAPID Fátima Bradley ADVERTISING SALES EXECUTIVE-SENIOR ECOLOGIST Work Phone: Start: 03-16-2022 Bx breast w/device 1st lesion ultrasound guid Tere Beltre DO Work Phone: Start: 03-08-2022 Diagnostic mammography computer-aided detcj uni Margaret Hernandez ADVERTISING SALES EXECUTIVE-SENIOR ECOLOGIST Work Phone: Start: 02-20-2022 Lipid 1996 panel - Serum or Plasma Margaret Hernandez ADVERTISING SALES EXECUTIVE-SENIOR ECOLOGIST Work Phone: Start: 01-02-2022 End: 01-02-2022 Colonoscopy Margaret Hernandez ADVERTISING SALES EXECUTIVE-SENIOR ECOLOGIST Work Phone: Start: 11-21-2021 AIRWAY ETT Abelardo SPEARS Work Phone: Start: 06-30-2021 Basic metabolic panel calcium total Gladis Palmer MD Work Phone: Start: 06-30-2021 C-reactive protein Tammie Hastings [facility] Work Phone: Start: 06-29-2021 XR [...] 1996 panel - Serum or Plasma Margaret LOERA Work Phone: Start: 05-23-2021 Mammography Gladis Palmer MD Work Phone: Start: 06-17-2020 Diagnostic radiography of chest, combined PA and lateral Chelle Bridges Work Phone: Start: 06-10-2020 CT angiography of pulmonary artery Amalia Ling Work Phone: Start: 06-10-2020 Complete blood count with white cell differential, automated Amalia Ling Work Phone: Start: 06-10-2020 Complete blood count with white cell differential, manual Amalia Ling Work Phone: Start: 06-10-2020 Comprehensive metabolic 2000 panel - Serum or Plasma Amalia Ling Work Phone: Start: 06-10-2020 INR in Platelet poor plasma by Coagulation assay Amalia Ling Work Phone: Start: 06-10-2020 Magnesium [Mass/volume] in Serum or Plasma Amalia Ling Work Phone: Start: 06-10-2020 Red blood cell morphology Amalia Ling Work Phone: Start: 06-10-2020 COVID-19, MOLECULAR Amalia Ling Work Phone: Start: 06-08-2020 CT angiography of pulmonary artery Amalia Ling Work Phone: Start: 06-08-2020 Basic metabolic 2000 panel - Serum or Plasma Annalisa Ortiz Work Phone: Start: 06-08-2020 Comprehensive metabolic 2000 panel - Serum or Plasma Annalisa Ortiz Work Phone: Start: 06-08-2020 D-dimer assay, quantitative Amalia Ling Work Phone: Start: 06-08-2020 INR in Platelet [...] Start: 12-12-2018 Red blood cell morphology Mirta millan Work Phone: Start: 02-18-2018 Lipid 1996 panel - Serum or Plasma Margaret Hernandez Plan of Treatment Date Care Activity Detail Author Start: 12-17-2039 PNEUMOCOCCAL VACCINE SERIES (2 of 2 - PPSV23) PNEUMOCOCCAL VACCINE SERIES (2 of 2 - PPSV23) [facility] Start: 12-17-2039 Pneumococcal Vaccine: Ped or At-Risk (2 of 2 - PPSV23) Pneumococcal Vaccine: Ped or At-Risk (2 of 2 - PPSV23) [facility] Start: 01-03-2032 Screening for malignant neoplasm of colon [facility] Start: 07-16-2028 Lipid panel LIPID SCREENING [facility] Start: 11-01-2027 Lipid panel LIPID SCREENING [facility] Start: 02-20-2027 Fasting lipid profile LIPID SCREENING [facility] Start: 02-20-2027 Lipid panel LIPID SCREENING [facility] Start: 05-23-2026 Fasting [facility] Start: 10-17-2023 End: 10-17-2023 Patient encounter procedure 10/17/2023 8:15 AM EST Office Visit [address] [phone] Margaret Hernandez ADVERTISING SALES EXECUTIVE-SENIOR ECOLOGIST [address] [place] [phone] [facility] Start: 09-20-2023 End: 09-20-2023 Patient encounter procedure 09/20/2023 1:30 PM EST Office Visit [facility] Pulmonary Disease [address] [place] [address] Lupe Hernandez, ADVERTISING SALES EXECUTIVE-SENIOR ECOLOGIST [address] [place] [address] [facility] Pulmonary Disease [facility] Start: 09-19-2023 Screening for malignant neoplasm of breast [facility] Start: 09-12-2023 End: 09-12-2023 Patient encounter procedure 09/12/2023 2:30 PM EST Office Visit [address] [phone] Payam Hebert, SENIOR ECOLOGIST [address] [place] [id number] [address] Start: 07-31-2023 End: 07-31-2023 Patient encounter procedure 07/31/2023 2:00 PM EST Office Visit [facility] Bariatric [address] [phone] Payam Hebert, SENIOR ECOLOGIST [address] [place] [id number] [address] Start: 07-17-2023 End: 07-17-2023 Patient encounter procedure [facility] Start: 04-17-2023 End: 04-16-2024 Complete blood count with white cell differential, automated CBC, EDIF, PLATELET Lab Routine Mixed hyperlipidemia Expected: 04/17/2023 (Approximate), Expires: 04/16/2024 [facility] Immunizations Immunization Date Immunization Notes Care Provider Inez funk 03-17-2011 pneumococcal polysaccharide vaccine, 23 valent Margaret Hernandez [facility] Work Phone: Payers Date Payer Category Payer Unknown [id number] 2021 Unknown ANTHEM ANTHEM HM O PPO POS [id number] 2021-Present [address] [place] [address] [id number]. [id number] 2021 Unknown [id number] 2016 Unknown xxxxxxxxxxxxxxx [id number]. [id number] 2016 Unknown ANTHEM ANTHEM HM O PPO POS [id number] 2016-Present [id number] 1.2.840.117532.1.13.172.2.7.3. [id number] 1974 Unknown [id number] 2.16.840.1.694144.3.579.2.90 1974 Unknown [id number] 2.16.840.1.314816.3.579.2.98 1974 Unknown [id number] 2.16.840.1.358912.3.579.2.98 1974 Unknown [id number] 2.16.840.1.836471.3.579.2.903 1974 Unknown [id number] 2.16.840.1.937709.3.579.2. 1974 Unknown [id number] 2.16.840.1.884360.3.579.2. 1974 Unknown [id number] 2.16.840.1.988334.3.579.2 1974 Unknown [id number] 2.16.840.1.320380.3.579.2. 1974 Unknown [id number] 2.16.840.1.498255.3.579.2 1974 Unknown [id number] 2.16.840.1.721627.3.579.2 1974 Unknown [id number] 2.16.840.1.911774.3.579.2 1974 Unknown [id number] 2.16840.1.460749.3.579.2 1974 Unknown [id number] 2.16840.1.050696.3.579.2 1974 Unknown [id number] 2.16840.1.727719.3.579.2 1974 Unknown [id number] 2.16840.1.696788.3.579.2. 1974 Unknown [id number] 2.16840.1.223231.3.579.2 1974 Unknown [id number] 2.16840.1.840756.3.579.2 1974 Unknown [id number] 2.16.840.1.977516.3.579.2 1974 Unknown [id number] 2.16.840.1.349438.3.579.2 1974 Unknown [id number] 2.16840.1.876371.3.579.2. 1974 Unknown [id number] 2.16.840.1.571531.3.579.2.983 1974 Unknown [id number] 2.16.840.1.049872.3.579.2.983 1974 Unknown [id number] 2.16.840.1.066636.3.579.2.983 1974 Unknown [id number] 2.16.840.1.125046.3.579.2.983 1974 Unknown [id number] 2.16.840.1.519894.3.579.2.983 1974 Unknown [id number] 2.16.840.1.846475.3.579.2.983 1974 Unknown [id number] 2.16.840.1.017509.3.579.2.983 1974 Unknown [id number] 2.16.840.1.158817.3.579.2.983 1974 Unknown [id number] 2.16.840.1.931566.3.579.2.983 1974 Unknown [id number] 2.16.840.1.049214.3.579.2.983 1974 Unknown [id number] 2.16.840.1.197046.3.579.2.983 1974 Unknown [id number] 2.16.840.1.537955.3.579.2.983 1974 Unknown [id number] 2.16.840.1.001755.3.579.2.983 1974 Unknown [id number] 2.16.840.1.350350.3.579.2.983 1974 Unknown [id number] 2.16.840.1.592362.3.579.2.983 [facility] [id number] Social History Date Type Detail Facility Start: 07-23-2018 End: 11-06-2022 Tobacco smoking status NMIS Current every day smoker [facility] End: 04-07-2023 History of tobacco use Cigarette Smoker [facility] Work Phone: Start: 07-23-2018 End: 04-17-2023 Cigarettes smoked current (pack per day) - Reported [facility] Start: 1975 Sex Assigned At Not on file [facility] Work Phone: Start: 08-26-2018 End: 06-22-[address] [facility] Start: 12-11-2018 End: 06-10-2020 History SDOH Alcohol Frequency 1 [facility] Start: 07-05-2019 End: 01-16-2023 Alcohol intake Lifetime non-drinker (finding) [facility] Start: 06-08-2020 End: 07-17-2023 Tobacco use and exposure Never used [facility] Exposure to SARS-CoV -2 (event) Yes [facility] Start: 11-11-2021 End: 02-28-2023 Exposure to SARS-CoV-2 (event) Not sure [facility] Start: 06-17-2020 End: 09-03-2023 Alcohol intake Current non-drinker of alcohol (finding) [facility] Start: 09-04-2022 Tobacco Comment Tried to stop no success [facility] Start: 06-10-2020 End: 04-17-2023 Alcohol Use Disorder Identification Test - Consumption [AUDIT-C] [facility] How often to you hav e a drink containing alcohol? Never [facility] Average Number of Drinks Not on file [facility] Start: 12-11-2018 Gender identity Identifies as female gender (finding) [facility] Start: 12-11-2018 Sexual orientation Heterosexual (finding) [facility] Start: 02-20-2023 End: 07-03-2023 Alcohol intake Ex-drinker (finding) [facility] Start: 07-17-2023 Tobacco smoking status NHIS Ex-smoker [facility] End: 04-07-2023 History of tobacco use Current smoker [facility] em Medical Equipment Procedure Code Equipment Code Equipment Origin al Text Equipment Identifier Dates Stent 4.6fr X 24 cm Ureteral With Monofilament Tether - Sna [id number], [id number] FDA Start: 06-29-2021 Stent 6fr 24cm Ureteral [place] - Sna [id number], [id number] FDA Start: 06-25-2021 Stent 6fr X 24cm Ureter W/O Wire - [id number] FDA Start: 07-29-2021 Wire K .062 X 9i n Smooth Dbl Dmd Pt - Sna [id number] Start: 11-20-2022 Clinical Notes 12-24-2020 to 09-03-2023 Julita López MA - 09/03/2023 2:30 PM LUZ MARIA Michelle - 09/03/2023 2:30 PM Erika William - 07/31/2023 2:00 PM Phani Parekh LPN - 07/31/2023 2:00 PM ESTDischarge Instructions Note Date & Type Note Facility 09-03-2023 History of Presen t illness Narrative PRE OP EXAM: Surgery is scheduled on (date) 09/14/23. Procedure is: Left breast reconstruction Surgeon is: Dr. [facility] Type of Anesthesia: (generalized, twilight, local) Gen She states: no to any anesthesia reactions in the past. She specifically denies chest pain, denies palpitations, and she denies shortness of breath. Past Surgical History She denies a personal history with bleeding/clotting. Allergies She denies an allergy to latex. *If on ASA, she should not take it for 10-14 days prior to procedure. There were no vitals taken for this visit., There is no height or weight on file to calculate BMI. Labs and EKG completed PAT 08/22/2023 Subjective History of Present Illness Silverio Dill is a 47 y.o. female who comes in for evaluation of the following complaints: had concerns including Pre-op Exam and Physical. Here for a physical and pre op exam. Surgery scheduled on 09/14/2023. Procedure: Left breast reconstruction with tissue retort cooler Surgeon: Dr Patience Elam Type of Anesthesia: generalized Any anesthesia reactions in the past? no denies chest pain, denies palpitations, denies shortness of breath. Activity tolerance >4mets denies issues with bleeding/clotting. denies a family/personal history of bleeding/clotting disorders. denies a latex allergy. Health Maintenance See Assessment/Plan summary below Active Problem List Shehas Obesity (BMI 30.0-34.9); Generalized anxiety disorder; Moderate episode of recurrent major depressive disorder; Class 1 obesity due to excess calories with serious comorbidity and body mass index (BMI) of 32.0 to 32.9 in adult; Primary insomnia; Mixed hyperlipidemia; Kidney stones; Right ureteral stone; and Mass of left breast on their problem list. Past Surgical History She has a past surgical history that includes tonsillectomy adenoidectomy (2001); appendectomy (2010); hysterectomy (2004); lithotripsy; colonoscopy diagnostic (N/A, 01/02/2022); core biopsy of the breast (Left, 03/16/2022); hammer toe repair (Left); and mastectomy complete (Left, 02/28/2023). Current Medications Current Outpatient Medications Medication Sig Dispense Refill Albuterol 108 (90 Base) MCG/ACT Aero Soln inhaler Inhale 2 puffs every 4 hours as needed for Shortness of Breath or Wheezing. 18 g 5 Atorvastatin 20 MG tablet Take 1 tablet by mouth daily. 90 tablet 1 FLUoxetine 40 MG capsule Take 1 capsule by mouth daily. 90 capsule 1 hydrOXYzine HCl 25 MG tablet Take 1 tablet by mouth 3 times daily as needed for Anxiety or Insomnia. 90 tablet 5 No current facility-administered medications for this visit. Allergies She has No Known Allergies. Family History family history includes Asthma in her father and sister; Breast Cancer in her maternal aunt and paternal grandmother; Cancer in her mother; Dementia in her mother; Depression in her father, mother, and sister; Diabetes in her brother, father, mother, and sister; Heart Disease - Other in her father and mother; Hypertension in her father, mother, and sister; Kidney Disease in her brother, father, and sister; Lipid Disorder in her father and mother; Liver Disease in her sister; Migraines in her sister; Ovarian Cancer in her sister; Parkinson in her mother; Skin Cancer in her father. Social History reports that she quit smoking about 4 months ago. Her smoking use included cigarettes. She has a 17.50 pack-year smoking history. She has never used smokeless tobacco. She reports that she does not drink alcohol and does not use drugs. Immunizations Immunization History Administered Date(s) Administered Pneumococcal Polysac 23-Valent Vaccine 03/17/2011 She denies any other acute concerns. 1) Health Maintenance Current BMI: Body mass index is 35.3 kg/m . Last Cholesterol: 07/16/2023 4.20 Last Pap Smear: Hx of hysterectomy Self Breast Exam: yes. Last Mammogram: 09/19/2022 normal, underwent left breast mastectomy on 02/28/2023 for a breast mass that was benign. Last Bone Density: n/a Calcium and vitamin D Intake yes Last Colonoscopy: 12/13/2021, polyp removal, repeat in 5 years. Immunizations: in Epic Objective Review of Systems Constitutional: Negative for [...] Hematological: Negative. Psychiatric/Behavioral: Negative. Vitals: Blood pressure 138/88, pulse 80, temperature 96.3 F (35.7 C), resp. rate 18, height 1.575 m (5' 2 ), weight 87.5 kg (193 lb), SpO2 99 %. Physical Exam Vitals and nursing note reviewed. Constitutional: Appearance: Normal appearance. She is well-developed. She is obese. HENT: Head: Normocephalic. Right Ear: Tympanic membrane, ear canal and external ear normal. Left Ear: Tympanic membrane, ear canal and external ear normal. Nose: Nose normal. Mouth/Throat: Mouth: Mucous membranes are moist. Eyes: Conjunctiva/sclera: Conjunctivae normal. Pupils: Pupils are equal, round, and reactive to light. Neck: Thyroid: No thyromegaly. Vascular: No carotid bruit. Cardiovascular: Rate and Rhythm: Normal rate and regular rhythm. Pulses: Normal pulses. Heart sounds: Normal heart sounds. Pulmonary: Effort: Pulmonary effort is normal. Breath sounds: Normal breath sounds. Abdominal: General: Bowel sounds are normal. There is no distension. Palpations: Abdomen is soft. Tenderness: There is no abdominal tenderness. Musculoskeletal: General: No swelling or tenderness. Normal range of motion. Cervical back: Normal range of motion and neck supple. Right lower leg: No edema. Left lower leg: No edema. Lymphadenopathy: Cervical: No cervical adenopathy. Upper Body: Right upper body: No supraclavicular adenopathy. Left upper body: No supraclavicular adenopathy. Skin: General: Skin is warm and dry. Neurological: Mental Status: She is alert and oriented to person, place, and time. Cranial Nerves: No cranial nerve deficit. Sensory: No sensory deficit. Motor: No weakness. Coordination: Coordination normal. Gait: Gait normal. Psychiatric: Mood and Affect: Mood normal. Behavior: Behavior normal. Thought Content: Thought content normal. Judgment: Judgment normal. Neurological Exam Mental Status Alert. Oriented to person, place, and time. Cranial Nerves CN III, IV, : Pupils equal round and reactive to light bilaterally. Gait Normal gait. Assessment and Plan 1. Wellness examination The patient is advised to continue current healthy lifestyle patterns. 2. Preop examination Silverio has been medically optimized and is considered low risk for upcoming procedure with Dr Elam. Return to clinic as needed. documented in this [facility] 07-31-2023 History of Presen t illness Narrative Office Visit Clinical Staff Note: Brief Weight History - Medical Weight Loss Program Starting Weight: Office Visit Clinical Staff Note: Brief Weight History - Always has been heavier patient stated. Family history of obesity Medical Weight Loss Program Starting Weight: 196.6 Patient here for Medical Weight Loss NIKOLSKI: Silverio Dill is a 47 y.o. y.o. 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 We have discussed [...] foods including calories consumed in liquids. - 8060-6096 calories a day - Protein for each [...] of today's visit. documented in this encounter [facility] 07-17-2023 History of Presen t illness [...] 04/17/23 85.1 kg (187 lb 9.6 oz) Silverio states that she feels as if the adipex was not effective this time. Subjective History of Present Illness Silverio Dill is a 47 y.o. female who [...] 04/17/23 85.1 kg (187 lb 9.6 oz) Silverio states that she feels as if the [...] or sooner prn. documented in this encounter [facility] 07-03-2023 History of Presen t illness Narrative Associated Order(s): LG Jt Injection/Arthrocentesis: R knee Post-Procedure Diagnose(s): Acute pain of right knee LG Jt Injection/Arthrocentesis: R knee Performed by: Damien Armenta MD Authorized by: Damien Armenta MD CPT 26739 - Large Joint Arthrocentesis: Consent given by: Patient Timeout performed at: 07/03/2023 10:00 AM Physician or proceduralist has discussed critical or nonroutine steps, procedure duration and anticipated blood loss: Yes Supporting Documentation: Indications: Pain Procedure Details: Location: Knee Site: R knee Needle size: 22 G Medications: 40 mg methylPREDNISolone acetate 40 mg/mL Anesthetic used: Lidocaine 1% OPG [address] (11) [facility] [address] [facility] [id number] Silverio Dill is a 47 y.o. female being [...] medications, allergies, and problem list items with Silverio Dill during this visit. Review of Systems [...] Damien Armenta MD documented in this encounter [facility] 06-15-2023 History of Presen t illness Narrative Hemorrhoids: Silverio is here to be examined due to [...] pain 7/10. Subjective History of Present Illness Silverio Dill is a 47 y.o. female who comes in for evaluation of the following complaints: had concerns including Hemorrhoids. Hemorrhoids: Silverio is here to be examined due to [...] nursing note reviewed. Exam conducted with a assembler final present (Julita López MA). Constitutional: Appearance: Normal [...] fail to improve. documented in this encounter [facility] 04-17-2023 History of Presen t illness [...] to broken sleep. History of Present Illness Silverio Dill is a 47 y.o. female who [...] aerobic exercise. Discussed low calorie diet around 1233-6768 calories a day making sure to eat [...] or sooner prn. documented in this encounter [facility] 03-19-2023 History of Presen t illness Narrative Subjective @Silverio Dill presents to the clinic post op Eating [...] for breast reconstruction documented in this encounter [facility] 03-01-2023 Nurse Note IV removed, discharge instructions provided to patient. Instructed on drain maintenance, patient taught back and verbalized understanding. Supplies provided to care for drain at home. Patient being taken to personal vehicle via wheelchair at this time. [facility] 03-01-2023 Miscellaneous Notes Formattin g of this note might be different from the original. IV removed, discharge instructions provided to patient. Instructed on drain maintenance, patient taught back and verbalized understanding. Supplies provided to care for drain at home. Patient being taken to personal vehicle via wheelchair at this time. Assessment unchanged On admission to [facility], from [facility] PACU a dual RN initial assessment of skin condition was performed by Meaghan Logan and Karel Friedman RN Skin Assessment: Skin intact, no issues noted. Maxi Score: 20 LDA Added: No Meaghan Logan Silverio Dill ([id number]) PRE OPERATIVE DIAGNOSIS Mass of left breast, unspecified quadrant [N63.20] Breast pain [N64.4] POST OPERATIVE DIAGNOSIS Mass of left breast, unspecified quadrant [N63.20] Breast pain [N64.4] PROCEDURE PERFORMED Procedure(s) (LRB): MASTECTOMY COMPLETE-PATHOLOGY NOT NEEDED. SURGEON Surgeon(s) and Role: * Tere Beltre DO - Primary ANESTHESIOLOGIST BUSINESS ANALYTICS INTERN: Helio Springer APRN-BUSINESS ANALYTICS INTERN Student Nurse Dental Ceramist Assistant: Jeannette Anna SURGICAL STAFF Box Tender: Helena Shafer RN; Mary Jo Guajardo RN; Padmini Clement RN Scrub Person: Jacquie Black Marker Delivery Pattern Setter: Ezekiel Lemus DETAILS OF THE PROCEDURE: After [...] 2023 3:10 PM documented in this encounter [facility] 03-01-2023 History of Presen t illness Narrative Chart review. Conference with RN, Meaghan, to identify social media marketer needs. No needs identified. CM available to [...] Breast pain N64.4 NARRATIVE: Pt admitted to [facility] status post L mastectomy with Dr. Fisher. Pt reports being I prior. Pt educated on post mastectomy recovery including monitoring for lymphedema, post recovery exercises (handout provided with instruction to get clearance from Dr. Fisher prior to initiating). Pt and daughter demons good understanding and appreciative of education. No further OT indicated at this time in this setting. documented in this encounter [facility] 03-01-2023 Nurse Note Assessment unchanged [facility] 02-28-2023 Nurse Note On admission to [facility], from [facility] PACU a dual RN initial assessment of skin condition was performed by Meaghan Logan and Karel Friedman RN Skin Assessment: Skin intact, no issues noted. Maxi Score: 20 LDA Added: No Meaghan Logan [facility] 02-28-2023 Nurse Note Discharged from PACU in stable condition. Transported via bed to room 208. Bed placed in lowest position. Call light within reach. Report given to Meaghan ALVARENGA. Denies nausea. States is warm enough. Demonstrates ability to deep breathe/cough effectively. OR 2 temp 62.5F, humidity 55%. documented in this encounter [facility] 02-28-2023 Nurse Surgical operation note Discharged from PACU in stable condition. Transported via bed to room 208. Bed placed in lowest position. Call light within reach. Report given to Meaghan ALVARENGA. [facility] 02-28-2023 Hospital Discharg e instructions Tere Beltre DO - 02/28/2023 3:21 PM EDT [...] through Care Everywhere.Pain and Pain Control ([facility]) ([place]ian)Breast Reconstruction Drain Care ([facility]) ([place]udian)documented in this [facility] 02-28-2023 Surgery Postoperative evaluation and management note Silverio Dill ([id number]) PRE OPERATIVE DIAGNOSIS Mass of left breast, unspecified quadrant [N63.20] Breast pain [N64.4] POST OPERATIVE DIAGNOSIS Mass of left breast, unspecified quadrant [N63.20] Breast pain [N64.4] PROCEDURE PERFORMED Procedure(s) (LRB): MASTECTOMY COMPLETE-PATHOLOGY NOT NEEDED. SURGEON Surgeon(s) and Role: * Tere Beltre DO - Primary ANESTHESIOLOGIST BUSINESS ANALYTICS INTERN: Helio Springer APRN-BUSINESS ANALYTICS INTERN Student Nurse Dental Ceramist Assistant: Jeannette Anna SURGICAL STAFF Box Tender: Helena Shafer RN; Mary Jo Guajardo RN; Padmini Clement RN Scrub Person: Jacquie Black Marker Delivery Pattern Setter: Ezekiel Lemus DETAILS OF THE PROCEDURE: After [...] Beltre DO February 28, 2023 3:10 PM [facility] 02-28-2023 Nurse Surgical operation note Denies nausea. States is warm enough. Demonstrates ability to deep breathe/cough effectively. [facility] 02-28-2023 Attending History and physical note [...] 01/29/2023 9:45 AM EDT Breast Mass Consultation Silverio Dill is a 47 y.o. 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 Patient has to previous breast biopsy(s). Patient denies a personal history of breast cancer. Social History Social History Narrative Not on file I have reviewed Silverio Dill medical, surgical and other pertinent history [...] No SLNB will be needed for now. Silverio was seen today for consult. Diagnoses and [...] does not include time spent with procedures [facility] 02-28-2023 History and physical note I [...] 01/29/2023 9:45 AM EDT Breast Mass Consultation Silverio Dill is a 47 y.o. 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 Patient has to previous breast biopsy(s). Patient denies a personal history of breast cancer. Social History Social History Narrative Not on file I have reviewed Silverio Dill medical, surgical and other pertinent history [...] No SLNB will be needed for now. Silverio was seen today for consult. Diagnoses and [...] spent with procedures documented in this encounter [facility] 02-28-2023 Nurse Surgical operation note OR 2 temp 62.5F, humidity 55%. [facility] 02-20-2023 History of Presen t illness [...] any new issues. documented in this encounter [facility] 01-29-2023 History and physical note Breast Mass Consultation Silverio Dill is a 47 y.o. 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 Patient has to previous breast biopsy(s). Patient denies a personal history of breast cancer. Social History Social History Narrative Not on file I have reviewed Silverio Dill medical, surgical and other pertinent history [...] No SLNB will be needed for now. Silverio was seen today for consult. Diagnoses and [...] does not include time spent with procedures [facility] 01-29-2023 History and physical note Breast Mass Consultation Silverio Dill is a 47 y.o. 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 Patient has to previous breast biopsy(s). Patient denies a personal history of breast cancer. Social History Social History Narrative Not on file I have reviewed Silverio Dill medical, surgical and other pertinent history [...] No SLNB will be needed for now. Silverio was seen today for consult. Diagnoses and [...] spent with procedures documented in this encounter [facility] 01-29-2023 History of Presen t illness Narrative Nurse Note: Review of Systems Nursing Assessment: Physical Exam Pt is here for Left Breast pain x 3 weeks now. Pt went to ED on 01/23 and was diagnosed with mastitis. CT Chest with contrast was performed for review. documented in this encounter [facility] 01-29-2023 Instructions Harriet Cardona LPN - 01/29/2023 9:45 AM EDT PLEASE NOTE: SURGERY WILL BE CANCELLED NO TOBACCO (CIGARETTES, VAPES, CHEWING TOBACCO) PRODUCT AFTER MIDNIGHT. NO DRUGS OF ANY SORT AT ANY TIME PRIOR TO SURGERY. SURGERY INSTRUCTIONS Your surgery is scheduled at [facility] on February 28. Pre-admission testing (PAT) is scheduled on February 06 @ 10:00a. If this does not work, please call Fernanda at [phone] to reschedule. Registration will call the day prior to pre-admission testing to get you pre-registered. Pre-admission testing may include blood work, x-rays, EKG, or other tests. Please call [phone] for your arrival time. For your convenience, [...] your surgery, please call the office at [phone] option #3. PLEASE BE SURE TO CHECK WITH YOUR INSURANCE ABOUT BENEFITS AND COVERAGE FOR YOUR SURGERY/PROCEDURE. OUR PRIOR AUTHORIZATION TEAM WILL CHECK WITH YOUR INSURANCE TO BE SURE IT IS AN AUTHORIZED SURGERY/PROCEDURE THANK YOU. The following attachments cannot be sent through Care Everywhere.Mastitis (Bermudian)documented in this encounter [facility] 01-16-2023 History of Presen t illness [...] for long-term check. documented in this encounter [facility] 12-21-2022 History of Presen t illness [...] for long-term follow-up. documented in this encounter [facility] 12-07-2022 History of Presen t illness Narrative Images from the original note were not included. POST-OP Patient Visit Jeri Ontiveros DPM Patient Name: Silverio Dill. . Date of : 1975, 46 [...] call with any questions or concerns. Jeri Ontiveros DPM, MS Podiatric Physician & Surgeon documented in this encounter [facility] 11-14-2022 History and physical note HPI [...] hematoma repair. -This to be done at [facility] on Sunday under general anesthesia with likely [...] is better. Moderate medical complexity decision making. [facility] 11-14-2022 History and physical note HPI [...] hematoma repair. -This to be done at [facility] on Sunday under general anesthesia with likely [...] complexity decision making. documented in this encounter [facility] 11-01-2022 History of Presen t illness [...] being rx'd Wegovy. History of Present Illness Silverio Dill is a 46 y.o. female who [...] or sooner prn. documented in this encounter [facility] 10-04-2022 History of Presen t illness Narrative Pt presents today for 1 month follow up re: Obesity: She has lost weight in past month -6lbs . She is following the recommended dietary plan, and is exercising regularly. She is taking medication to help with weight loss ( Adipex ). She admits to having medication side effects, dry mouth. History of Present Illness Silverio Dill is a 46 y.o. female who [...] or sooner prn. 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 States that all the constant walking ubby-nsn-pdbwi kills her second very painful. She is hoping to undergo surgery if this is an option. Past Medical History: Diagnosis Date Asthma Kidney stones Kidney stones Past Surgical History: Procedure Laterality Date ADENOIDECTOMY APPENDECTOMY CYSTO Bilateral 11/21/2021 Procedure: DIAGNOSTIC BILATERAL; Surgeon: Gladis Palmer MD; Location: [facility]; Service: Urology CYSTO RETRO STONE MANIPULATION STENT [...] a hammertoe repair left second toe at [facility] in the next 1 to 2 months. General anesthesia. Does need preoperatively PAT clearance and a CBC with differential. Primary risks include amputation gangrene pin tract infection continued lateralization pain tingling burning scarring and infection. Follow-up in 1 to 2 months to sign consent and review labs. Low medical complexity decision making based on need for OR. documented in this encounter [facility] documented in this encounter [facility]02-08-2023 Evaluation note* Diagnosis Follow-up exam, 3-6 months since previous exam Unspecified follow-up examination documented in this encounter [facility]01-23-2023 History of Present illness Narrative* Julita [...] (177 lb 0.5 oz) * Margaret Hernandez APRN-SENIOR ECOLOGIST - 09/04/2022 8:45 AM EST History of Present Illness Silverio Dill is a 46 y.o. female who [...] 34 g by mouth 2 times daily. jogdorzrvpkcpnn-eatvrzsutdabdfvu-nvhqRBUaovu (Capmist DM) 60-15-400 MG tablet, Take 1 [...] month or sooner prn. [facility] History of Present illness Narrative* Julita López [...] initial insomnia, admits to broken sleep. * LUZ MARIA Dugan - 08/02/2022 8:30 AM EST History of Present Illness Silverio Dill is a 46 y.o. female who [...] 34 g by mouth 2 times daily. zaymbjvmrzucyus-rcerqykolmpdeurd-cdxsNXPhzos (Capmist DM) 60-15-400 MG tablet, Take 1 [...] month or sooner prn. [facility] History of Present illness Narrative* LUZ MARIA Gonzales - 06/22/2022 3:45 PM EST HPI Silverio Dill female 1975 presents to the [facility] with Chief Complaint Patient presents with Sore Throat Cough Headache, body hurts, back and neck pain. Patient presents with sinus congestion, dry cough, Sore throat, headache, body aches That started 3-4 days ago. She has taken fktx-soc-cgaatdn medications without improvement. Initially had a fever [...] 34 g by mouth 2 times daily. lvgmdkgptfhficq-phdllqinshyknxgf-nnlySMIlnwr (Capmist DM) 60-15-400 MG tablet Take 1 [...] N/A; Surgeon: Roge Espana Jr., DO; Location: [facility] APPENDECTOMY 2011 HYSTERECTOMY 2005 TONSILLECTOMY ADENOIDECTOMY [...] Use Authorization (EUA) for the qualitative detection lvKCKS-XgJ-5 nucleic acid. Performed by: [facility] POCT INFLUENZA, A B Collection Time: 06/22/22 4:14 PM Result Value Ref Range POCT Influenza A Negative Negative, Not Tested, Invalid POCT Influenza B Negative Negative, Not Tested, Invalid ASSESSMENT/PLAN 1. Viral illness 2. Cough, unspecified type Orders Placed This Encounter SARS-COV-2 RAPID POCT INFLUENZA, A B zqalzmtwstpdpun-tgpzpccaglkernsx-olugDZAcoxp (Capmist DM) 60-15-400 MG tablet Rapid COVID19 [...] LUZ MARIA Gonzales 06/22/2022 [facility] History of Present illness Narrative* Aspen [...] May 03, 2022 12:47 PM Patient Demographics: Silverio Dill female 1975 Wt Readings from Last [...] sweats no melena and/or hematochezia We discussed [place] criteria and medications we discussed diagnostic and [...] N/A; Surgeon: Roge Espana Jr., DO; Location: [facility] APPENDECTOMY 2011 HYSTERECTOMY 2005 TONSILLECTOMY ADENOIDECTOMY [...] Assessment: Persistent abdominal pain etiology unknown Likely [place] criteria positive IBS On CT, hydroureter possible obstructive urologic issue Rule out biliary tract spasm Plan: Continue current medications adjust as needed Consider decreasing dicyclomine and adding clindiminium HIDA scan with ejection fraction Further recommendations pending results [facility] Miscellaneous Notes* Nursing Notes - Mallory Blanco RN - 03/16/2022 10:30 AM EDT Pt to [facility] interventional radiology for ultrasound guided left breast lesion biopsy by Dr Richards with local anesthetic. Tolerated procedure well. Elastic bandage applied to left breast lateralto nipple. Ice pack provided for comfort. Dr Richards cancelled post procedure mammogram. Discharge instructions reviewed with patient. Questions answered. Expresses understanding. Discharged home. Ambulatory. Stable IMPLANT NOTE HYDROMARK BREAST BIOPSY SITE MARKER T-1 LOT# [id number] EXPIRATION 07/14/2024 [facility] Note* Nursing Notes - Mallory Blanco RN - 03/16/2022 10:30 AM EDT Pt to [facility] interventional radiology for ultrasound guided left breast lesion biopsy by Dr Richards with local anesthetic. Tolerated procedure well. Elastic bandage applied to left breast lateralto nipple. Ice pack provided for comfort. Dr Richards cancelled post procedure mammogram. Discharge instructions reviewed with patient. Questions answered. Expresses understanding. Discharged home. Ambulatory. Stable IMPLANT NOTE HYDROMARK BREAST BIOPSY SITE MARKER T-1 LOT# [id number] EXPIRATION 07/14/2024 [facility]08-01-2022 History and physical note* Tere Beltre DO - 03/13/2022 2:15 PM EDT Breast Mass Consultation Silverio Dill is a 46 y.o. female who [...] is considered to be indeterminate for malignancy. 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 aunt with breast cancer . Patient denies to previous breast biopsy(s). Patient denies a personal history of breast cancer. Social History Social History Narrative Not on file I have reviewed Silverio Dill medical, surgical and other pertinent history [...] Aero Soln inhaler, atorvastatin 20 MG tablet, slnghrsofnd27 MG tablet, FLUoxetine 40 MG capsule, hydrOXYzine [...] to obtain a diagnosis Further recs pending. Silverio was seen today for new patient. Diagnoses and all orders for this visit: Mass of left breast, unspecified quadrant [employer] Work Phone: [phone] 261-267808-01-2022 History and physical note* Tere Beltre DO - 03/13/2022 2:15 PM EDT Breast Mass Consultation Silverio Dill is a 46 y.o. female who [...] is considered to be indeterminate for malignancy. 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 aunt with breast cancer . Patient denies to previous breast biopsy(s). Patient denies a personal history of breast cancer. Social History Social History Narrative Not on file I have reviewed Silverio Dill medical, surgical and other pertinent history [...] Aero Soln inhaler, atorvastatin 20 MG tablet, zuqjwitpuqv10 MG tablet, FLUoxetine 40 MG capsule, hydrOXYzine [...] to obtain a diagnosis Further recs pending. Silverio was seen today for new patient. Diagnoses and all orders for this visit: Mass of left breast, unspecified quadrant [facility] History of Present illness Narrative* Mariela Yanez - 03/13/2022 2:15 PM EDT Nurse Note: Review of Systems Nursing Assessment: Physical Exam Silverio Dill is a 46 y.o. female Pt is here for an US guided bx on left breast mammo and US done on 03/08 Denies pain. Noticeable lump. No drainage. Maternal aunt had breast cancer [facility] History of Present illness Narrative* Yue [...] but no hx of lumps herself. * Margaret Hernandez, DONTAE-SENIOR ECOLOGIST - 03/02/2022 11:45 AM EDT Images from the original note were not included. History of Present Illness Silverio Dill is a 46 y.o. female who [...] to clinic as needed. [facility] History of Present illness Narrative* Evette Leavitt [...] denies side effects from medication. BECKY 7 Silverio Dill is a 46 y.o. female who [...] status changes - No * Margaret Hernandez APRN-SENIOR ECOLOGIST - 02/07/2022 8:15 AM EDT History of Present Illness Silverio Dill is a 46 y.o. female who [...] denies side effects from medication. BECKY 7 Ongoing RLQ/RUQ pain: Dr. Espana evaluated [...] months or sooner prn. documented in this [facility]05-23-2022 Nurse Note* Mary Jo Altamirano RN - [...] family present with pt documented in this [facility]05-23-2022 Nurse Surgical operation note* Mary Jo Altamirano RN - 01/02/2022 12:01 PM EDT Pt discharged with all belongings and paperwork [facility]05-23-20[facility] Nurse Surgical operation note* Mary Jo Altamirano RN - 01/02/2022 11:59 AM EDT Pt up to dress, denies dizziness [facility]05-23-[facility] Nurse Surgical operation note* Mary Jo Altamirano RN - 01/02/2022 11:48 AM EDT Pt has glasses on, pt states that she has passed some gas which relieved her abd cramping, denies needs, Discharge instructions reviewed with pt and family, pt verbalizes understanding, copies of AVSand instructions given to pt to take home [facility]05-23-20[facility] Nurse Surgical operation note* Mary Jo Altamirano RN - 01/02/2022 11:44 AM EDT Pt to edge of cart to dangle legs over side of cart, warm blanket draped over pt shoulders [facility]05-23-20[facility] Nurse Surgical operation note* Mary Jo Altamirano RN - 01/02/2022 11:40 AM EDT Pt having pepsi and tolerating well, denies difficulty swallowing [facility]05-23-20[facility] Nurse Surgical operation note* Mary Jo Altamirano RN - 01/02/2022 11:37 AM EDT HOB 45 degrees, pt rolling side to side to try to pass gas [facility]05-23-20[facility] Nurse Surgical operation note* Mary Jo Altamirano RN - 01/02/2022 11:22 AM EDT Pt to recovery bay 3, pt lying on left side, HOB 30 degrees, pt drowsy, no family present with pt [facility] History and physical note* Roge Espana Jr., DO - 01/02/2022 8:52 AM EDT Office consultation Date and Time: November 22, 2021 5:40 PM Patient Demographics: Silverio Dill female 1975 W[employer] Readings from Last [...] nondistended Extremities-no deformities Neurologic-no focal deficits Assessment: [place] criteria positive IBS Intermittent hematochezia No current [...] nonabsorbable Probable colonoscopy based on ASGE recommendations [facility] History and physical note* Roge Cesar Espana Jr., DO - 01/02/2022 8:52 AM EDT Office consultation Date and Time: November 22, 2021 5:40 PM Patient Demographics: Silverio Dill female 1975 W[employer] from Last [...] nondistended Extremities-no deformities Neurologic-no focal deficits Assessment: [place] criteria positive IBS Intermittent hematochezia No current [...] based on ASGE recommendations [facility]* Nursing Notes - Fernanda Parker RN - 12/30/2021 10:45 AM EDT Reviewed medication list with patient, asked and added any additional medicines, vitamins, supplements and diet supplements or appetite suppressants to the patient Med Review. Also Reconciled Medications from outside sources to Med Review. Patient verified Med Review is accurate. [facility] Miscellaneous Notes* Nursing Notes - Fernanda Parker RN - 12/30/2021 10:45 AM EDT Reviewed medication list with patient, asked and added any additional medicines, vitamins, supplements and diet supplements or appetite suppressants to the patient Med Review. Also Reconciled Medications from outside sources to Med Review. Patient verified Med Review is accurate. [facility] History of Present illness Narrative* Roge Espana Jr., DO - 11/22/2021 10:00 AM EDT Office consultation Date and Time: November 22, 2021 5:40 PM Patient Demographics: Silverio Dill female 1975 W[employer] from Last [...] based on ASGE recommendations [facility] Note* Addendum Note - Reza Wilson MD - 11/21/2021 1:00 PM EDT Addendum created 11/21/21 1300 by Reza Wilson MD Cosign clinical note with attestation [id number] Miscellaneous Notes* Addendum Note - Reza Wilson MD - 11/21/2021 1:00 PM EDT Addendum created 11/21/21 1300 by Reza Wilson MD Cosign clinical note with attestation documented in this [id number] Anesthesiology Postoperative evaluation and management note* Anesthesia [...] Patient has satisfactorily recovered from her anesthetic. [employer] Work Phone: 1(669) 671-282104-11-2022 Surgical operation note* Anesthesia Postprocedure Evaluation - [...] note and concur with the documentation of Silverio Dill. documented in this [id number] Procedure anesthesia Narrative * Procedure Summary Procedure [...] IV Placement Date: 11/11 09/03; Placement Time: 651; Orientation: Left, Posterior; Location: Forearm; Site Prep: Chlorhexidine ; Inserted by: Dedra alvarenga; Patient Tolerance: Tolerated well; Removal Date: 11/21/21; Removal Time: 930; Removal Reason: Per order 11/21/21 06 by Josseline Colmenares RN 11/21/21930 by Jade Rao RN ETT Placement Date: 11/11 09/03; Placement Time: 745 (created via procedure documentation); Mask Ventilation: Ventilated by mask; Type: Cuffed, Oral; Tube Size: 7 mm; Grade View: 1; Insertion Attempts: 1; Removal Date: 11/21/21; Removal Time: 80811/21/21 07 by REGAN Draper 11/21/21 08 by REGAN Draper documented in this encounter [id number] Anesthesiology Preoperative evaluation and management note * [...] and kidney stone Other Positive: a smoker [id number] Anesthesiology procedure note* Anesthesia Procedure Notes - [...] note and concur with the documentation of Silverio Dill. [employer] Work Phone: 1(655) 679-644503-03-2022 History of Present illness Narrative* Margaret Hernandez APRN-MAURICIO - 10/13/2021 8:45 AM EST History of Present Illness Silverio Dill is a 45 y.o. 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 Referral to gastro for further evaluation and [...] for her constipation problem. [facility] History of Present illness Narrative* Gladis [...] pain pills if needed. documented in this [id number] Hospital Discharge instructions * Discharge Instr - [...] the QR code OR Visit the website [email or web address] Current as of: February 10, 2021 Content Version: 13.0 Your Image by [employer]. Care instructions adapted under license by your healthcare professional. If you have questions about a medical condition or this instruction, always ask your healthcare professional. [employer] Image [employer] disclaims any warranty or liability for your [...] Log into your personal health record on [email or web address] and enter C123 in the Education box to learn more about Learning About COVID-19 and Flu Symptoms. Current as of: November 05, 2020 Content Version: 13.0 Your Image by [employer]. Care instructions adapted under license by your healthcare professional. If you have questions about a medical condition or this instruction, always ask your healthcare professional. Your Image [employer] disclaims any warranty or liability for your [...] of: November 05, 2020 Content Version: 13.0 Your Image by [employer]. Care instructions adapted under license by your healthcare professional. If you have questions about a medical condition or this instruction, always ask your healthcare professional. [employer] disclaims any warranty or liability for your use of this information. documented in this [id number] Miscellaneous Notes* Plan of Care - Pricila [...] - 06/29/2021 3:04 PM EST PATIENT NAME: Silverio Dill : 1975 ADMITTED: [id number] [facility]: [id number] DATE. June 29, 2021 PRE-OPERATIVE DIAGNOSIS. Ureteral [...] Stable GLADIS PALMER MD documented in this [id number] History of Present illness Narrative* Pricila Ferreira [...] of the double-J stent. documented in this [id number] Hospital course Narrative* Jessa Potter MD - 06/30/2021 2:24 PM EST [facility] DISCHARGE SUMMARY Silverio Dill Admitted: 06/28/2021 Discharge Date: 06/30/21 PCP Handoff Recommended Outpatient Testing None Results Pending At Discharge None Clinical Summary Silverio Dill is a 45 y.o. female with [...] Physician(s) Follow Up: Margaret Hernandez CNP [address] [phone] Follow up in 1 week(s) Gladis Palmer MD [address] [place] [phone] Follow up in 1 week(s) Abram Moreno MD [address] [place] [phone] Follow up in 2 week(s) Condition at Discharge: Stable Disposition: Home On day of discharge, I performed a final bedside evaluation including a physical exam. I reviewed discharge recommendations with the patient in person. Patient instructions, including activity, were given to the patient/family at discharge. Time spent on discharge: > 30 minutes Completed by: Jessa Potter on 06/30/21, 2:28 PM documented in this [id number] Consult note* Abram Moreno MD - 06/30/2021 1:23 PM EST Patient Name: Silverio Dill MR #: [id number] : 1975 Physicians: Margaret Hernandez CNP (Family); No ref. provider found (Referring) Chief complaint: Silverio Dill is a 45 y.o. female presented [...] not received COVID-19 immunization. 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 provider found (Referring) Silverio Dill is a 45 y.o. female with [...] Laboratory 06/29/21 6:06 PM documented in this [id number] History and physical note* Gladis Palmer MD - 06/28/2021 5:40 PM EST PATIENT NAME: Silverio Dill : 1975 ADMITTED: [id number] CSN: [id number] REASON FOR ADMISSION : Left flank pain [...] PYELOGRAM; Surgeon: Gladis Palmer MD; Location: [facility] [place]; Service: Urology HYSTERECTOMY TONSILLECTOMY No family history [...] since her discharge from the hospital. ASSESSMENT Silverio Dill is a 45 y.o. y/o female [...] accurate. GLADIS PALMER MD PCP Margaret Hernandez, SENIOR ECOLOGIST documented in this [id number] Emergency department Note* lAona Bond RN - 12/24/2020 7:10 PM EDT Discharge instructions reviewed with patient. No questions or concerns voiced at this time. [facility]* Diagnosis TMJ tenderness, left- Primary [facility] Diagnosis Right ureteral stone- Primary COVID-19 documented in this encounter [facility] note* Diagnosis Continuous RLQ abdominal pain- Primary Abdominal pain, right lower quadrant Chronic constipation Unspecified constipation [facility]* Diagnosis Irritable bowel syndrome with diarrhea- Primary Irritable bowel syndrome Constipation, unspecified constipation type Bloating Flatulence, eructation, and gas pain documented [facility]* Diagnosis Diarrhea, unspecified type documented [facility]* Diagnosis Mixed hyperlipidemia- Primary Chronic obstructive [...] right lower quadrant documented in [facility]* Diagnosis RUQ pain Abdominal pain, right upper quadrant documented [facility]* Diagnosis Mass of lower outer quadrant of left breast- Primary [facility] Diagnosis Mass of lower outer quadrant of left breast [facility]* Diagnosis Mass of left breast, unspecified quadrant- Primary documented in this encounter [facility] [place] [facility] note* Diagnosis Abnormal mammogram Abnormal mammogram, unspecified documented in this encounter [facility] [place] [facility] note* Diagnosis Abnormal mammogram Abnormal mammogram, unspecified documented in this encounter [facility] [place] [facility] note* Diagnosis Irritable bowel syndrome with diarrhea- Primary Irritable bowel syndrome Bloating Flatulence, eructation, and gas pain Functional diarrhea Abdominal pain, epigastric [facility]* Diagnosis Viral illness- Primary Unspecified viral infection, in conditions classified elsewhere and of unspecified site Cough, unspecified type documented in this encounter [facility] [place] [facility] note* Diagnosis Chronic obstructive pulmonary disease, unspecified COPD type- Primary Mixed hyperlipidemia Generalized anxiety disorder Recurrent major depressive disorder, in full remission Primary insomnia Persistent disorder of initiating or maintaining sleep Class 1 obesity due to excess calories with serious comorbidity and body mass index (BMI) of 32.0 to 32.9 in adult [facility]* Diagnosis Mixed hyperlipidemia- Primary Class 1 obesity due to excess calories with serious comorbidity and body mass index (BMI) of 32.0 to 32.9 in adult documented in this encounter [facility] [place] [facility] note* Diagnosis Foot pain, left- Primary Pain in soft tissues of limb Hammer toe of left foot Foot pain, left Pain in soft tissues of limb Foot pain, left Pain in soft tissues of limb Hammer toe of left foot documented in this encounter [facility] note* Diagnosis Mixed hyperlipidemia- Primary Class 1 obesity due to excess calories with serious comorbidity and body mass index (BMI) of 32.0 to 32.9 in adult [facility]* Diagnosis Mixed hyperlipidemia- Primary BMI 28.0-28.9,adult Body Mass Index 28.0-28.9, adult [facility]* Diagnosis Foot pain, left Pain in soft tissues of limb Hammer toe of left foot Hammer toe of left foot- Primary Foot pain, left Pain in soft tissues of limb Foot pain, left Pain in soft tissues of limb Hammer toe of left foot [facility] Diagnosis Hammer toe of left foot- Primary Postop check Follow-up examination, following unspecified surgery [facility]* Diagnosis Postop check- Primary Follow-up examination, following unspecified surgery [facility]* Diagnosis Hammer toe of left foot- Primary [facility]* Diagnosis Mass of left breast, unspecified quadrant- Primary [facility]* Diagnosis Hammer toe of left foot- Primary [facility]* Diagnosis Breast pain, left Mastodynia Mass of left breast, unspecified quadrant Breast pain Mastodynia Mass of left breast Lump or mass in breast [facility]* Diagnosis Encounter for postoperative care- Primary [facility]* Diagnosis Chronic obstructive pulmonary disease, unspecified COPD type- Primary Mixed hyperlipidemia Generalized anxiety disorder Recurrent major depressive disorder, in full remission Primary insomnia Persistent disorder of initiating or maintaining sleep Class 1 obesity due to excess calories with serious comorbidity and body mass index (BMI) of 33.0 to 33.9 in adult [facility]* Diagnosis Hemorrhoids, external without complications- Primary External hemorrhoids without mention of complication documented in this encounter [facility] [place] [facility] note* Diagnosis Acute pain of right knee- Primary [facility]* Diagnosis Elevated fasting glucose- Primary Impaired fasting glucose Class 1 obesity due to excess calories with serious comorbidity and body mass index (BMI) of 34.0 to 34.9 in adult Snores Other dyspnea and respiratory abnormality [facility]* Diagnosis Binge eating- Primary Anorexia nervosa Encounter for weight management Obesity (BMI 30.0-34.9) Obesity, unspecified Fatigue, unspecified type [facility]* Diagnosis Wellness examination- Primary Preop examination Preoperative examination, unspecified documented in this encounter [facility] Discharge instructions* Attachments The following attachments cannot be sent through Care Everywhere. * TMD (Temporomandibular Disorder) (Bermudian) [facility]* Attachments The following attachments cannot be sent through Care Everywhere. * Breast Biopsy: Core Needle (Bermudian) * Breast Marker Clips (Yanni Falcon) (Bermudian) [facility] Attachments The following attachments cannot be sent through Care Everywhere. * Fine Needle Biopsy - Breast (Bermudian) [facility]* Attachments The following attachments cannot be sent through Care Everywhere. * Viral Infections (Bermudian) [facility]* Attachments The following attachments cannot be sent through Care Everywhere. * Hemorrhoids (Bermudian) [facility]* Attachments The following attachments cannot be sent through Care Everywhere. * 100 Snacks with 100 Calories or Less ([facility]) (Bermudian) * Eat Right - Your Way - Every Day ([facility]) (Bermudian) * Fiber Foods: General Info (Bermudian) * Glycemic Index: General Info (Bermudian) * Healthy Diet (Bermudian) * Healthy Weight - Healthy Living ([facility]) ([place]ermudian) * High Fiber Diet ([facility]) ([place]ermudian) * High Protein Foods: General Info (Bermudian) * Ketogenic Diet ([facility]) ([place]erm[place]ian) * Mediterranean Diet: General Info (Bermudian) * Mediterranean Diet ([facility]) (Bermudian) * Protein Increase: General Info (Bermudian) [facility])* Consultation (Routine) - New Request Specialty Diagnoses / Procedures Referred By Sherlyn silverio Referred To Contact Gastroenterology Diagnoses Continuous RLQ abdominal pain Chronic constipation Margaret Hernandez APRN-CNP [address] [place] [phone] Roge Espana Jr., DO [address] [place] [address] Referral ID Status Reason Start Date Expiration Date V isits Requested Visits Authorized [id number] New Request 10/13/2021 11/07/[address] [facility] Consultation (Routine) - New Request Specialty Diagnoses / Procedures Referred By Sherlyn silverio Referred To Contact General Surgery Diagnoses Hemorrhoids, external without complications Margaret Hernandez APRN-CNP [address] [place] [phone] Delroy Almaraz MD [address] [place] [address] Referral ID Status Reason Start Date Expiration Date V isits Requested Visits Authorized [id number] New Request 06/15/2023 07/09/2024 1 1 [facility] for referral (narrative)* Consultation (Routine) - New Request Specialty Diagnoses / Procedures Referred By Conttiffany t Referred To Contact Sleep Medicine Diagnoses Margaret Penaloza APRN-CNP [address] [place] [phone] Lupe Hernandez APRN-CNP [address] [place] [id number] Referral ID Status Reason Start Date Expiration Date V isits Requested Visits Authorized [id number] New Request 07/17/2023 08/10/2024 1 1 * Adjunctive Therapy (Routine) - New Request Specialty Diagnoses / Procedures Referred By Sherlyn silverio Referred To Contact Diagnoses Class 1 obesity due to excess calories with serious comorbidity and body mass index (BMI) of 34.0 to 34.9 in adult Margaret Hernandez APRN-CNP [address] [place] [phone] Payam Hebert CNP [address] [place] [id number] Referral ID Status Reason Start Date Expiration Date V isits Requested Visits Authorized [id number] New Request 07/17/2023 08/10/2024 1 1 [facility] for visit Narrative* Auth/Cert Specialty Diagnoses / Procedures Referred By Sherlyn silverio Referred To Contact Diagnoses Right ureteral stone Kidney Stone Referral ID Status Reason Start Date Expiration Date Visits Re quested Visits Authorized [id number] 1 1 [facility] for visit Narrative* Auth/Cert Specialty Diagnoses / Procedures Referred By Sherlyn silverio Referred To Contact Diagnoses FLANK PAIN, RIGHT URINARY TRACT INFECTION CALCULUS OF URETER Procedures DIGITAL DIAGNOSTIC URETEROSCOPY BILATERAL Referral ID Status Reason Start Date Expiration Date Visits Re quested Visits Authorized [id number] 1 1 [facility] for visit Narrative* Auth/Cert Specialty Diagnoses / Procedures Referred By Sherlyn silverio Referred To Contact Diagnoses Diarrhea, unspecified type Diarrhea, unspecified type [R19.7] Procedures VA COLONOSCOPY FLX DX W/COLLJ SPEC WHEN PFRMD COLONOSCOPY DIAGNOSTIC Referral ID Status Reason Start Date Expiration Date Visits Re quested Visits Authorized [id number] 1 1 [facility] Summary Purpose Family History No Family History Records FoundNo Family History Records FoundNo Family History Records FoundNo Family History Records FoundNo Family History Records FoundNo Family History Records FoundNo Family History Records Found Advance Directives No Advanced Directives Records FoundDocuments on File Type Date Recorded 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 Advance Directives and Livin g Will 07/05/2019 10:13 AM Documents on File Type Date Recorded 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 Advance Directives and Livin g Will 06/08/2020 3:05 PM Documents on File Type Date Recorded 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 Advance Directives and Livin g Will 06/10/2020 11:59 AM Documents on File Type Date Recorded 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 Advance Directives and Livin g Will 02/08/2019 7:43 PM Documents on File Type Date Recorded 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 Advance Directives and Livin g Will 06/28/2021 7:32 PM Latest Code Status on File Code Status Date Activated Date Inactivated Comments Full Code 06/29/2021 3:09 PM 06/30/2021 9:48 PM Full Code 06/28/2021 5:37 PM 06/29/2021 3:09 PM Full Code 06/25/2021 2:02 PM 06/26/2021 12:33 PM Documents on File Type Date Recorded 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 Advance Directives and Livin g Will 07/07/2021 8:11 PM Latest Code Status on File Code Status Date Activated Date Inactivated Comments Full Code 06/29/2021 3:09 PM 06/30/2021 9:48 PM Full Code 06/28/2021 5:37 PM 06/29/2021 3:09 PM Full Code 06/25/2021 2:02 PM 06/26/2021 12:33 PM Documents on File Type Date Recorded 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 History of Present Illness Silverio Dill is a 42 y.o. female who comes in for follow-up for generalized depression disorder. Silverio was previously on bupropion 300 mg, fluoxetine 40 mg and trazodone 50 mg. March timeframe - increased bupropion 150 mg to 300 mg and fluoxetine 20 mg to 40 mg - on 04-08-18 episode as follows: Silverio became symptomatic 04-08-18 at work ([employer]) with slurred speech, nausea, cold/clammy, lightheadedness, unsteady, seeing double, shakiness. Squad was called - she refused treatment due to cost - no IV at squad - BP check. - ongoing symptoms worsening Silverio states we bumped down the fluoxetine 40 mg to 20 mg - shortly after, she discontinued all medications due to fear side effects would occur. Silverio states her depression has increased and became uncontrolled at this time, as well having some anxiety. She denies any issues/concerns with insomnia at this time. Silverio states her normal sleeping pattern is 4 hours - she has to force herself to get up out of bed - lack of energy- very fatigued. Silverio Dill 's depression screening is 22. She [...] emotional distress and restlessness, denies suicidal ideation. Silverio Dill is a 42 y.o. year-old female [...] low carb diet - decreased starches/pop intake. Silverio Dill reports insomnia, tachycardia, irritability or significant emotional lability. Silverio Dill is a 42 y.o. female who [...] note may be different from the original. Silverio Dill is a 42 y.o. female who comes in for follow-up for generalized depression disorder. Silverio was previously on bupropion 300 mg, fluoxetine 40 mg and trazodone 50 mg. March timeframe - increased bupropion 150 mg to 300 mg and fluoxetine 20 mg to 40 mg - on 04-08-18 episode as follows: Silverio became symptomatic 04-08-18 at work ([employer]) with slurred speech, nausea, cold/clammy, lightheadedness, unsteady, seeing double, shakiness. Squad was called - she refused treatment due to cost - no IV at squad - BP check. - ongoing symptoms worsening Silverio states we bumped down the fluoxetine 40 mg to 20 mg - shortly after, she discontinued all medications due to fear side effects would occur. Silverio states her depression has increased and became uncontrolled at this time, as well having some anxiety. She denies any issues/concerns with insomnia at this time. Silverio states her normal sleeping pattern is 4 hours - she has to force herself to get up out of bed - lack of energy- very fatigued. Silverio Dill 's depression screening is 22. She [...] emotional distress and restlessness, denies suicidal ideation. Silverio Dill is a 42 y.o. year-old female [...] denies side effects from medication if warranted. Silverio Dill is a 42 y.o. y.o. female [...] low carb diet - decreased starches/pop intake. Silverio Dill reports insomnia, tachycardia, irritability or significant emotional lability. Silverio Dill is a 42 y.o. female who [...] or stroke-like symptoms. in this encounter* Margaret Hernandez APRN-MAURICIO - 08/19/2018 11:10 AM EST Formatting of [...] any side effects. History of Present Illness Silverio Dill is a 42 y.o. y.o. female [...] with Anxiety Obesity History of Present Illness Silverio Dill is a 42 y.o. y.o. female [...] may be different from the original. SUBJECTIVE: Silverio Dill is a 42 y.o. year old [...] onset of symptoms Sputum production - No Silverio states non productive coughing - wet harsh [...] or fail to improve as anticipated. * Evette Leavitt, DANIELLE - 08/26/2018 1:30 PM EST Formatting of this note may be different from the original. Silverio Dill is a 42 y.o. year old [...] onset of symptoms Sputum production - No Silverio states non productive coughing - wet harsh [...] PA-C - 06/17/2020 3:30 PM EST HPI Silverio Dill is a 44 y.o. female who presents today for complaint of shortness of breath since 06/05/2020. Associated symptoms include cough, fatigue, body aches, headache. Denies nasal congestion,runny nose, sore throat, ear pain, nausea/vomiting. Patient was seen twice last week at [facility] emergency department. Patient reports that she was [...] abnormalities. Patient informed of results. Diagnosis/ Plan: Silverio was seen today for other. Diagnoses and [...] 06/17/2020 documented in this encounter* Margaret Hernandez, DONTAE-SENIOR ECOLOGIST - 10/22/2018 2:30 PM EDT History of Present Illness Silverio Dill is a 42 y.o. year old [...] file Gets together: Not on file Attends orthodox service: Not on file Active member of [...] Maza MA - 10/22/2018 2:30 PM EDT Silverio Dill is a 42 y.o. year old [...] sent through Care Everywhere. * Foot Pain (Bermudian) documented in this encounter* Attachments The following attachments cannot be sent through Care Everywhere. * Ankle Sprains, Treating (Bermudian) documented in this encounter* Attachments The following attachments cannot be sent through Care Everywhere. * Depression: Balancing Brain Chemicals: Video (Bermudian) documented in this encounter* Instructions* Amalia Ling [...] through Care Everywhere. * Fever: General Info (Bermudian) * COVID-19 SELF ISOLATION DISCHARGE INSTRUCTIONS * Coronavirus Disease (COVID-19): General Info (Bermudian) * Coronavirus Disease (COVID-19): Social Distancing: General Info (Bermudian) documented in this encounter* Discharge Instr - [...] or Insect Bites Minor Wharton Allergic Reactions [facility] Care - [place] open 7 days a week 9a.m.-7p.m. [address] [place], [place] [address] When do I go to the Emergency Department? The emergency department treats severe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 SW discussed inpt hospitalization with Silverio and the benefits that she could receive from it, she declined stating that she would prefer to follow up with her PCP in regards to getting back on her medications. Silverio states she plans on doing me for [...] on having a lot of sister time. Silverio states she and her may take the day and put the [employer] tree up together today. Silverio plans on following up with her PCP in regards to her medications on Sunday, she is receptive to counseling and took the resources provided to her. Silverio denies suicidal homicidal plan or intent at [...] help, she states she may start attending muslim more regularly to put positives back into her life. SW informed Silverio and her sister to return to ER [...] 1645 1630 (New Bag - Provider: Sarahi Ferraro, RN)1642 (Paused - Provider: Jenni Thomas RN)1642 (Restarted - Provider: Jenni Thomas RN)1701 (Paused - Provider: Jenni Thomas RN)1701 (Restarted - Provider: Jenni Thomas, RN)1713 (Paused - Provider: Jenni Thomas, RN)1713 (Restarted - Provider: Jenni Thomas, RN)1731 (Paused - Provider: Jenni Thomas, RN)1732 (Restarted - Provider: Jenni Thomas, RN)1734 (Paused - Provider: Jenni Thomas, RN)1734 (Restarted - Provider: Jenni Thomas RN)1758 (Paused - Provider: Jenni Thomas RN)1758 (Restarted - Provider: Jenni Thomas RN)1806 (Paused - Provider: Jenni Thomas RN)1806 (Restarted - Provider: Jenni Thomas RN)1835 (Paused - Provider: Jenni Thomas RN)1835 (Restarted - Provider: Jenni Thomas RN)1850 (Associate Pump - Provider: Sarahi Ferraro RN)185 (Paused - Provider: Jenni Thomas RN)185 (Restarted - Provider: Jenni Thomas RN)185 (Paused - Provider: Jenni Thomas RN)185 (Restarted - Provider: Jenni Thomas RN)190 (Paused - Provider: Jenni Thomas RN)190 (Restarted - Provider: Jenni Thomas RN)1912 (Paused - Provider: Jenni Thomas RN)1912 (Restarted - Provider: Jenni Thomas RN)1951 (Paused - Provider: Jenni Thomas RN)1951 (Restarted - Provider: Jenni Thomas RN)2024 (Paused - Provider: Jenni Thomas RN)2024 (Restarted - Provider: Jenni Thomas RN)2031 (Paused - Provider: Jenni Thomas RN)2031 (Restarted - Provider: Jenni Thomas RN)2133 (Stopped - Provider: Jenni Thomas RN)2138 (Restarted - Provider: Jenni Thomas RN) 0031 (Rate/Dose Verify - Provider: Jenni Thomas RN)0151 (New Bag - Provider: Jenni Thomas RN)1829 (Stopped - Provider: Pricila Ferreira RN) PRN Medication Order 06/28/2021 06/29/2021 06/30/2021 albuterol inhaler 2 puff 2 puff, Inhalation, Every 6 hours PRN (RT), wheezing, shortness of breath, Starting on Sun06/28/21 at 1742, SPACER REQUIRED FOR ADMINISTRATION 1337 (MAR Hold - Provider: Transfer Provider, Automatic - Reason: Patient not available)1555 ([facility] Unhold - Provider: Transfer Provider, Automatic) EPINEPHrine [...] pain, Starting on Sun06/28/21 at 1734 1337 ([facility] Hold - Provider: Transfer Provider, Automatic - Reason: Patient not available)1555 ([facility] Unhold - Provider: Transfer Provider, Automatic) HYDROmorphone (DILAUDID) injection 2 mg (CANCELED) 2 mg, Intravenous, Every 3 hours PRN, moderate to severe pain, For pain if Dilaudid doesn't, Starting on Sun06/28/21 at 1734 1801 (Given - Provider: Gilmer Khanna RN)2314 (Given - Provider: Nathalie Ayala RN) 0324 (Given - Provider: Radha Alexander RN)0650 (Given - Provider: Nathalie Ayala RN)1136 (Given - Provider: Sarahi Ferraro RN)1337 ([facility] Hold - Provider: Transfer Provider, Automatic - Reason: Patient not available)1555 ([facility] Unhold - Provider: Transfer Provider, Automatic)1613 (Given - Provider: Sarahi Ferraro RN)1822 (Not Given - Provider: Jenni Thomas RN - Reason: Other - Comment: Medication discontinued.) HYDROmorphone (DILAUDID) injection 2 mg 2 mg, Intravenous, Every 2 hour PRN, moderate to severe pain, For pain if Dilaudid doesn't, Starting on Sun06/29/21 at 1830 1829 (Given - Provider: Sarahi Ferraro RN)2137 (Given - Provider: Jenni Dudte, RN) 0038 (Given - Provider: Amalia Zavala RN)0916 (Not Given - Provider: Pricila Ferreira RN - Reason: Patient/family refused) hydrOXYzine (ATARAX) tablet 25 mg 25 mg, Oral, 3 times daily PRN, itching, Starting on Sun06/28/21 at 1729 1337 ([facility] Hold - Provider: Transfer Provider, Automatic - Reason: Patient not available)1555 ([facility] Unhold - Provider: Transfer Provider, Automatic) ibuprofen (ADVIL,MOTRIN) tablet 600 mg 600 mg, Oral, Every 6 hours PRN, fever 100.4 F or greater, Starting on Sun06/28/21 at 1731, Give with Food Do Not Crush or Chew if administering orally due to bitter taste. May be crushed if given via tube. 1337 ([facility] Hold - Provider: Transfer Provider, Automatic - Reason: Patient not available)1555 ([facility] Unhold - Provider: Transfer Provider, Automatic) metoclopramide (REGLAN) tablet 10 mg 10 mg, Oral, Before meals and at bedtime as needed, nausea, vomiting, Starting on Sun06/28/21 at 1734 1337 ([facility] Hold - Provider: Transfer Provider, Automatic - Reason: Patient not available)1555 ([facility] Unhold - Provider: Transfer Provider, Automatic) metoclopramide [...] respiratory rate is 10 or greater. 1337 ([facility] Hold - Provider: Transfer Provider, Automatic - Reason: Patient not available)1555 ([facility] Unhold - Provider: Transfer Provider, Automatic) naloxone [...] undiluted IV Push over 30 seconds. 1337 ([facility] Hold - Provider: Transfer Provider, Automatic - Reason: Patient not available)1555 ([facility] Unhold - Provider: Transfer Provider, Automatic) naloxone [...] 0923 (Given - Provider: Sarahi Ferraro RN)1337 ([facility] Hold - Provider: Transfer Provider, Automatic - Reason: Patient not available)1555 ([facility] Unhold - Provider: Transfer Provider, Automatic) ondansetron (ZOFRAN-ODT) disintegrating tablet 4 mg 4 mg, Oral, Every 8 hours PRN, nausea, Starting on Sun06/28/21 at 1732, Formulation requires tablet remain in sealed package until immediately prior to dose being administered. 1337 ([facility] Hold - Provider: Transfer Provider, Automatic - Reason: Patient not available)1555 ([facility] Unhold - Provider: Transfer Provider, Automatic) oxyCODONE-acetaminophen (PERCOCET) 5-325 mg per tablet 1 tablet 1 tablet, Oral, Every 4 hours PRN, Moderate Pain, Starting on Sun06/28/21 at 1731 2034 (Given - Provider: Nathalie Ayala RN) 0924 (Given - Provider: Sarahi Ferraro RN)1337 ([facility] Hold - Provider: Transfer Provider, Automatic - Reason: Patient not available)1555 (MAR Unhold - Provider: Transfer Provider, Automatic) phenazopyridine [...] following Casirivimab-Imdevimab monoclonal antibody infusion., Starting on Peg 06/30/21 at 1800, For 4 hours, Prime IV [...] 1411 1036 ($$New Bag$$ - Provider: Carlyn Bridges, RN)1155 (Stopped - Provider: Mary Jo Altamirano, RN) Scheduled Medication Order 02/27/2023 02/28/2023 03/01/2023 ceFAZolin (ANCEF) 2 g in dextrose 100 mL premix IVPB (COMPLETED) 2 g, Intravenous, Administer over 30 Minutes, ONCE, 1 dose, On Sun02/28/23 at 1200, Pharmacist may increase dose to 3g if patient weight greater than 120kg., Pre-op/Pre-Proc 1321 (Given - Provider: Helio Springer APRN-BUSINESS ANALYTICS INTERN) Docusate (COLACE) capsule 100 mg 100 mg, Oral, 2 TIMES DAILY, First dose on Peg 03/01/23 at 0900, Until Discontinued, Post-op/Post-Proc 0936 (Given - Provid er: Meaghan Logan) Enoxaparin Sodium (LOVENOX) injection 40 mg 40 mg, Subcutaneous, DAILY AT BEDTIME, First dose on Sun02/28/23 at 2100, Until Discontinued, Indications: DVT/PE prophylaxis, Post-op/Post-Proc 2043 (Given - Provider: Jocelyn Ulrich, RN) Continuous Medication Order 02/27/2023 02/28/2023 03/01/2023 Lactated ringers IV solution (CANCELED) Intravenous, at 100 mL/hr, CONTINUOUS, Starting on Sun02/28/23 at 1200, Until Sun02/28/23 at 1552, Pre-op/Pre-Proc 1200 ($$New Bag$$ - Provider: Carmen Sanches LPN)1314 (Rate/Dose Change - Provider: Helio Springer APRN-BUSINESS ANALYTICS INTERN)1444 ($$New Bag$$ - Provider: MAYRA Sabillon) Lactated [...] 1st Line, Post-op/Post-Proc bupivacaine-epinephrine (MARCAINE;SENSORCAINE W/EPI) 0.25% -[id number] injection (CANCELED) NEEDED, Starting on Sun02/28/23 at [...] If patient unable to tolerate PO., Post-op/Post-Proc 2042 (See Alternative - Provider: Jocelyn Ulrich RN) diphenhydrAMINE (BENADRYL) tablet 12.5 mg(Linked Group 1) 12.5 mg, Oral, EVERY 6 HOURS NEEDED, Starting on Sun02/28/23 at 1601, Until Peg 03/01/23 at 1438, Itching, Post-op/Post-Proc 2042 (Given - Provider: Jocelyn Ulrich RN) Ondansetron [...] PRN used in previous 12 hours., Post-op/Post-Proc 1623 (Given - Provider: Meaghan Logan)2043 (Given - Provider: Jocelyn Ulrich RN) 0033 (Given - Provider: Ana Syed RN)0500 (Given [...] used in previous 12 hours., Post-op/Post-Proc 162 (See Alternative - Provider: Meaghan Logan)2042 (See Alternative - Provider: Jocelyn Ulrich RN) 0033 (See Alternative - Provider: Ana Syed, RN)0500 (See Alternative - Provider: Jocelyn Ulrich [...] (RR<10, decrease in level of consciousness)., Post-op/Post-Proc 1622 (See Alternative - Provider: Meaghan Logan)2042 (See Alternative - Provider: Jocelyn Ulrich RN) 003 (See Alternative - Provider: Ana Syed, COLETTE)0500 (See Alternative - Provider: Jocelyn Ulrich RN)0936 (See Alternative - Provider: Meaghan Logan) oxyCODONE (ROXICODONE) tablet 5 mg(Linked Group 3) 5 mg, Per NG tube, EVERY 4 HOURS NEEDED, Starting on Sun02/28/23 at 1601, Until Peg 7 at 1438, Moderate Pain, Use as initial dose. Higher dose may be administered if lower dose was previously documented as ineffective and did not result in adverse effects (RR<10, decrease in level of consciousness)., Post-op/Post-Proc 162 (See Alternative - Provider: Meaghan Logan)2042 (See Alternative - Provider: Jocelyn Ulrich RN) 0033 (See Alternative - Provider: Ana Heydinger, RN)0500 (See Alternative - Provider: Jocelyn Ulrich RN)0936 (See Alternative - Provider: Meaghan Logan) Phenol (CHLORASEPTIC) 1.4 % oral spray 1 spray 1 spray, Mouth/Throat, NEEDED, Starting on Sun02/28/23 at 1601, Until Sun03/01/23 at 1438, Sore Throat, Post-op/Post-Proc Promethazine (PHENERGAN) 12.5 mg in Sodium chloride 0.9%, with overfill 60.5 mL (total volume) IVPB(Linked Group 4) 12.5 mg, Intravenous, at 121-242 mL/hr, Administer over 15-30 Minutes, EVERY 6 HOURS NEEDED, Starting on Sun02/28/23 at 1601, Until Sun03/01/23 at 1438, Other, Refractory Nausea / Vomiting, Extravasation Risk, Post-op/Post-Proc Promethazine (PHENERGAN) tablet 25 mg(Linked Group 4) 25 mg, Oral, EVERY 6 HOURS NEEDED, Starting on Sun02/28/23 at 1601, Until Peg 03/01/23 at 1438, Refractory Nausea Vomiting, Post-op/Post-Proc Sodium chloride (PF) 0.9 % injection 5 mL 5 mL, Intravenous, ADMINISTER DIRECTED, Starting on Sun02/28/23 at 1601, Until Sun03/01/23 at 1438, Flush, Per IV Care Guidelines, Post-op/Post-Proc Linked Groups Order Group 1: diphenhydrAMINE (BENADRYL) tablet 12.5 mgJump to med 12.5 mg, Oral, EVERY 6 HOURS NEEDED, Starting on Sun02/28/23 at 1601, Until Peg 03/01/23 at 1438, Itching, Post-op/Post-Proc Or diphenhydrAMINE (BENADRYL) injection 12.5 mgJump to med 12.5 mg, Intravenous, EVERY 6 HOURS NEEDED, Starting on Sun02/28/23 at 1601, Until Sun03/01/23 at 1438, Itching
If patient unable to [...] Care Teams (unrecognized sec tion and content) [employer] Relationship Specialty Start Date End Date Margaret Hernandez CNP [address] [place] [address] PCP - General Nurse Practitioner 02/08/19 [employer] Relationship Specialty Start Date End Date Margaret Hernandez APRN-CNP PCP - General Certified Nurse Practitioner 01/16/18 [employer] Relationship Specialty Start Date End Date Margaret Hernandez CNP [address] [place] [address] PCP - General Nurse Practitioner 02/08/19 [employer] Relationship Specialty Start Date End Date Margaret Hernandez APRN-CNP PCP - General Certified Nurse Practitioner 01/16/18 [employer] Relationship Specialty Start Date End Date Margaret Hernandez APRN-CNP PCP - General Certified Nurse Practitioner 01/16/18 [employer] Relationship Specialty Start Date End Date Hernandez DONTAE Robles-SENIOR ECOLOGIST PCP - General Certified Nurse Practitioner 01/16/18 [employer] Relationship Specialty Start Date End Date Margaret Hernandez APRN-SENIOR ECOLOGIST PCP - General Certified Nurse Practitioner 01/16/18 [employer] Relationship Specialty Start Date End Date Margaret Hernandez APRN-SENIOR ECOLOGIST PCP - General Certified Nurse Practitioner 01/16/18 [employer] Relationship Specialty Start Date End Date Margaret Hernandez APRN-SENIOR ECOLOGIST PCP - General Certified Nurse Practitioner 01/16/18 [employer] Relationship Specialty Start Date End Date Margaret Hernandez APRN-SENIOR ECOLOGIST PCP - General Certified Nurse Practitioner 01/16/18 [employer] Relationship Specialty Start Date End Date Margaret Hernandez APRN-SENIOR ECOLOGIST PCP - General Certified Nurse Practitioner 01/16/18 [employer] Relationship Specialty Start Date End Date Margaret Hernandez APRN-SENIOR ECOLOGIST PCP - General Certified Nurse Practitioner 01/16/18 [employer] Relationship Specialty Start Date End Date Margaret Hernandez ADVERTISING SALES EXECUTIVE-SENIOR ECOLOGIST PCP - General Certified Nurse Practitioner 01/16/18 [employer] Relationship Specialty Start Date End Date Margaret Hernandez ADVERTISING SALES EXECUTIVE-SENIOR ECOLOGIST PCP - General Certified Nurse Practitioner 01/16/18 [employer] Relationship Specialty Start Date End Date Margaret Hernandez ADVERTISING SALES EXECUTIVE-SENIOR ECOLOGIST PCP - General Certified Nurse Practitioner 01/16/18 [employer] Relationship Specialty Start Date End Date Margaret Hernandez CNP [address] [place] [address] PCP - General Nurse Practitioner 02/08/19 [employer] Relationship Specialty Start Date End Date Margaret Hernandez APRN-CNP PCP - General Certified Nurse Practitioner 01/16/18 [employer] Relationship Specialty Start Date End Date Margaret Hernandez APRN-CNP PCP - General Certified Nurse Practitioner 01/16/18 [employer] Relationship Specialty Start Date End Date Margaret Hernandez CNP [address] [place] [id number] PCP - General Nurse Practitioner 02/08/19 [employer] Relationship Specialty Start Date End Date Margaret Hernandez CNP [address] [place] [id number] PCP - General Nurse Practitioner 02/08/19 [employer] Relationship Specialty Start Date End Date Margaret Hernandez CNP [address] [place] [id number] PCP - General Nurse Practitioner 02/08/19 [employer] Relationship Specialty Start Date End Date Margaret Hernandez APRN-CNP PCP - General Certified Nurse Practitioner 01/16/18 [employer] Relationship Specialty Start Date End Date Margaret Hernandez CNP [address] [place] [id number] PCP - General Nurse Practitioner 02/08/19 [employer] Relationship Specialty Start Date End Date Margaret Hernandez APRN-CNP PCP - General Certified Nurse Practitioner 01/16/18 [employer] Relationship Specialty Start Date End Date Margaret Hernandez APRN-CNP PCP - General Certified Nurse Practitioner 01/16/18 [employer] Relationship Specialty Start Date End Date Margaret Hernandez APRN-CNP PCP - General Certified Nurse Practitioner 01/16/18 [employer] Relationship Specialty Start Date End Date Margaret Hernandez APRNGurjitSENIOR ECOLOGIST PCP - General Certified Nurse Practitioner 01/16/18 [employer] Relationship Specialty Start Date End Date Margaret HernandezMAURICIO [address] [place] [address] PCP - General Nurse Practitioner 02/08/19 [employer] Relationship Specialty Start Date End Date Margaret Hernandez APRN-SENIOR ECOLOGIST PCP - General Certified Nurse Practitioner 01/16/18 [employer] Relationship Specialty Start Date End Date Margaret [...] BE BASED ON THE PRIMARY CLINICAL RECORDS. [facility] [employer] provides no warranty or guarantee of the accuracy or completeness of information in this document.
[2023-09-14] MEDS: Lactated Ringers 1,000 ML 15 ML IV (06:24)
--- NOTE | 2023-09-14 07:16 | PCM.HP.BLA ---
History and Physical Date of Admission: 09/14/23 The patient presents for left breast reconstruction following mastectomy previously performed. Assessment & Plan Assessment/Plan (1) Acquired absence of left breast: (2) History of breast cancer in female: PLAN: Plan There are no changes to the H&P dated 09/03/23. She presents with absence left breast and here for left breast reconstruction with placement of a tissue pharmaceutical specialty representative.
[2023-09-14] MEDS: Cefazolin 2 GM in 0.9% Normal Saline (100mL Bag) 100 ML IV (07:25)
[2023-09-14] MEDS: Gentamicin 80 MG/2 ML Vial ×2 (07:58→09:56)
[2023-09-14] MEDS: Methylene Blue 1% 100 MG/10 ML VIAL (08:50)
[2023-09-14] MEDS: Bupivacaine 0.25% 30 ML Vial (11:08)
--- NOTE | 2023-09-14 11:19 | EX.PCM.DISCH ---
Discharge Instructions Dressing / Incision Additional Dressing/Incision Instructions:: Keep your back elevated. Follow the instructions given in the office. Follow Up Care Please Follow Up With: Patience Elam MD When: In 1 week Test Results: Test results from this visit will be discussed in further detail at your follow-up appointment, if applicable. Discharge Plan Admission Attending Provider: Patience Elam Primary Care Provider: Margaret Hernandez Discharge Orders/Prescriptions Prescriptions: No Action albuterol sulfate 90 mcg/actuation HFA aerosol inhaler 2 puff inhalation Q6H PRN (Reason: shortness of breath or wheezing) Patient Comments: INHALE 2 PUFFS BY MOUTH EVERY 4 HOURS NEEDED FOR SHORTNESS OF BREATH FOR WHEEZING atorvastatin 20 mg tablet 20 mg PO DAILY Patient Comments: TAKE 1 TABLET BY MOUTH ONCE DAILY fluoxetine 40 mg capsule 40 mg PO DAILY Patient Comments: TAKE 1 CAPSULE BY MOUTH ONCE DAILY hydroxyzine HCl 25 mg tablet 25 mg PO TID PRN (Reason: anxiety) cephalexin 500 mg capsule 500 mg PO BID Qty: 14 0RF Referrals / Follow Up: Margaret Hernandez, WEB DEVELOPMENT MANAGER-C [Primary Care Provider] - Disposition Disposition (needs filled in before D/C Order can be placed): Home, Self Care
--- NOTE | 2023-09-14 11:20 | OP.PCM_ITS ---
Problems Associated Problem List Diagnoses (1) History of breast cancer in female: (2) Acquired absence of left breast: (3) History of nicotine use: Report of Operation Date of Procedure: 09/14/23 Pre-Operative Diagnosis: Acquired absence left breast status post mastectomy for cancer Post-Operative Diagnosis: Same Surgery/Procedure Performed:: Left breast reconstruction with placement of tissue insurance sales producer (100 cc initial fill); placement of acellular dermal matrix Surgeon: Patience Elam ceramic chemist: COLETTE GOMEZict business development manager Type of Anesthesia: General Estimated Blood Loss (mL): 50 cc Description of Procedure: The patient presents for reconstruction of the left breast using a tissue expand er. Her mastectomy was done in February last year, but because of the patient's ongoing nicotine use, immediate reconstruction was declined. The patient now presents having stop nicotine use for minimum of 3 months. She presents for reconstruction with a tissue insurance sales producer. Options regarding breast reconstruction been thoroughly reviewed with the patient including the advantages and disadvantages of each. The patient elects to have reconstruction using a tissue insurance sales producer. She is aware that further surgery may be needed to achieve an approximation in the appearance of the opposite side. She is marked in the preop holding area prior to surgery. She had been preoperatively assessed for the size and style of the insurance sales producer. The insurance sales producer is a [place] remote port spectrum postoperative adjustable implant. The patient was brought to the operating room and placed under general anesthesia in the supine position. Care was taken to pad all pressure points, apply a warming blanket, sequential compression stockings and a [place] catheter. The breast and chest are prepped and draped in the usual sterile fashion. We initially began with making an incision through the previous mastectomy site. This is carried down through the subcutaneous tissue until the muscular fascia is identified. The inferior flap of the pectoralis major is identified and blunt dissection creates the submuscular pocket for the coverage of the medial and superior aspect of the implant. Inferiorly and laterally, we create the pocket for the implant and ADM. After assuring hemostasis, the inframammary crease is marked along the fascia. A template is made from this and the ADM which is the Flex HD, is cut according to the template. It had been thoroughly rinsed before hand. Orientation is maintained and the epidermal aspect is oriented away from contact with the implant. Vicryl sutures were used to initially anchor the ADM in position. Following this, PDS suture is used to approximate the inframammary crease of the ADM to the fascia in a running fashion. A subcutaneous pocket is also made for the port of the insurance sales producer. The implant is opened and tested for leaks. It is then placed in a dilute anti biotic solution. The port is also prepared with a metal connector and silk sutures. Prior to insertion of the insurance sales producer, small amount of Fern is injected in the pocket. The implant is inserted and oriented. The connecting tubing is brought from the submuscular/sub-ADM pocket to the subcutaneous pocket in order to connect with the port. The port is connected to the tubing. 2 anchoring sutures of Vicryl were then used to anchor the port in the correct orientation and the previously made subcutaneous tunnel. This lies inferior to the breast on top of the inferior rib cage area. The ADM and pectoralis major are then closed with a running PDS suture. A small amount of Fern is placed in the subcutaneous pocket. A few small holes were made in the inferior aspect of the flex HD. Approximately 100 cc of methylene blue tinted injectable saline are then injected by accessing the port with a butterfly needle provided with the insurance sales producer. Appropriate filling of the tubing and implant is noted. The incision is then closed using a few Vicryl sutures in the deep subcutaneous fat. The incision was then closed in 3 layers using a 3 oh STRATAFIX suture. Skin edges are approximated in a subcuticular fashion. Further reinforcement the closure is done with interrupted Prolene suture. Xeroform is placed on the incision along with fluff gauze and she is placed in a surgery bra. She tolerated the procedure well was taken to the recovery area in an awake and stable condition. Needle and sponge counts are correct. Complications None Admit VTE Documentation VTE Mechan Device Prophylaxis: SCD's
--- NOTE | 2023-09-14 13:26 | SUR.PHASEI ---
pt complains of right lip numbness, pt right lip swollen. anesthesia aware, possibly from intubation. pt doesn't feel painful. ice chips and moisturizer given.
[2023-09-14] MEDS: Oxycodone/Apap 5/325 Tablet PO (14:00)
== END 2023-09-14 15:02 | disposition home or self-care (01) ==
LOC: SDC 05:45 → AC 05:45
PROVIDERS: PCP Nurse Practitioner Family; Referring Provider Plastic Surgery; Visit Provider Plastic Surgery
PROC: (CPT 19357; principal; 2023-09-14 07:10)
DX: N65.1 Disproportion of reconstructed breast (principal); Z90.12 Acquired absence of left breast and nipple; Z87.891 Personal history of nicotine dependence; Z85.3 Personal history of malignant neoplasm of breast; E66.9 Obesity, unspecified; Z68.32 Body mass index [BMI] 32.0-32.9, adult; E78.2 Mixed hyperlipidemia; Z80.3 Family history of malignant neoplasm of breast; Z79.899 Other long term (current) drug therapy
CPT/HCPCS: 19357; 15777; 00402; J7120; J2405; J3475

== ENCOUNTER 2024-08-01 05:42 | Day surgery (SDC) | payer BC, SELFPAY ==
[2024-08-01] VITALS (9 sets, daily range): BP systolic 100–130; BP diastolic 57–102; PULSE 63–86; RESP 14–18; TEMP 35.9–36.4; O2SAT 90–98; BMI 36.1
[2024-08-01] MEDS: 0.9% Normal Saline (1000mL) 1,000 ML 15 ML IV (06:28)
--- NOTE | 2024-08-01 07:06 | PRE.ANES_ITS ---
ASA Classification* ASA Classification ASA Classification: 2 Assessment & Plan Anesthesia* Anesthesia Assessment Anesthesia Assessment: Discussed sedation and/or anesthesia options, risks, benefits, and alternatives with patient/parents/legal guardian/POA. Questions invited. The patient/parents/legal guardian/POA seems to understand and agrees to proceed with anesthesia plan. Reviewed the physical assessment, medical history, allergy history and patient home medications list prior to surgery/procedure/anesthetic and documented any changes. Performed airway and anesthesia risk assessments. Anesthesia Type Anesthesia Type: General Anesthesia Focused Assessment* Temperature: 97.3 F Pulse Rate: 69 Blood Pressure: 130/75 Respiratory Rate: 18 Pulse Ox: 98 Airway Assessment Mouth opens: >3 cm Mallampati Score: II Focused Labs Anesthesia Preop lab: CBC WBC 10.2 K/mm3 (4.4-11.0) 08/22/23 16:10 RBC 4.45 M/mm3 (4.2-5.4) 08/22/23 16:10 Hgb 13.0 g/dL (12.0-15.0) 08/22/23 16:10 Hct 39.0 % (37-47) 08/22/23 16:10 Plt Count 295 K/mm3 (150-450) 08/22/23 16:10 CHEMISTRY Potassium 4.0 mmol/L (3.5-5.1) 08/22/23 16:10 Sodium 140 mmol/L (136-145) 08/22/23 16:10 BUN 14 mg/dL (7-18) 08/22/23 16:10 Creatinine 0.64 mg/dL (0.55-1.02) 08/22/23 16:10 Glucose 102 mg/dL (74-106) 08/22/23 16:10 COAG Pre-Assessment Diagnosis/Proposed Procedure Planned Operative Procedure(s): (L) 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 When Was Last Pacemaker Check QUESTION #4 FULL TEXT: You/Your Family Experience fever (hyperthermia) with Anesthesia Last Oral Intake Last Oral intake: Last Oral Intake NPO since 22:30 08/01/24 06:15 Meds taken in AM with sips of No 08/01/24 06:15 water? Meds patient instructed to take am of surgery PONV PONV - director of institutional research: PONV - director of institutional research Female Yes 07/18/24 09:25 HX of Motion Sickness No 07/18/24 09:25 HX of N/V After Surgery No 07/18/24 09:25 Non-Smoker Yes 07/18/24 09:25 Duration of Surgery greater No 07/18/24 09:25 than 60 minutes Number of Risk Factors 2 07/18/24 09:25 PONV Score Moderate Risk 07/18/24 09:25 Height & Weight Height & Weight: Anesthesia: Height & Weight Height 5 ft 2 in 08/01/24 06:15 Weight: 89.721 kg 08/01/24 06:15 Body Mass Index (BMI) 36.1 08/01/24 06:15 Respiratory Assessment Respiratory Assessment - director of institutional research: Respiratory Tract Infection Hx - director of institutional research Hx Respiratory Tract Infection No 07/18/24 09:25 STOP Sleep Apnea STOP Sleep Apnea - director of institutional research: STOP Sleep Apnea - director of institutional research Hx Hypertension No 07/18/24 09:25 Hx Sleep Apnea No 07/18/24 09:25 CPAP BIPAP Do you snore loudly (louder No 07/18/24 09:25 than talking or can be heard Do you often feel tired/ No 07/18/24 09:25 fatigued/ sleepy during daytime? Has anyone observed you stop No 07/18/24 09:25 breathing during sleep? STOP Results Negative 07/18/24 09:25 QUESTION #5 FULL TEXT : Do you snore loudly (louder than talking or can be heard through closed doors)? Tobacco Use History Tobacco Use History - director of institutional research: Tobacco Use History - director of institutional research Tobacco Use Smoking Status Former smoker 07/18/24 09:25 Hx Tobacco Use Yes 07/18/24 09:25 Years Smoking Packs Smoked per Day Smoking Cessation Date was Yes - quit smoking within 15 07/18/24 09:25 within the last 15 years years Hx Smoking Cessation Date 01/11/23 07/18/24 09:25 Hx Smoking Cessation Counseling Hematologic Medial History Hematologic Hx - director of institutional research: Hematologic Medical Hx - clinical documentation consultant Hx of Blood Transfusion No 07/18/24 09:25 Hx of Transfusion in last 3 No 07/18/24 09:25 Months Date of Last Transfusion (if within last 3 months) Ever experience any problems No 07/18/24 09:25 with transfusion(s)? Specify any problems Hx of Preganancy in last 3 N/A 07/18/24 09:25 Months Nurse Filling Out Transfusion NBUCHER 07/18/24 09:25 & Questions: Date: 07/18/24 07/18/24 09:25 Time: 09:26 07/18/24 09:25 Patient unable to answer at this time (ie. confused, unrespo /Reproduction History /Reproductive History - director of institutional research: /Reproductive Hx- director of institutional research Hx Now No 07/18/24 09:25 Gestational Age (in weeks): EDC: Hx Hx Para Hx Section SAB No 07/18/24 09:25 Active Medications Active Medications: Current Medications Generic Name Dose Route Start Last Admin Trade Name Freq PRN Reason Stop Dose Admin Cefazolin Sodium 2 gm/ N/A 20 mls @ 400 mls/hr 08/01/24 07:30 IV 08/01/24 07:32 PREOP ONE Sodium Chloride 1,000 mls @ 15 mls/hr 08/01/24 05:55 08/01/24 06:28 IV 08/06/24 19:14 15 mls/hr .Q48H SASHA Administration Protocol PFSH Medical History Wears hearing aid Loss of hearing Wears glasses Anxiety Depression Bipolar disorder History of kidney stones High cholesterol Migraine headache Heartburn Former smoker Left breast mass History of stent insertion of renal artery Chronic headaches Renal calculi Asthma Hyperlipidemia Anxiety and depression Home Medications ?Medication ?Instructions ?Recorded ?Last Taken ?Type albuterol sulfate 90 mcg/actuation 2 puff inhalation Q6H PRN 03/28/23 Unknown History aerosol inhaler shortness of breath or wheezing atorvastatin 20 mg tablet 20 mg PO DAILY 03/28/23 07/31/24 History fluoxetine 40 mg capsule 40 mg PO DAILY 03/28/23 07/31/24 History hydroxyzine HCl 25 mg tablet 25 mg PO TID PRN anxiety 03/28/23 09/13/23 History Allergy/AdvReac Type Severity Reaction Status Date / Time No Known Allergies Allergy Verified 08/01/24 06:13 Family History Father Anxiety Asthma Arthritis Depression Diabetes Heart disease Hypertension High cholesterol Kidney disease Melanoma Skin cancer Mother Anxiety Arthritis Asthma Diabetes Depression Heart disease High cholesterol Hypertension Osteoporosis Sister Asthma Depression Diabetes Brother Asthma Depression Diabetes Other Hyperlipidemia Surgical History History of left mastectomy (~02/2023) History of hysterectomy History of hammertoe correction History of tonsillectomy and adenoidectomy Social History Smoking Status: Former smoker Tobacco: How many years used: 30 alcohol intake: never substance use type: does not use additional social history: pt quit smoking 3+ months ago, denies vaping, marijuana use, edibles, illegal drugs, Aspirin use. Uses Ibuprofen PRN Review of Systems (Anesthesia) ROS Narrative System reviewed and no additional complaints, except as documented.
--- NOTE | 2024-08-01 07:20 | PCM.HP.BLA ---
History and Physical Date of Admission: 08/01/24 The patient is examined and there are no changes to the H&P dated 07/23/24. Informed consent is obtained for remedial masseur port removal. The patient is marked in the pre-op holding area prior to surgery. Assessment & Plan Assessment/Plan (1) Status post left breast reconstruction: (2) History of breast cancer in female: PLAN: Plan For remedial masseur port removal
[2024-08-01] MEDS: Cefazolin 2 GM in Syringe IV (07:25)
[2024-08-01] MEDS: Lidocaine 1% /Epi 1:100 (20ml) 20 ML Vial (07:54)
[2024-08-01] MEDS: Bupivacaine 0.25% 30 ML Vial (08:23)
--- NOTE | 2024-08-01 08:33 | DCINST_ITS ---
Discharge Instructions Dressing / Incision Additional Dressing/Incision Instructions:: Follow the instructions given in the office. Maintain elevation of your back at night. Follow Up Care Please Follow Up With: Patience Elam MD When: In 1 week Test Results: Test results from this visit will be discussed in further detail at your follow- up appointment, if applicable. Discharge Plan Admission Attending Provider: Patience Elam Primary Care Provider: Margaret Hernandez Instructions Print Language: Citizen Of [place] Discharge Orders/Prescriptions Prescriptions: No Action albuterol sulfate 90 mcg/actuation HFA aerosol inhaler 2 puff inhalation Q6H PRN (Reason: shortness of breath or wheezing) Patient Comments: INHALE 2 PUFFS BY MOUTH EVERY 4 HOURS NEEDED FOR SHORTNESS OF BREATH FOR WHEEZING atorvastatin 20 mg tablet 20 mg PO DAILY Patient Comments: TAKE 1 TABLET BY MOUTH ONCE DAILY fluoxetine 40 mg capsule 40 mg PO DAILY Patient Comments: TAKE 1 CAPSULE BY MOUTH ONCE DAILY hydroxyzine HCl 25 mg tablet 25 mg PO TID PRN (Reason: anxiety) Referrals / Follow Up: Margaret Hernandez, AUTOMOTIVE QUALITY ENGINEER-C [Primary Care Provider] - Disposition Disposition (needs filled in before D/C Order can be placed): Home, Self Care
--- NOTE | 2024-08-01 08:34 | OP.PCM_ITS ---
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: Yes System Support Specialist: David Soliman Tasks completed by night assistant: Retracting Type of Anesthesia: General RN Documented Start/Stop Times: Operation Date: 08/01/24 07:30 Case Time Into Pre-Op 08/01/24 05:50 Out of Pre-Op 08/01/24 07:21 Anesthesia Start 08/01/24 07:25 Into Room 08/01/24 07:25 Procedure Start 08/01/24 07:54 Procedure Start Time: 07:54 Procedure Stop Time: 08:26 Select all DRAINS/GRAFTS/IMPLANTS that apply: None Estimated Blood Loss: Minimal Specimen collected: No Description of surgery: The patient presents today status post satisfactory tissue expansion of her left breast. She presents for removal of the tissue accounts receivable coordinator port having achieved the size that she wanted to be. A postop adjustable tissue accounts receivable coordinator with removable port had been utilized for reconstruction. The patient is marked in the preop holding area prior to surgery. Informed consent was obtained. The patient is brought to the operating room and placed under general anesthesia in the supine position. Care is taken to pad all pressure points, apply sequential compression stockings, and a warming blanket. The breast and chest are prepped and draped in the usual sterile fashion. 1% Xylocaine with epinephrine is injected along the proposed incision line. We initially began with making an incision in the inframammary crease over the palpable accounts receivable coordinator port. Following this, dissection continues through the subcutaneous tissue until the port is exposed. The port is then mobilized and the tubing is pulled sharply until it is snapped. The removed tubing is checked for the appropriate separation point which is confirmed. The wound is checked for hemostasis which is controlled with cautery. The wound is then closed in layers. 2 Monocryl sutures are used to define the inframammary crease by suturing from the dermis to the underlying fascia. Following this, a 2 layer closure with V-Loc is performed. Incision is injected with Marcaine. Xeroform is placed on the incision along with fluff gauze. She is placed in a surgery bra. She tolerated the procedure well was taken to the recovery area in an awake and stable condition. Needle and sponge counts are correct. Surgical Findings: As above Complications Complications: No Admit VTE Documentation VTE Mechan Device Prophylaxis: SCD's
--- NOTE | 2024-08-01 08:47 | PCM.POST.ANE ---
Anesthesia: Postop Eval I Current Vital Signs Temperature: 96.7 F Pulse Rate: 66 Blood Pressure: 112/101 Respiratory Rate: 16 Pulse Ox: 92 Oxygen Delivery Method: Room Air Assessment Airway patent: Yes Spontaneous unlabored respirations: Yes Mental status: Asleep (Arousable) nausea: No Vomiting: No Anesthesia Complication: No Fluid Hydration Crystalloid volume administer (ml): 700 Total IV fluid infused: 700 Progress Note Anesthesia document: Postop Eval 1 completed: Yes
--- NOTE | 2024-08-01 09:11 | PCM.POSTANE2 ---
Anesthesia Postop Eval I Sum Postop Eval Completion status Anesthesia document: Postop Eval 1 completed: Yes Anesthesia Postop Eval I Summary Anesthesia Postop Eval I Summary: Anesthesia Postop Eval I: Assessment Summary Airway patent Yes 08/01/24 08:51 Spontaneous unlabored Yes 08/01/24 08:51 respirations Mental status Asleep - Arousable 08/01/24 08:51 nausea No 08/01/24 08:51 Vomiting No 08/01/24 08:51 Anesthesia Postop Eval I: Fluid Summary Crystalloid volume administer 700 08/01/24 08:51 (ml) Colloids volume administered ( ml) Blood Product volume administered (ml) Total IV fluid infused 700 08/01/24 08:51 Anesthesia Postop Eval I: Summary Notes Anesthesia Complication No 08/01/24 08:51 Anesthesia Complication Comment: Post-operative progress note Anesthesia: Postop Eval II Evaluation Mental status: Awake Pain Level: 1 nausea: No Vomiting: No
[2024-08-01] MEDS: diazePAM 5 MG Tablet PO (09:37)
== END 2024-08-01 10:28 | disposition home or self-care (01) ==
LOC: SDC 05:44 → AC 05:44
PROVIDERS: PCP Nurse Practitioner Family; Referring Provider Plastic Surgery; Visit Provider Plastic Surgery
PROC: (CPT 19357; principal; 2024-08-01 07:15)
DX: Z45.812 Encounter for adjustment or removal of left breast implant (principal); Z90.12 Acquired absence of left breast and nipple; Z85.3 Personal history of malignant neoplasm of breast
CPT/HCPCS: 11971; 00400